=== PATIENT | female | born 1960 | race Caucasian/White ===

== ENCOUNTER → 2018-02-05 15:15 | Outpatient (CLI) | payer BC, SELFPAY ==
--- NOTE | 2018-02-05 15:15 | DT_ITS ---
This patient was seen during an EMR downtime February 04, 2018 - February 11, 2018. This patient may have a combination of paper and electronic documentation or all paper documentation. All documentation is viewable within the e-chart portion of [facility] for each patient visit.
[2018-02-11 20:33] LABS: Free T3 2.1 pg/mL (2.18-3.98); T4 Free Direct 1.25 ng/dL (0.76-1.46)
== END ==
PROVIDERS: Family Provider Family Medicine; PCP Family Medicine; Visit Provider Nurse Practitioner
DX: Z85.850 Personal history of malignant neoplasm of thyroid (principal)
CPT/HCPCS: 36415; 84432; 84439; 84443; 84481; 86800

== ENCOUNTER → 2018-04-19 10:12 | Outpatient (CLI) | payer BC, SELFPAY ==
[2018-04-19 12:57] LABS: Free T3 2.3 pg/mL (2.18-3.98); Thyroid Stim Hormone (TSH) 0.19 uIU/mL (0.358-3.74)
[2018-04-23 10:21] LABS: Vitamin D 1,25-Dihydroxy 43.5 pg/mL (19.9-79.3)
== END ==
PROVIDERS: Family Provider Family Medicine; PCP Family Medicine; Visit Provider Nurse Practitioner
DX: E20.9 Hypoparathyroidism, unspecified (principal); E03.9 Hypothyroidism, unspecified
CPT/HCPCS: 36415; 82330; 82652; 84443; 84481

== ENCOUNTER → 2019-02-21 11:49 | Outpatient (CLI) | payer BC, SELFPAY ==
[2019-02-21 11:55] LABS: Bacteria 0 SEEN /hpf (None Seen); Mucous, Urine 0 SEEN /hpf (<or=2+); Red Blood Cells-Urine 0 SEEN /hpf (0-5); Squamous Epithelial Cells - UA 0 SEEN /hpf (5-10); White Blood Cells 0 SEEN /hpf (0-5)
[2019-02-21 14:16] LABS: Absolute Lymphocyte Count 2.41 X10^3/ul (0.83-4.51); Absolute Neutrophil Count 2.7 X10^3/uL (2.0-7.7); Basophil# 0.05 X10^3/uL; Basophil% 0.9 % (0-1); Eosinophil# 0.08 X10^3/uL; Eosinophils% 1.4 % (0-5); Hematocrit 38.9 % (37-47); Lymphocyte # 2.41 X10^3/ul (4.0); Lymphocyte % 42.9 % (19-41); Mean Corp Hgb Conc 33.4 g/gl (32-36); Mean Corpuscular Hgb 30.9 pg (27.0-32.0); Mean Corpuscular Volume 92.4 fL (81-99); Mean Platelet Vol. 11.1 fl (6.2-12.0); Monocyte% 7.1 % (0-10); Neutrophil # 2.67 X10^3/uL (2.7-7.7); Neutrophil % 47.5 % (47-70); Platelet Count 207 K/mm3 (150-450); RBC Distribution Width CV 13.4 % (11.6-14.6); RBC Distribution Width SD 44.9 fl (35.1-43.9); Red Blood Count 4.21 M/mm3 (4.2-5.4); White Blood Count 5.6 K/mm3 (4.4-11.0)
[2019-02-21 14:18] LABS: POSITIVE COUNT NO; POSITIVE DIFFERENTIAL NO; POSITIVE MORPHOLOGY NO
[2019-02-21 14:30] LABS: ALB/GLOB Ratio 1.4 RATIO (0.9-2.4); AST(SGOT) 15 U/L (15-37); Alanine Aminotransfer ALT/SGPT 18 U/L (13-56); Albumin, Serum 4.1 g/dL (3.2-5.0); Alkaline Phosphatase 78 U/L (45-117); Anion Gap 5 (5-15); BUN 20 mg/dL (7-18); BUN/Creat Ratio 21.7 RATIO (10-20); Calcium,Total 8.4 mg/dL (8.5-10.1); Chloride 108 mmol/L (98-107); Creatinine, Serum 0.92 mg/dL (0.55-1.02); EST Glomerular Filtration Rate 66 mL/min (>60); Est Glom Filt Rate - Afr Amer 80 mL/min (>60); Globulin 2.9 g/dL (2.2-4.2); Glucose 92 mg/dL (74-106); Potassium 3.7 mmol/L (3.5-5.1); Sodium Level 139 mmol/L (136-145); T4 Free Direct 1.13 ng/dL (0.76-1.46); Thyroid Stim Hormone (TSH) 0.91 uIU/mL (0.358-3.74)
[2019-02-21 14:41] LABS: Vitamin D,25 Hydroxy 61.7 ng/mL (29.95-100.01)
[2019-02-21 15:13] LABS: Color, Urine Yellow (Yellow); Glucose, Dipstick Normal (Normal); Ketone-Dipstick Negative (Negative); Leukocyte Esterase-Dipstick Negative /ul (Negative); Nitrite-Dipstick Negative (Negative); Occult Blood-Urine 50 /ul (Negative); Protein-Dipstick Negative (Negative); Urine Bilirubin Dipstick Negative (Negative); Urine Clarity Clear (Clear); Urine Urobilinogen Normal (Normal)
[2019-02-24 17:14] LABS: Anti-Thyroglobulin AB < 1.0 IU/mL (0.0-0.9); Thyroglobulin, Serum Qt. < 0.1 ng/mL (1.5-38.5)
== END ==
PROVIDERS: Family Provider Family Medicine; PCP Family Medicine; Referring Provider Family Medicine; Visit Provider Family Medicine
DX: E89.0 Postprocedural hypothyroidism (principal); E55.9 Vitamin D deficiency, unspecified; Z72.0 Tobacco use; Z82.49 Family history of ischemic heart disease and other diseases of the circulatory system
CPT/HCPCS: 36415; 80053; 81001; 82306; 84432; 84439; 84443; 85025; 86800

== ENCOUNTER → 2019-03-31 15:57 | Outpatient (CLI) | payer BC, SELFPAY | PROVIDERS: Family Provider Family Medicine; PCP Family Medicine; Referring Provider Family Medicine; Visit Provider Family Medicine | DX: R60.0 Localized edema (principal); M79.662 Pain in left lower leg | CPT/HCPCS: 93971 ==

== ENCOUNTER → 2019-04-01 10:16 | Outpatient (CLI) | payer BC, SELFPAY ==
[2019-04-01 11:29] LABS: Erythrocyte Sedimentation Rate 4 mm/hr (0-30)
[2019-04-02 13:16] LABS: ANTINUCLEAR ANTIBODIES DIRECT Negative (Negative)
[2019-04-02 16:07] LABS: Cytoplasmic Ab (C-ANCA) <1:20 titer (Neg:<1:20)
[2019-04-03 15:26] LABS: Perinuclear Ab (P-ANCA) <1:20 titer (Neg:<1:20)
== END ==
PROVIDERS: Family Provider Family Medicine; PCP Family Medicine; Referring Provider Family Medicine; Visit Provider Family Medicine
DX: R21 Rash and other nonspecific skin eruption (principal)
CPT/HCPCS: 36415; 85652; 86038; 86256

== ENCOUNTER → 2019-05-13 15:43 | Outpatient (CLI) | payer BC, SELFPAY ==
[2019-05-13 18:36] LABS: ALB/GLOB Ratio 1.4 RATIO (0.9-2.4); AST(SGOT) 20 U/L (15-37); Alanine Aminotransfer ALT/SGPT 21 U/L (13-56); Albumin, Serum 4.2 g/dL (3.2-5.0); Alkaline Phosphatase 88 U/L (45-117); Anion Gap 8 (5-15); BUN 20 mg/dL (7-18); BUN/Creat Ratio 19.6 RATIO (10-20); Calcium,Total 8.7 mg/dL (8.5-10.1); Chloride 109 mmol/L (98-107); Cholesterol 205 mg/dL (200); Creatinine, Serum 1.02 mg/dL (0.55-1.02); EST Glomerular Filtration Rate 59 mL/min (>60); Est Glom Filt Rate - Afr Amer 71 mL/min (>60); Globulin 2.9 g/dL (2.2-4.2); Glucose 82 mg/dL (74-106); High Density Lipoprotein 67 mg/dL; Protein, Total 7.1 g/dL (6.4-8.2); Sodium Level 142 mmol/L (136-145); Triglycerides 122 mg/dL; Very Low Density Lipoprotein 24 mg/dL (5-40)
== END ==
PROVIDERS: Family Provider Family Medicine; PCP Family Medicine; Referring Provider Family Medicine; Visit Provider Family Medicine
DX: Z00.00 Encounter for general adult medical examination without abnormal findings (principal)
CPT/HCPCS: 36415; 80053; 80061

== ENCOUNTER → 2019-05-27 14:39 | Outpatient (CLI) | payer BC, SELFPAY ==
--- NOTE | 2019-05-27 14:41 | CT_ITS ---
STUDY: LOW DOSE CT LUNG CANCER SCREENING REASON FOR EXAM: Female, 58 years old. Long smoking history. RADIATION DOSAGE (If Supplied By Facility): CTDIvol = ( 2.01 ) mGy, DLP = ( 67.71 ) mGycm TECHNIQUE: Transaxial imaging was performed without the administration of intravenous contrast material. Individualized dose optimization techniques were used for this CT. COMPARISON: Chest radiograph 10/04/16. FINDINGS: Heart and great vessels: Heart size normal. No aneurysm of the thoracic aorta. Lungs, pleura: Irregular in contour 1.0 x 0.8 cm diameter soft tissue density nodule anterior aspect of the lingula, series 2 image 70. 0.6 cm oval soft tissue density nodule superior segment right lower lobe series 2 image 138. No other concerning nodules. No pneumonia or acute pulmonary abnormality. Mild subpleural emphysema and scarring lung apices. Mediastinum: No adenopathy or mass or hematoma. Osseous: No fracture or acute osseous abnormality. Chest wall: No concerning findings. Upper abdomen: No acute findings. CT/Low Dose CT Lung Screening IMPRESSION: 1 cm irregular in contour soft tissue density lingular nodule. Lung-RADs 4A. Consider PET/CT, 3 month follow-up CT chest, or referral for biopsy. 0.6 cm nodule superior segment right lower lobe. Mild emphysema. Electronically Signed: Bassam Marcial, at 0:43 EDT Tel , Service support ,
== END ==
PROVIDERS: Family Provider Family Medicine; PCP Family Medicine; Referring Provider Family Medicine; Visit Provider Family Medicine
DX: Z72.0 Tobacco use (principal); Z53.20 Procedure and treatment not carried out because of patient's decision for unspecified reasons
CPT/HCPCS: G0297

== ENCOUNTER → 2019-08-28 14:48 | Outpatient (CLI) | payer BC, SELFPAY ==
--- NOTE | 2019-08-28 14:50 | CT_ITS ---
STUDY: CT CHEST WITHOUT CONTRAST REASON FOR EXAM: Female, 59 years old. FOLLOW UP 0.6 CM LUNG NODULE SUPERIOR SEGMENT RLL ON LOW DOSE SCREENING 05/27/19. SMOKER 1/2 PPD X 40 YEARS. RADIATION DOSAGE (If Supplied By Facility): CTDIvol = ( 6.13 ) mGy, DLP = ( 238.78 ) mGycm TECHNIQUE: Transaxial imaging was performed without the administration of intravenous contrast material. Multiplanar coronal and sagittal images were reformatted. Individualized dose optimization techniques were used for this CT. COMPARISON: 05/27/2019 FINDINGS: 7 x 10 mm mildly lobular nodule in the anterior left upper lobe on image 41 of series 4 is stable when compared with the prior low-dose CT. Smoothly marginated 6 mm nodule in the medial right lower lobe on image 78 is also stable. 3 mm mildly irregular subpleural nodule in the lateral left lower lobe on image 100 is stable when directly compared to prior study. There is bronchiectasis of the right lower lobe with a small endobronchial nodule on axial image 97 of the current study, measuring 5 mm. There is no demonstrated pleural abnormality. Normal heart and pericardium. There are calcifications of the coronary arteries. Mildly enlarged precarinal lymph node with short axis of 12 mm is stable when compared to the prior study. No hilar adenopathy. Normal unenhanced pulmonary arteries. There is atherosclerotic calcification of the aortic arch with tortuosity and elongation of the aortic arch and descending thoracic aorta. There are multi-level degenerative changes of the thoracic spine. There is no demonstrated abnormality of the visualized upper abdomen. CT/Chest without Contrast IMPRESSION: 1. Stable right lower lobe and left upper lobe pulmonary nodules (largest in the left upper lobe measuring up to 10 mm). 2. New 5 mm bronchial nodular density in the right lower lobe (with bronchiectasis). Differential considerations include inspissated mucoid secretions or solid endobronchial nodule. Nodule is too small for evaluation with PET scan and percutaneous biopsy. Recommend either short-term follow-up chest CT in 3 months versus additional evaluation with bronchoscopy. Electronically Signed: Santos Ramirez MD ([facility]) at 12:21 EST , Service support ,
== END ==
PROVIDERS: Family Provider Family Medicine; PCP Family Medicine; Referring Provider Internal Medicine Pulmonary Disease; Visit Provider Internal Medicine Pulmonary Disease
DX: R91.1 Solitary pulmonary nodule (principal)
CPT/HCPCS: 71250

== ENCOUNTER → 2019-11-06 13:02 | Outpatient (CLI) | payer BC, SELFPAY ==
[2019-11-06 15:58] LABS: Vitamin D,25 Hydroxy 54.8 ng/mL
[2019-11-06 16:12] LABS: T4 Free Direct 1.42 ng/dL (0.76-1.46); Thyroid Stim Hormone (TSH) 0.18 uIU/mL (0.358-3.74)
== END ==
PROVIDERS: PCP Family Medicine; Referring Provider Family Medicine; Visit Provider Family Medicine
DX: E89.0 Postprocedural hypothyroidism (principal); E55.9 Vitamin D deficiency, unspecified
CPT/HCPCS: 36415; 82306; 84439; 84443

== ENCOUNTER → 2020-02-13 14:59 | Outpatient (CLI) | payer BC, SELFPAY ==
[2020-02-13 18:11] LABS: T4 Free Direct 1.04 ng/dL (0.76-1.46); Thyroid Stim Hormone (TSH) 3.55 uIU/mL (0.358-3.74)
== END ==
PROVIDERS: PCP Family Medicine; Visit Provider Family Medicine
DX: E89.0 Postprocedural hypothyroidism (principal)
CPT/HCPCS: 36415; 84439; 84443

== ENCOUNTER → 2020-05-27 14:43 | Outpatient (CLI) | payer BC, SELFPAY ==
--- NOTE | 2020-05-27 14:51 | CT_ITS ---
STUDY: CT CHEST WITHOUT CONTRAST REASON FOR EXAM: Female, 59 years old. PULMONARY NODULE FOLLOW UP RADIATION DOSAGE (If Supplied By Facility): CTDIvol = ( 6.13 ) mGy, DLP = ( 220.55 ) mGycm TECHNIQUE: Transaxial imaging was performed without the administration of intravenous contrast material. Multiplanar coronal and sagittal images were reformatted. Individualized dose optimization techniques were used for this CT. COMPARISON: Comparison is made with prior examination dated 08/28/2019. FINDINGS: Stable small benign-appearing bilateral axillary. There is an 8.5 mm x 6.7 mm mildly lobular nodule in the anterior aspect of the left upper lobe as seen on axial image #36. This is essentially unchanged. Stable 6 mm well-defined nodule in the medial aspect of the right lower lobe as seen on axial image #68. Stable 3.5 mm pleural-based nodule in the lateral aspect of the left lower lobe as seen on axial image #92. Once again, there is focal bronchiectasis in the right lower lobe. Within the dilated bronchus, there is evidence of a 1 cm nodular density. This has increased in size as compared prior study. This may represent mucous plugging. There is no demonstrated pleural abnormality. There are calcifications of the coronary arteries. There are multiple small lymph nodes within the mediastinum, which are normal in size and morphology most compatible with reactive lymph hyperplasia. Normal hilar regions. Normal unenhanced pulmonary arteries. There is atherosclerotic calcification of the aortic arch with tortuosity and elongation of the aortic arch and descending thoracic aorta. There are multi-level degenerative changes of the thoracic spine. There is no demonstrated abnormality of the visualized upper abdomen. CT/Chest without Contrast IMPRESSION: Stable examination except for slight increase in size of the intraluminal filling defect in the bronchiectasis in the right lower lobe. This may be related to squatting. Electronically Signed: Emilio Peterson, at 15:40 EDT , Service support ,
== END ==
PROVIDERS: Family Provider Family Medicine; PCP Family Medicine; Referring Provider Family Medicine; Visit Provider Family Medicine
DX: R91.1 Solitary pulmonary nodule (principal)
CPT/HCPCS: 71250

== ENCOUNTER → 2020-06-12 08:50 | Outpatient (CLI) | payer BC, SELFPAY ==
[2020-06-15 07:44] LABS: Immunoglobulin A 57 mg/dL (87-352); Immunoglobulin G 535 mg/dL (586-1602); Immunoglobulin M 274 mg/dL (26-217)
[2020-06-15 08:06] LABS: Immunoglobulin E 15 IU/mL (6-495)
== END ==
PROVIDERS: PCP Family Medicine; Referring Provider Internal Medicine Pulmonary Disease; Visit Provider Internal Medicine Pulmonary Disease
DX: J47.9 Bronchiectasis, uncomplicated (principal); R49.0 Dysphonia; J30.9 Allergic rhinitis, unspecified
CPT/HCPCS: 36415; 82784; 82785

== ENCOUNTER 2020-07-05 18:48 | Emergency (ER) | payer BC, SELFPAY ==
[2020-07-05 18:49] VITALS: BP 134/74; PULSE 86; RESP 15; TEMP 36.1; O2SAT 100; BMI 20.3
--- NOTE | 2020-07-05 19:22 | ED.VIS.EYE ---
History of Present Illness Chief Complaint: Eye Problem Informant: Patient Location: Right Eye Onset: Yesterday Context: Gradual Onset Timing: Continuous Associated Symptoms - Eyes: Eyelid swelling, Itching History of injury: No Visual correction: Glasses Narrative: Patient is a 60-year-old female presenting with right eyelid and periorbital swelling. She states she noticed a bite above her right eyebrow last night. She had some mild swelling associated with it. As the days progressed today she is had increased swelling around her right eye. She states it is mildly itchy and uncomfortable but not really painful. She states she had some mild intermittent blurry vision but thinks it is just from this swelling of her eyelid. She denies any eye ball pain. She went to urgent care at 1430 today and was prescribed Bactrim and Keflex. She is instructed come to the ER if things got worse because she might require IV antibiotics. Patient sees an manager lvn, Dr. Deleon on [facility] [place]. She states she had spider bite on her arm in the past that felt similar. Patient denies any pain with movement of her eyeball. No other complaints at this time. Past Medical History - Allergies and Home Meds Allergies/Adverse Reactions: Allergies prednisone Allergy (Unknown, Verified 07/05/20 18:50) Unknown erythromycin base [From Erythrocin] Allergy (Verified 07/05/20 18:50) Hives Primary Care Physician: Adam Mendoza MD [Primary Care Provider] - Past Medical History: - - History of thyroid cancer, seasonal allergies, asthma Surgical History: noncontributory Smoking Status: Current every day smoker Review of Systems General: Denies: Chills, Fever, Sweats Eyes: Reports: - - right eyelid swelling . Denies: Visual changes - bilaterally, Blurred Vision - bilaterally, Diplopia ENT: Denies: Bilateral ear pain, Rhinorrhea, Sore throat Cardiovascular: Denies: Chest pain, Palpitations Respiratory: Denies: Dyspnea, Cough, Dyspnea on exertion Gastrointestinal: Denies: Abdominal pain, Nausea, Vomiting, Diarrhea Musculoskeletal: Denies: Back pain, Extremity Pain Skin: Reports: - - swelling around right eye . Denies: Rash, Wounds Neurological: Denies: Headache, Weakness, Numbness Physical Exam Visual Acuity: right: 20/30, left: 20/20 Visual Acuity: Corrected Eyelid: Edema to right eyelid, Erythema right eyelid - mild Right Conjunctiva/Sclera: Normal inspection, No erythema Left Conjunctiva/Sclera: Normal inspection, No erythema Right Cornea: Normal inspection Left Cornea: Normal inspection Extraocular Motion: Normal exam, No pain, No palsy, No nystagmus Pupils: PERRL Right pupil size in mm: 3 Left pupil size in mm: 3 Vital Signs/Narrative: Vital Signs Temp Pulse Resp BP Pulse Ox 07/05/20 18:49 97.0 F L 86 15 134/74 H 100 General: Well nourished, Well developed Head: Normocephalic, Atraumatic ENT: Moist mucous membranes, No rhinorrhea Neck: Supple, Nontender Cardiovascular: Regular rate, Regular rhythm, No murmurs Respiratory: No distress, CTA bilaterally, Chest nontender Abdomen: Soft, Nontender, Nondistended, Normal bowel sounds Back: Nontender, Normal Inspection Extremities: Nontender, No edema Skin: Normal color, No rash, - - Significant periorbital edema with mild warmth but not really erythematous. No induration or fluctuance noted. There is a 2 mm superficial abrasion to the top of the right eyebrow that is nontender. No associated drainage is noted. Neurological: Alert, Oriented x3, Cranial nerves II-XII grossly intact, Normal Strength, Normal Sensation Psychological: Normal affect Diagnostic/Tx/Re-eval - Medical Decision Making Patient is evaluated for itching and swelling around her right eye. She was seen in urgent care earlier today where she was diagnosed with possible periorbital cellulitis and started on Bactrim and Keflex. She is had 1 dose today. Patient think she had a bug bite on her eye that caused the swelling. There is a small abrasion but no obvious evidence of a bug bite. The swelling is not entirely consistent with a cellulitis. It is mildly warm but could just be from the edema itself. There is not significant erythematous changes to the skin. She has normal range of motion I do not think she has a post septal cellulitis. I do not palpate any abscess. She is not particularly tender and is more itchy than anything so this could be a localized allergic reaction. Patient is instructed to continue taking her antibiotics but to also start taking Benadryl and do cool compresses. She states she was instructed previously to do warm compresses which I think would make her swelling worse. She is instructed to follow-up with her eye doctor in the next day or 2 for repeat evaluation. At this time I do not think she requires IV antibiotics. I do not think imaging is indicated. I did discuss with on-call manager lvn, Dr. Perez, make sure the office reaches out to her tomorrow. 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 Patient is counseled on signs and symptoms requiring return to the emergency room. Patient verbalizes agreement and understand this plan. Patient discharged home in stable and improved condition. ED Disposition - Plan for ED Patient: Disposition: Home or Assisted Living Diagnosis: Swelling of right eyelid Instructions: ED Insect Sting Local Reaction Referrals: Adam Mendoza MD [Primary Care Provider] - Additional Instructions: Not clear if this is a localized allergic reaction is causing the swelling around her eye or vision early infection. Continue taking antibiotics prescribed you today as well start taking Benadryl and using cool compresses to your eye to see if that helps with the swelling. Please call your eye doctor office tomorrow to be seen for repeat evaluation in the next day or 2. Return to emergency room if you develop fever, difficulty moving your eyeball or worsening redness and swelling/worsening pain of the eye area. Please give the antibiotics about 48 hours to work and return if there is no improvement within 48 hours.
[2020-07-05 20:11] VITALS: BP 134/74; PULSE 86; RESP 15; O2SAT 100
== END 2020-07-05 20:12 | disposition home or self-care (01) ==
PROVIDERS: Emergency Provider Emergency Medicine; PCP Family Medicine
DX: H02.843 Edema of right eye, unspecified eyelid (principal); F17.200 Nicotine dependence, unspecified, uncomplicated
CPT/HCPCS: 99283

== ENCOUNTER → 2020-09-13 15:12 | Outpatient (CLI) | payer BC, SELFPAY ==
[2020-09-13 18:02] LABS: Absolute Lymphocyte Count 2.27 X10^3/uL (0.83-4.51); Basophil# 0.06 X10^3/uL; Eosinophil# 0.09 X10^3/uL; Eosinophils% 1.5 % (0-5); Hematocrit 40.3 % (37-47); Hemoglobin 13.1 g/dL (12.0-15.0); Lymphocyte # 2.27 X10^3/ul (4.0); Lymphocyte % 38.9 % (19-41); Mean Corp Hgb Conc 32.5 g/dL (32-36); Mean Corpuscular Hgb 30.3 pg (27.0-32.0); Mean Corpuscular Volume 93.3 fL (81-99); Mean Platelet Vol. 10.9 fl (6.2-12.0); Monocyte# 0.39 X10^3/uL; Monocyte% 6.7 % (0-10); NRBC Flagged by Analyzer 0 % (0-5); Neutrophil # 3.01 X10^3/uL (2.7-7.7); Neutrophil % 51.7 % (47-70); Platelet Count 230 K/mm3 (150-450); RBC Distribution Width CV 13.2 % (11.6-14.6); RBC Distribution Width SD 45.4 fl (35.1-43.9); Red Blood Count 4.32 M/mm3 (4.2-5.4); White Blood Count 5.8 K/mm3 (4.4-11.0)
[2020-09-13 18:14] LABS: Vitamin D,25 Hydroxy 41.8 ng/mL
[2020-09-13 18:36] LABS: ALB/GLOB Ratio 1.3 RATIO (0.9-2.4); AST(SGOT) 14 U/L (15-37); Alanine Aminotransfer ALT/SGPT 18 U/L (13-56); Alkaline Phosphatase 87 U/L (45-117); Anion Gap 9 (5-15); BUN 20 mg/dL (7-18); BUN/Creat Ratio 18.2 RATIO (10-20); Calcium,Total 8.9 mg/dL (8.5-10.1); Chloride 107 mmol/L (98-107); EST Glomerular Filtration Rate 54 mL/min (>60); Est Glom Filt Rate - Afr Amer 65 mL/min (>60); Globulin 3.1 g/dL (2.2-4.2); Glucose 82 mg/dL (74-106); Potassium 3.9 mmol/L (3.5-5.1); Protein, Total 7.1 g/dL (6.4-8.2); Sodium Level 138 mmol/L (136-145); T4 Free Direct 1.21 ng/dL (0.76-1.46)
[2020-09-16 20:37] LABS: Anti-Thyroglobulin AB < 1.0 IU/mL (0.0-0.9); Thyroglobulin, Serum Qt. < 0.1 ng/mL (1.5-38.5)
== END ==
PROVIDERS: PCP Family Medicine; Referring Provider Family Medicine; Visit Provider Family Medicine
DX: E89.0 Postprocedural hypothyroidism (principal); E55.9 Vitamin D deficiency, unspecified; Z72.0 Tobacco use; Z85.850 Personal history of malignant neoplasm of thyroid
CPT/HCPCS: 36415; 80053; 82306; 84432; 84439; 84443; 85025; 86800

== ENCOUNTER → 2020-09-17 15:53 | Outpatient (CLI) | payer BC, SELFPAY ==
--- NOTE | 2020-09-17 16:02 | US_ITS ---
STUDY: THYROID ULTRASOUND REASON FOR EXAM: Female, 60 years old. HX THYROID CANCER -- COMPLETE THYROIDECTOMY TECHNIQUE: Ultrasound evaluation of the expected region of the thyroid gland was performed with real-time and static eller-scale imaging. COMPARISON: None. FINDINGS: There are no discrete solid or cystic lesions within the thyroidectomy bed. No pathologically enlarged lymph nodes are visualized. US/Thyroid IMPRESSION: No discrete solid or cystic lesions within the thyroidectomy bed. Electronically Signed: Tammy Moore MD at 19:00 EST Tel , Service support ,
== END ==
PROVIDERS: PCP Family Medicine; Referring Provider Family Medicine; Visit Provider Family Medicine
DX: Z85.850 Personal history of malignant neoplasm of thyroid (principal)
CPT/HCPCS: 76536

== ENCOUNTER → 2020-12-10 14:45 | Outpatient (CLI) | payer BC, SELFPAY ==
[2020-12-10 17:52] LABS: Absolute Lymphocyte Count 2.29 X10^3/uL (0.83-4.51); Absolute Neutrophil Count 3.6 X10^3/uL (2.0-7.7); Basophil# 0.04 X10^3/uL; Basophil% 0.6 % (0-1); Eosinophil# 0.11 X10^3/uL; Eosinophils% 1.7 % (0-5); Hematocrit 38.7 % (37-47); Hemoglobin 12.8 g/dL (12.0-15.0); Lymphocyte # 2.29 X10^3/ul (4.0); Lymphocyte % 35.4 % (19-41); Mean Corp Hgb Conc 33.1 g/dL (32-36); Mean Corpuscular Hgb 31.7 pg (27.0-32.0); Mean Corpuscular Volume 95.8 fL (81-99); Mean Platelet Vol. 11.2 fl (6.2-12.0); Monocyte# 0.45 X10^3/uL; NRBC Flagged by Analyzer 0 % (0-5); Neutrophil # 3.56 X10^3/uL (2.7-7.7); Platelet Count 229 K/mm3 (150-450); RBC Distribution Width CV 12.9 % (11.6-14.6); RBC Distribution Width SD 45.7 fl (35.1-43.9); Red Blood Count 4.04 M/mm3 (4.2-5.4); White Blood Count 6.5 K/mm3 (4.4-11.0)
[2020-12-10 18:29] LABS: Vitamin D,25 Hydroxy 60.4 ng/mL
[2020-12-10 18:31] LABS: ALB/GLOB Ratio 1.3 RATIO (0.9-2.4); AST(SGOT) 14 U/L (15-37); Alanine Aminotransfer ALT/SGPT 17 U/L (13-56); Alkaline Phosphatase 87 U/L (45-117); Anion Gap 5 (5-15); BUN 19 mg/dL (7-18); BUN/Creat Ratio 21.5 RATIO (10-20); Calcium,Total 8.4 mg/dL (8.5-10.1); Chloride 107 mmol/L (98-107); Creatinine, Serum 0.88 mg/dL (0.55-1.02); EST Glomerular Filtration Rate 69 mL/min (>60); Est Glom Filt Rate - Afr Amer 84 mL/min (>60); Glucose 86 mg/dL (74-106); Phosphorus 3.9 mg/dL (2.5-4.9); Sodium Level 138 mmol/L (136-145); T4 Free Direct 1.16 ng/dL (0.76-1.46); Thyroid Stim Hormone (TSH) 4.02 uIU/mL (0.358-3.74)
[2020-12-13 09:53] LABS: PTHIN 48.7 pg/mL (18.4-80.1)
== END ==
PROVIDERS: PCP Family Medicine; Referring Provider Family Medicine; Visit Provider Family Medicine
DX: N18.30 Chronic kidney disease, stage 3 unspecified (principal); E89.0 Postprocedural hypothyroidism; E55.9 Vitamin D deficiency, unspecified
CPT/HCPCS: 36415; 80053; 82306; 83970; 84100; 84439; 84443; 85025

== ENCOUNTER → 2021-03-14 14:37 | Outpatient (CLI) | payer BC, SELFPAY ==
[2021-03-14 17:35] LABS: Absolute Lymphocyte Count 2.65 X10^3/uL (0.83-4.51); Absolute Neutrophil Count 3.7 X10^3/uL (2.0-7.7); Basophil# 0.07 X10^3/uL; Eosinophil# 0.08 X10^3/uL; Eosinophils% 1.1 % (0-5); Hematocrit 41.1 % (37-47); Hemoglobin 13.8 g/dL (12.0-15.0); Lymphocyte # 2.65 X10^3/ul (0.83-4.51); Lymphocyte % 37.6 % (19-41); Mean Corp Hgb Conc 33.6 g/dL (32-36); Mean Corpuscular Hgb 31.2 pg (27.0-32.0); Mean Corpuscular Volume 92.8 fL (81-99); Mean Platelet Vol. 11.2 fl (6.2-12.0); Monocyte# 0.56 X10^3/uL; Monocyte% 7.9 % (0-10); NRBC Flagged by Analyzer 0 % (0-5); Neutrophil # 3.67 X10^3/uL (2.7-7.7); Neutrophil % 52.1 % (47-70); Platelet Count 251 K/mm3 (150-450); RBC Distribution Width CV 12.7 % (11.6-14.6); RBC Distribution Width SD 43.4 fl (35.1-43.9); Red Blood Count 4.43 M/mm3 (4.2-5.4); White Blood Count 7.1 K/mm3 (4.4-11.0)
[2021-03-14 18:12] LABS: Vitamin D,25 Hydroxy 69.6 ng/mL
[2021-03-14 18:28] LABS: ALB/GLOB Ratio 1.3 RATIO (0.9-2.4); AST(SGOT) 19 U/L (15-37); Alanine Aminotransfer ALT/SGPT 16 U/L (13-56); Albumin, Serum 4.1 g/dL (3.2-5.0); Alkaline Phosphatase 90 U/L (45-117); Anion Gap 7 (5-15); BUN 17 mg/dL (7-18); Calcium,Total 9.3 mg/dL (8.5-10.1); Chloride 101 mmol/L (98-107); Creatinine, Serum 1.06 mg/dL (0.55-1.02); EST Glomerular Filtration Rate 56 mL/min (>60); Est Glom Filt Rate - Afr Amer 68 mL/min (>60); Globulin 3.2 g/dL (2.2-4.2); Glucose 78 mg/dL (74-106); Potassium 3.9 mmol/L (3.5-5.1); Protein, Total 7.3 g/dL (6.4-8.2); Sodium Level 136 mmol/L (136-145); T4 Free Direct 1.27 ng/dL (0.76-1.46); Thyroid Stim Hormone (TSH) 3.63 uIU/mL (0.358-3.74)
== END ==
PROVIDERS: PCP Family Medicine; Referring Provider Family Medicine; Visit Provider Family Medicine
DX: N18.30 Chronic kidney disease, stage 3 unspecified (principal); E89.0 Postprocedural hypothyroidism; E55.9 Vitamin D deficiency, unspecified
CPT/HCPCS: 36415; 80053; 82306; 84439; 84443; 85025

== ENCOUNTER → 2021-03-16 15:52 | Outpatient (CLI) | payer BC, SELFPAY ==
--- NOTE | 2021-03-16 15:54 | RAD_ITS ---
STUDY: X-RAY - RIGHT KNEE REASON FOR EXAM: Female, 60 years old. pain and swelling, more in the left knee TECHNIQUE: 4 view(s) of the knee. COMPARISON: None. FINDINGS: Normal visualized distal femur. Normal visualized proximal tibia and fibula. Normal proximal tibiofibular articulation. There is no demonstrated fracture. There is mild degenerative arthrosis of the medial femorotibial compartment. Normal lateral femorotibial compartment. Normal patellofemoral articulation. There is no demonstrated joint effusion. The soft tissue structures are unremarkable. RAD/Knee 4 or More Views IMPRESSION: Mild medial joint space narrowing Electronically Signed: Champ John MD at 16:15 EDT , Service support ,
--- NOTE | 2021-03-16 15:54 | RAD_ITS ---
STUDY: X-RAY - LEFT KNEE REASON FOR EXAM: Female, 60 years old. KNEE PAIN TECHNIQUE: 4 view(s) of the knee. COMPARISON: None. FINDINGS: Normal visualized distal femur. Normal visualized proximal tibia and fibula. Normal proximal tibiofibular articulation. There is no demonstrated fracture. Normal medial femorotibial compartment. There is mild degenerative arthrosis of the lateral femorotibial compartment. Normal patellofemoral articulation. There is a moderate volume joint effusion. The soft tissue structures are unremarkable. RAD/Knee 4 or More Views IMPRESSION: 1. Degenerative arthrosis. Moderate size joint effusion. Electronically Signed: Champ John MD at 16:16 EDT , Service support ,
== END ==
PROVIDERS: PCP Family Medicine; Referring Provider Family Medicine; Visit Provider Family Medicine
DX: M25.561 Pain in right knee (principal); M25.562 Pain in left knee
CPT/HCPCS: 73564

== ENCOUNTER → 2021-05-27 14:56 | Outpatient (CLI) | payer BC, SELFPAY ==
--- NOTE | 2021-05-27 15:01 | CT_ITS ---
STUDY: CT CHEST WITHOUT CONTRAST REASON FOR EXAM: Female, 60 years old. Follow-up of left breast nodule and bronchiectasis. History of thyroid cancer and radiation. Patient smoked 1 pack per day for 40 years. RADIATION DOSAGE (If Supplied By Facility): CTDIvol = ( 5.16 ) mGy, DLP = ( 178.26 ) mGycm TECHNIQUE: Transaxial imaging was performed without the administration of intravenous contrast material. Multiplanar coronal and sagittal images were reformatted. Individualized dose optimization techniques were used for this CT. COMPARISON: Comparison is made with prior examination of 05/27/2020. FINDINGS: Stable small benign appearing bilateral axillary lymph nodes. Stable focal bronchiectasis in the lower lobe. The airspace does not contain fluid at this time. Stable 7 mm x 8 mm well-defined nodule in the anterior medial aspect of the left upper lobe as seen on axial image #36. Stable 6 mm well-defined nodule in the medial aspect of the right lower lobe as seen on axial image #70. There is no demonstrated pleural abnormality. There are calcifications of the coronary arteries. There are multiple small lymph nodes within the mediastinum, which are normal in size and morphology most compatible with reactive lymph hyperplasia. Normal hilar regions. Normal unenhanced pulmonary arteries. There is atherosclerotic calcification of the aortic arch with tortuosity and elongation of the aortic arch and descending thoracic aorta. There are degenerative changes of the thoracic spine. There is a 1 cm hypodense lesion in the left adrenal gland suggestive of a small adrenal adenoma. CT/Chest without Contrast IMPRESSION: Stable examination. Electronically Signed: Emilio Peterson MD at 15:29 EDT , Service support ,
== END ==
PROVIDERS: PCP Family Medicine; Referring Provider Internal Medicine Pulmonary Disease; Visit Provider Internal Medicine Pulmonary Disease
DX: R91.8 Other nonspecific abnormal finding of lung field (principal)
CPT/HCPCS: 71250

== ENCOUNTER 2021-06-30 00:25 | Emergency (ER) | payer BC, SELFPAY ==
[2021-06-30] VITALS (9 sets, daily range): BP systolic 124–178; BP diastolic 46–145; PULSE 79–100; RESP 16–26; TEMP 36.5; O2SAT 83–100; BMI 21.6
--- NOTE | 2021-06-30 00:28 | RAD_ITS ---
STUDY: X-RAY CHEST REASON FOR EXAM: Female, 61 years old. SOB TECHNIQUE: Single AP portable view of the chest. COMPARISON: October 04, 2016 chest x-ray FINDINGS: The lungs are hyperinflated. Lung markings are stable since prior study.. There is no demonstrated pleural abnormality. Normal size heart. Normal mediastinum and chris. Normal visualized pulmonary arteries. There is atherosclerotic calcification of the aortic arch with tortuosity. Normal visualized thoracic spine. Normal visualized ribs, clavicles, and shoulders. There is no demonstrated abnormality of the visualized soft tissue structures of the upper abdomen. RAD/Chest 1 View (Portable) IMPRESSION: Stable chest. No visualized acute focal infiltrate. Electronically Signed: Liset Whitley MD at 2:07 EDT Tel , Service support ,
--- NOTE | 2021-06-30 00:29 | EKG12_ITS ---
Test Reason : SOB Blood Pressure : / mmHG Vent. Rate : 086 BPM Atrial Rate : 086 BPM P-R Int : 144 ms QRS Dur : 076 ms QT Int : 378 ms P-R-T Axes : 069 004 051 degrees QTc Int : 452 ms Normal sinus rhythm Normal ECG Confirmed by SILVA RAMOS, BARRY ([id number]), editor house organ JEMAL CANTOR ([id number]) on 07/01/2021 9:35:45 AM Referred By: PL Confirmed By:BARRY ASCENCIO MD
--- NOTE | 2021-06-30 00:30 | ED.VIS.DYS ---
HPI History of Present Illness Chief Complaint: Shortness of Breath Informant: patient Narrative Narrative: Patient presents with dyspnea. Its been going on waxing and waning for the last couple days. She has been wheezing. She is a lifelong heavy smoker. Her chart mentions asthma and she has been seen for this before but she carries no firm diagnosis of COPD. She has used inhalers but does not use them regularly. She states she has been seen here in the past treated with breathing treatments and gotten better. She has been coughing but no real sputum production other than a little bit of whitish-ricketts today. No blood. No chest pain. No leg swelling or pain. No travel or personal history of DVT or PE. No family history. Nothing really makes the symptoms better or worse that she has tried so far. [facility] Medical History (Updated 06/30/21 @ 03:[address] Simba Carroll MD) Asthma Cancer Hives Low calcium levels Recurrent UTI Seasonal allergies Thyroid ca Home Medications levothyroxine 100 mcg PO DAILY 07/05/20 [History Last Taken Unknown] albuterol sulfate [Ventolin HFA] 2 puff INHALATION Q4H PRN PRN #1 inhaler 06/30/21 [Rx Last Taken Unknown] Allergy/AdvReac Type Severity Reaction Status Date / Time prednisone Allergy Unknown Unknown Verified 07/05/20 18:50 erythromycin base Allergy Hives Verified 07/05/20 18:50 [From Erythrocin] Family History Mother Asthma Heart disease CVA (cerebral vascular accident) High cholesterol Surgical History H/O thyroidectomy H/O: Social History Smoking Status: Current every day smoker tobacco type: cigarettes second hand exposure: No alcohol intake: current substance use type: does not use ROS ROS ED Constitutional Constitutional ED: Denies chills or fever(s) Eyes Eyes: Denies blurry vision ENT ENT ED: Denies rhinorrhea or sore throat Cardiovascular Cardiovascular: Denies chest pain or palpitations Respiratory/Chest Respiratory/Chest: Reports cough, dyspnea and sputum Gastrointestinal Gastrointestinal: Denies abdominal pain, nausea or vomiting Genitourinary Genitourinary ED: Denies hematuria Musculoskeletal Musculoskeletal: Denies myalgias Integumentary Denies rash Neurologic Neurologic: Denies paresthesias or weakness Psychiatric Psychiatric: Denies anxiety Endocrine Endocrinology: Denies polyuria Hematologic/Lymphatic Hematologic/Lymphatic: Denies easy bruising Allergic/Immunologic Allergic/Immunologic ED: Denies urticaria EXAM Physical Exam Const Vital Signs: 06/30/21 00:26 06/30/21 00:32 06/30/21 00:45 Temperature 97.7 F L Temperature Source Temporal Pulse Rate 100 92 94 Respiratory Rate 26 H 24 H 20 H Respiratory Effort Short of Breath Respiratory Depth Shallow Respiratory Pattern Tachypnea Tachypnea Blood Pressure 178/145 H Blood Pressure Mean 156 Pulse Ox 83 100 Oxygen Delivery Method Room Air Room Air Oxygen Flow Rate (L/min) 4 06/30/21 01:25 06/30/21 01:36 06/30/21 02:09 Temperature Temperature Source Pulse Rate 87 86 80 Respiratory Rate 18 17 16 Respiratory Effort Respiratory Depth Respiratory Pattern Normal Blood Pressure 124/66 H 148/69 H Blood Pressure Mean 85 95 Pulse Ox 98 Oxygen Delivery Method Oxygen Flow Rate (L/min) 06/30/21 03:22 Temperature Temperature Source Pulse Rate 79 Respiratory Rate 16 Respiratory Effort Respiratory Depth Respiratory Pattern Blood Pressure 127/63 H Blood Pressure Mean 84 Pulse Ox 91 Oxygen Delivery Method Room Air Oxygen Flow Rate (L/min) Patient standing at the bedside. She has saturations that are about 84 to 87% on room air showing fair hypoxia. But she is awake alert and talking. She does have to speak in short sentences. She has poor air motion bilaterally. I really do not hear wheezes but this might be due to poor airflow. No rales or rhonchi heard. Positive well nourished HEENT atraumatic Eyes EOMs intact bilaterally General Eye ED: Negative for pale conjunctiva or scleral icterus Neck supple and no JVD Resp Resp Narrative: See above. Increased respiratory effort. Increased respiratory rate. Very poor air motion. Cardio regular rate, regular rhythm and no murmurs GI non-tender Palpation: soft Extremity normal to inspection Extremity Narrative: No edema, cords, tenderness along the deep venous system. General Extremety ED: Negative for edema or tenderness General Extremity: Negative for edema Neuro oriented x3 Sensorium / Orientation: alert; Negative for lethargic or stuporous Psych mental status grossly normal Skin Lesions: no lesions Rashes: no rashes MDM MDM MDM Narrative Medical decision making narrative: Patient is rechecked. She is feeling looking a little bit better. She is wheezing a bit. But she is actually moving some air now. We will get her another treatment. I rechecked the patient. She is moving air much better now. I turned her oxygen down to 2 L. She is staying in about 94 to 96%. We will turn that down to 0 to see how she does. She would like to try to go home. I need to make sure that she is not hypoxic. Patient walked and her saturations were moving generally 93%. She dropped once to 91%. She felt good. She wants to go home. I will send her home with an albuterol inhaler as well as prescription. I will also write a prescription for prednisone. We discussed reasons to return and the importance of smoking cessation even at this point. Patient is allergic to prednisone. It causes some swelling and fluid retention. She states she cannot tolerate this. That occurred with just 3 days of treatment. If I write for this she will not be taking it. I will write for a single dose of Decadron here to see if that will help her. Lab Data Attestation: I reviewed the patient's lab results. Labs: Laboratory Results - last 24 hr 06/30/21 06/30/21 06/30/21 00:35 00:35 00:35 WBC 9.1 RBC 4.52 Hgb 14.0 Hct 42.1 MCV 93.1 MCH 31.0 MCHC 33.3 RDW Std Deviation 43.8 RDW Coeff of Braeden 12.6 Plt Count 308 MPV 9.6 Immature Gran % (Auto) 0.300 Neut % (Auto) 52.8 Lymph % (Auto) 36.9 [place] % (Auto) 7.8 Eos % (Auto) 1.5 Baso % (Auto) 0.7 Absolute Neuts (auto) 4.8 Absolute Lymphs (auto) 3.34 Nucleated RBC % 0 D-Dimer Quant (PE/DVT) Sodium 141 Potassium 3.7 Chloride 107 Carbon Dioxide 28.0 Anion Gap 6 BUN 9 Creatinine 0.92 Estim Creat Clear Calc 60.11 Est GFR (MDRD) Af Amer 80 Est GFR (MDRD) Non-Af 66 BUN/Creatinine Ratio 9.8 L Glucose 122 H Calcium 8.6 Troponin I High Sens 15 B-Natriuretic Peptide 52.4 06/30/21 01:33 WBC RBC Hgb Hct MCV MCH MCHC RDW Std Deviation RDW Coeff of Braeden Plt Count MPV Immature Gran % (Auto) Neut % (Auto) Lymph % (Auto) [place] % (Auto) Eos % (Auto) Baso % (Auto) Absolute Neuts (auto) Absolute Lymphs (auto) Nucleated RBC % D-Dimer Quant (PE/DVT) 0.32 Sodium Potassium Chloride Carbon Dioxide Anion Gap BUN Creatinine Estim Creat Clear Calc Est GFR (MDRD) Af Amer Est GFR (MDRD) Non-Af BUN/Creatinine Ratio Glucose Calcium Troponin I High Sens B-Natriuretic Peptide Radiography Diagnostic Testing: Clinical Impression(s) from Imaging Studies Chest X-Ray 06/30/21 00:28 IMPRESSION: Stable chest. No visualized acute focal infiltrate. Electronically Signed: Liset Whitley MD at 2:07 EDT Tel , Service support , Discharge Plan Triage Chief Complaint: Shortness of Breath ED Provider: Simba Carroll Dx/Rx/DC Orders Clinical Impression: Asthma exacerbation in COPD Instructions: ED COPD Flare Prescriptions: New albuterol sulfate [Ventolin HFA] 1 INHALER inhaler 2 puff inhalation Q4H PRN PRN (Reason: Wheezing) Qty: 1 RF: 0 No Action levothyroxine 100 MCG tablet 100 mcg PO DAILY RF: 0 Primary Care Provider: Adam Mendoza Referrals: Adam Mendoza MD [Primary Care Provider] - 3-5 Days Disposition Disposition: Home, Self Care
[2021-06-30] MEDS: Albuterol 2.5 MG/3 ML VIAL.NEB. INHALATION ×2 (00:34→01:35)
[2021-06-30] MEDS: Ipratropium/Albuterol Sulfate 3 ML AMPUL.NEB INHALATION (00:34)
[2021-06-30] MEDS: MethylPREDNISolone 125 MG/2 ML Vial IV (00:36)
[2021-06-30 00:41] LABS: Absolute Lymphocyte Count 3.34 X10^3/uL (0.83-4.51); Absolute Neutrophil Count 4.8 X10^3/uL (2.0-7.7); Basophil# 0.06 X10^3/uL; Basophil% 0.7 % (0-1); Eosinophil# 0.14 X10^3/uL; Eosinophils% 1.5 % (0-5); Hematocrit 42.1 % (37-47); Lymphocyte # 3.34 X10^3/ul (0.83-4.51); Lymphocyte % 36.9 % (19-41); Mean Corp Hgb Conc 33.3 g/dL (32-36); Mean Corpuscular Volume 93.1 fL (81-99); Mean Platelet Vol. 9.6 fl (6.2-12.0); Monocyte# 0.71 X10^3/uL; Monocyte% 7.8 % (0-10); NRBC Flagged by Analyzer 0 % (0-5); Neutrophil # 4.78 X10^3/uL (2.7-7.7); Neutrophil % 52.8 % (47-70); Platelet Count 308 K/mm3 (150-450); RBC Distribution Width CV 12.6 % (11.6-14.6); RBC Distribution Width SD 43.8 fl (35.1-43.9); Red Blood Count 4.52 M/mm3 (4.2-5.4); White Blood Count 9.1 K/mm3 (4.4-11.0)
[2021-06-30 00:57] LABS: Anion Gap 6 (5-15); BUN 9 mg/dL (7-18); BUN/Creat Ratio 9.8 RATIO (10-20); Calcium,Total 8.6 mg/dL (8.5-10.1); Chloride 107 mmol/L (98-107); Creatinine, Serum 0.92 mg/dL (0.55-1.02); EST Glomerular Filtration Rate 66 mL/min (>60); Est Glom Filt Rate - Afr Amer 80 mL/min (>60); Estimated Creatinine Clearance 60.11 ml/min; Glucose 122 mg/dL (74-106); Potassium 3.7 mmol/L (3.5-5.1); Sodium Level 141 mmol/L (136-145); Troponin-I HS 15 pg/mL (3.0-54.0)
[2021-06-30 01:06] LABS: BNP,B-Type NATRIURETIC PEPTIDE 52.4 pg/mL (0-100)
[2021-06-30 02:10] LABS: D-Dimer Quantitative (DVT/PE) 0.32 FEU/ug/m (0.27-0.49)
[2021-06-30] MEDS: dexAMETHasone 4 MG Tablet 10 MG PO (03:45)
== END 2021-06-30 03:48 | disposition home or self-care (01) ==
PROVIDERS: Emergency Provider Emergency Medicine; PCP Family Medicine
DX: J45.901 Unspecified asthma with (acute) exacerbation (principal); J44.9 Chronic obstructive pulmonary disease, unspecified; Z20.822 Contact with and (suspected) exposure to COVID-19; E89.0 Postprocedural hypothyroidism; F17.210 Nicotine dependence, cigarettes, uncomplicated; Z79.890 Hormone replacement therapy; Z79.899 Other long term (current) drug therapy; Z85.850 Personal history of malignant neoplasm of thyroid
CPT/HCPCS: 71045; 80048; 83880; 84484; 85025; 85379; 87426; 93005; 94640; 96374; 99285; A4216

== ENCOUNTER → 2021-07-14 14:47 | Outpatient (CLI) | payer BC, SELFPAY ==
[2021-07-14 17:37] LABS: Absolute Lymphocyte Count 2.87 X10^3/uL (0.83-4.51); Absolute Neutrophil Count 3.1 X10^3/uL (2.0-7.7); Basophil# 0.08 X10^3/uL; Basophil% 1.2 % (0-1); Eosinophil# 0.13 X10^3/uL; Hematocrit 37.7 % (37-47); Hemoglobin 12.7 g/dL (12.0-15.0); Lymphocyte # 2.87 X10^3/ul (0.83-4.51); Lymphocyte % 43.1 % (19-41); Mean Corp Hgb Conc 33.7 g/dL (32-36); Mean Corpuscular Hgb 31.1 pg (27.0-32.0); Mean Corpuscular Volume 92.4 fL (81-99); Mean Platelet Vol. 10.9 fl (6.2-12.0); Monocyte# 0.45 X10^3/uL; Monocyte% 6.8 % (0-10); NRBC Flagged by Analyzer 0 % (0-5); Neutrophil # 3.11 X10^3/uL (2.7-7.7); Neutrophil % 46.6 % (47-70); Platelet Count 226 K/mm3 (150-450); RBC Distribution Width CV 12.8 % (11.6-14.6); RBC Distribution Width SD 43.4 fl (35.1-43.9); Red Blood Count 4.08 M/mm3 (4.2-5.4); White Blood Count 6.7 K/mm3 (4.4-11.0)
[2021-07-14 18:07] LABS: ALB/GLOB Ratio 1.2 RATIO (0.9-2.4); AST(SGOT) 14 U/L (15-37); Alanine Aminotransfer ALT/SGPT 15 U/L (13-56); Albumin, Serum 3.7 g/dL (3.2-5.0); Alkaline Phosphatase 83 U/L (45-117); Anion Gap 8 (5-15); BUN 14 mg/dL (7-18); BUN/Creat Ratio 15.7 RATIO (10-20); Calcium,Total 8.3 mg/dL (8.5-10.1); Chloride 102 mmol/L (98-107); Creatinine, Serum 0.89 mg/dL (0.55-1.02); EST Glomerular Filtration Rate 68 mL/min (>60); Est Glom Filt Rate - Afr Amer 83 mL/min (>60); Globulin 3.2 g/dL (2.2-4.2); Glucose 68 mg/dL (74-106); Potassium 3.9 mmol/L (3.5-5.1); Protein, Total 6.9 g/dL (6.4-8.2); Sodium Level 137 mmol/L (136-145); T4 Free Direct 1.17 ng/dL (0.76-1.46); Thyroid Stim Hormone (TSH) 3.57 uIU/mL (0.358-3.74)
[2021-07-14 18:18] LABS: Vitamin D,25 Hydroxy 65.6 ng/mL
== END ==
PROVIDERS: PCP Family Medicine; Referring Provider Family Medicine; Visit Provider Family Medicine
DX: E89.0 Postprocedural hypothyroidism (principal); E55.9 Vitamin D deficiency, unspecified; Z72.0 Tobacco use
CPT/HCPCS: 80053; 82306; 84439; 84443; 85025

== ENCOUNTER → 2022-01-16 | Outpatient (CLI) | payer BC, SELFPAY ==
[2022-01-16 15:13] LABS: Absolute Lymphocyte Count 2.64 X10^3/uL (0.83-4.51); Basophil# 0.03 X10^3/uL; Basophil% 0.5 % (0-1); Eosinophil# 0.07 X10^3/uL; Eosinophils% 1.1 % (0-5); Hematocrit 39.6 % (37-47); Hemoglobin 13.3 g/dL (12.0-15.0); Lymphocyte # 2.64 X10^3/ul (0.83-4.51); Lymphocyte % 42.3 % (19-41); Mean Corp Hgb Conc 33.6 g/dL (32-36); Mean Corpuscular Hgb 31.6 pg (27.0-32.0); Mean Corpuscular Volume 94.1 fL (81-99); Mean Platelet Vol. 10.7 fl (6.2-12.0); Monocyte# 0.51 X10^3/uL; Monocyte% 8.2 % (0-10); NRBC Flagged by Analyzer 0 % (0-5); Neutrophil # 2.97 X10^3/uL (2.7-7.7); Neutrophil % 47.6 % (47-70); POSITIVE MORPHOLOGY YES; Platelet Count 213 K/mm3 (150-450); RBC Distribution Width CV 12.9 % (11.6-14.6); Red Blood Count 4.21 M/mm3 (4.2-5.4); White Blood Count 6.2 K/mm3 (4.4-11.0)
[2022-01-16 15:26] LABS: Differential Indicated SCAN CRITERIA MET
[2022-01-16 15:35] LABS: Differential Comment SCANNED
[2022-01-16 15:56] LABS: ALB/GLOB Ratio 1.4 RATIO (0.9-2.4); AST(SGOT) 15 U/L (15-37); Alanine Aminotransfer ALT/SGPT 17 U/L (13-56); Albumin, Serum 4.2 g/dL (3.2-5.0); Alkaline Phosphatase 80 U/L (45-117); Anion Gap 7 (5-15); BUN 17 mg/dL (7-18); Calcium,Total 8.9 mg/dL (8.5-10.1); Chloride 102 mmol/L (98-107); EST Glomerular Filtration Rate 68 mL/min (>60); Est Glom Filt Rate - Afr Amer 82 mL/min (>60); Globulin 2.9 g/dL (2.2-4.2); Glucose 86 mg/dL (74-106); Potassium 3.8 mmol/L (3.5-5.1); Protein, Total 7.1 g/dL (6.4-8.2); Sodium Level 135 mmol/L (136-145); T4 Free Direct 1.28 ng/dL (0.76-1.46); Thyroid Stim Hormone (TSH) 0.63 uIU/mL (0.358-3.74)
[2022-01-17 08:19] LABS: Vitamin D,25 Hydroxy 53.2 ng/mL
== END | disposition home or self-care (01) ==
LOC: BIMLAB 14:33
PROVIDERS: PCP Family Medicine; Referring Provider Family Medicine; Visit Provider Family Medicine
DX: E55.9 Vitamin D deficiency, unspecified (principal); E89.0 Postprocedural hypothyroidism; Z72.0 Tobacco use
CPT/HCPCS: 36415; 80053; 82306; 84439; 84443; 85025

== ENCOUNTER 2022-07-14 01:16 | Emergency (ER) | payer BC, SELFPAY ==
[2022-07-14 01:17] VITALS: BP 175/86; PULSE 84; RESP 16; TEMP 35.6; O2SAT 98; BMI 17.7
--- NOTE | 2022-07-14 01:36 | EKG12_ITS ---
Test Reason : SOB Blood Pressure : / mmHG Vent. Rate : 071 BPM Atrial Rate : 071 BPM P-R Int : 152 ms QRS Dur : 074 ms QT Int : 392 ms P-R-T Axes : 076 023 048 degrees QTc Int : 425 ms Normal sinus rhythm with sinus arrhythmia Normal ECG Confirmed by SINTIA RAMOS, RADHA ([id number]), offline editor JEMAL CANTOR ([id number]) on 07/18/2022 9:18:42 A M Referred By: Confirmed By:MELISSA PATRICIO MD
[2022-07-14] MEDS: Ipratropium/Albuterol Sulfate 3 ML AMPUL.NEB INHALATION ×2 (01:47→03:04)
[2022-07-14 01:48] VITALS: PULSE 73; RESP 14
[2022-07-14 01:49] LABS: Absolute Lymphocyte Count 2.51 X10^3/uL (0.83-4.51); Basophil# 0.06 X10^3/uL; Eosinophil# 0.17 X10^3/uL; Eosinophils% 2.7 % (0-5); Hematocrit 41.3 % (37-47); Hemoglobin 13.5 g/dL (12.0-15.0); Lymphocyte # 2.51 X10^3/ul (0.83-4.51); Lymphocyte % 40.3 % (19-41); Mean Corp Hgb Conc 32.7 g/dL (32-36); Mean Corpuscular Hgb 31.5 pg (27.0-32.0); Mean Corpuscular Volume 96.5 fL (81-99); Mean Platelet Vol. 11.4 fl (6.2-12.0); Monocyte# 0.45 X10^3/uL; Monocyte% 7.2 % (0-10); NRBC Flagged by Analyzer 0 % (0-5); Neutrophil # 3.02 X10^3/uL (2.7-7.7); Neutrophil % 48.5 % (47-70); Platelet Count 250 K/mm3 (150-450); RBC Distribution Width SD 46.2 fl (35.1-43.9); Red Blood Count 4.28 M/mm3 (4.2-5.4); White Blood Count 6.2 K/mm3 (4.4-11.0)
--- NOTE | 2022-07-14 01:50 | EDS_ITS ---
HPI History of Present Illness Chief Complaint: Shortness of Breath Narrative Narrative: Presents with dyspnea for 2 to 3 days. She has a history of COPD. She continues to smoke. She has a cough that is mildly productive. No fever or chills. She has been using her inhaler with only minimal relief. No chest pain. No back pain. No pleuritic component. No lower extremity edema or calf pain. PFSH PFS Medical History Asthma Cancer COPD (chronic obstructive pulmonary disease) Hives Low calcium levels Recurrent UTI Seasonal allergies Thyroid ca Home Medications levothyroxine 100 mcg tablet 100 mcg PO DAILY 07/05/20 [History Last Taken Unknown] albuterol sulfate 90 mcg/actuation aerosol inhaler (Ventolin HFA) 2 puff inhalation Q4H PRN PRN Wheezing ##1 06/30/21 [Rx Last Taken Unknown] doxycycline monohydrate 100 mg capsule 100 mg PO BID #14 caps 07/14/22 [Rx Last Taken Unknown] Allergy/AdvReac Type Severity Reaction Status Date / Time prednisone Allergy Unknown Unknown Verified 07/14/22 01:23 erythromycin base Allergy Hives Verified 07/14/22 01:23 [From Erythrocin] Family History Mother Asthma Heart disease CVA (cerebral vascular accident) High cholesterol Surgical History H/O thyroidectomy H/O: Social History Smoking Status: Current every day smoker tobacco type: cigarettes second hand exposure: No alcohol intake: current substance use type: does not use ROS ROS ED ROS Narrative Past medical history: Reviewed, includes COPD and hypothyroidism Medications: Reviewed, no recent steroids Social history: Noncontributory Review of systems: All systems negative except as indicated General: No fever Eyes: No visual changes ENT: No upper airway congestion, normal voice Neck: No neck pain Cardiovascular: No chest pain Respiratory: Shortness of breath and cough as in HPI Gastrointestinal: No abdominal pain, nausea vomiting or diarrhea Genitourinary: No dysuria Musculoskeletal: Denies myalgias no difficulty with ambulation Skin: No rash Neurological: No memory loss, confusion or any focal weakness Psych: No recent behavioral changes Hematologic: No easy bleeding or easy bruising EXAM Physical Exam Narrative Exam Narrative: Physical exam General: Patient appears somewhat uncomfortable Head: Normocephalic, Atraumatic Eyes: Conjunctiva not pale ENT: Moist mucous membranes Neck: Supple, Nontender, No lymphadenopathy Cardiovascular: Regular rate, Regular rhythm Respiratory: Bilaterally she is slightly tachypneic. She speaks in 3-4 word sentences. She is oxygenating well. Abdomen: Soft, Nontender, Nondistended Back: Nontender, Normal Inspection. Negative for: CVA tenderness Extremities: Nontender, No edema Skin: Normal color, No rash Neurological: Alert, Normal Strength, Normal Sensation Psychological: Normal affect Const Vital Signs: 07/14/22 01:17 07/14/22 01:17 07/14/22 01:48 Temperature 96.1 F L Temperature Source Temporal Pulse Rate 84 73 Respiratory Rate 16 14 Respiratory Effort Short of Breath Accessory Muscle Use Respiratory Depth Deep Respiratory Pattern Grunting Blood Pressure 175/86 H Blood Pressure Mean 115 Pulse Ox 98 Oxygen Delivery Method Room Air Room Air 07/14/22 03:05 Temperature Temperature Source Pulse Rate 102 H Respiratory Rate 17 Respiratory Effort Respiratory Depth Respiratory Pattern Blood Pressure Blood Pressure Mean Pulse Ox Oxygen Delivery Method MDM MDM MDM Narrative Medical decision making narrative: Patient did improve with nebulizers and Solu-Medrol in the ED however she still has some tightness in her chest I am unsure about what her lungs normally sound like, but she is now speaking in full sentences and she is oxygenating well and has been throughout the ED course. I talked to her admission she is adamantly refusing admission at this time. She wants to be discharged I will give her steroids and antibiotics. Lab Data Labs: Laboratory Results - last 24 hr 07/14/22 07/14/22 07/14/22 01:44 01:44 01:44 WBC 6.2 RBC 4.28 Hgb 13.5 Hct 41.3 MCV 96.5 MCH 31.5 MCHC 32.7 RDW Std Deviation 46.2 H RDW Coeff of Braeden 13.0 Plt Count 250 MPV 11.4 Immature Gran % (Auto) 0.300 Neut % (Auto) 48.5 Lymph % (Auto) 40.3 [place] % (Auto) 7.2 Eos % (Auto) 2.7 Baso % (Auto) 1.0 Absolute Neuts (auto) 3.0 Absolute Lymphs (auto) 2.51 Nucleated RBC % 0 Sodium 143 Potassium 4.3 Chloride 108 H Carbon Dioxide 30.0 Anion Gap 5 BUN 12 Creatinine 0.82 Estim Creat Clear Calc 57.83 Est GFR (MDRD) Af Amer 91 Est GFR (MDRD) Non-Af 76 BUN/Creatinine Ratio 14.7 Glucose 106 Calcium 8.6 B-Natriuretic Peptide 86.4 Radiography Diagnostic Testing: Clinical Impression(s) from Imaging Studies Chest X-Ray 07/14/22 02:20 IMPRESSION: No acute abnormal cardiopulmonary finding. Electronically Signed: Antony Sorensen MD at 2:35 EST , X-ray read by me is normal. Discharge Plan Triage Chief Complaint: Shortness of Breath ED Provider: Antony Otero Dx/Rx/DC Orders Clinical Impression: Acute exacerbation of chronic obstructive pulmonary disease (COPD), Acute dyspnea Instructions: COPD Quit Smoking Prescriptions: New doxycycline monohydrate 100 mg capsule 100 mg PO BID Qty: 14 0RF No Action levothyroxine 100 MCG tablet 100 mcg PO DAILY albuterol sulfate [Ventolin HFA] 1 INHALER inhaler 2 puff inhalation Q4H PRN PRN (Reason: Wheezing) Qty: 1 0RF Primary Care Provider: Adam Mendoza Referrals: Adam Mendoza MD [Primary Care Provider] - 3-5 Days Disposition Disposition: Home, Self Care
[2022-07-14] MEDS: Albuterol 2.5 MG/3 ML VIAL.NEB. INHALATION ×4 (01:55→03:04)
[2022-07-14 02:02] LABS: Anion Gap 5 (5-15); BUN 12 mg/dL (7-18); BUN/Creat Ratio 14.7 RATIO (10-20); Calcium,Total 8.6 mg/dL (8.5-10.1); Chloride 108 mmol/L (98-107); Creatinine, Serum 0.82 mg/dL (0.55-1.02); EST Glomerular Filtration Rate 76 mL/min (>60); Est Glom Filt Rate - Afr Amer 91 mL/min (>60); Estimated Creatinine Clearance 57.83 ml/min; Glucose 106 mg/dL (74-106); Potassium 4.3 mmol/L (3.5-5.1); Sodium Level 143 mmol/L (136-145)
[2022-07-14 02:07] LABS: BNP,B-Type NATRIURETIC PEPTIDE 86.4 pg/mL (0-100)
[2022-07-14] MEDS: MethylPREDNISolone 125 MG/2 ML Vial IV (02:14)
--- NOTE | 2022-07-14 02:20 | RAD_ITS ---
STUDY: X-RAY CHEST REASON FOR EXAM: Female, 62 years old. Shortness of breath TECHNIQUE: Portable, upright, AP chest x-ray COMPARISON: None. FINDINGS: The lungs are clear and expanded. There is no demonstrated pleural abnormality. Normal size heart. Normal mediastinum and chris. Normal visualized pulmonary arteries. Normal visualized aortic arch and descending thoracic aorta. There is no demonstrated abnormality of the visualized soft tissue structures of the upper abdomen. RAD/Chest 1 View (Portable) IMPRESSION: No acute abnormal cardiopulmonary finding. Electronically Signed: Antony Sorensen MD at 2:35 EST ,
[2022-07-14 03:05] VITALS: PULSE 102; RESP 17
[2022-07-14] MEDS: Triamcinolone Acetonide 40 MG/ML Vial IM (03:45)
[2022-07-14] MEDS: Doxycycline 100 MG CAPSULE PO (03:45)
[2022-07-14 03:52] VITALS: BP 117/53; PULSE 107; RESP 18; TEMP 36.8; O2SAT 96
== END 2022-07-14 03:53 | disposition home or self-care (01) ==
PROVIDERS: Emergency Provider Emergency Medicine; PCP Family Medicine; Visit Provider Emergency Medicine
DX: J44.1 Chronic obstructive pulmonary disease with (acute) exacerbation (principal); E03.9 Hypothyroidism, unspecified; F17.210 Nicotine dependence, cigarettes, uncomplicated; Z79.890 Hormone replacement therapy; Z79.899 Other long term (current) drug therapy
CPT/HCPCS: 71045; 80048; 83880; 85025; 87428; 93005; 94640; 96372; 96374; 99285; A4216

== ENCOUNTER → 2022-07-17 | Outpatient (CLI) | payer BC, SELFPAY ==
[2022-07-17 17:00] LABS: Absolute Lymphocyte Count 2.47 X10^3/uL (0.83-4.51); Basophil# 0.05 X10^3/uL; Basophil% 0.7 % (0-1); Eosinophil# 0.06 X10^3/uL; Eosinophils% 0.8 % (0-5); Hematocrit 40.3 % (37-47); Hemoglobin 13.5 g/dL (12.0-15.0); Lymphocyte # 2.47 X10^3/ul (0.83-4.51); Lymphocyte % 34.4 % (19-41); Mean Corp Hgb Conc 33.5 g/dL (32-36); Mean Corpuscular Hgb 31.3 pg (27.0-32.0); Mean Corpuscular Volume 93.3 fL (81-99); Mean Platelet Vol. 10.9 fl (6.2-12.0); Monocyte# 0.56 X10^3/uL; Monocyte% 7.8 % (0-10); NRBC Flagged by Analyzer 0 % (0-5); Neutrophil % 55.9 % (47-70); Platelet Count 251 K/mm3 (150-450); RBC Distribution Width CV 12.6 % (11.6-14.6); RBC Distribution Width SD 43.3 fl (35.1-43.9); Red Blood Count 4.32 M/mm3 (4.2-5.4); White Blood Count 7.2 K/mm3 (4.4-11.0)
[2022-07-17 17:06] LABS: Vitamin D,25 Hydroxy 67.8 ng/mL
[2022-07-17 17:12] LABS: ALB/GLOB Ratio 1.5 RATIO (0.9-2.4); AST(SGOT) 17 U/L (15-37); Alanine Aminotransfer ALT/SGPT 20 U/L (13-56); Albumin, Serum 4.4 g/dL (3.2-5.0); Alkaline Phosphatase 80 U/L (45-117); Anion Gap 8 (5-15); BUN 24 mg/dL (7-18); BUN/Creat Ratio 18.8 RATIO (10-20); Calcium,Total 9.4 mg/dL (8.5-10.1); Chloride 100 mmol/L (98-107); Creatinine, Serum 1.28 mg/dL (0.55-1.02); EST Glomerular Filtration Rate 45 mL/min (>60); Est Glom Filt Rate - Afr Amer 54 mL/min (>60); Globulin 2.9 g/dL (2.2-4.2); Glucose 98 mg/dL (74-106); Potassium 4.3 mmol/L (3.5-5.1); Protein, Total 7.3 g/dL (6.4-8.2); Sodium Level 136 mmol/L (136-145); T4 Free Direct 1.14 ng/dL (0.76-1.46); Thyroid Stim Hormone (TSH) 4.41 uIU/mL (0.358-3.74)
== END | disposition home or self-care (01) ==
LOC: BIMLAB 14:31
PROVIDERS: PCP Family Medicine; Referring Provider Family Medicine; Visit Provider Family Medicine
DX: N18.30 Chronic kidney disease, stage 3 unspecified (principal); E89.0 Postprocedural hypothyroidism; E55.9 Vitamin D deficiency, unspecified
CPT/HCPCS: 36415; 80053; 82306; 84439; 84443; 85025

== ENCOUNTER → 2022-07-20 | Outpatient (CLI) | payer BC, SELFPAY ==
[2022-07-20 18:05] LABS: Absolute Lymphocyte Count 2.51 X10^3/uL (0.83-4.51); Absolute Neutrophil Count 2.5 X10^3/uL (2.0-7.7); Basophil# 0.07 X10^3/uL; Basophil% 1.2 % (0-1); Eosinophils% 1.8 % (0-5); Hemoglobin 13.1 g/dL (12.0-15.0); Lymphocyte # 2.51 X10^3/ul (0.83-4.51); Lymphocyte % 44.3 % (19-41); Mean Corp Hgb Conc 32.8 g/dL (32-36); Mean Corpuscular Hgb 31.3 pg (27.0-32.0); Mean Corpuscular Volume 95.5 fL (81-99); Monocyte# 0.48 X10^3/uL; Monocyte% 8.5 % (0-10); NRBC Flagged by Analyzer 0 % (0-5); Neutrophil # 2.48 X10^3/uL (2.7-7.7); Neutrophil % 43.8 % (47-70); Platelet Count 236 K/mm3 (150-450); RBC Distribution Width CV 12.8 % (11.6-14.6); RBC Distribution Width SD 45.2 fl (35.1-43.9); Red Blood Count 4.19 M/mm3 (4.2-5.4); White Blood Count 5.7 K/mm3 (4.4-11.0)
[2022-07-20 18:09] LABS: ALB/GLOB Ratio 1.4 RATIO (0.9-2.4); AST(SGOT) 13 U/L (15-37); Alanine Aminotransfer ALT/SGPT 21 U/L (13-56); Alkaline Phosphatase 68 U/L (45-117); Anion Gap 4 (5-15); BUN 23 mg/dL (7-18); BUN/Creat Ratio 24.2 RATIO (10-20); Calcium,Total 8.6 mg/dL (8.5-10.1); Chloride 103 mmol/L (98-107); Creatinine, Serum 0.95 mg/dL (0.55-1.02); EST Glomerular Filtration Rate 63 mL/min (>60); Est Glom Filt Rate - Afr Amer 77 mL/min (>60); Globulin 2.8 g/dL (2.2-4.2); Glucose 89 mg/dL (74-106); Phosphorus 4.3 mg/dL (2.5-4.9); Potassium 4.2 mmol/L (3.5-5.1); Protein, Total 6.8 g/dL (6.4-8.2); Sodium Level 135 mmol/L (136-145)
[2022-07-21 13:37] LABS: PTHIN 51.4 pg/mL (18.4-80.1)
== END | disposition home or self-care (01) ==
LOC: MTLAB 15:19
PROVIDERS: PCP Family Medicine; Referring Provider Family Medicine; Visit Provider Family Medicine
DX: N18.30 Chronic kidney disease, stage 3 unspecified (principal)
CPT/HCPCS: 36415; 80053; 83970; 84100; 85025

== ENCOUNTER → 2022-09-07 | Outpatient (CLI) | payer BC, SELFPAY ==
--- NOTE | 2022-09-07 14:50 | BD_ITS ---
STUDY: DUAL ENERGY X-RAY ABSORPTIOMETRY / DXA REASON FOR EXAM: Female, 62 years old. [id number] TECHNIQUE: Bone Mineral Density (BMD) measurements of lumbar spine and bilateral hips were obtained. COMPARISON: None. FINDINGS: Lumbar Spine (L1-L4): g/cm2 (0.806) / T-score (-2.2) / Z-score (-0.6) Findings are suggestive of osteopenia with a high fracture risk. Left Femur Total: g/cm2 (0.641) / T-score (-2.5) / Z-score (-1.4) Left Femoral Neck: g/cm2 (0.532) / T-score (-2.9) / Z-score (-1.5) Right Femur Total: g/cm2 (0.681) / T-score (-2.1) / Z-score (-1.1) Right Femoral Neck: g/cm2 (0.554) / T-score (-2.7) / Z-score (-1.3) BD/Dexa Bone Density Study IMPRESSION: The patient is considered osteoporotic as outlined below according to World Lawrence Organization (WHO) criteria with a high fracture risk. Reference Information: The T-score is the number of standard deviations above or below the standard which is normal for young adults at their peak bone mineral density. The World Health Organization (WHO) interprets the T-scores as follows: Above -1 Normal bone density Between -1 and -2.5 Osteopenia Equal to / or below -2.5 Osteoporosis As a practical clinical guideline, osteopenia may be graded as follows: Mild -1 through -1.5 Moderate -1.6 through -2.0 Severe -2.1 through -2.4 The Z-score is the number of standard deviations above or below age-matched controls. A Z-score of less than -1.5 would be considered abnormal. References: 1. NIH Osteoporosis and Related Bone Diseases www osteo.org 2. International Society for Clinical Densitometry www iscd.org 3. National Osteoporosis Foundation www nof.org Electronically Signed: Emilio Peterson MD at 15:06 EST ,
== END | disposition home or self-care (01) ==
PROVIDERS: PCP Family Medicine; Visit Provider Family Medicine
DX: M85.80 Other specified disorders of bone density and structure, unspecified site (principal); M81.0 Age-related osteoporosis without current pathological fracture; Z12.39 Encounter for other screening for malignant neoplasm of breast; Z78.0 Asymptomatic menopausal state
CPT/HCPCS: 77080

== ENCOUNTER 2022-09-29 08:52 | Day surgery (SDC) | payer BC, SELFPAY ==
[2022-09-29] MEDS: Lactated Ringers 1,000 ML 15 ML IV (09:05)
[2022-09-29 09:17] VITALS: BP 122/78; PULSE 85; RESP 17; TEMP 36.2; O2SAT 99; BMI 19.4
--- NOTE | 2022-09-29 09:52 | HP.PCM_ITS ---
History and Physical Date of Admission: 09/29/22 Intake Vital Signs ? 07/14/2201:17 09/01/2213:27 Height 5 ft 7 in 5 ft 6 in Weight: ? 117 lb 6 oz BMI ? 18.9 BP ? 129/75 H Blood Pressure Location ? Rt brachial Position ? Sitting Respiration ? 19 H Pulse ? 83 Pulse Source ? Monitor Temp ? 97.3 F L Temp Source ? Temporal Pulse Oximetry (%) ? 90 Oxygen Delivery Method ? room air Intake Visit Reasons:?POSITIVE COLOGUARD Chief Complaint: Positive cologuard [employer] Required: No Is patient in pain?: No Allergies prednisone Allergy (Unknown, Verified 09/01/22 13:30) Unknownerythromycin base [From Erythrocin] Allergy (Verified 09/01/22 13:30) Hives Medications levothyroxine 100 mcg tablet 100 mcg PO DAILY 07/05/20 [History Confirmed 09/01/22] albuterol sulfate 90 mcg/actuation aerosol inhaler (Ventolin HFA) 2 puff inhalation Q4H PRN PRN Wheezing ##1 06/30/21 [Rx Confirmed 09/01/22] doxycycline monohydrate 100 mg capsule 100 mg PO BID #14 caps 07/14/22 [Rx Confirmed 09/01/22] PFSH Medical History? Asthma Cancer COPD (chronic obstructive pulmonary disease) Hives Low calcium levels Recurrent UTI Seasonal allergies Thyroid ca Surgical History? H/O thyroidectomy H/O: Family History? Mother Asthma Heart disease CVA (cerebral vascular accident) High cholesterol Social History? Smoking Status:? Current every day smoker tobacco type: cigarettes second hand exposure:? No alcohol intake:? current substance use type:? does not use HPI HPI HPI: Patient is a 62-year-old female here for positive Cologuard.? She had a Cologuard test about 2 years ago which was normal.? She has never had a colonoscopy.? She does state she has episodic epigastric pain.? She denies any gross blood in her stool or family history of colon cancer. ROS General General: Yes weight change; No appetite, fatigue, colon cancer, breast cancer or weakness HEENT HEENT: Yes eye injury and eye surgery; No difficulty swallowing, swollen glands or hoarseness Endo Endocrine: Yes thyroid disease and thyroid cancer; No diabetes mellitus, Hair loss, heat intolerance or cold intolerance Skin Skin: Yes changing moles; No rash Breast Breast: No left breast lump, right breast lump, nipple discharge, breast pain, abnormal mammogram, abnormal US or breast enlargement Musc Musculoskeletal: No back problems, arthritis, rheumatoid arthritis, gout or joint pain Cardio Cardiovascular: No murmur, pacemaker, heart disease, atrial fibrillation, high blood pressure, heart attack, heart stent, palpitations, shortness of breat with exertion or chest pain Psych Psychiatric: No depression, anxiety or hearing voices Resp Respiratory: Yes shortness of breath, No sleep apnea, No cough, Yes COPD, No asthma, No emphysema and No wheezing Gastro Gastrointestinal: Yes abdominal pain, No nausea or vomiting, No diarrhea, No constipation, No blood in stool, No acid reflux, No hemorrhoids, No ulcers, No gallbladder problem and No black,tarry stools Otto Hematologic: No blood thinners, No blood disorders, No bleeding, No anemia and No blood clots Neuro Neurologic: No system reviewed and no additional complaints, except as documented, No as per HPI, No abnormal gait, No abnormal hearing, No abnormal movements, No abnormal speech, No behavioral changes, No burning sensations, No confusion, No convulsions, No disequilibrium, No dizziness, No localized weakness, No frequent falls, No headache(s), No lack of coordination, No loss of vision, No memory loss, No numbness, No other visual disturbances, No radicular pain, No restless legs, No sensory deficit, No syncope, No tingling, No tremor(s), No weakness and No other Exam Const General: cooperative Orientation: alert and oriented x3 HENMT Head: normal to inspection Neck Neck: normal visual inspection and full ROM Chest Chest palpation & inspection: normal inspection of the chest Resp Effort & Inspection: normal respiratory effort Auscultation: clear to auscultation bilaterally Cardio Rate: regular rate Rhythm: regular rhythm GI Inspection: non-distended Palpation: soft and nontender Skin General: no rashes or lesions noted Neuro General: patient alert and patient oriented x3 Extrem General: full ROM Psych Appearance: grossly normal Mental Status: mental status grossly normal Assessment and Plan Assessment and Plan (1) Positive colorectal cancer screening using Cologuard test: ?Status:?Acute (2) Epigastric pain: ?Status:?Acute ? ? ? Orders: Orders Colonoscopy Today ? ? EGD Today ? ? Plan The patient has a positive Cologuard test and I recommended a colonoscopy.? The patient does have upper GI symptoms.? She does have occasional epigastric pain she has had an ulcer in the past.? I recommend EGD at the same time to rule this out. I explained endoscopy in detail to the patient.? I explained the risks including but not limited to stroke or heart attack with anesthesia, perforation of the GI tract, bleeding, infection.? I explained that any of these could necessitate further emergency surgery.? The patient understands and all questions were answered sufficiently.? The patient wishes to proceed with procedure. Harshad Perez MD Pager: [facility] [address] [place] [address] [address] [place] [address] Office: I have examined the patient and the H&P has been reviewed. There are no clinical changes since date of exam.
--- NOTE | 2022-09-29 10:00 | COLBX_PTH ---
PATIENT: RAYMON RUBIO LOC: EN U#:[id number] AGE/SX: 62/F ROOM: RE09/29/[address]: Dr. Harshad Perez MD : 1960 BED: DIS: 09/29/2022 SPEC #: [id number] RECD: 09/29/22 12:21 STATUS: ROMAN AVALOSRuben #: [id number] REED: 09/29/22 10:[address]: Harshad ePrez DEPT: SURGICAL PATHOLOGY RECD BY: Santosh Campbell ENTERED: 09/29/22 13:58 SP TYPE: COLON BX OTHR DR: Dr. Adam Mendoza MD Tissues: A - Gastric mucous membrane B - Ascending colon Procedures: Surgery Specimen Level IV HEADER OPERATION: Colonoscopy, [place] [place] DIAGNOSIS: Positive Cologuard test, epigastric pain TISSUE SUBMITTED: A - Gastroesophageal junction biopsy, B - Ascending colon biopsy with hot snare MICROSCOPIC DIAGNOSIS A. Gastroesophageal junction, biopsy: Gastroesophageal junctional mucosa with mild chronic inflammation. No evidence of goblet cell metaplasia. See comment. B. Ascending colon, biopsy: Tubular adenoma. AM:lakisha 10/02/2022 COMMENT A. Alcian blue/PAS stain with matched control supports the above diagnosis. MICROSCOPIC DESCRIPTION Slides are reviewed. GROSS DESCRIPTION A - Received in fixative is one container labeled with the patient's name and designated GE junction. The specimen consists of two irregular fragments of light ricketts soft tissue that in aggregate measure 0.6 x 0.6 x 0.1 cm. The specimen is totally submitted in one cassette. B - Received in fixative is one container labeled with the patient's name and designated ascending colon biopsy. The specimen consists of one irregular fragment of light ricketts soft tissue that measures 0.6 x 0.6 x 0.3 cm. The specimen is totally submitted in one cassette. / AM:lakisha 10/01/2022 TC:5 CPT: 11468 x2
--- NOTE | 2022-09-29 10:34 | OP.EGD_ITS ---
Patient Name: Jesika Whipple Procedure Date: 09/29/2022 10:01 AM Date of : 1960 Age: 62 Procedure: Upper GI endoscopy Indications: Epigastric abdominal pain Providers: Harshad Perez MD Referring MD: Harshad Perez MD Medicines: Monitored Anesthesia Care Patient Profile: This is a 62 year old female. Refer to note in patient chart for documentation of history and physical. Complications: No immediate complications. Procedure: Pre-Anesthesia Assessment: - Prior to the procedure, a History and Physical was performed, and patient medications and allergies were reviewed. The patient's tolerance of previous anesthesia was also reviewed. The risks and benefits of the procedure and the sedation options and risks were discussed with the patient. All questions were answered, and informed consent was obtained. Prior Anticoagulants: The patient has taken no previous anticoagulant or antiplatelet agents. After reviewing the risks and benefits, the patient was deemed in satisfactory condition to undergo the procedure. After obtaining informed consent, the endoscope was passed under direct vision. Throughout the procedure, the patient's blood pressure, pulse, and oxygen saturations were monitored continuously. The gastroscope was introduced through the mouth, and advanced to the third part of duodenum. The upper GI endoscopy was accomplished without difficulty. The patient tolerated the procedure well. Scope In: 10:08:24 AM Scope Out: 10:12:45 AM Total Procedure Duration Time 0 hours 4 minutes 21 seconds Findings: The esophagus was normal. The stomach was normal. The examined duodenum was normal. Non-severe esophagitis with no bleeding was found. Biopsies were taken with a cold forceps for histology. Impression: - Normal esophagus. - Normal stomach. - Normal examined duodenum. - Non-severe reflux esophagitis. Rule out Clement's esophagus. Biopsied. Recommendation: - Discharge patient to home. - Resume previous diet. - Continue present medications. - Await pathology results. Procedure Code(s): --- Professional --- 72136, Esophagogastroduodenoscopy, flexible, transoral; with biopsy, single or multiple Diagnosis Code(s): --- Professional --- K21.0, Gastro-esophageal reflux disease with esophagitis R10.13, Epigastric pain CPT copyright 2017 [employer]. All rights reserved. The codes documented in this report are preliminary and upon cruise agent review may be revised to meet current compliance requirements. Harshad Perez MD 09/29/2022 10:34:22 AM This report has been signed electronically. Number of Addenda: 0 Note Initiated On: 09/29/2022 10:01 AM
[2022-09-29 10:35] VITALS: BP 122/78; BP 92/56; PULSE 74; RESP 16; TEMP 36.4; O2SAT 97
--- NOTE | 2022-09-29 10:35 | OP.CCLET_ITS ---
09/29/2022 Adam Mendoza [address] [place] [address] Re : Upper GI endoscopy procedure for Jesika Whipple Dear Dr. Mendoza This procedure was performed on Thursday, September 29, 2022. My impressions and recommendations are as follows: Impressions : - Normal esophagus. - Normal stomach. - Normal examined duodenum. - Non-severe reflux esophagitis. Rule out Clement's esophagus. Biopsied. Recommendations : - Discharge patient to home. - Resume previous diet. - Continue present medications. - Await pathology results. My findings are described in the full procedure note, which is enclosed. If I can be of further assistance, please feel free to contact me at Doctor phone number(s): , Work: . Sincerely, Harhsad Perez MD 09/29/2022 10:34:22 AM This report has been signed electronically.
[2022-09-29 10:40] VITALS: BP 122/78; BP 85/59; PULSE 68; RESP 16; O2SAT 98
--- NOTE | 2022-09-29 10:40 | OP.COLON_ITS ---
Patient Name: Jesika Whipple Procedure Date: 09/29/2022 10:12 AM Date of : 1960 Age: 62 Procedure: Colonoscopy Indications: Positive Cologuard test Providers: Harshad Perez MD Referring MD: Harshad Perez MD Medicines: Monitored Anesthesia Care Patient Profile: This is a 62 year old female. Refer to note in patient chart for documentation of history and physical. Last Colonoscopy: none. The patient's first colonoscopy is today. Complications: No immediate complications. Procedure: Pre-Anesthesia Assessment: - Prior to the procedure, a History and Physical was performed, and patient medications and allergies were reviewed. The patient's tolerance of previous anesthesia was also reviewed. The risks and benefits of the procedure and the sedation options and risks were discussed with the patient. All questions were answered, and informed consent was obtained. Prior Anticoagulants: The patient has taken no previous anticoagulant or antiplatelet agents. After reviewing the risks and benefits, the patient was deemed in satisfactory condition to undergo the procedure. After I obtained informed consent, the scope was passed under direct vision. Throughout the procedure, the patient's blood pressure, pulse, and oxygen saturations were monitored continuously. The Colonoscope was introduced through the anus and advanced to the cecum, identified by appendiceal orifice and ileocecal valve. The colonoscopy was performed without difficulty. The patient tolerated the procedure well. The quality of the bowel preparation was good. Scope In: 10:16:36 AM Scope Withdrawal Time 0 hours 8 minutes 17 seconds Scope Out: 10:29:05 AM Total Procedure Duration Time 0 hours 12 minutes 29 seconds Findings: A large polyp was found in the ascending colon. The polyp was semi-pedunculated. Polyp resection was incomplete due to polyp size (too large to be completely excised). The exam was otherwise without abnormality on direct and retroflexion views. Impression: - One large polyp in the ascending colon. - The examination was otherwise normal on direct and retroflexion views. - No specimens collected. Recommendation: - Discharge patient to home. - Resume previous diet. - Continue present medications. - Await pathology results. - Repeat colonoscopy after studies are complete for surveillance based on pathology results. - Return to my office in 1 week. Procedure Code(s): --- Professional --- 33363, Colonoscopy, flexible; diagnostic, including collection of specimen(s) by brushing or washing, when performed (separate procedure) Diagnosis Code(s): --- Professional --- D12.2, Benign neoplasm of ascending colon R19.5, Other fecal abnormalities CPT copyright 2017 [employer]. All rights reserved. The codes documented in this report are preliminary and upon workday manager review may be revised to meet current compliance requirements. Harshad Perez MD 09/29/2022 10:39:48 AM This report has been signed electronically. Number of Addenda: 0 Note Initiated On: 09/29/2022 10:12 AM
--- NOTE | 2022-09-29 10:41 | OP.CCLET_ITS ---
09/29/2022 Adam Mendoza [address] [place] [address] Re : Colonoscopy procedure for Jesika Whipple Dear Dr. Mendoza This procedure was performed on Thursday, September 29, 2022. My impressions and recommendations are as follows: Impressions : - One large polyp in the ascending colon. - The examination was otherwise normal on direct and retroflexion views. - No specimens collected. Recommendations : - Discharge patient to home. - Resume previous diet. - Continue present medications. - Await pathology results. - Repeat colonoscopy after studies are complete for surveillance based on pathology results. - Return to my office in 1 week. My findings are described in the full procedure note, which is enclosed. If I can be of further assistance, please feel free to contact me at Doctor phone number(s): , Work: . Sincerely, Harshad Perez MD 09/29/2022 10:39:48 AM This report has been signed electronically.
[2022-09-29 10:45] VITALS: BP 122/78; BP 96/65; PULSE 71; RESP 16; O2SAT 98
[2022-09-29 10:50] VITALS: BP 118/66; BP 122/78; PULSE 63; RESP 16; TEMP 36.7; O2SAT 99
[2022-09-29 11:31] VITALS: BP 122/78
== END 2022-09-29 11:35 | disposition home or self-care (01) ==
LOC: EN 08:57 → AC 08:58
PROVIDERS: PCP Family Medicine; Referring Provider Family Medicine; Visit Provider Surgery
PROC: 0DJD8ZZ Inspection of Lower Intestinal Tract, Via Natural or Artificial Opening Endoscopic (ICD-10-PCS; CPT 45378; principal; 2022-09-29 09:55)
DX: D12.2 Benign neoplasm of ascending colon (principal); J44.9 Chronic obstructive pulmonary disease, unspecified; R10.13 Epigastric pain; K21.00 Gastro-esophageal reflux disease with esophagitis, without bleeding; Z79.890 Hormone replacement therapy; Z79.899 Other long term (current) drug therapy; E89.0 Postprocedural hypothyroidism
CPT/HCPCS: 45378; 43239; 88305; J7120; J2405

== ENCOUNTER 2022-10-14 03:49 | Emergency (ER) | payer BC, SELFPAY ==
[2022-10-14 03:50] VITALS: BP 156/87; PULSE 87; RESP 24; TEMP 36.6; O2SAT 99; BMI 19.7
[2022-10-14] MEDS: Ipratropium/Albuterol Sulfate 3 ML AMPUL.NEB INHALATION ×2 (04:04→05:35)
[2022-10-14] MEDS: Albuterol 2.5 MG/3 ML VIAL.NEB. INHALATION (04:04)
[2022-10-14 04:05] VITALS: PULSE 79; RESP 18
--- NOTE | 2022-10-14 04:35 | RAD_ITS ---
INDICATION: cough EXAMINATION/TECHNIQUE: X-RAY - AP view of chest COMPARISON: Chest x-ray from 07/14/2022 FINDINGS: LINES/DEVICES: None. LUNGS: Hyperexpanded lungs and mild biapical scarring again noted. No pulmonary edema or focal airspace consolidation. No sizable pleural effusion. No detectable pneumothorax. MEDIASTINUM AND CARDIOVASCULAR STRUCTURES: Heart normal size. Atherosclerotic calcifications along aorta. BONES AND SOFT TISSUES: Skeletal degenerative changes. RAD/Chest 1 View (Portable) IMPRESSION: COPD and atherosclerotic disease Electronically Signed: Ke Maurer MD at 5:16 EST ,
--- NOTE | 2022-10-14 04:37 | EDS_ITS ---
HPI History of Present Illness Chief Complaint: Shortness of Breath Narrative Narrative: Patient is a 62-year-old female with past medical history of asthma as well as smoking but no formal diagnosis of COPD/emphysema and no need for supplemental oxygen. She states that she smokes roughly 1 pack a day. She states has been no known sick contacts and she denies any new exposures but reports over the past 2 to 3 days she has been having cough with increasing shortness of breath. She states she does not have any medication at home to help with her symptoms other than a rescue inhaler which does not seem to be working and therefore comes to the hospital at this time because of worsening symptoms [facility] Medical History Alcohol use Anemia Arthritis Back pain Cancer COPD (chronic obstructive pulmonary disease) Easy bruising Excessive bleeding History of echocardiogram History of pain when walking History of ulceration Hoarseness Injury of head and neck Leg cramps Low calcium levels Marijuana use Migraine headache Post-menopausal Recurrent UTI Seasonal allergies Smoker Syncope Thyroid disease Wears glasses Home Medications levothyroxine 100 mcg tablet 100 mcg PO DAILY 07/05/20 [History Last Taken 09/29/22] albuterol sulfate 90 mcg/actuation aerosol inhaler (Ventolin HFA) 2 puff inhalation Q4H PRN PRN Wheezing ##1 06/30/21 [Rx Last Taken 09/29/22] metronidazole 500 mg tablet 500 mg PO .COMPLEX #6 tabs 10/06/22 [Rx Last Taken Unknown] dexamethasone 6 mg tablet 6 mg PO DAILY 7 days #7 tabs 10/14/22 [Rx Last Taken Unknown] ipratropium 0.5 mg-albuterol 3 mg (2.5 mg base)/3 mL nebulization soln 3 ml inhalation Q4H PRN shortness of breath or wheezing #180 mL 10/14/22 [Rx Last Taken Unknown] nebulizer and compressor (InnoSpire Essence device) #1 ea 10/14/22 [Rx Last Taken Unknown] Allergy/AdvReac Type Severity Reaction Status Date / Time prednisone Allergy Unknown Unknown Verified 10/14/22 03:54 erythromycin base Allergy Hives Verified 10/14/22 03:54 [From Erythrocin] Family History Mother Asthma Heart disease CVA (cerebral vascular accident) High cholesterol Surgical History H/O thyroidectomy H/O: History of colonoscopy (~09/2022) History of esophagogastroduodenoscopy (EGD) (~09/2022) History of loop electrical excision procedure (LEEP) Social History Smoking Status: Current every day smoker tobacco type: cigarettes second hand exposure: No alcohol intake: current substance use type: does not use ROS ROS ED Constitutional Constitutional ED: Denies chills or fever(s) ENT ENT ED: Denies rhinorrhea or sore throat Cardiovascular Cardiovascular: Denies chest pain Respiratory/Chest Respiratory/Chest: Reports cough and dyspnea Gastrointestinal Gastrointestinal: Denies abdominal pain, diarrhea, nausea or vomiting Genitourinary Genitourinary ED: Denies dysuria Musculoskeletal Musculoskeletal: Denies myalgias Integumentary Denies rash Neurologic Neurologic: Denies headache(s) Hematologic/Lymphatic Hematologic/Lymphatic: Denies easy bleeding or easy bruising EXAM Physical Exam Const Vital Signs: 10/14/22 03:50 10/14/22 03:50 10/14/22 04:05 Temperature 97.9 F Temperature Source Oral Pulse Rate 87 79 Respiratory Rate 24 H 18 Respiratory Effort Short of Breath Accessory Muscle Use Respiratory Depth Deep Respiratory Pattern Tachypnea Normal Blood Pressure 156/87 H Blood Pressure Mean 110 Pulse Ox 99 Oxygen Delivery Method Room Air Room Air 10/14/22 05:07 10/14/22 05:36 10/14/22 05:50 Temperature Temperature Source Pulse Rate 81 83 105 H Respiratory Rate 16 18 20 H Respiratory Effort Respiratory Depth Respiratory Pattern Normal Normal Blood Pressure 138/75 H Blood Pressure Mean 96 Pulse Ox 97 Oxygen Delivery Method Room Air Positive well nourished and well developed General Appearance ED: well developed HEENT HEENT Narrative: No tongue or lip swelling. No oral lesions. No airway edema or compromise Eyes PERRL and EOMs intact bilaterally Neck supple and no JVD Chest Wall palpation of chest normal Resp Resp Narrative: Patient has diminished breath sounds throughout with faint inspiratory wheeze in the bilateral lower lobes. Patient also has mild stridor noted and accessory muscle use with slight retractions present. Cardio regular rate and regular rhythm Rate: other Other Details: Radial pulses are plus 2 out of 4 bilaterally are equal and symmetric GI normal to inspection, nondistended, normoactive bowel sounds, non-tender, non- distended and no masses Auscultation: normoactive bowel sounds Palpation: soft Extremity normal to inspection Extremity Narrative: No asymmetric edema no pitting edema negative Homans' sign bilaterally Neuro oriented x3 and CN's II-XII intact bilaterally Sensorium / Orientation: alert Psych mental status grossly normal Skin no rashes or lesions noted MDM MDM MDM Narrative Medical decision making narrative: Patient presented to the ER with mild increased work of breathing but despite this was satting in the high 90s on room air. With her history of asthma as well as COPD and smoking I felt she was having a spontaneous exacerbation as she denied any recent sick symptoms or sick contacts. Therefore I felt no need for basic blood work as my concern for infectious process or cardiac event was low. Chest x-ray was obtained which revealed no acute lung pathology but just chronic changes consistent with COPD. Patient was given Decadron 20 mg by mouth which she tolerated without difficulty despite a history of allergic reaction to prednisone. She was also given racemic epinephrine 2 DuoNebs and 1 albuterol breathing treatment. Following this her work of breathing improved stridor resolved and she was moving better air. We discussed possible admission because of her persistent symptoms. However the patient is satting in the high 90s on room air has had improvement from her initial evaluation and does not want to stay in the hospital at this time. Therefore I will prescribe Decadron to take for the next 5 days to reduce inflammation as well as nebulizer breathing treatments so she will receive the same treatment she would in the hospital and patient can be discharged and she understands to return if there is no improvement or worsening of symptoms. Radiography Diagnostic Testing: Clinical Impression(s) from Imaging Studies Chest X-Ray 10/14/22 04:35 IMPRESSION: COPD and atherosclerotic disease Electronically Signed: Ke Maurer MD at 5:16 EST , 1 view chest x-ray is interpreted by the emergency medicine physician reveals hyperinflated lungs consistent with COPD/emphysema without acute infiltrate pneumothorax or pleural effusion Discharge Plan Triage Chief Complaint: Shortness of Breath ED Provider: Lambert Gardner Dx/Rx/DC Orders Clinical Impression: Acute exacerbation of COPD with asthma, Hypothyroidism (acquired), Tobacco abuse Instructions: COPD: Wheezing and Chest Tightness, Asthma Prescriptions: New dexamethasone 6 mg tablet 6 mg PO DAILY 7 Days Qty: 7 0RF (DME) nebulizer and compressor [InnoSpire Essence] Device See Rx Instructions .Route Qty: 1 0RF Rx Instructions: As directed ipratropium-albuterol 0.5 mg-3 mg(2.5 mg base)/3 mL solution for nebulization 3 ml inhalation Q4H PRN (Reason: shortness of breath or wheezing) Qty: 180 2RF No Action metronidazole 500 mg tablet 500 mg PO .COMPLEX Qty: 6 0RF Rx Instructions: 500 mg orally; Take 2 tabs PO at 1300, 1400, and 2300 day before surgery levothyroxine 100 MCG tablet 100 mcg PO DAILY albuterol sulfate [Ventolin HFA] 1 INHALER inhaler 2 puff inhalation Q4H PRN PRN (Reason: Wheezing) Qty: 1 0RF Primary Care Provider: Adam Mendoza Referrals: Adam Mendoza MD [Primary Care Provider] - Activity Restrictions/Additional Instructions: Please take your medication as directed to help control your shortness of breath/bronchospasm and if you have worsening of symptoms or any further concerns please return for repeat evaluation Disposition Disposition: Home, Self Care
[2022-10-14 05:07] VITALS: PULSE 81; RESP 16
[2022-10-14] MEDS: Racepinephrine HCl 0.5 ML VIAL.NEB. INHALATION (05:07)
[2022-10-14 05:36] VITALS: PULSE 83; RESP 18
[2022-10-14 05:50] VITALS: BP 138/75; PULSE 105; RESP 20; O2SAT 97
[2022-10-14] MEDS: dexAMETHasone 20 MG/5 ML Vial PO.IVFORM (05:56)
[2022-10-14 06:26] VITALS: BP 114/74; PULSE 91; RESP 18; O2SAT 99
--- NOTE | 2022-10-14 09:09 | EKG12_ITS ---
Test Reason : SOB Blood Pressure : / mmHG Vent. Rate : 083 BPM Atrial Rate : 083 BPM P-R Int : 150 ms QRS Dur : 078 ms QT Int : 374 ms P-R-T Axes : 073 021 059 degrees QTc Int : 439 ms Normal sinus rhythm Normal ECG Confirmed by MARIA LUISA RAMOS, ANN MARIE ([id number]), copy editor JEMAL CANTOR ([id number]) on 10/16/2022 12:27:39 PM Referred By: Adam Mendoza Confirmed By:ANN MARIE GLASS MD
== END 2022-10-14 06:27 | disposition home or self-care (01) ==
PROVIDERS: Emergency Provider Emergency Medicine; PCP Family Medicine; Visit Provider Emergency Medicine
DX: J44.1 Chronic obstructive pulmonary disease with (acute) exacerbation (principal); F17.210 Nicotine dependence, cigarettes, uncomplicated; R06.02 Shortness of breath; E03.9 Hypothyroidism, unspecified
CPT/HCPCS: 71045; 93005; 94640; 99283

== ENCOUNTER 2022-10-26 05:24 | Inpatient (IN) | payer BC, SELFPAY ==
[2022-10-24 15:43] LABS: Hematocrit 39.6 % (37-47); Mean Corp Hgb Conc 32.8 g/dL (32-36); Mean Corpuscular Hgb 31.1 pg (27.0-32.0); Mean Corpuscular Volume 94.7 fL (81-99); Mean Platelet Vol. 10.4 fl (6.2-12.0); Platelet Count 270 K/mm3 (150-450); RBC Distribution Width CV 12.2 % (11.6-14.6); Red Blood Count 4.18 M/mm3 (4.2-5.4); White Blood Count 8.5 K/mm3 (4.4-11.0)
[2022-10-26] VITALS (16 sets, daily range): BP systolic 91–146; BP diastolic 50–74; PULSE 62–83; RESP 11–18; TEMP 36.4–37.5; O2SAT 90–100; BMI 19.6
--- NOTE | 2022-10-26 06:00 | PCM.HP.STD ---
HPI - General General Date of Admission: 10/26/22 HPI Narrative RAYMON RUBIO, is a 62 F who presents for right hemicolectomy for large polyp in the cecum. Patient had colonoscopy and was found to have a large polyp which was unable to be removed endoscopically. It is in the cecum just distal to the ileocecal valve. Biopsy of this came back as tubovillous adenoma but it was unable to be fully removed [facility] Medical History (Updated 10/22/22 @ 00:01 by Ean Rosas) Alcohol use Anemia Arthritis Back pain Cancer COPD (chronic obstructive pulmonary disease) Easy bruising Excessive bleeding History of echocardiogram History of pain when walking History of ulceration Hoarseness Injury of head and neck Leg cramps Low calcium levels Marijuana use Migraine headache Post-menopausal Recurrent UTI Seasonal allergies Smoker Syncope Thyroid disease Wears glasses Home Medications levothyroxine 100 mcg tablet 100 mcg PO DAILY THYROID 07/05/20 [History Last Taken 09/29/22] albuterol sulfate 90 mcg/actuation aerosol inhaler (Ventolin HFA) 2 puff inhalation Q4H PRN PRN Wheezing ##1 06/30/21 [Rx Last Taken 09/29/22] ipratropium 0.5 mg-albuterol 3 mg (2.5 mg base)/3 mL nebulization soln 3 ml inhalation Q4H PRN shortness of breath or wheezing #180 mL 10/14/22 [Rx Last Taken Unknown] nebulizer and compressor (InnoSpire Essence device) #1 ea 10/14/22 [Rx Last Taken Unknown] metronidazole 500 mg tablet 500 mg PO .COMPLEX SURGERY 10/19/22 [History Last Taken Unknown] Allergy/AdvReac Type Severity Reaction Status Date / Time prednisone Allergy Unknown Unknown Verified 10/19/22 14:40 erythromycin base Allergy Hives Verified 10/19/22 14:40 [From Erythrocin] Family History Mother Asthma Heart disease CVA (cerebral vascular accident) High cholesterol Surgical History (Updated 10/19/22 @ 14:50 by Afua Castellanos) H/O thyroidectomy H/O: History of colonoscopy (~09/2022) History of esophagogastroduodenoscopy (EGD) (~09/2022) History of loop electrical excision procedure (LEEP) Social History Smoking Status: Current every day smoker tobacco type: cigarettes second hand exposure: No alcohol intake: current substance use type: does not use ROS Constitutional Constitutional: Denies anorexia, chills or fatigue Eyes Eyes: Denies blurry vision ENT HEENT: Denies abnormal hearing Respiratory/Chest Respiratory/Chest: Denies cough Gastrointestinal Gastrointestinal: Denies abdominal pain Genitourinary Genitourinary: Denies change in urinary stream Musculoskeletal Musculoskeletal: Denies abnormal gait Integumentary Integumentary: Denies jaundice Neurologic Neurologic: Denies abnormal gait Psychiatric Psychiatric: Denies anxiety Physical Exam Const oriented x3 Resp normal respiratory effort Cardio regular rate and regular rhythm GI soft to palpation and non-tender Extremity normal to inspection Results Lab / Micro Data Result Diagrams: 10/24/22 14:40 Assessment & Plan Assessment/Plan (1) Adenomatous colon polyp: PLAN: The patient had a very large mass in the right colon.? Part of this mass was removed and came back as tubular adenoma.? It was too large to fully remove endoscopically.? I recommended right hemicolectomy to the patient.? I discussed laparoscopic right hemicolectomy with the patient in detail.? I discussed the risks including not limited to bleeding, infection, injury to other organs such as the kidney, bladder, ureter.? Patient understands all the risks and is when to proceed.? All questions were answered and postoperative care was discussed. Harshad Perez MD Pager: [facility] [address] [place] [address], [address] [place] [address] Office:
[2022-10-26] MEDS: Lactated Ringers 1,000 ML 40 ML IV ×2 (06:04→09:30)
[2022-10-26] MEDS: Acetaminophen 500 MG Tablet 1000 MG PO ×3 (06:06→18:16)
[2022-10-26] MEDS: Gabapentin 600 MG Tablet PO (06:06)
[2022-10-26 06:25] LABS: Bedside Glucose 65 mg/dL (74-106)
--- NOTE | 2022-10-26 07:30 | COL_PTH ---
PATIENT: RAYMON RUBIO LOC: MS3 U#:[id number] AGE/SX: 62/F ROOM: GA324 RE10/26/[address]: Dr. Harshad Perez MD : 1960 BED: 1 DIS: 10/28/2022 SPEC #: [id number] RECD: 10/26/22 13:50 STATUS: ROMAN AGUILAR #: [id number] REED: 10/26/22 07:[address]: Harshad Perez DEPT: SURGICAL PATHOLOGY RECD BY: Heather Tena ENTERED: 10/27/22 07:41 SP TYPE: COLON OTHR DR: Dr. Adam Mendoza MD Tissues: Colon, NOS Procedures: Surgery Specimen Level V HEADER OPERATION: ERAS, laparoscopic hemicolectomy PRE-OP DIAGNOSIS: Adenomatous colon polyp TISSUE SUBMITTED: Right hemicolon MICROSCOPIC DIAGNOSIS Right hemicolon, hemicolectomy: Tubulovillous adenoma with focal high-grade dysplasia (5.5 cm in greatest dimension). Four benign pericolonic lymph nodes. Colonic donuts, no pathologic diagnosis. SJ:lakisha 10/31/2022 COMMENT Please also make reference to previous specimen [id number], ascending colon, biopsy with diagnosis of tubular adenoma. Case has been reviewed in consultation with Dr. Loaiza who concurs with the above diagnosis. IDC:[email or web address] MICROSCOPIC DESCRIPTION Slides are reviewed. GROSS DESCRIPTION Received in fixative is one container labeled with the patient's name and designated right hemicolon. The specimen consists of right hemicolectomy specimen consisting of cecum with ascending colon with attached pericolonic adipose tissue, segment of small intestine and appendix. Cecum with ascending colon measures 18 cm in length and small intestine measures 7.0 cm in length and appendix measures 6.0 cm in length and 0.5 cm in diameter. Both resection margins are stapled. 6.0 cm away from the distal resection margin and 6.0 cm away from the ileocecal valve is a large sessile polyp measuring 5.5 x 3.5 x 2.0 cm. No additional mucosal lesion is identified. Also present in the container are two donut-shaped pieces of tissue measuring 3.5 x 2.0 x 1.5 cm and 1.0 x 0.6 x 0.5 cm. The lumen contains a small amount of fecal material. Pericolonic adipose tissue is fixed in lymph node revealing solution. More sections will be submitted after fixation. / SJ:lakisha 10/27/2022 Sections of the appendix reveal pinpoint lumen and unremarkable cut surfaces. Sections of the polyp reveal it is mucosal in location, involvement of the underlying bowel wall is seen. Sections of pericolonic adipose tissue reveal one possible lymph node measuring 0.5 cm in greatest dimension. [facility] [employer] sections are submitted in 12 cassettes as follows: 1 - donut-shape pieces of tissue, 2 - proximal and distal resection margins, 3 - appendix, 4 - call center representative sections of ileocecal valve, large and small intestine, 5-10 - polyp, call center representative sections (portion of polyp with underlying bowel wall, entirely submitted), 11 - one bisected lymph node, 12??pericolonic adipose tissue with possible lymph nodes. / SJ:lakisha 10/30/2022 TC:1 CPT: 07271, 56007
[2022-10-26] MEDS: BUPIVACAINE LIPOSOME/PF 20 ML VIAL OPERA.SITE (08:00)
--- NOTE | 2022-10-26 09:23 | OP.PCM_ITS ---
Report of Operation Date of Procedure: 10/26/22 Pre-Operative Diagnosis: Large adenomatous polyp of the right colon Post-Operative Diagnosis: Same Surgery/Procedure Performed:: Laparoscopic right hemicolectomy with anastomosis Specimen's removed: Right colon Description of Procedure: Patient was brought back to the operating room general anesthesia was induced. The abdomen was prepped and draped in usual sterile fashion. An incision was made in the superior abdomen and deep to the fascia which was elevated and incised. A port was placed into the abdomen and the abdomen was insufflated 15 mmHg. The abdomen was inspected. A tap block was performed laparoscopically using Exparel saline mixture in both lateral abdominal sidewall. Patient was placed in Trendelenburg position and under direct visualization a 5 mm port was placed in the left lower quadrant as well as the suprapubic space. The right colon was identified and medialized using Enseal. The right ureter was identified and spared. Once the right colon was adequately mobilized and the terminal ileum was adequately mobilized the insufflation was decreased and a midline incision was made in the superior abdomen. This area was injected with local anesthetic. Wound protector was placed. The right colon was delivered through the incision. The duodenum was identified behind the hepatic flexure and the Paddock flexure was taken down. Next the terminal ileum was divided using a CANDACE stapler. The right colon pedicle was identified in between the right and left middle colon pedicle the colon was divided in the middle of the transverse colon. After the colon was divided the mesentery was taken down on either side using Enseal until the right colic pedicle was encountered. The right colon pedicle was suture-ligated using 0 silk suture. It was then divided. The specimen was handed off the table. Next the corner of each staple line was taken off and a CANDACE stapler was used to make a ileocolostomy anastomosis. The stapler was removed and the anastomosis was checked and there was no bleeding. Next a TX 60 stapler was used to close the enterostomy. There was good bleeding at the edges of the bowel. A crotch suture was placed using 3-0 silk. The bowel was returned to the abdomen the abdomen was copiously irrigated and suctioned dry. The wound protector was removed and gown and gloves were changed from all the staff. Next the fascia was closed from the top and bottom using running 0 PDS suture meeting in the middle. The subcutaneous tissue was irrigated and suctioned and hemostasis obtained use electrocautery. The skin was closed in each of the incisions using 4-0 Monocryl suture. Steri- Strips and bandages were applied. Patient was awoken and taken to PACU in stable condition tolerated the procedure well. Admit VTE Documentation VTE Mechan Device Prophylaxis: SCD's
[2022-10-26 10:10] LABS: Bedside Glucose 145 mg/dL (74-106)
[2022-10-26] MEDS: Ketorolac 15 MG/ML Vial IV (16:40)
--- NOTE | 2022-10-26 17:17 | NURSING ---
burped x1 when walked in [facility]uel; walked from her room to room 302 and back
--- NOTE | 2022-10-26 19:26 | NURSING ---
late entry: 1630 Dr. Perez called to check on pt. gave update. informed of pts low BP pt is asymptomatic. continue to monitor
[2022-10-27] MEDS: Docusate Sodium 100 MG Capsule PO ×3 (00:31→21:22)
[2022-10-27] MEDS: Acetaminophen 500 MG Tablet 1000 MG PO ×4 (00:31→18:03)
[2022-10-27 02:27] VITALS: BP 117/64; PULSE 69; RESP 15; TEMP 36.7; O2SAT 97
[2022-10-27] MEDS: Ondansetron ODT 4 MG Tablet PO (02:29)
[2022-10-27 06:05] LABS: Hematocrit 36.5 % (37-47); Hemoglobin 12.3 g/dL (12.0-15.0); Mean Corp Hgb Conc 33.7 g/dL (32-36); Mean Corpuscular Hgb 31.5 pg (27.0-32.0); Mean Corpuscular Volume 93.6 fL (81-99); Platelet Count 219 K/mm3 (150-450); RBC Distribution Width CV 12.3 % (11.6-14.6); RBC Distribution Width SD 42.3 fl (35.1-43.9); White Blood Count 15.4 K/mm3 (4.4-11.0)
--- NOTE | 2022-10-27 06:20 | NURSING ---
Per patient report, patient is passing gas and had small bowel movement.
[2022-10-27 06:26] LABS: Anion Gap 5 (5-15); BUN 10 mg/dL (7-18); Calcium,Total 8.6 mg/dL (8.5-10.1); Chloride 97 mmol/L (98-107); Creatinine, Serum 0.91 mg/dL (0.55-1.02); EST Glomerular Filtration Rate 67 mL/min (>60); Est Glom Filt Rate - Afr Amer 81 mL/min (>60); Estimated Creatinine Clearance 54.16 ml/min; Glucose 111 mg/dL (74-106); Potassium 4.5 mmol/L (3.5-5.1); Sodium Level 129 mmol/L (136-145)
[2022-10-27 08:38] VITALS: BP 137/87; PULSE 69; RESP 18; TEMP 37.2; O2SAT 99
[2022-10-27] MEDS: 0.9% Normal Saline 1,000 ML 100 ML IV (08:45)
[2022-10-27] MEDS: Levothyroxine 100 MCG Tablet PO (09:43)
[2022-10-27] MEDS: Ensure Plus High Protein 120 ML LIQUID PO ×2 (11:17→21:23)
--- NOTE | 2022-10-27 13:20 | CASEMGMT ---
MILAGROS RAYMUNDO Assessment: Face to Face with pt for initial transition planning/care coordination assessment. MILAGROS RAYMUNDO introduced self and role at [facility], pt voices understanding and consents to assessment. Pt is A/O x4 and answers all questions appropriately at this time. Pt lying in bed in no distress. Care providers, pharmacy, and demographics verified/updated. Admitting Dx: Rt hemicolectomy PCP:Kelly Specialists:Chris, SULMA Villalpando [facility]acy: [facility] Insurance: [employer] Prescription Benefit: yes LNOK: Genie Whipple, dtr Living Arrangements: Pt lives alone in a two story home with 2 steps to enter. Pt reports she is I in ADL's and denies concerns at home. Transportation: Pt drives self and denies concerns with transportation. DME/HHC/SNF: Pt denies having any DME in the home, previous HHC or SNF stays. Pt states no concerns with going home at time of dc. She states that her dtr is going to stay with her for a week post dc. Pt denies needing any services for homegoing. Pt states no further concerns/needs. CM to follow. Advised pt to ask CM if any further question/concerns/needs arise, voices understanding. Pt Goal: Home Plan: Home
--- NOTE | 2022-10-27 13:37 | PCM.PN.SRG ---
Subjective Subjective Patient reports she is doing well. She tolerated clears yesterday evening. She was started on a regular diet and tolerated regular diet this morning. She is passing some flatus. No bowel movement yet. Abdominal pain is well controlled on the Tylenol and Toradol. Objective Data Objective Data Vital Signs: Vital Signs Temp Pulse Resp BP Pulse Ox O2 Del Method O2 Flow Rate 99.0 F 69 18 137/87 H 99 Room Air 4 10/27/22 08:38 10/27/22 08:38 10/27/22 08:38 10/27/22 08:38 10/27/22 08:38 10/27/22 08:41 10/26/22 10:49 FiO2 39 10/26/22 09:45 Oxygen Flow Rate (L/min) 4 Oxygen Delivery Method Room Air Weight: 118 lb 0.003 oz Body Mass Index (BMI) 19.6 Intake & Output: Intake and Output for Last 24 Hours 10/25/22 10/26/22 10/27/22 23:59 23:59 23:59 Intake Total 2482 / 2482 465 / 465 Output Total 200 / 200 425 / 425 Balance 2282 / 2282 40 / 40 Lab / Micro Data Result Diagrams: 10/27/22 05:45 10/27/22 05:45 Labs: Laboratory Results - last 24 hr 10/27/22 05:45: WBC 15.4 H, RBC 3.90 L, Hgb 12.3, Hct 36.5 L, MCV 93.6, MCH 31.5, MCHC 33.7, RDW Std Deviation 42.3, RDW Coeff of Braeden 12.3, Plt Count 219, MPV 10.0 10/27/22 05:45: Sodium 129 L, Potassium 4.5, Chloride 97 L, Carbon Dioxide 27.0, Anion Gap 5, BUN 10, Creatinine 0.91, Estim Creat Clear Calc 54.16, Est GFR (MDRD) Af Amer 81, Est GFR (MDRD) Non-Af 67, BUN/Creatinine Ratio 11.0, Glucose 111 H, Calcium 8.6 Physical Exam Const oriented x3 Resp normal respiratory effort GI soft to palpation Inspection: abdominal distention Assessment & Plan Assessment/Plan (1) Adenomatous colon polyp: PLAN: Is doing well after laparoscopic right hemicolectomy. I have advanced her to a regular diet and stopped her IV fluids. She was a little hyponatremic today but that should correct on its own I will reorder labs for tomorrow. Pain appears to be well controlled and the patient is started on a regular diet. If she is doing well tomorrow she will be discharged home. Harshad Perez MD Pager: [facility] [address] [place] [address], [address] [place] [address] Office:
--- NOTE | 2022-10-27 13:38 | PCM.DC.SUM ---
Providers Date of Admission: 10/26/22 Primary Care Physician: Dr. Adam Mendoza MD Reason For Visit: RT STERLING COLECTOMY Diagnosis Discharge Diagnosis (1) Adenomatous colon polyp: Status: Acute Code(s): D12.6 - Benign neoplasm of colon, unspecified Plan: Is doing well after laparoscopic right hemicolectomy. I have advanced her to a regular diet and stopped her IV fluids. She was a little hyponatremic today but that should correct on its own I will reorder labs for tomorrow. Pain appears to be well controlled and the patient is started on a regular diet. If she is doing well tomorrow she will be discharged home. Harshad Perez MD Pager: [facility] [address] [place] [address], [address] [place] [address] Office: Medications at Discharge Home Medications levothyroxine 100 mcg tablet 100 mcg PO DAILY THYROID 07/05/20 albuterol sulfate 90 mcg/actuation aerosol inhaler (Ventolin HFA) 2 puff inhalation Q4H PRN PRN Wheezing ##1 06/30/21 ipratropium 0.5 mg-albuterol 3 mg (2.5 mg base)/3 mL nebulization soln 3 ml inhalation Q4H PRN shortness of breath or wheezing #180 mL 10/14/22 nebulizer and compressor (InnoSpire Essence device) #1 ea 10/14/22 acetaminophen 500 mg tablet 650 mg PO Q6 PRN Pain, Moderate #0 tabs 10/27/22 Hospital Course Operations colectomy Summary of Care Provided Hospital Course: Patient had elective laparoscopic right hemicolectomy for a very large polyp of the cecum. After surgery the patient was started on clear liquids. After tolerating clear liquid she was advanced to regular diet and pain was controlled on oral medications. The following day once tolerating diet she will be discharged home. Weight / BMI Weight Weight: 118 lb 0.003 oz Body Mass Index (BMI) 19.6 ABG / Lab / Microbiology Data Result Diagrams: 10/27/22 05:45 10/27/22 05:45 Laboratory: Laboratory Results - last 24 hr 10/27/22 05:45: WBC 15.4 H, RBC 3.90 L, Hgb 12.3, Hct 36.5 L, MCV 93.6, MCH 31.5, MCHC 33.7, RDW Std Deviation 42.3, RDW Coeff of Braeden 12.3, Plt Count 219, MPV 10.0 10/27/22 05:45: Sodium 129 L, Potassium 4.5, Chloride 97 L, Carbon Dioxide 27.0, Anion Gap 5, BUN 10, Creatinine 0.91, Estim Creat Clear Calc 54.16, Est GFR (MDRD) Af Amer 81, Est GFR (MDRD) Non-Af 67, BUN/Creatinine Ratio 11.0, Glucose 111 H, Calcium 8.6 D/C Instructions Discharge Diet: Light diet - advance as tolerated Discharge Activity: Return to Normal Activity, May Drive (in 2-3 days) and May Shower Lifting Restrictions: 15 lbs for 4 weeks Additional Activity Instructions: Be aware that pain medications may cause nausea. You should typically eat light foods as you take your pain medications. Pain medications may also cause constipation. If you have difficulty with this please discuss with your doctor. Call your doctor if your incision/area has: Continuous Slow Oozing, Sudden Increased Bleeding, Increased Pain/ Swelling, Increased Redness, Foul Smelling Discharge and Swelling at the incision site Call your doctor if you observe: Fever of 101 or Higher and Uncontrolled pain Remove Dressing in: 1 day (Remove bandages tomorrow, remove steri strips in 7-10 days) Cleanse incision/area with: Soap & Water Please Follow Up With: Harshad Perez MD When: Please call to schedule 1 week follow up appointment. [phone] Meaningful Use Info Meaningful Use Diagnoses (Choose all that apply): None applicable Discharge Plan Admission Admit Date/Time: 10/26/22 05:24 Attending Provider: Harshad Perez Primary Care Provider: Adam Mendoza Discharge Orders/Prescriptions Prescriptions: New acetaminophen 500 mg Tablet 650 mg PO Q6 PRN (Reason: Pain, Moderate) Qty: 0 0RF Continued levothyroxine 100 MCG tablet 100 mcg PO DAILY albuterol sulfate [Ventolin HFA] 1 INHALER inhaler 2 puff inhalation Q4H PRN PRN (Reason: Wheezing) Qty: 1 0RF (DME) nebulizer and compressor [InnoSpire Essence] Device See Rx Instructions .Route Qty: 1 0RF Rx Instructions: As directed ipratropium-albuterol 0.5 mg-3 mg(2.5 mg base)/3 mL solution for nebulization 3 ml inhalation Q4H PRN (Reason: shortness of breath or wheezing) Qty: 180 2RF Discontinued metronidazole 500 mg tablet 500 mg PO .COMPLEX Rx Instructions: 500 mg orally; Take 2 tabs PO at 1300, 1400, and 2300 day before surgery Referrals / Follow Up: Adam Mendoza MD [Primary Care Provider] -
[2022-10-27 14:21] VITALS: BP 135/73; PULSE 69; RESP 18; TEMP 36.8; O2SAT 97
[2022-10-27 21:19] VITALS: BP 112/70; PULSE 71; RESP 18; TEMP 36.8; O2SAT 94
[2022-10-27] MEDS: 0.9% Saline Lock 10 ML Syringe IV (21:21)
[2022-10-28 00:53] VITALS: BP 120/71; PULSE 68; RESP 18; TEMP 36.7; O2SAT 94
[2022-10-28] MEDS: Acetaminophen 500 MG Tablet 1000 MG PO ×2 (00:54→06:47)
[2022-10-28 05:25] VITALS: BP 127/79; PULSE 84; RESP 16; TEMP 37.3; O2SAT 95
[2022-10-28] MEDS: Levothyroxine 100 MCG Tablet PO (05:26)
[2022-10-28 07:01] VITALS: O2SAT 93
[2022-10-28 07:08] LABS: Absolute Lymphocyte Count 2.04 X10^3/uL (0.83-4.51); Absolute Neutrophil Count 6.5 X10^3/uL (2.0-7.7); Basophil# 0.03 X10^3/uL; Basophil% 0.3 % (0-1); Eosinophil# 0.06 X10^3/uL; Eosinophils% 0.7 % (0-5); Hematocrit 38.9 % (37-47); Hemoglobin 13.2 g/dL (12.0-15.0); Lymphocyte # 2.04 X10^3/ul (0.83-4.51); Lymphocyte % 22.1 % (19-41); Mean Corp Hgb Conc 33.9 g/dL (32-36); Mean Corpuscular Hgb 31.5 pg (27.0-32.0); Mean Corpuscular Volume 92.8 fL (81-99); Mean Platelet Vol. 10.2 fl (6.2-12.0); Monocyte# 0.53 X10^3/uL; Monocyte% 5.8 % (0-10); NRBC Flagged by Analyzer 0 % (0-5); Neutrophil # 6.51 X10^3/uL (2.7-7.7); Neutrophil % 70.7 % (47-70); Platelet Count 235 K/mm3 (150-450); RBC Distribution Width CV 12.4 % (11.6-14.6); RBC Distribution Width SD 42.7 fl (35.1-43.9); Red Blood Count 4.19 M/mm3 (4.2-5.4); White Blood Count 9.2 K/mm3 (4.4-11.0)
[2022-10-28 07:42] LABS: Anion Gap 2 (5-15); BUN 10 mg/dL (7-18); BUN/Creat Ratio 12.1 RATIO (10-20); Calcium,Total 9.1 mg/dL (8.5-10.1); Chloride 103 mmol/L (98-107); Creatinine, Serum 0.83 mg/dL (0.55-1.02); EST Glomerular Filtration Rate 74 mL/min (>60); Est Glom Filt Rate - Afr Amer 90 mL/min (>60); Estimated Creatinine Clearance 59.38 ml/min; Glucose 103 mg/dL (74-106); Potassium 4.1 mmol/L (3.5-5.1); Sodium Level 137 mmol/L (136-145)
--- NOTE | 2022-10-28 09:06 | DCINST_ITS ---
Discharge Instructions Diet Discharge Diet: Light diet - advance as tolerated Activity Discharge Activity: May Shower Lifting Restrictions: No lifting greater than 15 pounds for 4 weeks after surgery Additional Activity Instructions:: Be aware that pain medications may cause nausea. You should typically eat light foods as you take your pain medications. Pain medications may also cause constipation. If you have difficulty with this please discuss with your doctor. Dressing / Incision Call your doctor if your incision/area has: Continuous Slow Oozing, Sudden Increased Bleeding, Increased Pain/ Swelling, Increased Redness, Foul Smelling Discharge and Swelling at the incision site Call your doctor if you observe: Fever of 101 or Higher and Uncontrolled pain Cleanse incision/area with: Soap & Water Additional Dressing/Incision Instructions:: Please leave Steri-Strips intact until they fall off spontaneously or are taken off at your follow-up visit Follow Up Care Please Follow Up With: Harshad Perez MD When: 7 to 10 days postop Test Results: Test results from this visit will be discussed in further detail at your follow- up appointment, if applicable. Discharge Plan Admission Admit Date/Time: 10/26/22 05:24 Primary Reason for Your Visit: Right hemicolectomy for large colon polyp Attending Provider: Harshad Perez Primary Care Provider: Adam Mendoza Discharge Orders/Prescriptions Prescriptions: New acetaminophen 500 mg Tablet 650 mg PO Q6 PRN (Reason: Pain, Moderate) Qty: 0 0RF Continued levothyroxine 100 MCG tablet 100 mcg PO DAILY albuterol sulfate [Ventolin HFA] 1 INHALER inhaler 2 puff inhalation Q4H PRN PRN (Reason: Wheezing) Qty: 1 0RF (DME) nebulizer and compressor [InnoSpire Essence] Device See Rx Instructions .Route Qty: 1 0RF Rx Instructions: As directed ipratropium-albuterol 0.5 mg-3 mg(2.5 mg base)/3 mL solution for nebulization 3 ml inhalation Q4H PRN (Reason: shortness of breath or wheezing) Qty: 180 2RF Discontinued metronidazole 500 mg tablet 500 mg PO .COMPLEX Rx Instructions: 500 mg orally; Take 2 tabs PO at 1300, 1400, and 2300 day before surgery Referrals / Follow Up: Adam Mendoza MD [Primary Care Provider] - Disposition Disposition (needs filled in before D/C Order can be placed): Home, Self Care
--- NOTE | 2022-10-28 09:10 | PCM.PN.SRG ---
Subjective Subjective Patient seen and examined during AM rounds. She reports that she still has some abdominal tenderness, but rates this at a 3-4 out of 10 and reports this is improved over yesterday. She states that she is tolerating a soft diet without any nausea or vomiting. She denies any bowel movements today but continues to pass flatus. She did have loose bowel movement yesterday that was nonbloody. Objective Data Objective Data Vital Signs: Vital Signs Temp Pulse Resp BP Pulse Ox O2 Del Method O2 Flow Rate 99.1 F 84 16 127/79 H 93 Room Air 4 10/28/22 05:25 10/28/22 05:25 10/28/22 05:25 10/28/22 05:25 10/28/22 07:01 10/28/22 07:01 10/26/22 10:49 FiO2 39 10/26/22 09:45 Oxygen Flow Rate (L/min) 4 Oxygen Delivery Method Room Air Weight: 118 lb 0.003 oz Body Mass Index (BMI) 19.6 Intake & Output: Intake and Output for Last 24 Hours 10/26/22 10/27/22 10/28/22 23:59 23:59 23:59 Intake Total 2482 / 2482 2116.67 / 2116.67 200 / 200 Output Total 200 / 200 825 / 825 Balance 2282 / 2282 1291.67 / 1291.67 200 / 200 Lab / Micro Data Result Diagrams: 10/28/22 06:20 10/28/22 06:20 Labs: Laboratory Results - last 24 hr 10/28/22 06:20: WBC 9.2, RBC 4.19 L, Hgb 13.2, Hct 38.9, MCV 92.8, MCH 31.5, MCHC 33.9, RDW Std Deviation 42.7, RDW Coeff of Braeden 12.4, Plt Count 235, MPV 10.2, Immature Gran % (Auto) 0.400, Neut % (Auto) 70.7 H, Lymph % (Auto) 22.1, [place] % (Auto) 5.8, Eos % (Auto) 0.7, Baso % (Auto) 0.3, Absolute Neuts (auto) 6.5, Absolute Lymphs (auto) 2.04, Nucleated RBC % 0 10/28/22 06:20: Sodium 137, Potassium 4.1, Chloride 103, Carbon Dioxide 32.0, Anion Gap 2 L, BUN 10, Creatinine 0.83, Estim Creat Clear Calc 59.38, Est GFR (MDRD) Af Amer 90, Est GFR (MDRD) Non-Af 74, BUN/Creatinine Ratio 12.1, Glucose 103, Calcium 9.1 Physical Exam Const oriented x3 and no apparent distress Resp normal respiratory effort GI GI Narrative: Nondistended, soft, operative dressings are initially in place, but removed and beneath these dressings patient's operative wounds are well-appearing with Steri-Strips still intact. There is no drainage or erythema about the wounds. Patient has appropriate tenderness to palpation just about her port sites and extraction site Assessment & Plan Assessment/Plan (1) Adenomatous colon polyp: PLAN: Continues to do well after laparoscopic right hemicolectomy. Tolerating regular diet with ongoing bowel function. Pain control improved today. Postoperative expectations discussed?including outpatient follow-up and wound care. Patient expresses comfort with discharge plan and states that she will have her daughter available for any immediate needs. Discharge order has been placed. Charges/Coding Visit Charges Inpatient E&M: 37311 Subs Hosp L2
[2022-10-28 09:12] VITALS: BP 123/57; PULSE 83; RESP 16; TEMP 37.1; O2SAT 94
[2022-10-28] MEDS: Ensure Plus High Protein 120 ML LIQUID PO (09:20)
== END 2022-10-28 10:12 | disposition home or self-care (01) | DRG 331 ==
LOC: ACINP 05:25 → MS3 10:50
PROVIDERS: Anesthesiology; Admitting Provider Surgery; PCP Family Medicine; Visit Provider Surgery
PROC: 0DTF4ZZ Resection of Right Large Intestine, Percutaneous Endoscopic Approach (ICD-10-PCS; CPT 44205; principal; 2022-10-26 07:10)
DX: D12.0 Benign neoplasm of cecum (principal); E07.9 Disorder of thyroid, unspecified; J44.9 Chronic obstructive pulmonary disease, unspecified; F17.210 Nicotine dependence, cigarettes, uncomplicated; Z79.890 Hormone replacement therapy; Z79.899 Other long term (current) drug therapy
CPT/HCPCS: 36415; 80048; 82962; 83735; 85025; 85027; 88307; 94668; 99252; 99406; J7030; J7120; A4216; C1760; G0463; J2405; J3475

== ENCOUNTER 2022-12-01 18:19 | Emergency (ER) | payer BC, SELFPAY ==
[2022-12-01] VITALS (10 sets, daily range): BP systolic 120–143; BP diastolic 58–73; PULSE 105–125; RESP 12–22; TEMP 36.6–36.8; O2SAT 94–100; BMI 21.6
--- NOTE | 2022-12-01 18:31 | EKG12_ITS ---
Test Reason : DYSRHYTHMIA Blood Pressure : / mmHG Vent. Rate : 119 BPM Atrial Rate : 119 BPM P-R Int : 146 ms QRS Dur : 080 ms QT Int : 336 ms P-R-T Axes : 074 048 033 degrees QTc Int : 472 ms Sinus tachycardia Nonspecific ST abnormality Abnormal ECG Confirmed by SINTIA RAMOS, RADHA ([id number]), avid editor JEMAL CANTOR ([id number]) on 12/05/2022 7:36:20 AM Referred By: ANANDA Confirmed By:MELISSA PATRICIO MD
--- NOTE | 2022-12-01 18:46 | RAD_ITS ---
EXAM: XR CHEST, 1 VIEW CLINICAL INDICATION: SOB TECHNIQUE: Frontal view of the chest. This report was created using [employer] report generation technology. COMPARISON: 10/14/2022 FINDINGS: LUNGS AND PLEURAL SPACES: Unremarkable. No consolidation or edema. No pneumothorax. No effusion. HEART: Unremarkable. Cardiac silhouette not enlarged. MEDIASTINUM: Central airways and mediastinal contour are unremarkable. BONES/JOINTS: Unremarkable. SOFT TISSUES: Unremarkable. RAD/Chest 1 View (Portable) IMPRESSION: No radiographic evidence of acute cardiopulmonary disease. Electronically Signed: Thaddeus Garcia MD at 19:11 EDT ,
--- NOTE | 2022-12-01 18:47 | ED.VIS.DYS ---
HPI <ROB Mckeon - Last Filed: 12/01/22 21:19> History of Present Illness Chief Complaint: Shortness of Breath Narrative Narrative: Patient presenting today with shortness of breath that she has had since this morning. Patient states that she recently stopped smoking in October and was smoking 1 pack/day for several years. She has a history of asthma but no formal diagnosis for COPD. She states she tried using her rescue inhaler today without relief and has had 5 breathing treatments today that are not helping. She denies any chest pain, fever, chills, recent illness, history of blood clots. PFSH <ROB Mckeon - Last Filed: 12/01/22 21:19> [facility] Medical History Alcohol use Anemia Arthritis Back pain Cancer COPD (chronic obstructive pulmonary disease) Easy bruising Excessive bleeding History of echocardiogram History of pain when walking History of ulceration Hoarseness Injury of head and neck Leg cramps Low calcium levels Marijuana use Migraine headache Post-menopausal Recurrent UTI Seasonal allergies Smoker Syncope Thyroid disease Wears glasses Home Medications levothyroxine 100 mcg tablet 100 mcg PO DAILY THYROID 07/05/20 [History Last Taken 10/26/22] albuterol sulfate 90 mcg/actuation aerosol inhaler (Ventolin HFA) 2 puff inhalation Q4H PRN PRN Wheezing ##1 06/30/21 [Rx Last Taken 09/29/22] ipratropium 0.5 mg-albuterol 3 mg (2.5 mg base)/3 mL nebulization soln 3 ml inhalation Q4H PRN shortness of breath or wheezing #180 mL 10/14/22 [Rx Last Taken Unknown] nebulizer and compressor (InnoSpire Essence device) #1 ea 10/14/22 [Rx Last Taken Unknown] acetaminophen 500 mg tablet 650 mg PO Q6 PRN Pain, Moderate #0 tabs 10/27/22 [Rx Last Taken Unknown] dexamethasone 6 mg tablet 6 mg PO DAILY #5 tabs 12/01/22 [Rx Last Taken Unknown] Allergy/AdvReac Type Severity Reaction Status Date / Time prednisone Allergy Unknown Swelling Verified 12/01/22 18:19 erythromycin base Allergy Hives Verified 12/01/22 18:19 [From Erythrocin] Family History Mother Asthma Heart disease CVA (cerebral vascular accident) High cholesterol Surgical History H/O thyroidectomy H/O: History of colonoscopy (~09/2022) History of esophagogastroduodenoscopy (EGD) (~09/2022) History of loop electrical excision procedure (LEEP) Social History Smoking Status: Current every day smoker tobacco type: cigarettes second hand exposure: No alcohol intake: current substance use type: does not use ROS <ROB Mckeon - Last Filed: 12/01/22 21:19> ROS ED Constitutional Constitutional ED: Denies chills, fever(s) or sweats Cardiovascular Cardiovascular: Denies chest pain or palpitations Respiratory/Chest Respiratory/Chest: Reports dyspnea, dyspnea on exertion and wheezing; Denies cough Gastrointestinal Gastrointestinal: Denies abdominal pain, nausea or vomiting Musculoskeletal Musculoskeletal: Denies arthralgias or myalgias Integumentary Denies abscess, Abrasions or rash Neurologic Neurologic: Denies confusion, dizziness or paresthesias Psychiatric Psychiatric: Denies anxiety, depression, suicidal ideation or suicidal thoughts EXAM <ROB Mckeon - Last Filed: 12/01/22 21:19> Physical Exam Const Vital Signs: 12/01/22 18:20 12/01/22 18:22 12/01/22 18:23 Temperature 97.8 F 97.8 F Temperature Source Temporal Temporal Pulse Rate 125 H 124 H Respiratory Rate 18 22 H Respiratory Effort Short of Breath Respiratory Depth Shallow Respiratory Pattern Tachypnea Blood Pressure 143/73 H 143/73 H Blood Pressure Mean 96 96 Pulse Ox 95 100 Oxygen Delivery Method Room Air Nasal Cannula Nasal Cannula Oxygen Flow Rate (L/min) 2 2 12/01/22 19:46 12/01/22 19:46 12/01/22 19:22 Temperature 97.9 F Temperature Source Temporal Pulse Rate 120 H 115 H Respiratory Rate 20 H 22 H 16 Respiratory Effort Normal Non-Labored Short of Breath Respiratory Depth Shallow Respiratory Pattern Normal Tachypnea Blood Pressure 128/58 H Blood Pressure Mean 81 Pulse Ox 96 98 Oxygen Delivery Method Room Air Nasal Cannula Oxygen Flow Rate (L/min) 2 12/01/22 20:22 12/01/22 21:22 Temperature 98.0 F 98.1 F Temperature Source Temporal Temporal Pulse Rate 113 H 108 H Respiratory Rate 14 12 Respiratory Effort Respiratory Depth Respiratory Pattern Blood Pressure 121/69 H 123/63 H Blood Pressure Mean 86 83 Pulse Ox 94 95 Oxygen Delivery Method Nasal Cannula Nasal Cannula Oxygen Flow Rate (L/min) 2 2 Positive well nourished and well developed General Appearance ED: well developed HEENT Reports normocephalic and head/scalp atraumatic Mouth ED: Yes moist mucous membranes normal Eyes PERRL and EOMs intact bilaterally Neck full ROM and supple Chest Wall inspection of chest normal Resp Resp Narrative: Patient has increased work of breathing with a mild stridor and use of accessory muscles. Lung sounds are diminished. Auscultation: wheezes expiratory wheezes and inspiratory wheezes Cardio regular rate and regular rhythm GI soft to palpation, non-tender, non-distended and no masses Back/Spine normal ROM and normal to inspection Extremity normal to inspection and full ROM Neuro oriented x3, CN's II-XII intact bilaterally, moves all extremities, no focal motor deficits and no sensory deficits noted Sensorium / Orientation: awake and alert Psych mental status grossly normal and thought process normal Skin no rashes or lesions noted and no wounds <Dr. Simba Carroll MD - Last Filed: 12/01/22 22:24> Physical Exam Const Vital Signs: 12/01/22 18:20 12/01/22 18:22 12/01/22 18:23 Temperature 97.8 F 97.8 F Temperature Source Temporal Temporal Pulse Rate 125 H 124 H Respiratory Rate 18 22 H Respiratory Effort Short of Breath Respiratory Depth Shallow Respiratory Pattern Tachypnea Blood Pressure 143/73 H 143/73 H Blood Pressure Mean 96 96 Pulse Ox 95 100 Oxygen Delivery Method Room Air Nasal Cannula Nasal Cannula Oxygen Flow Rate (L/min) 2 2 12/01/22 19:46 12/01/22 19:46 12/01/22 19:22 Temperature 97.9 F Temperature Source Temporal Pulse Rate 120 H 115 H Respiratory Rate 20 H 22 H 16 Respiratory Effort Normal Non-Labored Short of Breath Respiratory Depth Shallow Respiratory Pattern Normal Tachypnea Blood Pressure 128/58 H Blood Pressure Mean 81 Pulse Ox 96 98 Oxygen Delivery Method Room Air Nasal Cannula Oxygen Flow Rate (L/min) 2 12/01/22 20:22 12/01/22 21:22 Temperature 98.0 F 98.1 F Temperature Source Temporal Temporal Pulse Rate 113 H 108 H Respiratory Rate 14 12 Respiratory Effort Respiratory Depth Respiratory Pattern Blood Pressure 121/69 H 123/63 H Blood Pressure Mean 86 83 Pulse Ox 94 95 Oxygen Delivery Method Nasal Cannula Nasal Cannula Oxygen Flow Rate (L/min) 2 2 MDM <ROB Mckeon - Last Filed: 12/01/22 21:19> [facility] Narrative Medical decision making narrative: Patient presenting today with shortness of breath that started this morning. She has been seen in the emergency department several times for COPD exacerbation but states she has no formal diagnosis of COPD and does not have a thermite welder. She has an albuterol inhaler as well as breathing treatments but is not on any other inhalers. She is having a difficult time breathing as she is using accessory muscles and does sound really wheezy. She will be given Solu-Medrol which she has tolerated in the past without any reaction as well as breathing treatments. She is tachycardic at 124 bpm, however, I feel that can be attributed to her having 5 breathing treatments today. however, she has never been tachycardic here in the past, therefore D-dimer will be obtained. Labs will be obtained to rule out anemia, leukocytosis, ACS. Chest x-ray will be obtained to rule out pneumonia, pneumothorax, or any other cardiopulmonary abnormality and is negative for any acute disease. D-dimer is negative, troponin WNL. On examination patient is still significantly wheezy and has a difficult time carrying on a conversation. She is remained at 95% on room air. She will be ambulated to assess her pulse ox and then possibly discussed with hospitalist for admission. Lab Data Attestation: I reviewed the patient's lab results. Labs: Laboratory Results - last 24 hr 12/01/22 12/01/22 12/01/22 18:50 18:50 20:00 WBC 8.5 RBC 3.44 L Hgb 10.6 L Hct 31.7 L MCV 92.2 MCH 30.8 MCHC 33.4 RDW Std Deviation 42.5 RDW Coeff of Braeden 12.6 Plt Count 198 MPV 10.5 Immature Gran % (Auto) 0.500 Neut % (Auto) 69.6 Lymph % (Auto) 20.6 Chase % (Auto) 8.0 Eos % (Auto) 0.7 Baso % (Auto) 0.6 Absolute Neuts (auto) 5.9 Absolute Lymphs (auto) 1.75 Nucleated RBC % 0 D-Dimer Quant (PE/DVT) < 0.27 L Sodium 139 Potassium 3.3 L Chloride 106 Carbon Dioxide 26.0 Anion Gap 7 BUN 21 H Creatinine 0.76 Estim Creat Clear Calc 69.06 Est GFR (MDRD) Af Amer 99 Est GFR (MDRD) Non-Af 82 BUN/Creatinine Ratio 27.6 H Glucose 128 H Calcium 8.9 Troponin I High Sens 12/01/22 20:00 WBC RBC Hgb Hct MCV MCH MCHC RDW Std Deviation RDW Coeff of Braeden Plt Count MPV Immature Gran % (Auto) Neut % (Auto) Lymph % (Auto) Chase % (Auto) Eos % (Auto) Baso % (Auto) Absolute Neuts (auto) Absolute Lymphs (auto) Nucleated RBC % D-Dimer Quant (PE/DVT) Sodium Potassium Chloride Carbon Dioxide Anion Gap BUN Creatinine Estim Creat Clear Calc Est GFR (MDRD) Af Amer Est GFR (MDRD) Non-Af BUN/Creatinine Ratio Glucose Calcium Troponin I High Sens 19 Radiography Chest X-Ray - ED: Read by ED Physician and Read by Radiologist Diagnostic Testing: Clinical Impression(s) from Imaging Studies Chest X-Ray 12/01/22 18:46 IMPRESSION: No radiographic evidence of acute cardiopulmonary disease. Electronically Signed: Thaddeus Garcia MD at 19:11 EDT , EKG Initial EKG: Comments: 119 bpm, sinus tachycardia, no ST elevation, reviewed and interpreted by attending ED physician. <Dr. Simba Carroll MD - Last Filed: 12/01/22 22:24> [facility] MDM Narrative Medical decision making narrative: Patient presenting today with shortness of breath that started this morning. She has been seen in the emergency department several times for COPD exacerbation but states she has no formal diagnosis of COPD and does not have a thermite welder. She has an albuterol inhaler as well as breathing treatments but is not on any other inhalers. She is having a difficult time breathing as she is using accessory muscles and does sound really wheezy. She will be given Solu-Medrol which she has tolerated in the past without any reaction as well as breathing treatments. She is tachycardic at 124 bpm, however, I feel that can be attributed to her having 5 breathing treatments today. however, she has never been tachycardic here in the past, therefore D-dimer will be obtained. Labs will be obtained to rule out anemia, leukocytosis, ACS. Chest x-ray will be obtained to rule out pneumonia, pneumothorax, or any other cardiopulmonary abnormality and is negative for any acute disease. D-dimer is negative, troponin WNL. On examination patient is still significantly wheezy and has a difficult time carrying on a conversation. She is remained at 95% on room air. She will be ambulated to assess her pulse ox and then possibly discussed with hospitalist for admission. Patient actually was ambulated in the department. She maintained sats at 96%. She actually did quite well. My initial impression is that she would likely need admission but she has gotten much better. She is calm sitting in bed. She carries on a normal conversation without stopping now. Her lungs sound much better. She only got 1 breathing treatment here so I will give her another. She does have DuoNebs at home. She did very well with Decadron last time. We will start her on Decadron here and give her 5 days more. We discussed reasons to return. Lab Data Labs: Laboratory Results - last 24 hr 12/01/22 12/01/22 12/01/22 18:50 18:50 20:00 WBC 8.5 RBC 3.44 L Hgb 10.6 L Hct 31.7 L MCV 92.2 MCH 30.8 MCHC 33.4 RDW Std Deviation 42.5 RDW Coeff of Braeden 12.6 Plt Count 198 MPV 10.5 Immature Gran % (Auto) 0.500 Neut % (Auto) 69.6 Lymph % (Auto) 20.6 Chase % (Auto) 8.0 Eos % (Auto) 0.7 Baso % (Auto) 0.6 Absolute Neuts (auto) 5.9 Absolute Lymphs (auto) 1.75 Nucleated RBC % 0 D-Dimer Quant (PE/DVT) < 0.27 L Sodium 139 Potassium 3.3 L Chloride 106 Carbon Dioxide 26.0 Anion Gap 7 BUN 21 H Creatinine 0.76 Estim Creat Clear Calc 69.06 Est GFR (MDRD) Af Amer 99 Est GFR (MDRD) Non-Af 82 BUN/Creatinine Ratio 27.6 H Glucose 128 H Calcium 8.9 Troponin I High Sens 12/01/22 20:00 WBC RBC Hgb Hct MCV MCH MCHC RDW Std Deviation RDW Coeff of Braeden Plt Count MPV Immature Gran % (Auto) Neut % (Auto) Lymph % (Auto) Chase % (Auto) Eos % (Auto) Baso % (Auto) Absolute Neuts (auto) Absolute Lymphs (auto) Nucleated RBC % D-Dimer Quant (PE/DVT) Sodium Potassium Chloride Carbon Dioxide Anion Gap BUN Creatinine Estim Creat Clear Calc Est GFR (MDRD) Af Amer Est GFR (MDRD) Non-Af BUN/Creatinine Ratio Glucose Calcium Troponin I High Sens 19 Radiography Diagnostic Testing: Clinical Impression(s) from Imaging Studies Chest X-Ray 12/01/22 18:46 IMPRESSION: No radiographic evidence of acute cardiopulmonary disease. Electronically Signed: Thaddeus Garcia MD at 19:11 EDT , My independent interpretation of the patient's single view chest x-ray shows some hyperexpansion but no acute infiltrate or pneumothorax. Final reading is no radiographic evidence of acute cardiopulmonary disease Treatment and Re-Evaluation :: I have personally performed a face to face assessment of the patient and have reviewed the SAMSON Note. I performed a substantive portion of the visit including all aspects of the following. My spivey findings include: History: Patient states she was having shortness of breath and wheezing off and on for maybe 2 or 3 days. But over the last day and mostly today she has had tight wheezing. She has used breathing treatments about 5 times at home. But states she just cannot really catch her breath well. She is coughing but not bringing up any sputum. She is not having chest pain. No hemoptysis. Never had DVT or PE. No travel or surgery. No leg pain or swelling. She has quit smoking about a month ago. She has a known history of asthma but has not been diagnosed with COPD. But she has been seen several times for similar episodes. Exam: Patient is very tight. She is not moving much air at all. She has tight wheezing on exam. She actually speaks in shortened sentences due to this. She is a bit tachycardic but closer to 110 now. This might be due to her multiple breathing treatments. Medical Decision Making: Patient's x-ray shows chronic changes. D-dimer is negative. Troponins negative. She does have some anemia but denies any recent bleeding. She is not on any anticoagulation. Discharge Plan Triage Chief Complaint: Shortness of Breath ED Midlevel Provider: Kelsey Hines ED Provider: Simba Carroll Dx/Rx/DC Orders Clinical Impression: COPD exacerbation, Tachycardia Instructions: ED COPD Flare Prescriptions: New dexamethasone 6 mg tablet 6 mg PO DAILY Qty: 5 0RF No Action levothyroxine 100 MCG tablet 100 mcg PO DAILY albuterol sulfate [Ventolin HFA] 1 INHALER inhaler 2 puff inhalation Q4H PRN PRN (Reason: Wheezing) Qty: 1 0RF acetaminophen 500 mg Tablet 650 mg PO Q6 PRN (Reason: Pain, Moderate) Qty: 0 0RF (DME) nebulizer and compressor [InnoSpire Essence] Device See Rx Instructions .Route Qty: 1 0RF Rx Instructions: As directed ipratropium-albuterol 0.5 mg-3 mg(2.5 mg base)/3 mL solution for nebulization 3 ml inhalation Q4H PRN (Reason: shortness of breath or wheezing) Qty: 180 2RF Primary Care Provider: Adam Mendoza Referrals: Adam Mendoza MD [Primary Care Provider] - 3-5 Days if not improving Disposition Disposition: Home, Self Care
[2022-12-01] MEDS: MethylPREDNISolone 125 MG/2 ML Vial IV (19:02)
[2022-12-01 19:10] LABS: Absolute Lymphocyte Count 1.75 X10^3/uL (0.83-4.51); Absolute Neutrophil Count 5.9 X10^3/uL (2.0-7.7); Basophil# 0.05 X10^3/uL; Basophil% 0.6 % (0-1); Eosinophil# 0.06 X10^3/uL; Eosinophils% 0.7 % (0-5); Hematocrit 31.7 % (37-47); Hemoglobin 10.6 g/dL (12.0-15.0); Lymphocyte # 1.75 X10^3/ul (0.83-4.51); Lymphocyte % 20.6 % (19-41); Mean Corp Hgb Conc 33.4 g/dL (32-36); Mean Corpuscular Hgb 30.8 pg (27.0-32.0); Mean Corpuscular Volume 92.2 fL (81-99); Mean Platelet Vol. 10.5 fl (6.2-12.0); Monocyte# 0.68 X10^3/uL; NRBC Flagged by Analyzer 0 % (0-5); Neutrophil # 5.92 X10^3/uL (2.7-7.7); Neutrophil % 69.6 % (47-70); Platelet Count 198 K/mm3 (150-450); RBC Distribution Width CV 12.6 % (11.6-14.6); RBC Distribution Width SD 42.5 fl (35.1-43.9); Red Blood Count 3.44 M/mm3 (4.2-5.4); White Blood Count 8.5 K/mm3 (4.4-11.0)
[2022-12-01 19:23] LABS: Anion Gap 7 (5-15); BUN 21 mg/dL (7-18); BUN/Creat Ratio 27.6 RATIO (10-20); Calcium,Total 8.9 mg/dL (8.5-10.1); Chloride 106 mmol/L (98-107); Creatinine, Serum 0.76 mg/dL (0.55-1.02); EST Glomerular Filtration Rate 82 mL/min (>60); Est Glom Filt Rate - Afr Amer 99 mL/min (>60); Estimated Creatinine Clearance 69.06 ml/min; Glucose 128 mg/dL (74-106); Potassium 3.3 mmol/L (3.5-5.1); Sodium Level 139 mmol/L (136-145)
[2022-12-01] MEDS: Ipratropium/Albuterol Sulfate 3 ML AMPUL.NEB INHALATION (19:46)
[2022-12-01 20:29] LABS: D-Dimer Quantitative (DVT/PE) < 0.27 FEU/ug/m (0.27-0.49)
[2022-12-01 20:46] LABS: Troponin-I HS 19 pg/mL (3.0-54.0)
[2022-12-01] MEDS: dexAMETHasone 10 MG/ML Vial IV (22:22)
[2022-12-01] MEDS: Albuterol 2.5 MG/3 ML VIAL.NEB. INHALATION (22:22)
--- NOTE | 2022-12-01 23:34 | CPS ---
[2222] x1 Albuterol given to pt. in ER. Pt.'s lung sounds are very diminished. After receiving tx., pt.'s upper lung lobes cleared up mildly.
== END 2022-12-01 22:47 | disposition home or self-care (01) ==
PROVIDERS: Physician Assistant; Emergency Provider Emergency Medicine; PCP Family Medicine; Visit Provider Emergency Medicine
DX: J44.1 Chronic obstructive pulmonary disease with (acute) exacerbation (principal); R00.0 Tachycardia, unspecified; Z87.891 Personal history of nicotine dependence; E07.9 Disorder of thyroid, unspecified; Z79.890 Hormone replacement therapy; Z79.899 Other long term (current) drug therapy
CPT/HCPCS: 71045; 80048; 84484; 85025; 85379; 93005; 94640; 96374; 96375; 99252; 99282; A4216; G0463

== ENCOUNTER 2023-01-18 15:03 | Outpatient (CLI) | payer BC, SELFPAY ==
[2023-01-18 16:42] LABS: Absolute Neutrophil Count 2.5 X10^3/uL (2.0-7.7); Basophil# 0.06 X10^3/uL; Basophil% 1.1 % (0-1); Eosinophil# 0.11 X10^3/uL; Eosinophils% 2.1 % (0-5); Hematocrit 35.3 % (37-47); Hemoglobin 11.4 g/dL (12.0-15.0); Lymphocyte % 40.2 % (19-41); Mean Corp Hgb Conc 32.3 g/dL (32-36); Mean Corpuscular Hgb 29.9 pg (27.0-32.0); Mean Corpuscular Volume 92.7 fL (81-99); Mean Platelet Vol. 11.3 fl (6.2-12.0); Monocyte# 0.43 X10^3/uL; Monocyte% 8.2 % (0-10); NRBC Flagged by Analyzer 0 % (0-5); Neutrophil # 2.52 X10^3/uL (2.7-7.7); Neutrophil % 48.2 % (47-70); Platelet Count 180 K/mm3 (150-450); RBC Distribution Width CV 12.5 % (11.6-14.6); RBC Distribution Width SD 42.6 fl (35.1-43.9); Red Blood Count 3.81 M/mm3 (4.2-5.4); White Blood Count 5.2 K/mm3 (4.4-11.0)
[2023-01-18 17:07] LABS: Phosphorus 4.6 mg/dL (2.5-4.9); T4 Free Direct 1.47 ng/dL (0.76-1.46); Thyroid Stim Hormone (TSH) 0.05 uIU/mL (0.358-3.74)
[2023-01-18 17:16] LABS: Vitamin D,25 Hydroxy 58.6 ng/mL
[2023-01-19 08:13] LABS: PTHIN 54.7 pg/mL (18.4-80.1)
[2023-01-19 15:28] LABS: Vitamin B12 315 pg/mL (211-911)
[2023-01-19 15:32] LABS: Ferritin 111 ng/mL (8-252); Iron 90 ug/dL (50-170); Iron Binding Capacity,Total 288 ug/dL (250-450); PERCENT IRON SATURATION 31.2 % (15.0-55.0)
== END 2023-01-18 23:59 | disposition home or self-care (01) ==
LOC: BIMLAB 15:03
PROVIDERS: PCP Family Medicine; Referring Provider Family Medicine; Visit Provider Family Medicine
DX: N18.30 Chronic kidney disease, stage 3 unspecified (principal); E89.0 Postprocedural hypothyroidism; E55.9 Vitamin D deficiency, unspecified; D64.9 Anemia, unspecified
CPT/HCPCS: 36415; 82306; 82607; 82728; 83540; 83550; 83970; 84100; 84439; 84443; 85025

== ENCOUNTER → 2023-02-22 | Outpatient (CLI) | payer BC, SELFPAY ==
--- NOTE | 2023-02-23 05:52 | PFTCOMP_ITS ---
COMPLETE PULMONARY FUNCTION TEST INTERPRETATION Brief HPI: Patient is a 62-year-old female, currently under the care of Dr. Alvarado, who presents to [facility] for complete pulmonary function tests secondary to diagnosis of COPD. Respiratory therapist reports good effort and reproducible results. Interpretation: Forced expiration spirometry shows no large airways obstructive ventilatory defect with an FEV1 of 73% predicted. There is no significant bronchodilator response by strict ATS criteria. Spirograms are of good quality and plateau normally. The respiratory flow volume loop shows flattening of the expiratory limb suggestive of a variable intrathoracic airway obstruction. Lung volumes by body plethysmography show decreased total lung capacity at 4.21 L, 80% predicted. All other lung volumes are reduced symmetrically. Diffusion capacity by carbon monoxide is normal at 100% predicted. The airway resistance is elevated. No previous pulmonary function tests were available for review. Impression: Mild restrictive ventilatory defect with some suggestion of a variable intrathoracic airway obstruction
== END | disposition home or self-care (01) ==
LOC: PSN 12:14
PROVIDERS: PCP Family Medicine; Referring Provider Internal Medicine; Visit Provider Internal Medicine
DX: J44.9 Chronic obstructive pulmonary disease, unspecified (principal)
CPT/HCPCS: 94060; 94726; 94729

== ENCOUNTER → 2023-02-27 | Outpatient (CLI) | payer BC, SELFPAY ==
--- NOTE | 2023-02-27 15:55 | CT_ITS ---
STUDY: CT SOFT TISSUE NECK WITH CONTRAST REASON FOR EXAM: Female, 62 years old. r/o laryngotracheal mass. RADIATION DOSAGE (If Supplied By Facility): CTDIvol = ( 10.03 ) mGy, DLP = ( 310.64 ) mGycm TECHNIQUE: The patient was scanned in a multi-detector CT scanner. High resolution transaxial imaging was performed following intravenous administration of IV 75mL [id number]-300. Sagittal and coronal images were reconstructed. Individualized dose optimization techniques were used for this CT. COMPARISON: None. FINDINGS: Normal bilateral parotid glands. Normal bilateral fruit stuffer spaces. Normal bilateral parapharyngeal spaces. Normal bilateral carotid spaces. Normal bilateral sublingual and submandibular glands and spaces. Normal visualized nasopharynx. Normal retropharyngeal space. Normal perivertebral space. Normal visualized bilateral faucial tonsils. The visualized tongue, tongue base and oropharynx are normal. The visualized cervical lymph nodes (levels I-) are within normal size limits, and maintain normal morphology. There is no demonstrated solid or cystic mass lesion. There is no abnormal contrast enhancement. Normal epiglottis, bilateral vallecula and hypopharynx. The pre-epiglottic and paraglottic adipose spaces are normal. Normal visualized bilateral piriform sinuses, aryepiglottic folds, and arytenoid-cricoid articulations. There is severe narrowing of the glottic airway due to prominence of the vocal cords or possible physiologic midline adduction. Normal subglottic trachea. Thyroid not visualized status post thyroidectomy.. Noncalcified nodule left upper lobe possibly metastatic measuring 1.02 x 0.71 cm Small mucous retention cyst right maxillary sinus. Cervical spine demonstrates mild degenerative change CT/Soft Tissue Neck WITH Contrast IMPRESSION: Normal thyroid not visualized consistent with thyroidectomy. 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 Small left upper lobe nodule possibly metastatic. Would recommend dedicated CT chest for further evaluation if indicated Electronically Signed: Antonio Dunbar MD at 22:05 EDT ,
[2023-02-27 16:23] LABS: CREATININE FINGERSTICK < 0.9 mg/dL (0.55-1.02); EGFR FINGERSTICK > 60.0000 mL/min (>60)
== END | disposition home or self-care (01) ==
LOC: CT 15:54
PROVIDERS: PCP Family Medicine; Referring Provider Internal Medicine; Visit Provider Internal Medicine
DX: J98.8 Other specified respiratory disorders (principal)
CPT/HCPCS: 70491; Q9967

== ENCOUNTER → 2023-03-12 | Outpatient (CLI) | payer BC, SELFPAY ==
--- NOTE | 2023-03-12 15:00 | CT_ITS ---
INDICATION: new upper lung mass, smoker; laryngeal mass EXAMINATION: CT CHEST WITH CONTRAST - CT Chest W/ Contrast Injection TECHNIQUE: Helically acquired images were obtained of the chest following IV contrast. A radiation dose optimization technique was used for this scan. IV Contrast dosage and agent: RADIATION DOSAGE (If Supplied By Facility): CTDIvol = ( 9.08 ) mGy, DLP = ( 199.75 ) mGycm COMPARISON: May 27, 2021 FINDINGS: LUNGS, PLEURA AND LARGE AIRWAYS: There is a cyst slightly lobulated left upper lobe 9 mm nodular lesion, image 38 series 4. Faint peripheral 3 mm left lower lobe nodule, image 89 series 4. There is a central right lower lobe nodule measuring 5 mm, image 71 series 4. No pleural effusion or thickening. No pneumothorax. THYROID: No thyroid lesions. HEART AND PERICARDIUM: Heart size is normal. No pericardial effusion. VESSELS: Thoracic aorta is not dilated. No aortic dissection. No obvious central pulmonary embolism although this study was not performed with the pulmonary embolism protocol. MEDIASTINUM AND JANAK: No mediastinal or hilar adenopathy. Esophagus is unremarkable. No hiatal hernia. UPPER ABDOMEN: No acute pathology. BONES: No suspicious lytic or blastic abnormality. CT/Chest WITH Contrast IMPRESSION: Bilateral pulmonary nodular lesions as noted. These appear to be relatively stable since the previous study. Electronically Signed: Capo Antonio DO at 8:19 EDT Reading Location ID and State: [facility] / [place] Tel [phone], Service support ,
== END | disposition home or self-care (01) ==
LOC: CT 14:55
PROVIDERS: PCP Family Medicine; Referring Provider Internal Medicine; Visit Provider Internal Medicine
DX: R91.8 Other nonspecific abnormal finding of lung field (principal); F17.200 Nicotine dependence, unspecified, uncomplicated; J38.7 Other diseases of larynx
CPT/HCPCS: 71260; Q9967

== ENCOUNTER → 2023-05-25 | Outpatient (CLI) | payer BC, SELFPAY ==
[2023-05-25 16:21] LABS: Absolute Lymphocyte Count 2.11 X10^3/uL (0.83-4.51); Absolute Neutrophil Count 2.1 X10^3/uL (2.0-7.7); Basophil# 0.05 X10^3/uL; Basophil% 1.1 % (0-1); Eosinophil# 0.09 X10^3/uL; Eosinophils% 1.9 % (0-5); Hematocrit 34.7 % (37-47); Hemoglobin 11.4 g/dL (12.0-15.0); Lymphocyte # 2.11 X10^3/ul (0.83-4.51); Lymphocyte % 45.1 % (19-41); Mean Corp Hgb Conc 32.9 g/dL (32-36); Mean Corpuscular Hgb 29.8 pg (27.0-32.0); Mean Corpuscular Volume 90.6 fL (81-99); Mean Platelet Vol. 11.3 fl (6.2-12.0); Monocyte# 0.34 X10^3/uL; Monocyte% 7.3 % (0-10); NRBC Flagged by Analyzer 0 % (0-5); Neutrophil # 2.07 X10^3/uL (2.7-7.7); Neutrophil % 44.2 % (47-70); Platelet Count 184 K/mm3 (150-450); RBC Distribution Width CV 13.4 % (11.6-14.6); RBC Distribution Width SD 44.5 fl (35.1-43.9); Red Blood Count 3.83 M/mm3 (4.2-5.4); White Blood Count 4.7 K/mm3 (4.4-11.0)
[2023-05-25 17:01] LABS: Vitamin B12 327 pg/mL (211-911); Vitamin D,25 Hydroxy 57.9 ng/mL
[2023-05-25 17:15] LABS: ALB/GLOB Ratio 1.4 RATIO (0.9-2.4); AST(SGOT) 16 U/L (15-37); Alanine Aminotransfer ALT/SGPT 22 U/L (13-56); Alkaline Phosphatase 80 U/L (45-117); Anion Gap 5 (5-15); BUN 24 mg/dL (7-18); Calcium,Total 8.8 mg/dL (8.5-10.1); Chloride 110 mmol/L (98-107); EST Glomerular Filtration Rate 60 mL/min (>60); Est Glom Filt Rate - Afr Amer 72 mL/min (>60); Ferritin 132 ng/mL (8-252); Globulin 2.8 g/dL (2.2-4.2); Glucose 93 mg/dL (74-106); Iron 102 ug/dL (50-170); Iron Binding Capacity,Total 275 ug/dL (250-450); PERCENT IRON SATURATION 37.1 % (15.0-55.0); Potassium 3.8 mmol/L (3.5-5.1); Protein, Total 6.8 g/dL (6.4-8.2); Sodium Level 141 mmol/L (136-145); T4 Free Direct 1.04 ng/dL (0.76-1.46); Thyroid Stim Hormone (TSH) 0.76 uIU/mL (0.358-3.74)
[2023-05-28 18:07] LABS: Anti-Thyroglobulin AB < 1.0 IU/mL (0.0-0.9); Thyroglobulin, Serum Qt. < 0.1 ng/mL (1.5-38.5)
== END | disposition home or self-care (01) ==
LOC: BIMLAB 15:18
PROVIDERS: PCP Family Medicine; Referring Provider Family Medicine; Visit Provider Family Medicine
DX: D64.9 Anemia, unspecified (principal); N18.30 Chronic kidney disease, stage 3 unspecified; E89.0 Postprocedural hypothyroidism; M81.0 Age-related osteoporosis without current pathological fracture; E55.9 Vitamin D deficiency, unspecified
CPT/HCPCS: 36415; 80053; 82306; 82607; 82728; 83540; 83550; 84432; 84439; 84443; 85025; 86800

== ENCOUNTER → 2023-07-10 | Outpatient (CLI) | payer BC, SELFPAY ==
[2023-07-10 13:45] VITALS: PULSE 79; PULSE 82; PULSE 83; PULSE 84; PULSE 85; PULSE 88; PULSE 89; O2SAT 94; O2SAT 97; O2SAT 98; O2SAT 99
--- NOTE | 2023-07-13 07:29 | PCM.PSN.6M ---
PSN 6 Minute Walk Test 6 Minute Walk Test 6 Minute Walk Test: 6 Minute Walk Test PSN:6-Minute Walk Test Start: 07/10/23 14:01 Freq: Status: Discharge Protocol: [id number].6MINW Document 07/10/23 13:45 AEH (Rec: 07/10/23 14:04 [facility] Desktop) 6 Minute Walk Test Date Performed 07/10/23 Time Performed 13:45 Height 5 ft 6 in Weight: 61.235 kg Weight in Pounds 135.[address]: Dr Tellez Assistive device used: None Pre-test Oxygen Delivery Method Room Air Pulse Ox 98 Pulse Rate (60-100) 79 Dyspnea Meagan Scale (0-10) 0 Exertion Meagan Scale (6-20) 6 1st minute Oxygen Delivery Method Room Air Pulse Ox 97 Pulse Rate (60-100) 89 2nd minute Oxygen Delivery Method Room Air Pulse Ox 99 Pulse Rate (60-100) 84 3rd minute Oxygen Delivery Method Room Air Pulse Ox 94 Pulse Rate (60-100) 83 4th minute Oxygen Delivery Method Room Air Pulse Ox 98 Pulse Rate (60-100) 83 5th minute Oxygen Delivery Method Room Air Pulse Ox 97 Pulse Rate (60-100) 85 6th minute Oxygen Delivery Method Room Air Pulse Ox 97 Pulse Rate (60-100) 88 Dyspnea Meagan Scale (0-10) 0 Exertion Meagan Scale (6-20) 8 Post-test Oxygen Delivery Method Room Air Pulse Ox 98 Pulse Rate (60-100) 82 Full Laps Walked 17 Partial Lap, Number of Tiles Walked 33 Total Distance Walked (ft) 1036 Interpretation Interpretation: The patient was able to ambulate 1036 feet over the course of 6 minutes on room air with no assist devices or breaks. The patient experienced no significant desaturation or tachycardia during testing. Recommendations Recommendations: These findings are consistent with a normal walking oximetry.
== END | disposition home or self-care (01) ==
LOC: PSN 13:41
PROVIDERS: PCP Family Medicine; Referring Provider Internal Medicine Critical Care Medicine; Visit Provider Internal Medicine Critical Care Medicine
DX: F17.211 Nicotine dependence, cigarettes, in remission (principal)
CPT/HCPCS: 94618

== ENCOUNTER → 2023-07-16 | Outpatient (CLI) | payer BC, SELFPAY ==
[2023-07-16] MEDS: Methacholine Chloride 18 ml neb kit INHALATION (13:04)
--- NOTE | 2023-07-17 08:18 | BRONCHALL ---
Bronchoprovocation Challenge Bronchoprovocation Challenge Bronchoprovocation Challenge: INTRODUCTION: The patient is a 63-year-old female who presents for a bronchoprovocation challenge secondary to a diagnosis of nicotine dependency. The respiratory therapist reported good patient effort and reproducible results. INTERPRETATION: Initial spirometry did not show any large airways obstructive ventilatory defect with preserved airflows throughout. The patient was then given progressively increasing doses of methacholine in a standardized fashion. During testing, the patient's FEV1 did not drop to the threshold criteria to be considered a positive test. IMPRESSION: Negative methacholine inhalation challenge.
== END | disposition home or self-care (01) ==
LOC: PSN 12:47
PROVIDERS: PCP Family Medicine; Referring Provider Internal Medicine Critical Care Medicine; Visit Provider Internal Medicine Critical Care Medicine
DX: F17.211 Nicotine dependence, cigarettes, in remission (principal)
CPT/HCPCS: 94070; 95070

== ENCOUNTER → 2023-11-20 | Outpatient (CLI) | payer BC, SELFPAY ==
[2023-11-20 15:43] LABS: Absolute Lymphocyte Count 2.13 X10^3/uL (0.83-4.51); Absolute Neutrophil Count 4.1 X10^3/uL (2.0-7.7); Basophil# 0.05 X10^3/uL; Basophil% 0.7 % (0-1); Eosinophil# 0.06 X10^3/uL; Eosinophils% 0.9 % (0-5); Hematocrit 35.8 % (37-47); Lymphocyte # 2.13 X10^3/ul (0.83-4.51); Lymphocyte % 31.1 % (19-41); Mean Corp Hgb Conc 33.5 g/dL (32-36); Mean Corpuscular Hgb 30.2 pg (27.0-32.0); Mean Corpuscular Volume 90.2 fL (81-99); Mean Platelet Vol. 11.5 fl (6.2-12.0); Monocyte# 0.49 X10^3/uL; Monocyte% 7.2 % (0-10); NRBC Flagged by Analyzer 0 % (0-5); Neutrophil % 59.8 % (47-70); Platelet Count 204 K/mm3 (150-450); RBC Distribution Width CV 12.1 % (11.6-14.6); RBC Distribution Width SD 40.2 fl (35.1-43.9); Red Blood Count 3.97 M/mm3 (4.2-5.4); White Blood Count 6.9 K/mm3 (4.4-11.0)
[2023-11-20 16:17] LABS: Vitamin D,25 Hydroxy 52.4 ng/mL
[2023-11-20 16:41] LABS: ALB/GLOB Ratio 1.4 RATIO (0.9-2.4); AST(SGOT) 19 U/L (15-37); Alanine Aminotransfer ALT/SGPT 19 U/L (13-56); Albumin, Serum 4.1 g/dL (3.2-5.0); Alkaline Phosphatase 81 U/L (45-117); Anion Gap 9 (5-15); BUN 25 mg/dL (7-18); BUN/Creat Ratio 22.7 RATIO (10-20); Calcium,Total 8.7 mg/dL (8.5-10.1); Chloride 105 mmol/L (98-107); EST Glomerular Filtration Rate 53 mL/min (>60); Est Glom Filt Rate - Afr Amer 64 mL/min (>60); Globulin 2.9 g/dL (2.2-4.2); Glucose 87 mg/dL (74-106); Potassium 3.9 mmol/L (3.5-5.1); Sodium Level 139 mmol/L (136-145); T4 Free Direct 1.14 ng/dL (0.76-1.46); Thyroid Stim Hormone (TSH) 0.51 uIU/mL (0.358-3.74)
== END | disposition home or self-care (01) ==
LOC: BIMLAB 14:34
PROVIDERS: PCP Family Medicine; Visit Provider Family Medicine
DX: E89.0 Postprocedural hypothyroidism (principal); J44.9 Chronic obstructive pulmonary disease, unspecified; M81.0 Age-related osteoporosis without current pathological fracture
CPT/HCPCS: 36415; 80053; 82306; 84439; 84443; 85025

== ENCOUNTER → 2023-12-25 | Outpatient (CLI) | payer BC, SELFPAY ==
--- NOTE | 2023-12-25 15:10 | BI_ITS ---
MAMMOGRAPHY - BILATERAL SCREENING REASON FOR EXAM: Female, 63 years old. Routine annual screening examination. PERTINENT HISTORY: Aunt with breast cancer. Prior left breast biopsy. TECHNIQUE: Digital bilateral breast briana (3D mammographic acquisition) in the CC and MLO projections. 2-D mediolateral oblique (MLO) and craniocaudad (CC) views of both breasts were obtained. CAD: Full Field Digital Mammography with Computer Added Detection was performed. COMPARISON: Comparison is made with prior outside examination dated October 05, 2022. FINDINGS: Breast Composition: There are scattered areas of fibroglandular density. There are no dominant masses or suspicious calcifications. No other significant abnormalities are identified. There has been no significant change since the prior study. BI/SCRN MAMM (CAD)W/BRIANA BILAT IMPRESSION: Stable bilateral screening mammogram. Yearly follow-up mammogram recommended. (A) ASSESSMENT CATEGORY: BIRADS Category 1: Negative. A letter regarding these results will be sent to the patient by the facility within 30 days. Approximately 10% of breast cancers are not detected by mammography. A normal mammogram should not delay biopsy of a clinically suspicious abnormality. [id number] Electronically Signed: Emilio Peterson MD at 13:26 EDT ,
== END | disposition home or self-care (01) ==
LOC: OPBI 15:08
PROVIDERS: PCP Family Medicine; Referring Provider Family Medicine; Visit Provider Family Medicine
DX: Z12.31 Encounter for screening mammogram for malignant neoplasm of breast (principal)
CPT/HCPCS: 77063; 77067

== ENCOUNTER → 2023-12-27 | Outpatient (CLI) | payer BC, SELFPAY ==
[2023-12-27 18:18] LABS: Bacteria 0 SEEN /hpf (None Seen); Mucous, Urine 0 SEEN /hpf (<or=2+); Red Blood Cells-Urine 0 SEEN /hpf (0-5); Squamous Epithelial Cells - UA 0 SEEN /hpf (5-10); White Blood Cells 0 SEEN /hpf (0-5)
[2023-12-27 18:40] LABS: Color, Urine Yellow (Yellow); Glucose, Dipstick Normal (Normal); Ketone-Dipstick Negative (Negative); Leukocyte Esterase-Dipstick Negative /ul (Negative); Nitrite-Dipstick Negative (Negative); Occult Blood-Urine Negative /ul (Negative); Protein-Dipstick Negative (Negative); Urine Bilirubin Dipstick Negative (Negative); Urine Clarity Clear (Clear); Urine Urobilinogen Normal (Normal); Urine pH 6.5 (5.0 - 8.0)
== END | disposition home or self-care (01) ==
LOC: LABSPEC 18:15
PROVIDERS: PCP Family Medicine; Visit Provider Physician Assistant Surgical
DX: R30.0 Dysuria (principal)
CPT/HCPCS: 81001; 87086; 87088

== ENCOUNTER → 2024-03-08 | Outpatient (CLI) | payer BC, SELFPAY ==
--- NOTE | 2024-03-08 07:59 | CT_ITS ---
EXAM: CT CHEST, LUNG CANCER SCREENING WITHOUT INTRAVENOUS CONTRAST CLINICAL INDICATION: H/O Tobacco Dependency TECHNIQUE: Helically acquired images were obtained of the chest without intravenous contrast using low dose (LDCT) lung cancer screening protocol. This CT exam was performed using one or more of the following dose reduction techniques: automated exposure control, adjustment of the mA and/or kV according to patient size, and/or use of iterative reconstruction technique. COMPARISON: 03/12/2023 FINDINGS: LUNGS AND PLEURAL SPACES: Lobular noncalcified nodule is again seen within the left upper lobe anteriorly measures 1.0 x 0.7 cm is not significantly changed from the reference exam. Stable pleural-based left lower lobe nodule that measures 3 mm. 6 mm noncalcified nodule is again seen within the right lower lobe. No pneumothorax. HEART: Unremarkable. Heart size is normal. No pericardial effusion. No significant coronary artery calcifications. MEDIASTINUM: Unremarkable. No mediastinal or hilar adenopathy. Esophagus is unremarkable. No hiatal hernia. THYROID: Unremarkable. No thyroid lesions. BONES/JOINTS: Unremarkable. No suspicious lytic or blastic abnormality. VASCULATURE: Unremarkable. Thoracic aorta is non-dilated. LYMPH NODES: Unremarkable. No enlarged lymph nodes. CT/Low Dose CT Lung Screening IMPRESSION: Bilateral nodules the largest in the left upper lobe. There has been no change from the reference exam. Lung-RADS score: 2 - Benign Appearance or Behavior. Recommend continued annual screening with a low-dose CT (LDCT) in 12 months. Electronically Signed: Thaddeus Garcia MD at 0:06 EDT ,
== END | disposition home or self-care (01) ==
PROVIDERS: PCP Family Medicine; Referring Provider Internal Medicine Critical Care Medicine; Visit Provider Internal Medicine Critical Care Medicine
DX: F17.211 Nicotine dependence, cigarettes, in remission (principal)
CPT/HCPCS: 71271

== ENCOUNTER → 2024-05-07 | Outpatient (CLI) | payer BC, SELFPAY ==
[2024-05-07 17:38] LABS: Bacteria 0 SEEN /hpf (None Seen); Mucous, Urine 0 SEEN /hpf (<or=2+); Red Blood Cells-Urine 0 SEEN /hpf (0-5); Squamous Epithelial Cells - UA 0 SEEN /hpf (5-10)
[2024-05-07 18:19] LABS: Color, Urine Yellow (Yellow); Glucose, Dipstick Normal (Normal); Ketone-Dipstick Negative (Negative); Leukocyte Esterase-Dipstick Negative /ul (Negative); Nitrite-Dipstick Negative (Negative); Occult Blood-Urine 10 /ul (Negative); Protein-Dipstick 15 mg/dl (Negative); Urine Bilirubin Dipstick Negative (Negative); Urine Clarity Clear (Clear); Urine Urobilinogen Normal (Normal)
[2024-05-07 18:28] LABS: White Blood Cells 0-5 SEEN /hpf (0-5)
== END | disposition home or self-care (01) ==
PROVIDERS: PCP Family Medicine; Referring Provider Physician Assistant; Visit Provider Physician Assistant
DX: N39.0 Urinary tract infection, site not specified (principal); M54.9 Dorsalgia, unspecified; R35.0 Frequency of micturition
CPT/HCPCS: 81001; 87086; 87088

== ENCOUNTER → 2024-05-23 | Outpatient (CLI) | payer BC, SELFPAY ==
[2024-05-23 16:53] LABS: Absolute Lymphocyte Count 2.14 X10^3/uL (0.83-4.51); Absolute Neutrophil Count 2.5 X10^3/uL (2.0-7.7); Basophil# 0.05 X10^3/uL; Eosinophil# 0.13 X10^3/uL; Eosinophils% 2.5 % (0-5); Hematocrit 37.6 % (37-47); Hemoglobin 12.3 g/dL (12.0-15.0); Lymphocyte # 2.14 X10^3/ul (0.83-4.51); Mean Corp Hgb Conc 32.7 g/dL (32-36); Mean Corpuscular Hgb 29.4 pg (27.0-32.0); Mean Corpuscular Volume 89.7 fL (81-99); Mean Platelet Vol. 11.4 fl (6.2-12.0); Monocyte% 7.7 % (0-10); NRBC Flagged by Analyzer 0 % (0-5); Neutrophil # 2.49 X10^3/uL (2.7-7.7); Neutrophil % 47.6 % (47-70); Platelet Count 185 K/mm3 (150-450); RBC Distribution Width CV 12.9 % (11.6-14.6); RBC Distribution Width SD 42.3 fl (35.1-43.9); Red Blood Count 4.19 M/mm3 (4.2-5.4); White Blood Count 5.2 K/mm3 (4.4-11.0)
[2024-05-23 17:13] LABS: PTHIN 57.3 pg/mL (18.4-80.1)
[2024-05-23 17:16] LABS: Vitamin D,25 Hydroxy 40.6 ng/mL
[2024-05-23 17:19] LABS: ALB/GLOB Ratio 1.7 RATIO (0.9-2.4); AST(SGOT) 15 U/L (15-37); Alanine Aminotransfer ALT/SGPT 15 U/L (13-56); Albumin, Serum 4.1 g/dL (3.2-5.0); Alkaline Phosphatase 87 U/L (45-117); Anion Gap 7 (5-15); BUN 16 mg/dL (7-18); BUN/Creat Ratio 17.4 RATIO (10-20); Calcium,Total 8.7 mg/dL (8.5-10.1); Chloride 107 mmol/L (98-107); Creatinine, Serum 0.92 mg/dL (0.55-1.02); EST Glomerular Filtration Rate 65 mL/min (>60); Est Glom Filt Rate - Afr Amer 79 mL/min (>60); Globulin 2.4 g/dL (2.2-4.2); Glucose 91 mg/dL (74-106); Phosphorus 3.4 mg/dL (2.5-4.9); Potassium 4.1 mmol/L (3.5-5.1); Protein, Total 6.5 g/dL (6.4-8.2); Sodium Level 142 mmol/L (136-145); Thyroid Stim Hormone (TSH) 0.223 uIU/mL (0.358-3.740)
[2024-05-26 17:07] LABS: Anti-Thyroglobulin AB < 1.0 IU/mL (0.0-0.9); Thyroglobulin, Serum Qt. < 0.1 ng/mL (1.5-38.5)
== END | disposition home or self-care (01) ==
LOC: BIMLAB 15:05
PROVIDERS: PCP Family Medicine; Referring Provider Family Medicine; Visit Provider Family Medicine
DX: E89.0 Postprocedural hypothyroidism (principal); N18.30 Chronic kidney disease, stage 3 unspecified
CPT/HCPCS: 36415; 80053; 82306; 83970; 84100; 84432; 84439; 84443; 85025; 86800

== ENCOUNTER → 2024-07-04 | Outpatient (CLI) | payer BC, SELFPAY ==
--- NOTE | 2024-07-04 14:52 | CT_ITS ---
EXAM: CT ABDOMEN WITHOUT AND WITH INTRAVENOUS CONTRAST CLINICAL INDICATION: left adrenal nodule/mass TECHNIQUE: Helically acquired images were obtained of the abdomen without and with intravenous contrast. This CT exam was performed using one or more of the following dose reduction techniques: automated exposure control, adjustment of the mA and/or kV according to patient size, and/or use of iterative reconstruction technique. CONTRAST: 100 cc of Isovue-300 IV. RADIATION DOSE: CTDIvol = 18.49 mGy, DLP = 1444.11 mGy-cm COMPARISON: No relevant prior studies available. FINDINGS: LOWER THORAX: Unremarkable. Lung bases are clear. No cardiomegaly. No significant pericardial effusion. LIVER: Unremarkable. Homogeneous. No focal mass. GALLBLADDER AND BILE DUCTS: Unremarkable. No calcified gallstones. No gallbladder distention or wall edema. No intra- or extrahepatic biliary ductal dilation. PANCREAS: Unremarkable. No focal cystic or solid mass. SPLEEN: Unremarkable. Normal size without focal cystic or solid mass. ADRENALS: Nodule measuring 5 mm left adrenal gland. It measures 28 Hounsfield units on noncontrast CT and enhances less than the normal adrenal gland on postcontrast CT images. KIDNEYS AND URETERS: Unremarkable. Normal renal size and position. No hydronephrosis. STOMACH AND BOWEL: Status post partial right colectomy. No stomach or bowel distention. INTRAPERITONEAL SPACE: Unremarkable. No ascites or other fluid collection. No free air. BONES/JOINTS: Unremarkable. No suspicious lytic or blastic abnormality. SOFT TISSUES: Unremarkable. No discrete abdominal wall hernia. VASCULATURE: Unremarkable. Abdominal aorta is non-dilated. LYMPH NODES: No enlarged lymph nodes. CT/Abdomen W/WO IV Contrast IMPRESSION: 1. Nodule measuring 5 mm left adrenal gland. It measures 28 Hounsfield units on noncontrast CT and enhances less than the normal adrenal gland on postcontrast CT images. ACR White Paper guidelines (Mario et al. JACR 2017; 14(8):7843-5285) suggest no follow-up is necessary. 2. Status post partial right colectomy. Electronically Signed: Robin Yao MD at 1:41 EDT ,
== END | disposition home or self-care (01) ==
LOC: CT 14:51
PROVIDERS: PCP Family Medicine; Referring Provider Family Medicine; Visit Provider Family Medicine
DX: E27.8 Other specified disorders of adrenal gland (principal)
CPT/HCPCS: 74170; Q9967

== ENCOUNTER 2024-11-03 10:40 | Emergency (ER) | payer BC, SELFPAY ==
[2024-11-03 10:40] VITALS: BP 129/66; PULSE 90; RESP 16; TEMP 36.8; O2SAT 99; BMI 23.6
--- NOTE | 2024-11-03 11:17 | EX.ED.DYSGE1 ---
HPI History of Present Illness Chief Complaint: Bite Narrative Narrative: Patient is a 64-year-old female with past medical history of thyroid issues, alcohol use, anemia, migraine headaches, COPD who presents to the emergency department chief complaint of left hand pain and swelling. Patient states that yesterday she was bit by her cat in the hand. States that when she woke up this morning she had swelling and redness noted. States that she went to urgent care and they sent her here for IV antibiotics. Patient states that she has not been on any oral antibiotics. She states that this is her cat her vaccines are up-to-date. Patient denies any history of diabetes [facility] Medical History Urinary urgency Lumbar strain Airway obstruction, anatomic Wears glasses Post-menopausal Cancer Marijuana use Alcohol use Thyroid disease Arthritis Anemia Easy bruising Excessive bleeding Back pain Migraine headache Injury of head and neck Syncope History of ulceration Smoker Hoarseness Leg cramps History of pain when walking History of echocardiogram COPD (chronic obstructive pulmonary disease) Low calcium levels Recurrent UTI Seasonal allergies Medical History no medical history Home Medications ?Medication ?Instructions ?Recorded ?Last Taken ?Type levothyroxine 100 mcg tablet 100 mcg PO DAILY THYROID 07/05/20 10/26/22 History albuterol sulfate 90 mcg/actuation 2 puff inhalation Q4H PRN PRN 06/30/21 09/29/22 Rx aerosol inhaler (Ventolin HFA) Wheezing ##1 ipratropium 0.5 mg-albuterol 3 mg 3 ml inhalation Q4H PRN shortness 10/14/22 Unknown Rx (2.5 mg base)/3 mL nebulization of breath or wheezing #180 mL soln nebulizer and compressor #1 ea 10/14/22 Unknown Rx (InnoSpire Essence device) cholecalciferol (vitamin D3) 25 25 mcg PO DAILY 12/29/22 Unknown History mcg (1,000 unit) capsule fexofenadine 60 mg tablet (Rebecca 60 mg PO Q12H PRN 12/29/22 Unknown History Allergy) desoximetasone 0.25 % topical 1 applic topical BID PRN 06/28/23 Unknown History cream (Topicort) cyclobenzaprine 10 mg tablet 10 mg PO HS PRN muscle spasm #14 09/04/24 Unknown Rx tabs benzocaine 15 mg-menthol 10 mg 1 jillian mucous membrane .4 times 08/21/24 Unknown Rx lozenges (Chloraseptic Max) daily PRN sore throat #15 ea amoxicillin 875 mg-potassium 1 tab PO Q12H 7 days #14 tabs 11/03/24 Unknown Rx clavulanate 125 mg tablet Allergy/AdvReac Type Severity Reaction Status Date / Time prednisone Allergy Unknown Swelling Verified 11/03/24 10:43 erythromycin base (From Allergy Hives Verified 11/03/24 10:43 Erythrocin) Family History Mother Asthma Heart disease CVA (cerebral vascular accident) High cholesterol Family History no significant family his Surgical History Hx of cataract surgery History of colonoscopy (~09/2022) History of esophagogastroduodenoscopy (EGD) (~09/2022) History of loop electrical excision procedure (LEEP) H/O thyroidectomy H/O: Surgical History no surgical history Social History Smoking Status: Former smoker quit date: 10/04/22 pack-years: 1 Tobacco: How many years used: 44 how long ago did patient quit smokin 1/2 to 4 months ago second hand exposure: No alcohol intake: current alcohol intake frequency: holidays/special occasions only Alcohol type: beer substance use type: does not use ROS ROS ED ROS Narrative Constitutional: Denies fevers, chills Neurological: Denies numbness, weakness, tingling Musculoskeletal: Complains of left hand redness and swelling from cat bite EXAM Physical Exam Narrative Exam Narrative: General: Patient lying in bed rest comfortably did not appear to be in acute distress Head: Atraumatic, normocephalic Eyes: PERRL bilaterally, EOMI bilateral, no conjunctival injection noted Neck: Soft, supple, trachea midline Cardiovascular: Regular in rhythm Extremities: Radial pulses +2/4 in the bilateral extremities, patient is able to give me the okay sign thumbs up and oppose her thumb to her pinky bilaterally Neurological: Patient follow commands and that she was at [facility] year is 2024. Sensation gross intact in median ulnar radial nerve distributions bilaterally Skin: Patient has swelling and erythema noted to the dorsal aspect of her left hand that is warm to the touch. No petechia no purpura no sloughing of the skin noted Const Vital Signs: 11/03/24 10:40 11/03/24 12:40 11/03/24 12:59 Temperature 98.3 F 98.3 F Temperature Source Oral Pulse Rate 90 74 74 Respiratory Rate 16 16 Blood Pressure 129/66 H 134/74 H 134/74 H Blood Pressure Mean 87 94 94 Pulse Ox 99 98 98 Oxygen Delivery Method Room Air Room Air MDM MDM MDM Narrative Medical decision making narrative: Patient is a 64-year-old female who presents to the emerged part with chief complaint of cat bite to the left hand with redness and swelling. Once again the patient has not been on oral antibiotics yet. On the differential diagnose includes but not limited to left hand cellulitis, cat bite. Patient be given a dose of Unasyn have a x-ray obtained. Radiography Diagnostic Testing: Clinical Impression(s) from Imaging Studies Hand X-Ray 11/03/24 11:35 IMPRESSION: 1. Soft tissue swelling without acute fracture. 2. If symptoms persist, further evaluation with CT is recommended. 3. Degenerative changes as above. Reading Location: [facility] Discharge Plan Triage Chief Complaint: Bite ED Provider: Nadir Pham Dx/Rx/DC Orders Clinical Impression: Cat bite, Localized swelling on left hand Prescriptions: New amoxicillin-pot clavulanate 875-125 mg tablet 1 tab PO Q12H 7 Days Qty: 14 0RF No Action fexofenadine [Rebecca Allergy] 60 mg tablet 60 mg PO Q12H PRN cholecalciferol (vitamin D3) 25 mcg (1,000 unit) capsule 25 mcg PO DAILY desoximetasone [Topicort] 0.25 % cream 1 applic topical BID PRN Rx Instructions: Apply to affected area on both legs twice daily until resolved. cyclobenzaprine 10 mg tablet 10 mg PO HS PRN (Reason: muscle spasm) Qty: 14 0RF Chloraseptic Max 15-10 mg lozenge 1 jillian mucous membrane .4 times daily PRN (Reason: sore throat) Qty: 15 0RF levothyroxine 100 MCG tablet 100 mcg PO DAILY albuterol sulfate [Ventolin HFA] 1 INHALER inhaler 2 puff inhalation Q4H PRN PRN (Reason: Wheezing) Qty: 1 0RF (DME) nebulizer and compressor [InnoSpire Essence] Device See Rx Instructions .Route Qty: 1 0RF Rx Instructions: As directed ipratropium-albuterol 0.5 mg-3 mg(2.5 mg base)/3 mL solution for nebulization 3 ml inhalation Q4H PRN (Reason: shortness of breath or wheezing) Qty: 180 2RF Primary Care Provider: Adam Mendoza Referrals: Adam Mendoza MD [Primary Care Provider] - Activity Restrictions/Additional Instructions: Take antibiotics as prescribed. If the redness is going outside the line while on antibiotics for 24 to 48 hours that was drawn here in the emergency department. Follow-up your primary care physician otherwise in outpatient setting. Print Language: [place] Disposition Disposition: Home, Self Care
--- NOTE | 2024-11-03 11:35 | RAD_ITS ---
EXAM: XR Left Hand Complete, 3 or More Views CLINICAL INDICATION: TECHNIQUE: Frontal, lateral and oblique views of the left hand. COMPARISON: No relevant prior studies available. FINDINGS: BONES/JOINTS: Moderate degenerative change of the 1st carpometacarpal joint. SOFT TISSUES: Soft tissue swelling without acute fracture. No radiopaque foreign body. RAD/Hand Min 3 Views IMPRESSION: 1. Soft tissue swelling without acute fracture. 2. If symptoms persist, further evaluation with CT is recommended. 3. Degenerative changes as above. Reading Location: [facility]
[2024-11-03] MEDS: Ampicillin/Sulbactam 3 GM in 0.9% Normal Saline (100mL MB+) 100 ML IV (11:39)
[2024-11-03 12:40] VITALS: BP 134/74; PULSE 74; O2SAT 98
[2024-11-03 12:59] VITALS: BP 134/74; PULSE 74; RESP 16; TEMP 36.8; O2SAT 98
[2024-11-03] MEDS: Diphth,Pertuss(Acell),Tet Vac 0.5 ML Vial IM (13:17)
== END 2024-11-03 13:36 | disposition home or self-care (01) ==
PROVIDERS: Emergency Provider Emergency Medicine; PCP Family Medicine; Visit Provider Emergency Medicine
DX: M79.89 Other specified soft tissue disorders (principal); J44.9 Chronic obstructive pulmonary disease, unspecified; S61.452A Open bite of left hand, initial encounter; E89.0 Postprocedural hypothyroidism; W55.01XA Bitten by cat, initial encounter; Z79.890 Hormone replacement therapy; Z79.899 Other long term (current) drug therapy; Z87.891 Personal history of nicotine dependence
CPT/HCPCS: 73130; 90715; 96365; 99283; A4216; J0295

== ENCOUNTER → 2024-11-22 | Outpatient (CLI) | payer BC, SELFPAY ==
[2024-11-22 09:40] LABS: Absolute Lymphocyte Count 2.15 X10^3/uL (0.83-4.51); Absolute Neutrophil Count 1.6 X10^3/uL (2.0-7.7); Basophil# 0.06 X10^3/uL; Basophil% 1.4 % (0-1); Eosinophil# 0.11 X10^3/uL; Eosinophils% 2.6 % (0-5); Hematocrit 36.9 % (37-47); Hemoglobin 12.3 g/dL (12.0-15.0); Lymphocyte # 2.15 X10^3/ul (0.83-4.51); Lymphocyte % 49.9 % (19-41); Mean Corp Hgb Conc 33.3 g/dL (32-36); Mean Corpuscular Hgb 29.9 pg (27.0-32.0); Mean Corpuscular Volume 89.8 fL (81-99); Mean Platelet Vol. 11.2 fl (6.2-12.0); Monocyte# 0.35 X10^3/uL; Monocyte% 8.1 % (0-10); NRBC Flagged by Analyzer 0 % (0-5); Neutrophil # 1.64 X10^3/uL (2.7-7.7); Platelet Count 187 K/mm3 (150-450); RBC Distribution Width CV 12.5 % (11.6-14.6); RBC Distribution Width SD 41.4 fl (35.1-43.9); Red Blood Count 4.11 M/mm3 (4.2-5.4); White Blood Count 4.3 K/mm3 (4.4-11.0)
[2024-11-22 10:05] LABS: AST(SGOT) 18 U/L (<=31); Alanine Aminotransfer ALT/SGPT 10 U/L (<=34); Albumin, Serum 4.2 g/dL (3.4-4.8); Alkaline Phosphatase 85 U/L (35-104); Anion Gap 11 (5-15); BUN 15 mg/dL (4-19); BUN/Creat Ratio 14.4 RATIO (10-20); Calcium,Total 8.8 mg/dL (7.6-11.0); Carbon Dioxide 23.8 mmol/L (21.0-32.0); Chloride 102 mmol/L (98-108); Cholesterol 225 mg/dL (<=200); Creatinine, Serum 1.01 mg/dL (0.70-1.20); EST Glomerular Filtration Rate 62 (>60); Globulin 2.1 g/dL (2.2-4.2); Glucose 104 mg/dL (70-99); High Density Lipoprotein 81 mg/dL; Low Density Lipoprotein Calc. 132 mg/dL; Potassium 4.3 mmol/L (3.3-5.1); Protein, Total 6.3 g/dL (5.9-8.4); Sodium Level 137 mmol/L (133-145); Total Bilirubin 0.51 mg/dL (0.00-1.30); Triglycerides 64 mg/dL; Very Low Density Lipoprotein 13 mg/dL (5-40)
[2024-11-22 10:25] LABS: Thyroid Stim Hormone (TSH) 0.115 uIU/mL (0.300-4.200); Vitamin D,25 Hydroxy 52.1 ng/mL (30-100)
[2024-11-25 22:18] LABS: Hemoglobin A1c 5.3 % (<=5.6)
== END | disposition home or self-care (01) ==
LOC: LAB 08:41
PROVIDERS: PCP Family Medicine; Referring Provider Family Medicine; Visit Provider Family Medicine
DX: E89.0 Postprocedural hypothyroidism (principal); N18.30 Chronic kidney disease, stage 3 unspecified
CPT/HCPCS: 36415; 80053; 80061; 82306; 83036; 84439; 84443; 85025

== ENCOUNTER → 2024-12-31 | Outpatient (CLI) | payer BC, SELFPAY ==
[2025-01-05 14:08] LABS: HPV APTIMA, High Risk Negative (Negative)
[2025-01-05 15:16] LABS: HPV Reflexed? YES, CHARGE PATIENT
== END | disposition home or self-care (01) ==
LOC: MFPLAB 16:20 → LABSPEC 16:22
PROVIDERS: PCP Family Medicine
DX: Z12.72 Encounter for screening for malignant neoplasm of vagina (principal)
CPT/HCPCS: 87624; 88175; G0145

== ENCOUNTER → 2025-01-09 | Outpatient (CLI) | payer BC, SELFPAY ==
--- NOTE | 2025-01-09 14:35 | BI_ITS ---
EXAM: SCRN MAMM (CAD)W/BRIANA BILAT 01/09/2025 CLINICAL HISTORY: F, Age 64 y/o , SCREENING TECHNIQUE: Bilateral screening digital breast tomosynthesis with 2D and 3D images. Computer aided detection. COMPARISON: Prior exam(s) dated 12/25/2023. FINDINGS: TISSUE DENSITY: The breast tissue is composed of scattered area of fibroglandular density. Bilateral Breast Mammographic Findings: No significant masses, calcifications or other abnormalities are identified. BI/SCRN MAMM (CAD)W/BRIANA BILAT IMPRESSION: Right Breast: BIRADS 1 NEGATIVE. Left Breast: BIRADS 1 NEGATIVE. OVERALL FINAL ASSESSMENT: BIRADS 1 NEGATIVE. RECOMMENDATION: Routine annual follow-up in 1 Year A letter with findings and recommendations will be mailed to the patient. Reading Location: [facility]
== END | disposition home or self-care (01) ==
LOC: OPBI 14:33
PROVIDERS: PCP Family Medicine; Referring Provider Family Medicine; Visit Provider Family Medicine
DX: Z12.31 Encounter for screening mammogram for malignant neoplasm of breast (principal)
CPT/HCPCS: 77063; 77067

== ENCOUNTER → 2025-05-27 | Outpatient (CLI) | payer BC, SELFPAY ==
[2025-05-27 18:51] LABS: Hematocrit 34.4 % (37-47); Hemoglobin 11.5 g/dL (12.0-15.0); Immature Granulocytes Count 0.020 X10^3/uL (0.0-0.0); Mean Corp Hgb Conc 33.4 g/dL (32-36); Mean Corpuscular Volume 91.2 fL (81-99); Mean Platelet Vol. 10.7 fl (6.2-12.0); NRBC Flagged by Analyzer 0 % (0-5); Platelet Count 273 K/mm3 (150-450); RBC Distribution Width CV 12.9 % (11.6-14.6); RBC Distribution Width SD 42.8 fl (35.1-43.9); Red Blood Count 3.77 M/mm3 (4.2-5.4); White Blood Count 5.1 K/mm3 (4.4-11.0)
[2025-05-27 19:10] LABS: AST(SGOT) 21 U/L (<=31); Alanine Aminotransfer ALT/SGPT 13 U/L (<=34); Albumin, Serum 4.4 g/dL (3.4-4.8); Alkaline Phosphatase 85 U/L (35-104); Anion Gap 13 (5-15); BUN 21 mg/dL (4-19); BUN/Creat Ratio 22.0 RATIO (10-20); Calcium,Total 8.7 mg/dL (7.6-11.0); Carbon Dioxide 20.7 mmol/L (21.0-32.0); Chloride 106 mmol/L (98-108); Globulin 2.0 g/dL (2.2-4.2); Glucose 88 mg/dL (70-99); Potassium 4.9 mmol/L (3.3-5.1); Vitamin D,25 Hydroxy 55.6 ng/mL (30-100)
[2025-05-28 10:26] LABS: Ferritin 224 ng/mL (22-378); Iron 89 ug/dL (50-170); Iron Binding Capacity,Total 258 ug/dL (250-450); Iron Binding Capacity,Unsat 169 ug/dL (228-428); Vitamin B12 325 pg/mL (180-914)
== END | disposition home or self-care (01) ==
LOC: MFPLAB 15:05
PROVIDERS: PCP Family Medicine; Visit Provider Family Medicine
DX: D64.9 Anemia, unspecified (principal); R73.09 Other abnormal glucose; E89.0 Postprocedural hypothyroidism; E55.9 Vitamin D deficiency, unspecified
CPT/HCPCS: 36415; 80053; 82306; 82607; 82728; 83036; 83540; 83550; 84439; 84443; 85025

== ENCOUNTER → 2025-06-17 | Outpatient (CLI) | payer BC, SELFPAY ==
--- NOTE | 2025-06-17 15:45 | SKTAG_PTH ---
PATIENT: RAYMON RUBIO [facility] U#:[id number] AGE/SX: 64/F ROOM: RE06/17/[address]: Dr. Adam Mendoza MD : 1960 BED: DIS: 06/17/2025 SPEC #: [id number] RECD: 06/17/25 18:28 STATUS: ROMAN RERuben #: [id number] REED: 06/17/25 15:[address]: Adam Mendoza DEPT: SURGICAL PATHOLOGY RECD BY: Eric Corona Tissues: A - Flank, NOS Procedures: Surgery Specimen Level IV HEADER OPERATION: Skin tag removal PRE-OP DIAGNOSIS: Skin tag TISSUE SUBMITTED: A- Left flank MICROSCOPIC DIAGNOSIS A. Skin, left flank, "tag", shave excision: * Benign verrucous keratosis with chronic inflammation. MICROSCOPIC DESCRIPTION Slides are reviewed. GROSS DESCRIPTION A. Received in formalin labeled with the patient's name and date of is a 1.7 x 1.1 x 0.2 cm ricketts skin shave devoid of orientation. The resection margin is inked black. There is a 1.6 x 1.2 x 0.4 cm ricketts bosselated and friable lesion comprising approximately 90% of the epidermal surface and abutting the peripheral edge. Sectioning reveals somewhat verrucoid and friable cut surfaces. Entirely submitted in 2 cassettes. [place] 06/18/[id number]
--- OUTSIDE RECORDS SUMMARY | 2025-06-17 18:44 | XMS RPT_ITS | CCD ---
Author Organization [facility] Care Team Providers Care Assembly Lead Person Name Role Phone Darrell HERZOG, Iris Knight Unavailable Dr. Paulina Hair Primary Care Provider Dr. Paulina Hair Referring Provider Dr. Harshad Perez Attending Provider Dr. Harshad Perez Other Provider Paulina Hair Primary Care Provider PAULINA HAIR Referring PAULINA Goldberg Primary Care Dr. Harshad Vera Referring Provider Dr. Harshad Perez Admit Provider Dr. Robin Saini Attending Provider Dr. Paulina Hair Primary Care Provider [phone] Dr. Paulina Hair Referring Provider Dr. Harshad Perez Attending Provider Dr. Harshad Perez Other Provider Dr. Harshad Perez Referring Provider Dr. Harshad Perez Admit Provider Dr. Robin Saini Attending Provider Paulina Hair MD Primary Care Provider Dr. Paulina Hair Primary Care Provider [phone] Dr. Paulina Hair Referring Provider Dr. Franky Tellez Attending Provider Dr. Franky Tellez Referring Provider Dr. Franky Tellez Other Provider Dr. Rishi Mo Attending Provider [phone] Dr. Paulina Hair Primary Care Provider [phone] Dr. Paulina Hair Referring Provider Mickey METHOD CONSULTANT, METHOD CONSULTANT-C Kat Attending Provider ROB Daniel Attending Provider Dr. Paulina Hair MD Primary Care Provider Dr. Paulina Hair MD Referring Provider Alvin Daniel Attending Provider Dr. Nadir Pham DO Attending Provider Dr. Nadir Pham DO Emergency Provider Dr. Paulina Hair MD Attending Provider [phone] Dr. Paulina Hair MD Primary Care Provider [phone] Dr. Paulina Hair MD Referring Provider [phone] Idaorrbrisa METHOD CONSULTANT-CAjit Attending Provider Idaorrbrisa METHOD CONSULTANT-CAjit Referring Provider Dr. Paulina Hair MD Primary Care Physician Dr. Paulina Hair MD Attending Physician [phone] Idaorrbrisa METHOD CONSULTANTAjit Attending Unavailable Nora METHOD CONSULTANTAjit Referring Unavailable Paulina Hair Primary Care Unavailable Paulina Hair Attending Unavailable Paulina Hair Referring Unavailable Paulina Hair Primary Care Unavailable Paulina Hair Attending Unavailable Paulina Hair Primary Care Unavailable Alvin Daniel Attending Unavailable Paulina Hair Primary Care Unavailable Paulina Hair Referring Unavailable Paulina Hair Primary Care Unavailable Nadir Pham Attending Unavailable Paulina Hair Primary Care Unavailable Paulina Hair Attending Unavailable Paulina Hair Referring Unavailable Paulina Hair Primary Care Unavailable Paulina Hair Attending Unavailable Paulina Hair Referring Unavailable Allergies Allergy Classification Reported Allergen(s) Allergy Type Date of Onset Reaction(s) Facility (19 sources) Erythromycin Drug Allergy 07-12-2005 [facility] (20 sources) predniSONE; Translations: [PREDNISONE] Drug Allergy 03-27-2017 [facility] (1 source) Erythromycin; Translations: [ERYTHROMYCIN] Drug Allergy 07-12-2005 [facility] Repository (1 source) Erythromycin Drug Allergy 11-03-2024 [facility] Repository (1 source) predniSONE Drug Allergy 11-03-2024 [facility] Repository Medications Current Medications Medication Drug Class(es) Dates Sig (Normalized) Sig (Original) Albuterol Sulfate (17 sources) beta2-Adrenergic Agonist Start: 06-30-2021 take 1 puff(s) by inhalation every four hours as needed Albuterol Sulfate (Ventolin Hfa) 1 INHALER inhaler Active 2 PUFF INHALATION EVERY 4 HOURS NEEDED June 30, 2021 3:37am Start: 06-30-2021 Start: 06-30-2021 take 1 puff(s) by in halation every four hours as needed Albuterol Sulfate (Ventolin Hfa) 1 INHALER inhaler Active 2 PUFF INHALATION EVERY 4 HOURS NEEDED June 30, 2021 12:00am albuterol 0.833 mg/ml / ipratropium bromide 0.167 mg/ml inhalation solution (11 sources) Anticholinergic, beta2-Adrenergic Agonist Start: 10-14-2022 take 1 mL by inhalation every four hours as needed for wheezing Start: 10-14-2022 take 1 mL by inhalat ion every four hours Ipratropium-Albuterol Active 3 ML INHALATION Q4H 180 October 14, 2022 1:00am amoxicillin 875 mg / clavulanate 125 mg oral tablet (3 sources) Penicillin-class Antibacterial Start: 11-03-2024 benzocaine 15 mg / menthol 10 mg oral lozenge (3 sources) Standardized Chemical Allergen Start: 08-21-2024 cholecalciferol 0.025 mg oral capsule (10 sources) Vitamin D Start: 12-29-2022 take 1 capsule by mouth once daily Start: 04-11-2011 Cholecalcifero l, Vitamin D3, 1,000 unit ORAL Tab Take by mouth five times daily. 0 04/11/2011 Active Comment on above: Take by mouth five t imes daily. cyclobenzaprine hydrochloride 10 mg oral tablet (3 sources) Muscle Relaxant Start: 05-07-20 take 1 tablet by mouth at bedtime as needed for muscle spasms desoximetasone 2.5 mg/ml topical cream (16 sources) Corticosteroid Start: 12-30-19 End: 06-28-20 doxycycline monohydrate 100 mg oral capsule (4 sources) Tetracycline-class Drug Start: 07-14-20 take 100 mg by mouth twice daily Doxycycline Monohydrate Active 100 MG PO TWICE A DAY July 14, 2022 12:00am fexofenadine hydrochloride 60 mg oral tablet (10 sources) Histamine-1 Receptor Antagonist Start: 12-30-19 take 1 tablet by mouth every twelve hours as needed fexofenadine (AL LEGRA) 180 mg tablet Take 180 mg by mouth as needed. 0 Active Comment on above: Take 180 mg by mouth as needed. Nebulizer And Compressor (Innospire Essence) device (11 sources) Start: 10-14-2022 Nebulizer And Compressor (Innospire Essence) device Active 0 .Route 1 0 October 14, 2022 1:00am As directed Start: 10-14-2022 Nebulizer And Compressor (Innospire Essence) device Active 0 .Route 1 October 14, 2022 1:00am As directed Start: 10-14-2022 Nebulizer And Compressor (Innospire Essence) device Active 0 .Route 1 October 14, 2022 12:00am As directed Completed/Discontinued Medications Medication Drug Class(es) Dates Sig (Normalized) Sig (Original) acetaminophen 500 mg oral tablet (10 sources) Start: 10-27-2022 End: 12-29-2022 Acetaminophen 500 mg Tablet Discontinued 650 mg PO EVERY 6 HOURS as needed for Pain, Moderate 0 0 October 27, 2022 1:00am December 29, 2022 2:58pm Start: 10-27-2022 End: 12-29-2022 take 650 mg by mouth every six hours Acetaminophen Discontinued 650 MG PO EVERY 6 HOURS 0 October 27, 2022 1:00am December 29, 2022 2:58pm Calcium Carbonate (2 sources) CALCIUM CARBONAT E (CALCIUM 500 ORAL) Take by mouth once daily. 0 Active Comment on above: Take by mouth once d aily. cephalexin 500 mg oral capsule (17 sources) Cephalosporin Antibacterial Start: 12-23-19 End: 03-04-20 take 1 capsule by mouth four times daily Cephalexin 500 MG capsule Discontinued 500 mg PO 4 TIMES DAILY December 22, 2016 12:00am March 04, 2018 3:02pm dexamethasone 6 mg oral tablet (10 sources) Corticosteroid Start: 12-02-19 End: 12-30-19 take 1 tablet by mouth once daily Dexamethasone 6 mg tablet Discontinued 6 mg PO DAILY 5 December 01, 2022 12:00am December 29, 2022 2:58pm Start: 10-14-2022 take 6 mg by mouth once daily Dexamethasone Active 6 MG PO DAILY 7 October 14, 2022 12:00am levothyroxine sodium 0.1 mg oral tablet (20 sources) l-Thyroxine Start: 11-05-2015 End: 05-03-2025 take 1 tablet by mouth once daily Levothyroxine 100 mcg tablet Discontinued 100 ug PO DAILY 90 January 29, 2018 7:22pm July 05, 2020 7:55pm take 1 tablet by jaguar th once daily LEVO-T 100 MCG TABS One tablet by mouth daily LEVOTHYROXINE SODIUM [id number] Bela Hall LPN End: 02-01-2017 take 1 tablet by mouth once daily LEVO-T 100 MCG TABS One tablet by mouth daily LEVOTHYROXINE SODIUM [id number] Iris Ramírez METHOD CONSULTANT Comment on above: Take 1 tablet by jaguar th once daily. metroNIDAZOLE 500 mg oral tablet (20 sources) Nitroimidazole Antimicrobial Start: 023 End: Metronidazole 500 mg tablet Discontinued 500 mg PO .COMPLEX October 19, 2022 3:41pm October 27, 2022 2:40pm SURGERY 500 mg orally; Take 2 tabs PO at 1300, 1400, and 2300 day before surgery nitrofurantoin, macrocrystals 25 mg / nitrofurantoin, monohydrate 75 mg oral capsule (5 sources) Nitrofuran Antibacterial Start: 024 End: take 1 capsule by mouth every twelve hours at mealtime Nitrofurantoin Monohyd/M-Cryst 100 mg capsule Discontinued 1 NMA PO Q12H 14 7 0 December 27, 2023 12:00am January 02, 2024 12:00am January 03, 2024 12:06am administer with a meal/food; swallow whole; do not open, crush, dissolve , or chew Drug Treatment Unknown - unknown (2 sources) No information available. sulfamethoxazole 800 mg / trimethoprim 160 mg oral tablet (17 sources) Dihydrofolate Reductase Inhibitor Antibacterial, Sulfonamide Antimicrobial Start: 017 End: 018 Sulfamethoxazole-Tri methoprim 1 EACH tablet Discontinued 1 NMA PO TWICE A DAY December 22, 2016 12:00am March 04, 2018 3:02pm Start: 12-22-2016 End: 03-04-2018 Sulfamethoxazole-Trimethopri m Discontinued 1 EACH PO TWICE A DAY December 22, 2016 12:00am March 04, 2018 3:02pm Problems Active Problems Problem Classification Problem Date Documented Da te Episodic/Chronic Abdominal pain (18 sources) Epigastric pain; Translations: [Epigastric pain] 09-01-2022 Episodic Allergic reactions (2 sources) Atopic dermatitis; Translations: [Other atopic dermatitis] Onset: 12-10-2007 12-10-2007 Chronic Cancer of thyroid (2 sources) Malignant tumor of thyroid gland; Translations: [Malignant neoplasm of thyroid gland] Onset: 07-14-2005 07-14-2005 Chronic Cardiac dysrhythmias (9 sources) Tachycardia; Translations: [Tachycardia, unspecified] 12-01-2022 Episodic Chronic obstructive pulmonary disease and bronchiectasis (20 sources) Acute exacerbation of chronic obstructive airways disease with asthma; Translations: [Chronic obstructive pulmonary disease with (acute) exacerbation] 07-08-2021 Chronic Complications of surgical procedures or medical care (1 source) Postprocedural hypothyroidism; Translations: [Postprocedural hypothyroidism] Onset: 11-27-2024 Chronic Deficiency and other anemia (1 source) Anemia, unspecified; Translations: [Anemia, unspecified] Onset: 06-02-2025 Episodic E Codes: Natural/environment (3 sources) Cat bite - wound; Translations: [Bitten by cat, initial encounter] 11-11-2024 Episodic Genitourinary symptoms and ill-defined conditions (3 sources) Urgent desire to urinate; Translations: [Urgency of urination] 05-07-2024 Episodic Menopausal disorders (2 sources) Menopausal symptom; Translations: [Menopausal and female climacteric states] Onset: 02-12-2008 02-12-2008 Chronic Other and unspecified benign neoplasm (11 sources) Adenomatous polyp of colon ; Translations: [Benign neoplasm of colon, unspecified] 10-06-2022 Episodic Other and unspecified benign neoplasm (6 sources) Benign neoplasm of colon, unspecified; Translations: [Benign neoplasm of colon] 10-06-2022 Episodic Other diseases of veins and lymphatics (2 sources) Stasis dermatitis; Translations: [Venous insufficiency (chronic) (peripheral)] 12-29-2022 Episodic Other diseases of veins and lymphatics (6 sources) Disorder of vein of lower extremity; Translations: [Venous insufficiency (chronic) (peripheral)] 12-29-2022 Episodic Other endocrine disorders (1 source) Other specified disorders of adrenal gland; Translations: [Other specified disorders of adrenal gland] Onset: 07-24-2024 Chronic Other eye disorders (17 sources) Swelling of eyelid; Translations: [Edema of right eye, unspecified eyelid] 07-06-2020 Episodic Other gastrointestinal disorders (13 sources) Stool DNA-based colorectal cancer screening positive; Translations: [Other fecal abnormalities] 09-01-2022 Episodic Other gastrointestinal disorders (5 sources) Other fecal abnormalities; Translations: [Abnormal feces] 09-01-2022 Episodic Other lower respiratory disease (16 sources) Dyspnea; Translations: [Dyspnea, unspecified] 07-22-2022 Episodic Other lower respiratory disease (8 sources) Respiratory obstruction; Translations: [Other specified respiratory disorders] 06-28-2023 Episodic Other lower respiratory disease (2 sources) Other specified respiratory disorders; Translations: [Other diseases of respiratory system, not elsewhere classified] 06-28-2023 Episodic Other skin disorders (3 sources) Localized swelling of left hand; Translations: [Localized swelling, mass and lump, left upper limb] 11-11-2024 Episodic Other upper respiratory disease (6 sources) Seasonal allergy; Translations: [Other seasonal allergic rhinitis] 10-01-2023 Chronic Other upper respiratory disease (3 sources) Other seasonal allergic rhinitis; Translations: [Allergic rhinitis, cause unspecified] 10-01-2023 Chronic Other upper respiratory disease (8 sources) Hoarse; Translations: [Dysphonia] 03-14-2023 Episodic Other upper respiratory infections (4 sources) Acute upper respiratory infection; Translations: [Acute upper respiratory infection, unspecified] 08-21-2024 Episodic Residual codes; unclassified (11 sources) Tobacco user; Translations: [Tobacco use] 10-14-2022 Episodic Sprains and strains (3 sources) Low back strain; Translations: [Strain of muscle, fascia and tendon of lower back, initial encounter] 05-07-2024 Episodic Substance-related disorders (13 sources) Tobacco dependence in remission; Translations: [Nicotine dependence, cigarettes, in remission] 06-28-2023 Chronic Thyroid disorders (20 sources) Hypothyroidism; Translations: [Acquired hypothyroidism] Onset: 07-14-2005 01-26-2017 Chronic Comment on above: TSH 1.98 Feels tired . would add 1/2 pill additional per week and see if she feels improved as long as labs remain in range.Was on armour at one time and felt better. would consider making a switch if patient prefers. Urinary tract infections (7 sources) Cystitis; Translations: [Cystitis, unspecified without hematuria] 12-27-2023 Episodic Past or Other Problems Problem Classification Problem Date Documented Da te Episodic/Chronic Allergic reactions (2 sources) Contact dermatitis; Translations: [Unspecified contact dermatitis, unspecified cause] Onset: 12-10-2007 12-10-2007 Episodic Open wounds of extremities (1 source) Open bite of unspecified hand, initial encounter; Translations: [Open bite of unspecified hand, initial encounter] Onset: 11-13-2024 Episodic Other inflammatory condition of skin (2 sources) Pruritus of skin; Translations: [Pruritus, unspecified] Onset: 12-10-2007 12-10-2007 Episodic Other injuries and conditions due to external causes (2 sources) Superficial injury; Translations: [Unspecified multiple injuries, initial encounter] Onset: 12-10-2007 12-10-2007 Episodic Other lower respiratory disease (2 sources) Cough; Translations: [Cough] Onset: 04-11-2011 04-11-2011 Episodic Other screening for suspected conditions (not mental disorders or infectious disease) (4 sources) Mammography abnormal; Translations: [Other abnormal and inconclusive findings on diagnostic imaging of breast] Onset: 04-11-2011 04-11-2011 Episodic Other skin disorders (2 sources) Disorder of sebaceous gland; Translations: [Other specified follicular disorders] Onset: 12-10-2007 12-10-2007 Episodic Other skin disorders (2 sources) Disorder of pigmentation; Translations: [Disorder of pigmentation, unspecified] Onset: 01-13-2008 01-13-2008 Episodic Skin and subcutaneous tissue infections (2 sources) Pyoderma; Translations: [Pyoderma] Onset: 12-10-2007 12-10-2007 Episodic Results Test Name Value Interpretation Reference Range Facility Ferritinon 05-28-2025 Ferritin [Mass/Vol] 224 ng/mL Normal 22-378 [facility] Comment on above: Order Comment: DERICK Nagy ADD B12,YAKOV, AND IBC TO LABS DRAWN YESTERDAY 05/27/25- EEGG Performed By: #### L 503.0106, L503.6030, L503.6550, L506.1001 ####[facility] [id number] [place], [place], [address] Iron+Iron Binding Capacityon 05-28-2025 Iron [Mass/Vol] 89 ug/dL Normal 50-170 [facility] Comment on above: Order Comment: DERICK Nagy ADD B12,YAKOV, AND IBC TO LABS DRAWN YESTERDAY 05/27/25- EEGGelevated glucose Performed By: #### L 503.0106, L503.6030, L503.6550, L506.1001 ####[facility] [id number] [place], [address] IRON SATURATION 34.5 Normal 13-59 [facility] Comment on above: Order Comment: DERICK Nagy ADD B12,YAKOV, AND IBC TO LABS DRAWN YESTERDAY 05/27/25- EEGGelevated glucose Performed By: #### L 503.0106, L503.6030, L503.6550, L506.1001 ####[facility] [id number] [place], [address] TIBC 258 ug/dL Normal 250-450 [facility] Comment on above: Order Comment: DERICK Nagy ADD B12,YAKOV, AND IBC TO LABS DRAWN YESTERDAY 05/27/25- EEGGelevated glucose Performed By: #### L 503.0106, L503.6030, L503.6550, L506.1001 ####[facility] [id number] [place], [address] UIBC 169 ug/dL Low 228-428 [facility] Comment on above: Order Comment: DERICK Nagy ADD B12,YAKOV, AND IBC TO LABS DRAWN YESTERDAY 05/27/25- EEGGelevated glucose Performed By: #### L 503.0106, L503.6030, L503.6550, L506.1001 ####[facility] [id number] [place], [address] Vitamin B12on 05-28-2025 Cobalamin (Vitamin B12) [Mass/Vol] 325 pg/mL Normal 180-914 [facility] Comment on above: Order Comment: DERICK Nagy ADD B12,YAKOV, AND IBC TO LABS DRAWN YESTERDAY 05/27/25- EEGG Performed By: #### L 503.0106, L503.6030, L503.6550, L506.1001 ####[facility] [id number] [place], [address] Absolute lymphocyte countOrd ered By: Paulina Hair on 05-27-2025 Lymphocytes Auto (Unsp spec) [#/Vol] 1.92 10*3/uL 0.83-4.51 [facility] Absolute neutrophil countOrd ered By: Paulina Hair on 05-27-2025 Neutrophils (Bld) [#/Vol] 2.7 10*3/uL 2.0-7.7 [facility] Anion gap in Serum or Plasma Ordered By: Paulina Hair on 05-27-2025 Anion gap [Moles/Vol] 13 mmol/L 5-15 [facility] Automated lymphocyte count a s percentage of total leukocytesOrdered By: Paulina Hair on 05-27-2025 Lymphocytes/100 WBC Auto (Unsp spec) 37.6 % 19-41 [facility] BUN/creatinine ratioOrdered By: Paulina Victoriaquang on 05-27-2025 Urea nitrogen/Creatinine [Mass ratio] 22.0 mg/mg High 10-20 [facility] Basophil percentageOrdered B y: Paulina Hansenpatricia on 05-27-2025 Basophils/100 WBC (Bld) 0.8 % 0-1 [facility] Bilirubin, totalOrdered By: Paulina Victoriaquang on 05-27-2025 Bilirubin [Mass/Vol] 0.30 mg/dL 0.00-1.30 [facility] CBC W/Diff, Automatedon 05-05 Absolute Lymph 1.92 X10 3/uL Normal 0.83-4.51 [facility] Comment on above: Order Comment: Order Date: 11/26/24 Order Info: 0184-1 - CBCD Performed By: #### L 100.0100, L506.0400, L501.9520, L500.4050 #### [facility] [address] [place], [address] Absolute Neut 2.7 X10 3/uL Normal 2.0-7.7 [facility] Comment on above: Order Comment: Order Date: 11/26/24 Order Info: 0184-1 - CBCD Performed By: #### L 100.0100, L506.0400, L501.9520, L500.4050 #### [facility] [address] [place], [address] Basophils/100 WBC (Bld) 0.8 % Normal 0-1 [facility] Comment on above: Order Comment: Order Date: 11/26/24 Order Info: 0184-1 - CBCD Performed By: #### L 100.0100, L506.0400, L501.9520, L500.4050 #### [facility] [address] [place], [address] Eosinophils/100 WBC (Bld) 1.6 % Normal 0-5 [facility] Comment on above: Order Comment: Order Date: 11/26/24 Order Info: 0184-1 - CBCD Performed By: #### L 100.0100, L506.0400, L501.9520, L500.4050 #### [facility] [address] [place], [address] Erythrocyte distribution width (RBC) [Ratio] 12.9 % Normal 11.6-14.6 [facility] Comment on above: Order Comment: Order Date: 11/26/24 Order Info: 0184-1 - CBCD Performed By: #### L 100.0100, L506.0400, L501.9520, L500.4050 #### [facility] [address] [place], [address] Hematocrit (Bld) [Volume fraction] 34.4 % Low 37-47 [facility] Comment on above: Order Comment: Order Date: 11/26/24 Order Info: 0184- - CBCD Performed By: #### L 100.0100, L506.0400, L501.9520, L500.4050 #### [facility] [address] [place], [address] Hemoglobin (Bld) [Mass/Vol] 11.5 g/dL Low 12.0-15.0 [facility] Comment on above: Order Comment: Order Date: 11/26/24 Order Info: 0184-1 - CBCD Performed By: #### L 100.0100, L506.0400, L501.9520, L500.4050 #### [facility] [address] [place], [address] IG% 0.400 Normal 0.0-0.9 [facility] Comment on above: Order Comment: Order Date: 11/26/24 Order Info: 0184-1 - CBCD Result Comment: IG% - Immature Granulocytes (promyelocytes, myelocytes and metamyelocytes) > 1% indicates that a LEFT SHIFT is Present. Performed By: #### L 100.0100, L506.0400, L501.9520, L500.4050 #### [facility] [address] [place], [address] Lymphocytes/100 WBC (Bld) 37.6 % Normal 19-41 [facility] Comment on above: Order Comment: Order Date: 11/26/24 Order Info: 0184-1 - CBCD Performed By: #### L 100.0100, L506.0400, L501.9520, L500.4050 #### [facility] [address] [place], [address] MCH (RBC) [Entitic mass] 30.5 pg Normal 27.0-32.0 [facility] Comment on above: Order Comment: Order Date: 11/26/24 Order Info: 0184- - CBCD Performed By: #### L 100.0100, L506.0400, L501.9520, L500.4050 #### [facility] [address] [place], [address] MCHC (RBC) [Mass/Vol] 33.4 g/dL Normal 32-36 [facility] Comment on above: Order Comment: Order Date: 11/26/24 Order Info: 0184-1 - CBCD Performed By: #### L 100.0100, L506.0400, L501.9520, L500.4050 #### [facility] [address] [place], [address] MCV (RBC) [Entitic vol] 91.2 fL Normal 81-99 [facility] Comment on above: Order Comment: Order Date: 11/26/24 Order Info: 0184-1 - CBCD Performed By: #### L 100.0100, L506.0400, L501.9520, L500.4050 #### [facility] [address] [place], [address] Monocytes/100 WBC (Bld) 7.8 % Normal 0-10 [facility] Comment on above: Order Comment: Order Date: 11/26/24 Order Info: 0184-1 - CBCD Performed By: #### L 100.0100, L506.0400, L501.9520, L500.4050 #### [facility] [address] [place], [address] Neutrophils/100 WBC (Bld) 51.8 % Normal 47-70 [facility] Comment on above: Order Comment: Order Date: 11/26/24 Order Info: 0184-1 - CBCD Performed By: #### L 100.0100, L506.0400, L501.9520, L500.4050 #### [facility] [address] [place], [address] Nucleated RBC (Bld) [#/Vol] 0 10*3/uL Normal 0-5 [facility] Comment on above: Order Comment: Order Date: 11/26/24 Order Info: 018-1 - CBCD Performed By: #### L 100.0100, L506.0400, L501.9520, L500.4050 #### [facility] [address] [place], [address] Platelet mean volume (Bld) [Entitic vol] 10.7 fL Normal 6.2-12.0 [facility] [facility] Comment on above: Order Comment: Order Date: 11/26/24 Order Info: 0184-1 - CBCD Performed By: #### L 100.0100, L506.0400, L501.9520, L500.4050 #### [facility] [address] [place], [address] Platelets (Bld) [#/Vol] 273 10*3/uL Normal 150-450 [facility] Comment on above: Order Comment: Order Date: 11/26/24 Order Info: 0184-1 - CBCD Performed By: #### L 100.0100, L506.0400, L501.9520, L500.4050 #### [facility] [address] [place], [address] RBC (Bld) [#/Vol] 3.77 10*6/uL Low 4.2-5.4 [facility] Comment on above: Order Comment: Order Date: 11/26/24 Order Info: 0184-1 - CBCD Performed By: #### L 100.0100, L506.0400, L501.9520, L500.4050 #### [facility] [address] [place], [address] RDW SD 42.8 fl Normal 35.1-43.9 [facility] Comment on above: Order Comment: Order Date: 11/26/24 Order Info: 0184- - CBCD Performed By: #### L 100.0100, L506.0400, L501.9520, L500.4050 #### [facility] [address] [place], [address] WBC (Bld) [#/Vol] 5.1 10*3/uL Normal 4.4-11.0 [facility] Comment on above: Order Comment: Order Date: 11/26/24 Order Info: 0184- - CBCD Performed By: #### L 100.0100, L506.0400, L501.9520, L500.4050 #### [facility] [address] [place], [address] Carbon dioxide, total [Moles /volume] in Central venous bloodOrdered By: Paulina Hair on 05-27-2025 CO2 [Moles/Vol] 20.7 mmol/L Low 21.0-32.0 [facility] Chloride assayOrdered By: Imani Hair on 05-27-2025 Chloride [Moles/Vol] 106 mmol/L 98-108 [facility] Comprehensive Metabolic Prof ilon 05-27-2025 Albumin [Mass/Vol] 4.4 g/dL Normal 3.4-4.8 [facility] Comment on above: Order Comment: Order Date: 11/26/24 Order Info: 0786-1 - CMP Order Info: 3 - TSH Order Info: 7 - T4F elevated glucose Performed By: #### L 100.0100, L506.0400, L501.9520, L500.4050 #### [facility] [address] [place], [address] Albumin/Globulin [Mass ratio] 2.2 {ratio} Normal 0.9-2.4 [facility] Comment on above: Order Comment: Order Date: 11/26/24 Order Info: 0786-1 - CMP Order Info: 3 - TSH Order Info: 7 - T4F elevated glucose Performed By: #### L 100.0100, L506.0400, L501.9520, L500.4050 #### [facility] [address] [place], [address] ALK PHOS 85 U/L Normal 35-104 [facility] Comment on above: Order Comment: Order Date: 11/26/24 Order Info: 0786-1 - CMP Order Info: 3 - TSH Order Info: 7 - T4F elevated glucose Performed By: #### L 100.0100, L506.0400, L501.9520, L500.4050 #### [facility] [address] [place], [address] ALT [Catalytic activity/Vol] 13 U/L Normal <=34 [facility] Comment on above: Order Comment: Order Date: 11/26/24 Order Info: 0786-1 - CMP Order Info: 3 - TSH Order Info: 7 - T4F elevated glucose Performed By: #### L 100.0100, L506.0400, L501.9520, L500.4050 #### [facility] [address] [place], [address] AST [Catalytic activity/Vol] 21 U/L Normal <=31 [facility] Comment on above: Order Comment: Order Date: 11/26/24 Order Info: 0786-1 - CMP Order Info: 3 - TSH Order Info: 7 - T4F elevated glucose Performed By: #### L 100.0100, L506.0400, L501.9520, L500.4050 #### [facility] [address] [place], [address] Bilirubin [Mass/Vol] 0.30 mg/dL Normal 0.00-1.30 [facility] Comment on above: Order Comment: Order Date: 11/26/24 Order Info: 0786-1 - CMP Order Info: 3 - TSH Order Info: 3024-03 - T4F elevated glucose Performed By: #### L 100.0100, L506.0400, L501.9520, L500.4050 #### [facility] [address] [place], [address] BUN/CRE 22.0 RATIO High 10-20 [facility] Comment on above: Order Comment: Order Date: 11/26/24 Order Info: 0786-1 - CMP Order Info: 3 - TSH Order Info: 3024-03 - T4F elevated glucose Performed By: #### L 100.0100, L506.0400, L501.9520, L500.4050 #### [facility] [address] [place], [address] Calcium [Mass/Vol] 8.7 mg/dL Normal 7.6-11.0 [facility] Comment on above: Order Comment: Order Date: 11/26/24 Order Info: 0786-1 - CMP Order Info: 3 - TSH Order Info: 7 - T4F elevated glucose Performed By: #### L 100.0100, L506.0400, L501.9520, L500.4050 #### [facility] [address] [place], [address] Chloride [Moles/Vol] 106 mmol/L Normal 98-108 [facility] Comment on above: Order Comment: Order Date: 11/26/24 Order Info: 0786-1 - CMP Order Info: 3015-3 - TSH Order Info: 3023-7 - T4F elevated glucose Performed By: #### L 100.0100, L506.0400, L501.9520, L500.4050 #### [facility] [address] [place], [address] CO2 [Moles/Vol] 20.7 mmol/L Low 21.0-32.0 [facility] Comment on above: Order Comment: Order Date: 11/26/24 Order Info: 0786-1 - CMP Order Info: 3 - TSH Order Info: 7 - T4F elevated glucose Performed By: #### L 100.0100, L506.0400, L501.9520, L500.4050 #### [facility] [address] [place], [address] Creatinine [Mass/Vol] 0.93 mg/dL Normal 0.70-1.20 [facility] Comment on above: Order Comment: Order Date: 11/26/24 Order Info: 0786-1 - CMP Order Info: 3 - TSH Order Info: 3023-7 - T4F elevated glucose Performed By: #### L 100.0100, L506.0400, L501.9520, L500.4050 #### [facility] [address] [place], [address] GAP 13 Normal 5-15 [facility] Comment on above: Order Comment: Order Date: 11/26/24 Order Info: 0786-1 - CMP Order Info: 3 - TSH Order Info: 3024-7 - T4F elevated glucose Performed By: #### L 100.0100, L506.0400, L501.9520, L500.4050 #### [facility] [address] [place], [address] GFR/1.73 sq M.predicted among non-blacks MDRD (S/P/Bld) [Vol rate/Area] 69 mL/min/{1.73_m2} Normal >60 [facility] Comment on above: Order Comment: Order Date: 11/26/24 Order Info: 0786-1 - CMP Order Info: 3015-3 - TSH Order Info: 3023-7 - T4F elevated glucose Result Comment: mL/m in/1.73m2 CKD-EPI Creatinine Equation (2020) Performed By: #### L 100.0100, L506.0400, L501.9520, L500.4050 #### [facility] [address] [place], [address] Globulin (S) [Mass/Vol] 2.0 g/dL Low 2.2-4.2 [facility] Comment on above: Order Comment: Order Date: 11/26/24 Order Info: 0786-1 - CMP Order Info: 3 - TSH Order Info: 7 - T4F elevated glucose Performed By: #### L 100.0100, L506.0400, L501.9520, L500.4050 #### [facility] [address] [place], [address] Glucose [Mass/Vol] 88 mg/dL Normal 70-99 [facility] Comment on above: Order Comment: Order Date: 11/26/24 Order Info: 0786-1 - CMP Order Info: 3015-3 - TSH Order Info: 3027 - T4F elevated glucose Performed By: #### L 100.0100, L506.0400, L501.9520, L500.4050 #### [facility] [address] [place], [address] Potassium [Moles/Vol] 4.9 mmol/L Normal 3.3-5.1 [facility] Comment on above: Order Comment: Order Date: 11/26/24 Order Info: 0786-1 - CMP Order Info: 3015-3 - TSH Order Info: 302-7 - T4F elevated glucose Performed By: #### L 100.0100, L506.0400, L501.9520, L500.4050 #### [facility] [address] [place], [address] Sodium [Moles/Vol] 140 mmol/L Normal 133-145 [facility] Comment on above: Order Comment: Order Date: 11/26/24 Order Info: 0786-1 - CMP Order Info: 3015-3 - TSH Order Info: 7 - T4F elevated glucose Performed By: #### L 100.0100, L506.0400, L501.9520, L500.4050 #### [facility] [address] [place], [address] T PROT 6.4 g/dL Normal 5.9-8.4 [facility] Comment on above: Order Comment: Order Date: 11/26/24 Order Info: 0786-1 - CMP Order Info: 3 - TSH Order Info: 3024-03 - T4F elevated glucose Performed By: #### L 100.0100, L506.0400, L501.9520, L500.4050 #### [facility] [address] [place], [address] Urea nitrogen [Mass/Vol] 21 mg/dL High 4-19 [facility] Comment on above: Order Comment: Order Date: 11/26/24 Order Info: 0786-1 - CMP Order Info: 3 - TSH Order Info: 7 - T4F elevated glucose Performed By: #### L 100.0100, L506.0400, L501.9520, L500.4050 #### [facility] [address] [place], [address] Eosinophil percentageOrdered By: Paulina Hair on 05-27-2025 Eosinophils/100 WBC (Bld) 1.6 % 0-5 [facility] Erythrocyte distribution wid th ratioOrdered By: Paulina Hair on 05-27-2025 Erythrocyte distribution width (RBC) [Ratio] 12.9 % 11.6-14.6 [facility] Erythrocyte distribution wid th standard deviationOrdered By: Paulina Hair on 05-27-2025 Erythrocyte distribution width (RBC) [Ratio] 42.8 fl 35.1-43.9 [facility] Glomerular filtration rate ( GFR) estimation/1.73 sq m using serum, plasma, or whole bOrdered By: Paulina Hair on 05-27-2025 GFR/1.73 sq M.predicted among non-blacks MDRD (S/P/Bld) [Vol rate/Area] 69 mL/min/{1.73_m2} >60 [facility] Comment on above: mL/min/1.73m2 CKD-EP I Creatinine Equation (2020) Hematocrit Auto (Bld) [Volum e fraction]Ordered By: Paulina Hair on 05-27-2025 Hematocrit (Bld) [Volume fraction] 34.4 % Low 37-47 [facility] Hemoglobin A1con 05-27-2025 HbA1c (Bld) [Mass fraction] 5.5 % Normal <=5.6 [facility] Comment on above: Order Comment: Inter face Comments:elevated glucoseOrder Date: 11/25/24Order Info: 4548-4 - [id number]: elevated glucose Result Comment: Norm al < 5.7 % Prediabetic 5.7 - 6.4 % Diabetic >or= 6.5 % Please note range changes. Performed By: #### L 501.9985 ####[facility] [address] [place], [address] Hemoglobin A1c percentageOrd ered By: Paulina Hair on 05-27-2025 HbA1c (Bld) [Mass fraction] 5.5 % <5.7 [facility] Comment on above: Normal < 5.7 % Predi abetic 5.7 - 6.4 % Diabetic >or= 6.5 % Please note range changes. Hemoglobin measurementOrdere d By: Paulina Hair on 05-27-2025 Hemoglobin (Bld) [Mass/Vol] 11.5 g/dL Low 12.0-15.0 [facility] Immature granulocytes/100 WB C Auto (Bld)Ordered By: Paulina Hair on 05-27-2025 Immature granulocytes/100 WBC (Bld) 0.400 % 0.0-0.9 [facility] Comment on above: IG% - Immature Granu locytes (promyelocytes, myelocytes and metamyelocytes) > 1% indicates that a LEFT SHIFT is Present. Iron measurement (mass/mass) Ordered By: Paulina Hair on 05-27-2025 Iron (Unsp spec) [Mass/Mass] 89 ug/dL 50-170 [facility] - Chemistry and C hemistry - challengeOrdered By: Paulina Hair on 05-27-2025 AST [Catalytic activity/Vol] 21 U/L <32 [facility] MCV (mean corpuscular volume ) determinationOrdered By: Paulina Hair on 05-27-2025 MCV (RBC) [Entitic vol] 91.2 fL 81-99 [facility] Mean corpuscular hemoglobin (MCH) determinationOrdered By: Paulina Hair on 05-27-2025 MCH (RBC) [Entitic mass] 30.5 pg 27.0-32.0 [facility] Mean corpuscular hemoglobin concentration (MCHC) determinationOrdered By: Paulina Hair on 05-27-2025 MCHC (RBC) [Mass/Vol] 33.4 g/dL 32-36 [facility] Mean platelet volume determi nationOrdered By: Paulina Hair on 05-27-2025 Platelet mean volume (Bld) [Entitic vol] 10.7 fL 6.2-12.0 [facility] Monocyte percentageOrdered B y: Paulina Hair on 05-27-2025 Monocytes/100 WBC (Bld) 7.8 % 0-10 [facility] Neutrophil percentageOrdered By: Paulina Hair on 05-27-2025 Neutrophils/100 WBC (Bld) 51.8 % 47-70 [facility] No Panel InformationOrdered By: Paulina Hair on 05-27-2025 Unsaturated Iron Binding Capacity 169 ug/dL Low 228-428 [facility] Nucleated red blood cell per centageOrdered By: Paulina Hair on 05-27-2025 Nucleated RBC/100 WBC (Bld) [Ratio] 0 % 0-5 [facility] Platelet countOrdered By: Imani Hair on 05-27-2025 Platelets (Bld) [#/Vol] 273 10*3/uL 150-450 [facility] Potassium measurement (mass/ volume)Ordered By: Paulina Hair on 05-27-2025 Potassium (Unsp spec) [Mass/Vol] 4.9 mmol/L 3.3-5.1 [facility] RBC Auto (Bld) [#/Vol]Ordere d By: Paulina Hair on 05-27-2025 RBC (Bld) [#/Vol] 3.77 10*6/uL Low 4.2-5.4 [facility] Serum creatinine measurement (mass/volume)Ordered By: Paulina Hair on 05-27-2025 Creatinine [Mass/Vol] 0.93 mg/dL 0.70-1.20 [facility] Serum globulin measurementOr dered By: Paulina Hair on 05-27-2025 Globulin (S) [Mass/Vol] 2.0 g/dL Low 2.2-4.2 [facility] Serum glucose measurement (m ass/volume)Ordered By: Paulina Hair on 05-27-2025 Glucose [Mass/Vol] 88 mg/dL 70-99 [facility] Serum or plasma alanine montague otransferase (ALT) measurementOrdered By: Paulina Hair on 05-27-2025 ALT [Catalytic activity/Vol] 13 U/L <35 [facility] Serum or plasma albumin amanuel urement (mass/volume)Ordered By: Paulina Hair on 05-27-2025 Albumin [Mass/Vol] 4.4 g/dL 3.4-4.8 [facility] Serum or plasma albumin/glob ulin mass ratioOrdered By: Paulina Hair on 05-27-2025 Albumin/Globulin [Mass ratio] 2.2 {ratio} 0.9-2.4 [facility] Serum or plasma alkaline danni sphatase measurementOrdered By: Paulina Hair on 05-27-2025 ALP [Catalytic activity/Vol] 85 U/L 35-104 [facility] Serum or plasma calcium amanuel urement (mass/volume)Ordered By: Paulina Hair on 05-27-2025 Calcium [Mass/Vol] 8.7 mg/dL 7.6-11.0 [facility] Serum or plasma ferritin jenna surement (mass/volume)Ordered By: Paulina Hair on 05-27-2025 Ferritin [Mass/Vol] 224 ng/mL 22-378 [facility] Serum or plasma iron saturat ion measurement (mass fraction)Ordered By: Paulina Hair on 05-27-2025 Iron saturation [Mass fraction] 34.5 % 13-59 [facility] Serum or plasma urea nitroge n measurement (mass/volume)Ordered By: Paulina Hair on 05-27-2025 Urea nitrogen [Mass/Vol] 21 mg/dL High 4-19 [facility] Sodium levelOrdered By: Paulina Hair on 05-27-2025 Sodium [Moles/Vol] 140 mmol/L 133-145 [facility] T4 Free Directon 05-27-2025 T4 FREE DIRECT 1.60 ng/dL High 0.76-1.46 [facility] Comment on above: Order Comment: Order Date: 11/26/24 Order Info: 0786-1 - CMP Order Info: 3 - TSH Order Info: 3024-03 - T4F elevated glucose Performed By: #### L 100.0100, L506.0400, L501.9520, L500.4050 #### [facility] [address] [place], [address] T4 freeOrdered By: Paulina kwok on 05-27-2025 Free T4 [Mass/Vol] 1.60 ng/dL High 0.76-1.46 [facility] TSH DL <= 0.005 mIU/L QnOrde red By: Paulina Hair on 05-27-2025 TSH Qn 0.295 uIU/mL Low 0.300-4.20 0 [facility] Thyroid Stim Hormone (TSH)on 05-27-2025 TSH 0.295 uIU/mL Low 0.300-4.20 0 [facility] Comment on above: Order Comment: Order Date: 11/26/24 Order Info: 0786-1 - CMP Order Info: 3015-3 - TSH Order Info: 3024-03 - T4F Performed By: #### L 100.0100, L506.0400, L501.9520, L500.4050 #### [facility] [address] [place], [place], [address] Total proteinOrdered By: Dylan Hair on 05-27-2025 Protein [Mass/Vol] 6.4 g/dL 5.9-8.4 [facility] Vitamin B12 ser/plasOrdered By: Paulina Hair on 05-27-2025 Cobalamin (Vitamin B12) [Mass/Vol] 325 pg/mL 180-914 [facility] Vitamin D,25 Hydroxyon 05-27 Vitamin D 25-OH 55.6 ng/mL Normal 30-100 [facility] Comment on above: Order Comment: Order Date: 11/26/24Order Info: 0786-1 - CMPOrder Info: 3016-3 - TSHOrder Info: 3024-7 - T4F Result Comment: Roberta min D Status Deficiency: <20 ng/mL (50nmol/L) Insufficiency: 20-30 ng/mL (50-75 nmol/L) Sufficiency: 30-100 ng/mL (75-250 nmol/L) Toxicity: >100 ng/mL (>250 nmol/L) Performed By: #### L 503.0106, L503.6030, L503.6550, L506.1001 ####[facility] [address] [place], [place], [address] White blood cell (WBC) count Ordered By: Paulina Hair on 05-27-2025 WBC (Bld) [#/Vol] 5.1 10*3/uL 4.4-11.0 [facility] Breast imaging reportOrdered By: Zhane Crain on 01-09-2025 Study report [facility] [address] [place], [place] [address] SCRN MAMM (CAD)W/BRIANA BILAT MR#: [id number] Acct: [id number] Name: JESIKA WHIPPLE Rep #: [id number] : 1960 F 64 From: Diane Crain MD PCP: Dr. Paulina Hair MD Status: RE G CLI Study:SCRN MAMM (CAD)W/BRIANA BILAT Date of Exa m: 01/09/25 Exam# [id number] Ordering Dr: Paulina Hair MD EXAM: SCRN MAMM (CAD)W/BRIANA BILAT 01/09/2025 CLINICAL HISTORY: F, Age 64 y/o , SCREENING TECHNIQUE: Bilateral screening digital breast tomosynthesis with 2D and 3D images. Computeraided detection. COMPARISON: Prior exam(s) dated 12/25/2023. FINDINGS: TISSUE DENSITY: The breast tissue is composed of scattered area of fibroglandular density. Bilateral Breast Mammographic Findings: No significant masses, calcifications or other abnormalities are identified. BI/SCRN MAMM (CAD)W/BRIANA BILAT IMPRESSION: Right Breast: BIRADS 1 NEGATIVE. Left Breast: BIRADS 1 NEGATIVE. OVERALL FINAL ASSESSMENT: BIRADS 1 NEGATIVE. RECOMMENDATION: Routine annual follow-up in 1 Year A letter with findings and recommendations will be mailed to the patient. Reading Location: [facility] CC: Dr. Paulina Hair MD ~ Manager Ent: Signed [facility] SCRN MAMM (CAD)W/BRIANA BILATo n 01-09-2025 SCRN MAMM (CAD)W/BRIANA BILAT [facility] [address] [place] [address] SCRN MAMM (CAD)W/BRIANA BILAT MR#: [id number] Acct: [id number] Name: JESIKA WHIPPLE Rep #: [id number] : 1960 F 64 From: Zhane Crain MD PCP: Dr. Paulina Hair MD Status: REG CLI Study: SCRN MAMM (CAD)W/BRIANA BILAT Date of Exam: 05/28 Exam# [id number] Ordering Dr: Paulina Hair MD EXAM: SCRN MAMM (CAD)W/BRIANA BILAT 01/09/2025 CLINICAL HISTORY: F, Age 64 y/o , SCREENING TECHNIQUE: Bilateral screening digital breast tomosynthesis with 2D and 3D images. Computer aided detection. COMPARISON: Prior exam(s) dated 12/25/2023. FINDINGS: TISSUE DENSITY: The breast tissue is composed of scattered area of fibroglandular density. Bilateral Breast Mammographic Findings: No significant masses, calcifications or other abnormalities are identified. BI/SCRN MAMM (CAD)W/BRIANA BILAT IMPRESSION: Right Breast: BIRADS 1 NEGATIVE. Left Breast: BIRADS 1 NEGATIVE. OVERALL FINAL ASSESSMENT: BIRADS 1 NEGATIVE. RECOMMENDATION: Routine annual follow-up in 1 Year A letter with findings and recommendations will be mailed to the patient. Reading Location: [facility] CC: Dr. Paulina Hair MD Manager Ent: Signed Normal [facility] PAP IG HPV HR APTIMAon 01-05 ADEQ Comment Normal . [facility] Comment on above: Order Comment: Speci men Comment: No. of containers..01 ThinPrep Vial Result Comment: Sati sfactory for evaluation. No endocervical component is identified. Performed By: #### L 7400.0377 ####[facility] [address] [place], [place], [id number] COMM . Normal . [facility] Comment on above: Order Comment: Vasyli men Comment: No. of containers..01 ThinPrep Vial Performed By: #### L 7400.0377 ####[facility] [address] [place], [place], [id number] COMMENT Comment Normal . [facility] Comment on above: Order Comment: Speci men Comment: No. of containers..01 ThinPrep Vial Result Comment: This liquid based ThinPrep(R) pap test was screened with the use of an image guided system. Performed By: #### L 7400.0377 ####[facility] [address] [place], [address] DIAG Comment Normal . [facility] Comment on above: Order Comment: Speci men Comment: No. of containers..01 ThinPrep Vial Result Comment: NEGA TIVE FOR INTRAEPITHELIAL LESION OR MALIGNANCY. Performed By: #### L 7400.0377 ####[facility] [address] [place], [place], [id number] HPV APTIMA, HR Negative Normal Negative [facility] Comment on above: Order Comment: Speci men Comment: No. of containers..01 ThinPrep Vial Result Comment: This nucleic acid amplification test detects fourteen high- risk HPV types (16,18,31,33,35,39,45,51,52,56,58,59,66,68) without differentiation. Performed at: [facility] [address] [id number] Ride Operator: Flor Joya MD, Phone: [phone] Performed at: =[address] [id number] Ride Operator: Flor Joya MD, Phone: [phone] Performed By: #### L 7400.0377 ####[facility] [address] [place], [place], [id number] PAPSMR Comment Normal . [facility] Comment on above: Order Comment: Speci men Comment: No. of containers..01 ThinPrep Vial Result Comment: The Pap smear is a screening test designed to aid in the detection of premalignant and malignant conditions of the uterine cervix. It is not a diagnostic procedure and should not be used as the sole means of detecting cervical cancer. Both false-positive and false-negative reports do occur. Performed By: #### L 7400.0377 ####[facility] [address] [place], [address] PERFORM Comment Normal . [facility] Comment on above: Order Comment: Speci men Comment: No. of containers..01 ThinPrep Vial Result Comment: Kenia Hanson, Tobacco Stripping Machine Operator (ASCP) Performed By: #### L 7400.0377 ####[facility] [address] [place], [place], [id number] Cervical or vagninal specime n microscopic examination by cytology stain (reported asOrdered By: Ajit Melendez on 12-31-2024 Cytology report Cyto stain Doc (Cvx/Vag) Comment . [facility] Comment on above: The Pap smear is a s creening test designed to aid in thedetection of premalignant and malignant conditions of theuterine cervix. It is not a diagnostic procedure andshould not be used as the sole means of detecting cervicalcancer. Both false-positive and false-negative reports dooccur. Detection in cervical specim en of any of human papilloma virus (HPV) 16, 18, 31, 33,Ordered By: Ajit Melendez on 12-31-2024 HPV 16+18+31+33+35+39+45+ 51+52+56+58+59+66+68 DNA Probe+sig amp Ql (Cvx) Negative Negative [facility] Comment on above: This nucleic acid am plification test detects fourteen high- risk HPV types (16,18,31,33,35,39,45,51,52,56,58,59,66,68)without differentiation.Performed at: [facility] [address] [id number] Director: Flor Joya MD, Phone: [phone] at: =[address] [id number] Director: Flor Joya MD, Phone: [phone] Laboratory - CytologyOrdered By: Ajit Melendez on 12-31-2024 Tobacco Stripping Machine Operator Cyto stain Nom (Cvx/Vag) [ID] Comment . [facility] Comment on above: Sosa narayanan, Tobacco Stripping Machine Operator (ASCP) Laboratory - Miscellaneous t estsOrdered By: Ajit Melendez on 12-31-2024 Service comment (Unsp spec) [Interp] . . [facility] No Panel InformationOrdered By: Ajit Melendez on 12-31-2024 Pap Smear Specimen Adequacy Comment . [facility] Comment on above: Satisfactory for bailey luation. No endocervical component is identified. Hemoglobin A1con 11-25-2024 HbA1c (Bld) [Mass fraction] 5.3 % Low <=5.6 [facility] Comment on above: Order Comment: PLEAS E ADD A1C TO BLOOD DRAWN 11/22/24 PER Performed By: #### L 506.1001, L501.9985 ####[facility] [address] [place], [address] Hemoglobin A1c percentageOrd ered By: Paulina Hair on 11-25-2024 HbA1c (Bld) [Mass fraction] 5.3 % Low >5.7 [facility] Absolute lymphocyte countOrd ered By: Paulina Hair on 11-22-2024 Lymphocytes Auto (Unsp spec) [#/Vol] 2.15 10*3/uL 0.83-4.51 [facility] Absolute neutrophil countOrd ered By: Paulina Hair on 11-22-2024 Neutrophils (Bld) [#/Vol] 1.6 10*3/uL Low 2.0-7.7 [facility] Anion gap in Serum or Plasma Ordered By: Paulina Hair on 11-22-2024 Anion gap [Moles/Vol] 11 mmol/L 5-15 [facility] Automated lymphocyte count a s percentage of total leukocytesOrdered By: Paulina Hair on 11-22-2024 Lymphocytes/100 WBC Auto (Unsp spec) 49.9 % High 19-41 [facility] BUN/creatinine ratioOrdered By: Paulina Hair on 11-22-2024 Urea nitrogen/Creatinine [Mass ratio] 14.4 mg/mg 10-20 [facility] Basophil percentageOrdered B y: Paulina Hair on 11-22-2024 Basophils/100 WBC (Bld) 1.4 % High 0-1 [facility] Bilirubin, totalOrdered By: Paulina Hair on 11-22-2024 Bilirubin [Mass/Vol] 0.51 mg/dL 0.00-1.30 [facility] CBC W/Diff, Automatedon 11-02 Absolute Lymph 2.15 X10 3/uL Normal 0.83-4.51 [facility] Comment on above: Order Comment: Order Date: 05/28/24Order Info: [id number] - CBCD Performed By: #### L 500.4100, L506.0400, L100.0100, L501.9520, L500.4050 ####[facility] [address] [place], [address] Absolute Neut 1.6 X10 3/uL Low 2.0-7.7 [facility] Comment on above: Order Comment: Order Date: 05/28/24Order Info: 183- - CBCD Performed By: #### L 500.4100, L506.0400, L100.0100, L501.9520, L500.4050 ####[facility] [address] [place], [address] Basophils/100 WBC (Bld) 1.4 % High 0-1 [facility] Comment on above: Order Comment: Order Date: 05/28/24Order Info: 183- - CBCD Performed By: #### L 500.4100, L506.0400, L100.0100, L501.9520, L500.4050 ####[facility] [address] [place], [address] Eosinophils/100 WBC (Bld) 2.6 % Normal 0-5 [facility] Comment on above: Order Comment: Order Date: 05/28/24Order Info: 183- - CBCD Performed By: #### L 500.4100, L506.0400, L100.0100, L501.9520, L500.4050 ####[facility] [address] [place], [address] Erythrocyte distribution width (RBC) [Ratio] 12.5 % Normal 11.6-14.6 [facility] Comment on above: Order Comment: Order Date: 05/28/24Order Info: 183- - CBCD Performed By: #### L 500.4100, L506.0400, L100.0100, L501.9520, L500.4050 ####[facility] [address] [place], [address] Hematocrit (Bld) [Volume fraction] 36.9 % Low 37-47 [facility] Comment on above: Order Comment: Order Date: 05/28/24Order Info: [id number] - CBCD Performed By: #### L 500.4100, L506.0400, L100.0100, L501.9520, L500.4050 ####[facility] [address] [place], [address] Hemoglobin (Bld) [Mass/Vol] 12.3 g/dL Normal 12.0-15.0 [facility] Comment on above: Order Comment: Order Date: 05/28/24Order Info: 0184-1 - CBCD Performed By: #### L 500.4100, L506.0400, L100.0100, L501.9520, L500.4050 ####[facility] [address] [place], [address] IG% 0.000 Normal 0.0-0.9 [facility] Comment on above: Order Comment: Order Date: 05/28/24Order Info: [id number] - CBCD Result Comment: IG% - Immature Granulocytes (promyelocytes, myelocytes and metamyelocytes) > 1% indicates that a LEFT SHIFT is Present. Performed By: #### L 500.4100, L506.0400, L100.0100, L501.9520, L500.4050 ####[facility] [address] [place], [address] Lymphocytes/100 WBC (Bld) 49.9 % High 19-41 [facility] Comment on above: Order Comment: Order Date: 05/28/24Order Info: [id number] - CBCD Performed By: #### L 500.4100, L506.0400, L100.0100, L501.9520, L500.4050 ####[facility] [address] [place], [address] MCH (RBC) [Entitic mass] 29.9 pg Normal 27.0-32.0 [facility] Comment on above: Order Comment: Order Date: 05/28/24Order Info: [id number] - CBCD Performed By: #### L 500.4100, L506.0400, L100.0100, L501.9520, L500.4050 ####[facility] [address] [place], [address] MCHC (RBC) [Mass/Vol] 33.3 g/dL Normal 32-36 [facility] Comment on above: Order Comment: Order Date: 05/28/24Order Info: [id number] - CBCD Performed By: #### L 500.4100, L506.0400, L100.0100, L501.9520, L500.4050 ####[facility] [address] [place], [address] MCV (RBC) [Entitic vol] 89.8 fL Normal 81-99 [facility] Comment on above: Order Comment: Order Date: 05/28/24Order Info: 018-1 - CBCD Performed By: #### L 500.4100, L506.0400, L100.0100, L501.9520, L500.4050 ####[facility] [address] [place], [address] Monocytes/100 WBC (Bld) 8.1 % Normal 0-10 [facility] Comment on above: Order Comment: Order Date: 05/28/24Order Info: [id number] - CBCD Performed By: #### L 500.4100, L506.0400, L100.0100, L501.9520, L500.4050 ####[facility] [address] [place], [address] Neutrophils/100 WBC (Bld) 38.0 % Low 47-70 [facility] Comment on above: Order Comment: Order Date: 05/28/24Order Info: [id number] - CBCD Performed By: #### L 500.4100, L506.0400, L100.0100, L501.9520, L500.4050 ####[facility] [address] [place], [address] Nucleated RBC (Bld) [#/Vol] 0 10*3/uL Normal 0-5 [facility] Comment on above: Order Comment: Order Date: 05/28/24Order Info: 018- - CBCD Performed By: #### L 500.4100, L506.0400, L100.0100, L501.9520, L500.4050 ####[facility] [address] [place], [address] Platelet mean volume (Bld) [Entitic vol] 11.2 fL Normal 6.2-12.0 [facility] Comment on above: Order Comment: Order Date: 05/28/24Order Info: 018- - CBCD Performed By: #### L 500.4100, L506.0400, L100.0100, L501.9520, L500.4050 ####[facility] [address] [place], [address] Platelets (Bld) [#/Vol] 187 10*3/uL Normal 150-450 [facility] Comment on above: Order Comment: Order Date: 05/28/24Order Info: 018- - CBCD Performed By: #### L 500.4100, L506.0400, L100.0100, L501.9520, L500.4050 ####[facility] [address] [place], [address] RBC (Bld) [#/Vol] 4.11 10*6/uL Low 4.2-5.4 [facility] Comment on above: Order Comment: Order Date: 05/28/24Order Info: 018- - CBCD Performed By: #### L 500.4100, L506.0400, L100.0100, L501.9520, L500.4050 ####[facility] [address] [place], [address] RDW SD 41.4 fl Normal 35.1-43.9 [facility] Comment on above: Order Comment: Order Date: 05/28/24Order Info: 018- - CBCD Performed By: #### L 500.4100, L506.0400, L100.0100, L501.9520, L500.4050 ####[facility] [address] [place], [address] WBC (Bld) [#/Vol] 4.3 10*3/uL Low 4.4-11.0 [facility] Comment on above: Order Comment: Order Date: 05/28/24Order Info: [id number] - CBCD Performed By: #### L 500.4100, L506.0400, L100.0100, L501.9520, L500.4050 ####[facility] [address] [place], [address] Calculated very low density lipoprotein (VLDL) cholesterol measurementOrdered By: Paulina Hair on 11-22-2024 Calculated very low density lipoprotein (VLDL) cholesterol measurement 13 mg/dL 5-40 [facility] VLDL Cholesterol 13 mg/dL 5-40 [facility] Carbon dioxide, total [Moles /volume] in Central venous bloodOrdered By: Paulina Hair on 11-22-2024 CO2 [Moles/Vol] 23.8 mmol/L 21.0-32.0 [facility] Chloride assayOrdered By: Imani Hair on 11-22-2024 Chloride [Moles/Vol] 102 mmol/L 98-108 [facility] Comprehensive Metabolic Prof ilon 11-22-2024 Albumin [Mass/Vol] 4.2 g/dL Normal 3.4-4.8 [facility] Comment on above: Order Comment: Order Date: 05/28/24Order Info: [id number] - CMPOrder Info: [id number] - LIPIDOrder Info: [id number] - TSHOrder Info: [id number] - T4F Performed By: #### L 500.4100, L506.0400, L100.0100, L501.9520, L500.4050 ####[facility] [address] [place], [address] Albumin/Globulin [Mass ratio] 2.0 {ratio} Normal 0.9-2.4 [facility] Comment on above: Order Comment: Order Date: 05/28/24Order Info: [id number] - CMPOrder Info: [id number] - LIPIDOrder Info: [id number] - TSHOrder Info: [id number] - T4F Performed By: #### L 500.4100, L506.0400, L100.0100, L501.9520, L500.4050 ####[facility] [address] [place], [address] ALK PHOS 85 U/L Normal 35-104 [facility] Comment on above: Order Comment: Order Date: 05/28/24Order Info: [id number] - CMPOrder Info: [id number] - LIPIDOrder Info: 6-3 - TSHOrder Info: [id number] - T4F Performed By: #### L 500.4100, L506.0400, L100.0100, L501.9520, L500.4050 ####[facility] [address] [place], [address] ALT [Catalytic activity/Vol] 10 U/L Normal <=34 [facility] Comment on above: Order Comment: Order Date: 05/28/24Order Info: [id number] - CMPOrder Info: [id number] - LIPIDOrder Info: [id number] - TSHOrder Info: [id number] - T4F Performed By: #### L 500.4100, L506.0400, L100.0100, L501.9520, L500.4050 ####[facility] [address] [place], [address] AST [Catalytic activity/Vol] 18 U/L Normal <=31 [facility] Comment on above: Order Comment: Order Date: 05/28/24Order Info: 86-1 - CMPOrder Info: [id number] - LIPIDOrder Info: [id number] - TSHOrder Info: [id number] - T4F Performed By: #### L 500.4100, L506.0400, L100.0100, L501.9520, L500.4050 ####[facility] [address] [place], [address] Bilirubin [Mass/Vol] 0.51 mg/dL Normal 0.00-1.30 [facility] Comment on above: Order Comment: Order Date: 05/28/24Order Info: [id number] - CMPOrder Info: [id number] - LIPIDOrder Info: 3 - TSHOrder Info: [id number] - T4F Performed By: #### L 500.4100, L506.0400, L100.0100, L501.9520, L500.4050 ####[facility] [address] [place], [address] BUN/CRE 14.4 RATIO Normal 10-20 [facility] Comment on above: Order Comment: Order Date: 05/28/24Order Info: [id number]- - CMPOrder Info: [id number] - LIPIDOrder Info: 3 - TSHOrder Info: [id number] - T4F Performed By: #### L 500.4100, L506.0400, L100.0100, L501.9520, L500.4050 ####[facility] [address] [place], [address] Calcium [Mass/Vol] 8.8 mg/dL Normal 7.6-11.0 [facility] Comment on above: Order Comment: Order Date: 05/28/24Order Info: 86-1 - CMPOrder Info: [id number] - LIPIDOrder Info: [id number] - TSHOrder Info: [id number] - T4F Performed By: #### L 500.4100, L506.0400, L100.0100, L501.9520, L500.4050 ####[facility] [address] [place], [address] Chloride [Moles/Vol] 102 mmol/L Normal 98-108 [facility] Comment on above: Order Comment: Order Date: 05/28/24Order Info: [id number] - CMPOrder Info: [id number] - LIPIDOrder Info: [id number] - TSHOrder Info: [id number] - T4F Performed By: #### L 500.4100, L506.0400, L100.0100, L501.9520, L500.4050 ####[facility] [address] [place], [address] CO2 [Moles/Vol] 23.8 mmol/L Normal 21.0-32.0 [facility] Comment on above: Order Comment: Order Date: 05/28/24Order Info: 86-1 - CMPOrder Info: [id number] - LIPIDOrder Info: [id number] - TSHOrder Info: [id number] - T4F Performed By: #### L 500.4100, L506.0400, L100.0100, L501.9520, L500.4050 ####[facility] [address] [place], [address] Creatinine [Mass/Vol] 1.01 mg/dL Normal 0.70-1.20 [facility] Comment on above: Order Comment: Order Date: 05/28/24Order Info: [id number] - CMPOrder Info: [id number] - LIPIDOrder Info: [id number] - TSHOrder Info: [id number] - T4F Performed By: #### L 500.4100, L506.0400, L100.0100, L501.9520, L500.4050 ####[facility] [address] [place], [address] GAP 11 Normal 5-15 [facility] Comment on above: Order Comment: Order Date: 05/28/24Order Info: [id number] - CMPOrder Info: [id number] - LIPIDOrder Info: [id number] - TSHOrder Info: 7 - T4F Performed By: #### L 500.4100, L506.0400, L100.0100, L501.9520, L500.4050 ####[facility] [address] [place], [address] GFR/1.73 sq M.predicted among non-blacks MDRD (S/P/Bld) [Vol rate/Area] 62 mL/min/{1.73_m2} Normal >60 [facility] Comment on above: Order Comment: Order Date: 05/28/24Order Info: [id number]- - CMPOrder Info: - LIPIDOrder Info: [id number] - TSHOrder Info: [id number] - T4F Result Comment: mL/m in/1.73m2 CKD-EPI Creatinine Equation (2020) Performed By: #### L 500.4100, L506.0400, L100.0100, L501.9520, L500.4050 ####[facility] [address] [place], [address] Globulin (S) [Mass/Vol] 2.1 g/dL Low 2.2-4.2 [facility] Comment on above: Order Comment: Order Date: 05/28/24Order Info: [id number] - CMPOrder Info: - LIPIDOrder Info: [id number] - TSHOrder Info: 7 - T4F Performed By: #### L 500.4100, L506.0400, L100.0100, L501.9520, L500.4050 ####[facility] [address] [place], [address] Glucose [Mass/Vol] 104 mg/dL High 70-99 [facility] Comment on above: Order Comment: Order Date: 05/28/24Order Info: 07 - CMPOrder Info: - LIPIDOrder Info: [id number] - TSHOrder Info: [id number] - T4F Performed By: #### L 500.4100, L506.0400, L100.0100, L501.9520, L500.4050 ####[facility] [address] [place], [address] Potassium [Moles/Vol] 4.3 mmol/L Normal 3.3-5.1 [facility] Comment on above: Order Comment: Order Date: 05/28/24Order Info: [id number] - CMPOrder Info: [id number] - LIPIDOrder Info: [id number] - TSHOrder Info: [id number] - T4F Performed By: #### L 500.4100, L506.0400, L100.0100, L501.9520, L500.4050 ####[facility] [address] [place], [address] Sodium [Moles/Vol] 137 mmol/L Normal 133-145 [facility] Comment on above: Order Comment: Order Date: 05/28/24Order Info: 86-1 - CMPOrder Info: [id number] - LIPIDOrder Info: [id number] - TSHOrder Info: [id number] - T4F Performed By: #### L 500.4100, L506.0400, L100.0100, L501.9520, L500.4050 ####[facility] [address] [place], [address] T PROT 6.3 g/dL Normal 5.9-8.4 [facility] Comment on above: Order Comment: Order Date: 05/28/24Order Info: [id number] - CMPOrder Info: [id number] - LIPIDOrder Info: [id number] - TSHOrder Info: [id number] - T4F Performed By: #### L 500.4100, L506.0400, L100.0100, L501.9520, L500.4050 ####[facility] [address] [place], [address] Urea nitrogen [Mass/Vol] 15 mg/dL Normal 4-19 [facility] Comment on above: Order Comment: Order Date: 05/28/24Order Info: [id number] - CMPOrder Info: [id number] - LIPIDOrder Info: [id number] - TSHOrder Info: [id number] - T4F Performed By: #### L 500.4100, L506.0400, L100.0100, L501.9520, L500.4050 ####[facility] [address] [place], [address] Eosinophil percentageOrdered By: Paulina Hair on 11-22-2024 Eosinophils/100 WBC (Bld) 2.6 % 0-5 [facility] Erythrocyte distribution wid th ratioOrdered By: Paulina Hair on 11-22-2024 Erythrocyte distribution width (RBC) [Ratio] 12.5 % 11.6-14.6 [facility] Erythrocyte distribution wid th standard deviationOrdered By: Paulina Hair on 11-22-2024 Erythrocyte distribution width (RBC) [Entitic vol] 41.4 fL 35.1-43.9 [facility] Erythrocyte distribution width (RBC) [Ratio] 41.4 fl 35.1-43.9 [facility] GFR/1.73 sq M.predicted jose g non-blacks MDRD (S/P/Bld) [Vol rate/Area]Ordered By: Paulina Hair on 11-22-2024 Estimated GFR (MDRD) Non-Af Amer 62 >60 [facility] Comment on above: mL/min/1.73m2 CKD-EP I Creatinine Equation (2020) Glomerular filtration rate ( GFR) estimation/1.73 sq m using serum, plasma, or whole bOrdered By: Paulina Hair on 11-22-2024 GFR/1.73 sq M.predicted among non-blacks MDRD (S/P/Bld) [Vol rate/Area] 62 mL/min/{1.73_m2} >60 [facility] Comment on above: mL/min/1.73m2 CKD-EP I Creatinine Equation (2020) Hematocrit Auto (Bld) [Volum e fraction]Ordered By: Paulina Hair on 11-22-2024 Hematocrit (Bld) [Volume fraction] 36.9 % Low 37-47 [facility] Hemoglobin measurementOrdere d By: Paulina Hair on 11-22-2024 Hemoglobin (Bld) [Mass/Vol] 12.3 g/dL 12.0-15.0 [facility] Immature granulocytes/100 WB C Auto (Bld)Ordered By: Paulina Hair on 11-22-2024 Immature granulocytes/100 WBC (Bld) 0.000 % 0.0-0.9 [facility] Comment on above: IG% - Immature Granu locytes (promyelocytes, myelocytes and metamyelocytes) > 1% indicates that a LEFT SHIFT is Present. L506.1001on 11-22-2024 Vitamin D 25-OH 52.1 ng/mL Normal 30-100 [facility] Comment on above: Order Comment: Order Date: 05/28/24Order Info: [id number] - CMPOrder Info: [id number] - LIPIDOrder Info: [id number] - TSHOrder Info: [id number] - T4F Result Comment: Roberta min D Status Deficiency: <20 ng/mL (50nmol/L) Insufficiency: 20-30 ng/mL (50-75 nmol/L) Sufficiency: 30-100 ng/mL (75-250 nmol/L) Toxicity: >100 ng/mL (>250 nmol/L) Performed By: #### L 506.1001, L501.9985 ####[facility] [address] [place], [address] LDL calc ser/plasOrdered By: Paulina Hair on 11-22-2024 Cholesterol in LDL [Mass/Vol] 132 mg/dL [facility] Comment on above: Fcnxzaftzj=702-714 m g/dL & Higher Skst=307 mg/dL or greater LDL Cholesterol, Calculated 132 mg/dL [facility] Comment on above: Ziomoqsaoy=072-608 m g/dL & Higher Vmpi=249 mg/dL or greater Laboratory - Chemistry and C hemistry - challengeOrdered By: Paulina Hair on 11-22-2024 AST [Catalytic activity/Vol] 18 U/L <32 [facility] Lipid Profileon 11-22-2024 CHOL:HDL 2.80 Normal [facility] Comment on above: Order Comment: Order Date: 05/28/24Order Info: 07-1 - CMPOrder Info: [id number] - LIPIDOrder Info: [id number] - TSHOrder Info: [id number] T4F Performed By: #### L 500.4100, L506.0400, L100.0100, L501.9520, L500.4050 ####[facility] [address] [place], [place], [address](326) Cholesterol [Mass/Vol] 225 mg/dL High <=200 [facility] Comment on above: Order Comment: Order Date: 05/28/24Order Info: [id number] - CMPOrder Info: - LIPIDOrder Info: [id number] - TSHOrder Info: [id number] - T4F Result Comment: Chol esterol level, Desirable <200 mg/dL Borderline high cholesterol 200-239 mg/dL High cholesterol >=240 mg/dL Recommendations of the NCEP Adult Treatment Panel for the following risk-cutoff thresholds for the [place] population. Performed By: #### L 500.4100, L506.0400, L100.0100, L501.9520, L500.4050 ####[facility] [address] [place], [place], [phone] Cholesterol in HDL [Mass/Vol] 81 mg/dL Normal [facility] Comment on above: Order Comment: Order Date: 05/28/24Order Info: 07 - CMPOrder Info: [id number] - LIPIDOrder Info: [id number] - TSHOrder Info: [id number] - T4F Result Comment: Parvin onal Cholesterol Education Program (NCEP) guidelines: <40 mg/dL: Low HDL-cholesterol (major risk factor for CHD) >= 60 mg/dL: High HDL-cholesterol (negative risk factor for CHD) HDL-cholesterol is affected by a number of factors, e.g. smoking, exercise, hormones, sex and age. Performed By: #### L 500.4100, L506.0400, L100.0100, L501.9520, L500.4050 ####[facility] [address] [place], [address] Cholesterol in LDL [Mass/Vol] 132 mg/dL Normal [facility] Comment on above: Order Comment: Order Date: 05/28/24Order Info: [id number] - CMPOrder Info: [id number] - LIPIDOrder Info: [id number] - TSHOrder Info: [id number] - T4F Result Comment: Bord paloll=777-810 mg/dL Higher Cizo=030 mg/dL or greater Performed By: #### L 500.4100, L506.0400, L100.0100, L501.9520, L500.4050 ####[facility] [address] [place], [address] Cholesterol in VLDL [Mass/Vol] 13 mg/dL Normal 5-40 [facility] Comment on above: Order Comment: Order Date: 05/28/24Order Info: 07-1 - CMPOrder Info: [id number] - LIPIDOrder Info: [id number] - TSHOrder Info: [id number] - T4F Performed By: #### L 500.4100, L506.0400, L100.0100, L501.9520, L500.4050 ####[facility] [address] [place], [address] Triglyceride [Mass/Vol] 64 mg/dL Normal [facility] Comment on above: Order Comment: Order Date: 05/28/24Order Info: 07-1 - CMPOrder Info: [id number] - LIPIDOrder Info: [id number] - TSHOrder Info: [id number] - T4F Result Comment: The drugs N-Acetylcysteine and Metamizole may falsely depress this assay. Normal range: <150 mg/dL Borderline High: 150-199 mg/dL High: 200-499 mg/dL Very High: >500 mg/dL Performed By: #### L 500.4100, L506.0400, L100.0100, L501.9520, L500.4050 ####[facility] [address] [place], [address] Lymphocytes Auto (Unsp spec) [#/Vol]Ordered By: Paulina Hair on 11-22-2024 Lymphocytes (Bld) [#/Vol] 2.15 10*3/uL 0.83-4.51 [facility] Lymphocytes/100 WBC Auto (Un sp spec)Ordered By: Paulina Hair on 11-22-2024 Lymphocytes/100 WBC (Bld) 49.9 % High 19-41 [facility] MCV (mean corpuscular volume ) determinationOrdered By: Paulina Hair on 11-22-2024 MCV (RBC) [Entitic vol] 89.8 fL 81-99 [facility] Mean corpuscular hemoglobin (MCH) determinationOrdered By: Paulina Hair on 11-22-2024 MCH (RBC) [Entitic mass] 29.9 pg 27.0-32.0 [facility] Mean corpuscular hemoglobin concentration (MCHC) determinationOrdered By: Paulina Hair on 11-22-2024 MCHC (RBC) [Mass/Vol] 33.3 g/dL 32-36 [facility] Mean platelet volume determi nationOrdered By: Paulina Hair on 11-22-2024 Platelet mean volume (Bld) [Entitic vol] 11.2 fL 6.2-12.0 [facility] Monocyte percentageOrdered B y: Paulina Hair on 11-22-2024 Monocytes/100 WBC (Bld) 8.1 % 0-10 [facility] Neutrophil percentageOrdered By: Paulina Hair on 11-22-2024 Neutrophils/100 WBC (Bld) 38.0 % Low 47-70 [facility] Nucleated red blood cell per centageOrdered By: Paulina Hair on 11-22-2024 Nucleated RBC/100 WBC (Bld) [Ratio] 0 % 0-5 [facility] Platelet countOrdered By: Imani Hair on 11-22-2024 Platelets (Bld) [#/Vol] 187 10*3/uL 150-450 [facility] Potassium (Unsp spec) [Mass/ Vol]Ordered By: Paulina Hair on 11-22-2024 Potassium [Moles/Vol] 4.3 mmol/L 3.3-5.1 [facility] Potassium measurement (mass/ volume)Ordered By: Paulina Hair on 11-22-2024 Potassium (Unsp spec) [Mass/Vol] 4.3 mmol/L 3.3-5.1 [facility] RBC Auto (Bld) [#/Vol]Ordere d By: Paulina Hair on 11-22-2024 RBC (Bld) [#/Vol] 4.11 10*6/uL Low 4.2-5.4 [facility] Screening total cholesterol/ high density lipoprotein (HDL) cholesterol ratioOrdered By: Paulina Hair on 11-22-2024 Cholesterol.total/Cho lesterol in HDL [Mass ratio] 2.80 {ratio} [facility] Serum creatinine measurement (mass/volume)Ordered By: Paulina Hair on 11-22-2024 Creatinine [Mass/Vol] 1.01 mg/dL 0.70-1.20 [facility] Serum globulin measurementOr dered By: Paulina Hair on 11-22-2024 Globulin (S) [Mass/Vol] 2.1 g/dL Low 2.2-4.2 [facility] Serum glucose measurement (m ass/volume)Ordered By: Paulina Hair on 11-22-2024 Glucose [Mass/Vol] 104 mg/dL High 70-99 [facility] Serum or plasma alanine montague otransferase (ALT) measurementOrdered By: Paulina Hair on 11-22-2024 ALT [Catalytic activity/Vol] 10 U/L <35 [facility] Serum or plasma albumin amanuel urement (mass/volume)Ordered By: Paulina Hair on 11-22-2024 Albumin [Mass/Vol] 4.2 g/dL 3.4-4.8 [facility] Serum or plasma albumin/glob ulin mass ratioOrdered By: Paulina Hair on 11-22-2024 Albumin/Globulin [Mass ratio] 2.0 {ratio} 0.9-2.4 [facility] Serum or plasma alkaline danni sphatase measurementOrdered By: Paulina Hair on 11-22-2024 ALP [Catalytic activity/Vol] 85 U/L 35-104 [facility] Serum or plasma calcium amanuel urement (mass/volume)Ordered By: Paulina Hair on 11-22-2024 Calcium [Mass/Vol] 8.8 mg/dL 7.6-11.0 [facility] Serum or plasma cholesterol in HDL measurement (mass/volume)Ordered By: Paulina Hair on 11-22-2024 Cholesterol in HDL [Mass/Vol] 81 mg/dL >40 [facility] Comment on above: National Cholesterol Education Program (NCEP) guidelines:<40 mg/dL: Low HDL-cholesterol (major risk factor for CHD)>= 60 mg/dL: High HDL-cholesterol (negative risk factor for CHD)HDL-cholesterol is affected by a number of factors, e.g. smoking, exercise, hormones, sex and age. Serum or plasma cholesterol measurement (mass/volume)Ordered By: Paulina Hair on 11-22-2024 Cholesterol [Mass/Vol] 225 mg/dL High <201 [facility] Comment on above: Cholesterol level, D esirable <200 mg/dLBorderline high cholesterol 200-239 mg/dLHigh cholesterol >=240 mg/dLRecommendations of the NCEP Adult Treatment Panel for the following risk-cutoff thresholds for the [place] population. Serum or plasma urea nitroge n measurement (mass/volume)Ordered By: Paulina Hair on 11-22-2024 Urea nitrogen [Mass/Vol] 15 mg/dL 4-19 [facility] Sodium levelOrdered By: Paulina Hair on 11-22-2024 Sodium [Moles/Vol] 137 mmol/L 133-145 [facility] T4 Free Directon 11-22-2024 T4 FREE DIRECT 1.60 ng/dL High 0.76-1.46 [facility] Comment on above: Order Comment: Order Date: 05/28/24Order Info: [id number] - CMPOrder Info: [id number] - LIPIDOrder Info: [id number] - TSHOrder Info: [id number] - T4F Performed By: #### L 500.4100, L506.0400, L100.0100, L501.9520, L500.4050 ####[facility] [address] [place], [address] T4 freeOrdered By: Paulina kwok on 11-22-2024 Free T4 [Mass/Vol] 1.60 ng/dL High 0.76-1.46 [facility] TSH DL <= 0.005 mIU/L QnOrde red By: Paulina Hair on 11-22-2024 Thyroid Stimulating Hormone (TSH) 0.115 uIU/mL Low 0.300-4.20 0 [facility] TSH Qn 0.115 uIU/mL Low 0.300-4.20 0 [facility] Thyroid Stim Hormone (TSH)on 11-22-2024 TSH 0.115 uIU/mL Low 0.300-4.20 0 [facility] Comment on above: Order Comment: Order Date: 05/28/24Order Info: [id number] - CMPOrder Info: [id number] - LIPIDOrder Info: [id number] - TSHOrder Info: [id number] - T4F Performed By: #### L 500.4100, L506.0400, L100.0100, L501.9520, L500.4050 ####[facility] [address] [place], [address] Total proteinOrdered By: Dylan Hair on 11-22-2024 Protein [Mass/Vol] 6.3 g/dL 5.9-8.4 [facility] Triglycerides measurementOrd ered By: Paulina Hair on 11-22-2024 Triglyceride [Mass/Vol] 64 mg/dL <199 [facility] Comment on above: The drugs N-Acetylcy steine and Metamizole may falsely depress this assay. Normal range: <150 mg/dLBorderline High: 150-199 mg/dLHigh: 200-499 mg/dLVery High: >500 mg/dL Vitamin D, 25-hydroxyOrdered By: Paulina Hair on 11-22-2024 Vitamin D 25-Hydroxy 52.1 ng/mL 30-100 [facility] Comment on above: Vitamin D StatusDefi ciency: <20 ng/mL (50nmol/L)Insufficiency: 20-30 ng/mL (50-75 nmol/L)Sufficiency: 30-100 ng/mL (75-250 nmol/L)Toxicity: >100 ng/mL (>250 nmol/L) White blood cell (WBC) count Ordered By: Paulina Hair on 11-22-2024 WBC (Bld) [#/Vol] 4.3 10*3/uL Low 4.4-11.0 [facility] Emergency Department Summary on 11-03-2024 Emergency Department Summary [facility] Medical Records Department [address] [place] [address] Emergency Department Summary 11/03/24 MR#: [id number] Acct: [id number] Name: JESIKA WHIPPLE Rep #: [id number] : 1960 64 From: Nadir Pham DO PCP: Dr. Paulina Hair MD Status:REG ER Location: ED ADDENDUM by Dr. Nadir Pham DO on 11/03/24 at 1310 X-ray was reviewed by myself by radiology showed no acute foreign bodies no fractures or soft tissue swelling. 11/03/24 1310 Cosigner Signature (if applicable): cc: Dr. Paulina Hair MD * Signed HPI History of Present Illness Chief Complaint: Bite Narrative Narrative: Patient is a 64-year-old female with past medical history of thyroid issues, alcohol use, anemia, migraine headaches, COPD who presents to the emergency department chief complaint of left hand pain and swelling. Patient states that yesterday she was bit by her cat in the hand. States that when she woke up this morning she had swelling and redness noted. States that she went to urgent care and they sent her here for IV antibiotics. Patient states that she has not been on any oral antibiotics. She states that this is her cat her vaccines are up-to-date. Patient denies any history of diabetes [facility] Medical History Urinary urgency Lumbar strain Airway obstruction, anatomic Wears glasses Post-menopausal Cancer Marijuana use Alcohol use Thyroid disease Arthritis Anemia Easy bruising Excessive bleeding Back pain Migraine headache Injury of head and neck Syncope History of ulceration Smoker Hoarseness Leg cramps History of pain when walking History of echocardiogram COPD (chronic obstructive pulmonary disease) Low calcium levels Recurrent UTI Seasonal allergies Medical History no medical history Home Medications ???Medication ???Instructions ???Recorded ???Last Taken ???Type levothyroxine 100 mcg tablet 100 mcg PO DAILY THYROID 07/05/20 10/26/22 History albuterol sulfate 90 mcg/actuation 2 puff inhalation Q4H PRN PRN 09/29/22 Rx aerosol inhaler (Ventolin HFA) Wheezing ##1 ipratropium 0.5 mg-albuterol 3 mg 3 ml inhalation Q4H PRN shortness 10/14/22 Unknown Rx (2.5 mg base)/3 mL nebulization of breath or wheezing #180 mL soln nebulizer and compressor #1 ea 10/14/22 Unknown Rx (InnoSpire Essence device) cholecalciferol (vitamin D3) 25 25 mcg PO DAILY 12/29/22 Unknown H istory mcg (1,000 unit) capsule fexofenadine 60 mg tablet (Rebecca 60 mg PO Q12H PRN 12/29/22 Unkno wn History Allergy) desoximetasone 0.25 % topical 1 applic topical BID PRN 06/28/23 Unknown History cream (Topicort) cyclobenzaprine 10 mg tablet 10 mg PO HS PRN muscle spasm #14 0 05/07/24 Unknown Rx tabs benzocaine 15 mg-menthol 10 mg 1 jillian mucous membrane .4 times Unknown Rx lozenges (Chloraseptic Max) daily PRN sore throat #15 ea amoxicillin 875 mg-potassium 1 tab PO Q12H 7 days #14 tabs 03/0 11/25 Unknown Rx clavulanate 125 mg tablet Allergy/AdvReac Type Severity Reaction Status Date / Time prednisone Allergy Unknown Swelling Verified 11/03/24 10:43 erythromycin base (From Allergy Hives Verified 11/03/24 10:43 Erythrocin) Family History Mother Asthma Heart disease CVA (cerebral vascular accident) High cholesterol Family History no significant family his Surgical History Hx of cataract surgery History of colonoscopy ( 09/2022) History of esophagogastroduodenoscop y (EGD) ( 09/2022) History of loop electrical excision procedure (LEEP) H/O thyroidectomy H/O: Surgical History no surgical history Social History Smoking Status: Former smoker quit date: 10/04/22 pack-years: 1 Tobacco: How many years used: 44 how long ago did patient quit smokin 1/2 to 4 months ago second hand exposure: No alcohol intake: current alcohol intake frequency: holidays/special occasions only Alcohol type: beer substance use type: does not use ROS ROS ED ROS Narrative Constitutional: Denies fevers, chills Neurological: Denies numbness, weakness, tingling Musculoskeletal: Complains of left hand redness and swelling from cat bite EXAM Physical Exam Narrative Exam Narrative: General: Patient lying in bed rest comfortably did not appear to be in acute distress Head: Atraumatic, normocephalic Eyes: PERRL bilaterally, EOMI bilateral, no conjunctival injection noted Neck: Soft, supple, trachea midline Cardiovascular: Regular in rhythm Extremities: Radial pulses +2/4 in the bilateral extremities, patient is able t (more content not included)... Normal [facility] Hand Min 3 Viewson 5 Hand Min 3 Views [facility] [address] [place] [address] Hand Min 3 Views MR#: [id number] Acct: [id number] Name: JESIKA WHIPPLE Rep #: [id number] : 1960 F 64 From: Ke Love MD PCP: Dr. Paulina Hair MD Status: REG ER Study: Hand Min 3 Views Date of Exam: 11/03/24 Exam# [id number] Ordering Dr: Nadir Pham DO EXAM: XR Left Hand Complete, 3 or More Views CLINICAL INDICATION: TECHNIQUE: Frontal, lateral and oblique views of the left hand. COMPARISON: No relevant prior studies available. FINDINGS: BONES/JOINTS: Moderate degenerative change of the 1st carpometacarpal joint. SOFT TISSUES: Soft tissue swelling without acute fracture. No radiopaque foreign body. RAD/Hand Min 3 Views IMPRESSION: 1. Soft tissue swelling without acute fracture. 2. If symptoms persist, further evaluation with CT is recommended. 3. Degenerative changes as above. Reading Location: [facility] CC: Dr. Paulina Hair MD; Dr. Nadir Pham, DO Manager Ent: Signed Normal [facility] S. pyogenes Ag IA.rapid Ql ( Throat)on 08-21-2024 S. pyogenes Ag IA Ql (Unsp spec) Negative [facility] Urgent Care Visit Reporton 1 10-22-2023 Urgent Care Visit Report [facility] [address], [address] [place] [address] OFFICE VISIT Date of Service: 08/21/24 MR#: [id number] Acct: [id number] Name: JESIKA WHIPPLE Rep #: [id number] : 1960 Provider: ROB Sanchez Age/Sex: 64/F Location: [facility] Status: Signed Intake Vital Signs 12/27/23 15:13 08/21/24 08:53 Height 5 ft 6 in 5 ft 6 in Weight: 147 lb 8 oz BMI 23.8 BP 120/82 H Position Sitting Pulse 77 Temp 99.2 F H Temp Source Oral Pulse Oximetry (%) 96 Oxygen Delivery Method room air Intake Visit Reasons: ear pain, sore throat Chief Complaint: Sore throat Allergies prednisone Allergy (Unknown, Verified 08/21/24 08:53) Swelling erythromycin base (From Erythrocin) Allergy (Verified 08/21/24 08:53) Hives Medications ???Medication ???Instructions ???Recorded ???Confirmed ???Type levothyroxine 100 mcg tablet 100 mcg PO DAILY THYROID 07/05/20 08/21/24 History albuterol sulfate 90 mcg/actuation 2 puff inhalation Q4H PRN PRN 06/30/21 12/27/23 Rx aerosol inhaler (Ventolin HFA) Wheezing ##1 ipratropium 0.5 mg-albuterol 3 mg 3 ml inhalation Q4H PRN shortness 10/14/22 12/27/23 Rx (2.5 mg base)/3 mL nebulization of breath or wheezing #180 mL soln nebulizer and compressor #1 ea 10/14/22 12/27/23 Rx (InnoSpire Essence device) cholecalciferol (vitamin D3) 25 25 mcg PO DAILY 12/29/22 12/27/23 History mcg (1,000 unit) capsule fexofenadine 60 mg tablet (Rebecca 60 mg PO Q12H PRN 12/29/22 12/27/23 History Allergy) desoximetasone 0.25 % topical 1 applic topical BID PRN 06/28/23 12/27/23 History cream (Topicort) cyclobenzaprine 10 mg tablet 10 mg PO HS PRN muscle spasm #14 05/07/24 05/07/24 Rx tabs benzocaine 15 mg-menthol 10 mg 1 jillian mucous membrane .4 times 08/21/24 08/21/24 Rx lozenges (Chloraseptic Max) daily PRN sore throat #15 ea Nurse's Note: Patient has a ST, Bilateral ear pain. patient states the right is worse when swallowing. [facility] Medical History (Updated 08/21/24 @ 10:33 by Alvin RIVAS, PA) Urinary urgency Lumbar strain Airway obstruction, anatomic Wears glasses Post-menopausal Cancer Marijuana use Alcohol use Thyroid disease Arthritis Anemia Easy bruising Excessive bleeding Back pain Migraine headache Injury of head and neck Syncope History of ulceration Smoker Hoarseness Leg cramps History of pain when walking History of echocardiogram COPD (chronic obstructive pulmonary disease) Low calcium levels Recurrent UTI Seasonal allergies Surgical History Hx of cataract surgery History of colonoscopy ( 09/2022) History of esophagogastroduodenoscop y (EGD) ( 09/2022) History of loop electrical excision procedure (LEEP) H/O thyroidectomy H/O: Family History Mother Asthma Heart disease CVA (cerebral vascular accident) High cholesterol Social History Smoking Status: Former smoker quit date: 10/04/22 pack-years: 1 Tobacco: How many years used: 44 how long ago did patient quit smokin 1/2 to 4 months ago second hand exposure: No alcohol intake: current alcohol intake frequency: holidays/special occasions only Alcohol type: beer substance use type: does not use HPI HPI Chief Complaint: Sore throat Details: JESIKA WHIPPLE, is a 64 F who presents to the office today for complaint of sore throat and bilateral ear pain starting yesterday. Patient states that the right ear is worse when swallowing. No fever, chills, sweats. No cough, shortness of breath or difficulty breathing. No loss of taste or smell. No other associated symptoms or alleviating/aggravating factors. ROS Const Constitutional: No other (As above) Exam Const General: cooperative and well developed HENMT Head: normal to inspection and atraumatic Ears: hearing grossly normal bilaterally Nose: nasal discharge clear Face and sinus: normal facial exam Mouth: oral mucosae normal Throat: abnormal tonsil bilaterally hypertrophy 1+ Resp Effort Inspection: normal respiratory effort and no audible wheezes Auscultation: Bilateral: Clear to Auscultation Cardio Rate: regular rate Rhythm: regular rhythm Neuro General: patient alert Psych Appearance: grossly normal Mental Status: mental status grossly normal Results POC Sepideh Rapid Strep POC Sepideh Rapid Strep Negative Last Edit by Argenis Garcia MA on 08/21/24 09:19 Coding Level of Care Code Off vis,est,level 3 Diagnoses Acute upper respiratory infection J06.9 Assessment and Plan Assessment and Plan (1) Acute upper respiratory infection: Status: Acute Orders: Orders POC Sepideh Ra (more content not included)... Normal [facility] Abdomen W/WO IV Contraston 1 09-03-2023 Abdomen W/WO IV Contrast [facility] [address] [place] [address] [id number] Abdomen W/WO IV Contrast MR#: [id number] Acct: [id number] Name: JESIKA WHIPPLE Rep #: [id number] : 1960 F 64 From: Robin March PCP: Dr. Paulina Hair MD Status: REG CL Study: Abdomen W/WO IV Contrast Date of Exam: 4 Exam# [id number] Ordering Dr: Paulina Hair MD [id number] EXAM: CT ABDOMEN WITHOUT AND WITH INTRAVENOUS CONTRAST CLINICAL INDICATION: left adrenal nodule/mass TECHNIQUE: Helically acquired images were obtained of the abdomen without and with intravenous contrast. This CT exam was performed using one or more of the following dose reduction techniques: automated exposure control, adjustment of the mA and/or kV according to patient size, and/or use of iterative reconstruction technique. CONTRAST: 100 cc of Isovue-300 IV. RADIATION DOSE: CTDIvol = 18.49 mGy, DLP = 1444.11 mGy-cm COMPARISON: No relevant prior studies available. FINDINGS: LOWER THORAX: Unremarkable. Lung bases are clear. No cardiomegaly. No significant pericardial effusion. LIVER: Unremarkable. Homogeneous. No focal mass. GALLBLADDER AND BILE DUCTS: Unremarkable. No calcified gallstones. No gallbladder distention or wall edema. No intra- or extrahepatic biliary ductal dilation. PANCREAS: Unremarkable. No focal cystic or solid mass. SPLEEN: Unremarkable. Normal size without focal cystic or solid mass. ADRENALS: Nodule measuring 5 mm left adrenal gland. It measures 28 Hounsfield units on noncontrast CT and enhances less than the normal adrenal gland on postcontrast CT images. KIDNEYS AND URETERS: Unremarkable. Normal renal size and position. No hydronephrosis. STOMACH AND BOWEL: Status post partial right colectomy. No stomach or bowel distention. INTRAPERITONEAL SPACE: Unremarkable. No ascites or other fluid collection. No free air. BONES/JOINTS: Unremarkable. No suspicious lytic or blastic abnormality. SOFT TISSUES: Unremarkable. No discrete abdominal wall hernia. VASCULATURE: Unremarkable. Abdominal aorta is non-dilated. LYMPH NODES: No enlarged lymph nodes. CT/Abdomen W/WO IV Contrast IMPRESSION: 1. Nodule measuring 5 mm left adrenal gland. It measures 28 Hounsfield units on noncontrast CT and enhances less than the normal adrenal gland on postcontrast CT images. ACR White Paper guidelines (Mario et al. JACR 2017; 14(8):0496-2924) suggest no follow-up is necessary. 2. Status post partial right colectomy. Electronically Signed: Robin Yao MD at 1:41 EDT , CC: Dr. Paulina Hair MD Manager Ent: Signed Normal [facility] CREATININE FINGERSTICKon Creatinine [Mass/Vol] 1.0 mg/dL Normal 0.55-1.02 [facility] Comment on above: Performed By: #### L 9100.0200 #### [facility] [address] [place], [place], [id number] GFR/1.73 sq M.predicted among non-blacks MDRD (S/P/Bld) [Vol rate/Area] 57.0000 mL/min/{1.73_m2} Low >60 [facility] Comment on above: Performed By: #### L 9100.0200 #### [facility] [address] [place], [address] Basophil percentageOrdered B y: Alvin Crockett on 12-27-2023 Basophil percentage 0 SEEN /hpf 0-5 [facility] Bilirubin Test strip Ql (U)O rdered By: Alvin Crockett on 12-27-2023 Bilirubin Ql (U) Negative Negative [facility] Culture, urineOrdered By: Julisa Crockett on 12-27-2023 Bacteria identified Cx Nom (U) Positive [facility] Ketones Test strip Ql (U)Ord ered By: Alvin Crockett on 12-27-2023 Ketones Ql (U) Negative Negative [facility] Laboratory - Chemistry and C hemistry - challengeon 12-27-2023 Bilirubin Ql (U) Negative [facility] Glucose Ql (U) Negative [facility] Ketones Ql (U) Negative [facility] pH (U) 6.5 [pH] [facility] Specific gravity (U) [Rel density] 1.015 [facility] Urobilinogen (U) [Mass/Vol] 0.1464085 mg/dL [facility] Laboratory - Hematology and Cell countson 12-27-2023 Hemoglobin Ql (U) Negative [facility] - Specimen inform ationon 12-27-2023 Clarity (U) Cloudy [facility] Color (U) YELLOW [facility] Laboratory - Urinalysison Nitrite Ql (U) Negative [facility] Protein Ql (U) Negative [facility] Mucus LM Ql (Urine sed)Order ed By: Alvin Crockett on 12-27-2023 Mucus Ql (Urine sed) 0 SEEN /hpf [facility] Nitrite Test strip Ql (U)Ord ered By: Alvin Crockett on 12-27-2023 Nitrite Ql (U) Negative Negative [facility] No Panel InformationOrdered By: Alvin Crockett on 12-27-2023 Urine RBC 0 SEEN /hpf 0-5 [facility] No Panel Informationon 12-26 Urine Leukocytes Positive [facility] Urine Non-Hemolyzed Blood Negative [facility] Protein Test strip Ql (U)Ord ered By: Alvin Crockett on 12-27-2023 Protein Ql (U) Negative Negative [facility] Squamous epithelial cells de tection in urine sediment by light microscopyOrdered By: Alvin Crockett on 12-27-2023 Epithelial cells.squamous LM Ql (Urine sed) 0 SEEN /hpf 5-10 [facility] Urine blood detectionOrdered By: Alvin Crockett on 12-27-2023 RBC Ql (U) Negative Negative [facility] Urine clarityOrdered By: Sergio Crockett on 12-27-2023 Clarity (U) Clear Clear [facility] Urine color determinationOrd ered By: Alvin Crockett on 12-27-2023 Color (U) Yellow Yellow [facility] Urine glucose detectionOrder ed By: Alvin Crockett on 12-27-2023 Glucose Ql (U) Normal mg/dl Normal [facility] Urine leukocyte esterase det ection by dipstickOrdered By: Alvin Crockett on 12-27-2023 Leukocyte esterase Test strip Ql (U) Negative Negative [facility] Urine pHOrdered By: Alvin chopra on 12-27-2023 pH (U) 6.5 [pH] 5.0 - 8.0 [facility] Urine sediment bacteria coun t by microscopy (number/high power field)Ordered By: Alvin Crockett on 12-27-2023 Bacteria LM.HPF (Urine sed) [#/Area] 0 /[HPF] None Seen [facility] Urine specific gravity measu rementOrdered By: Alvin Crockett on 12-27-2023 Specific gravity (U) [Rel density] 1.010 1.002-1.03 0 [facility] Urine urobilinogen measureme ntOrdered By: Alvin Crockett on 12-27-2023 Urobilinogen Ql (U) Normal mg/dl Normal [facility] Absolute lymphocyte countOrd ered By: Paulina Hair on 11-20-2023 Lymphocytes Auto (Unsp spec) [#/Vol] 2.13 10*3/uL 0.83-4.51 [facility] Automated lymphocyte count a s percentage of total leukocytesOrdered By: Paulina Hair on 11-20-2023 Lymphocytes/100 WBC Auto (Unsp spec) 31.1 % 19-41 [facility] Basophil percentageOrdered B y: Paulina Hair on 11-20-2023 Basophils/100 WBC (Bld) 0.7 % 0-1 [facility] Bilirubin [Mass/Vol] 0.30 mg/dL 0.20-1.00 [facility] Comment on above: For patients on eltr ombopag therapy, use of Dimension [place] TBIL is not recommended. Chloride [Moles/Vol] 105 mmol/L 98-107 [facility] Eosinophils/100 WBC (Bld) 0.9 % 0-5 [facility] Glucose [Mass/Vol] 87 mg/dL 74-106 [facility] Hemoglobin (Bld) [Mass/Vol] 12.0 g/dL 12.0-15.0 [facility] Monocytes/100 WBC (Bld) 7.2 % 0-10 [facility] Neutrophils (Bld) [#/Vol] 4.1 10*3/uL 2.0-7.7 [facility] Neutrophils/100 WBC (Bld) 59.8 % 47-70 [facility] Potassium [Moles/Vol] 3.9 mmol/L 3.5-5.1 [facility] Protein [Mass/Vol] 7.0 g/dL 6.4-8.2 [facility] Sodium [Moles/Vol] 139 mmol/L 136-145 [facility] WBC (Bld) [#/Vol] 6.9 10*3/uL 4.4-11.0 [facility] Determination of erythrocyte mean corpuscular volume (MCV)Ordered By: Paulina Hair on 11-20-2023 MCV (RBC) [Entitic vol] 90.2 fL 81-99 [facility] Erythrocyte distribution wid th ratioOrdered By: Paulina Hair on 11-20-2023 Erythrocyte distribution width (RBC) [Ratio] 12.1 % 11.6-14.6 [facility] Erythrocyte distribution wid th standard deviationOrdered By: Paulina Hair on 11-20-2023 Erythrocyte distribution width (RBC) [Entitic vol] 40.2 fL 35.1-43.9 [facility] Hematocrit Auto (Bld) [Volum e fraction]Ordered By: Paulina Hair on 11-20-2023 Hematocrit (Bld) [Volume fraction] 35.8 % 37-47 [facility] Immature granulocytes/100 WB C Auto (Bld)Ordered By: Paulina Hair on 11-20-2023 Immature granulocytes/100 WBC (Bld) 0.300 % 0.0-0.9 [facility] Comment on above: IG% - Immature Granu locytes (promyelocytes, myelocytes and metamyelocytes) > 1% indicates that a LEFT SHIFT is Present. Laboratory - Chemistry and C hemistry - challengeOrdered By: Paulina Hair on 11-20-2023 Albumin/Globulin [Mass ratio] 1.4 {ratio} 0.9-2.4 [facility] ALP [Catalytic activity/Vol] 81 U/L 45-117 [facility] ALT [Catalytic activity/Vol] 19 U/L 13-56 [facility] CO2 [Moles/Vol] 25.0 mmol/L 21.0-32.0 [facility] Globulin (S) [Mass/Vol] 2.9 g/dL 2.2-4.2 [facility] Urea nitrogen/Creatinine [Mass ratio] 22.7 mg/mg 10-20 [facility] Laboratory - Hematology and Cell countsOrdered By: Paulina Hair on 11-20-2023 MCH (RBC) [Entitic mass] 30.2 pg 27.0-32.0 [facility] MCHC (RBC) [Mass/Vol] 33.5 g/dL 32-36 [facility] Nucleated RBC/100 WBC (Bld) [Ratio] 0 % 0-5 [facility] Platelet mean volume (Bld) [Entitic vol] 11.5 fL 6.2-12.0 [facility] Platelets (Bld) [#/Vol] 204 10*3/uL 150-450 [facility] No Panel InformationOrdered By: Paulina Hair on 11-20-2023 Estimated GFR (MDRD) Amer 64 mL/min >60 [facility] Comment on above: GFR Calc Estimated GFR (MDRD) Non-Af Amer 53 mL/min >60 [facility] Comment on above: Non- GFR Calc Vitamin D 25-Hydroxy 52.4 ng/mL [facility] Comment on above: Vitamin D 25(OH) Sta tus Range Deficiency <20 ng/mL (50nmol/L) Insufficiency 20 - 30 ng/mL (50 - 75 nmol/L) Sufficiency 30 - 100 ng/mL (75 - 250 nmol/L) Toxicity >100 ng/mL (>250 nmol/L) RBC Auto (Bld) [#/Vol]Ordere d By: Paulina Hair on 11-20-2023 RBC (Bld) [#/Vol] 3.97 10*6/uL 4.2-5.4 [facility] Serum or plasma calcium amanuel urement (mass/volume)Ordered By: Paulina Hair on 11-20-2023 Calcium [Mass/Vol] 8.7 mg/dL 8.5-10.1 [facility] Serum or plasma creatinine m easurement (mass/volume)Ordered By: Paulina Hair on 11-20-2023 Creatinine [Mass/Vol] 1.10 mg/dL 0.55-1.02 [facility] Comment on above: The validity of the calculated GFR & GFRAA in patients over 70 years has not been determined. Clinical correlation is essential. Serum or plasma thyroid stim ulating hormone (TSH) measurement (units/volume)Ordered By: Paulina Hari on 11-20-2023 TSH Qn 0.51 uIU/mL 0.358-3.74 [facility] Serum or plasma urea nitroge n measurement (mass/volume)Ordered By: Paulina Hair on 11-20-2023 Urea nitrogen [Mass/Vol] 25 mg/dL 7-18 [facility] Thin prep Papanicolaou smear with manual screeningOrdered By: Paulina Hair on 11-20-2023 Thin prep Papanicolaou smear with manual screening 4.1 g/dL 3.2-5.0 [facility] Thin prep Papanicolaou smear with manual screening 19 U/L 15-37 [facility] Thin prep Papanicolaou smear with manual screening 9 5-15 [facility] Thin prep Papanicolaou smear with manual screening 1.14 ng/dL 0.76-1.46 [facility] Absolute lymphocyte countOrd ered By: Paulina Hair on 05-25-2023 Lymphocytes Auto (Unsp spec) [#/Vol] 2.11 10*3/uL 0.83-4.51 [facility] Basophil percentageOrdered B y: Paulina Hair on 05-25-2023 Basophils/100 WBC (Bld) 1.1 % 0-1 [facility] Bilirubin [Mass/Vol] 0.40 mg/dL 0.20-1.00 [facility] Comment on above: For patients on eltr ombopag therapy, use of [place] TBIL is not recommended. Chloride [Moles/Vol] 110 mmol/L 98-107 [facility] Eosinophils/100 WBC (Bld) 1.9 % 0-5 [facility] Glucose [Mass/Vol] 93 mg/dL 74-106 [facility] Neutrophils (Bld) [#/Vol] 2.1 10*3/uL 2.0-7.7 [facility] Neutrophils/100 WBC (Bld) 44.2 % 47-70 [facility] Potassium [Moles/Vol] 3.8 mmol/L 3.5-5.1 [facility] Protein [Mass/Vol] 6.8 g/dL 6.4-8.2 [facility] Sodium [Moles/Vol] 141 mmol/L 136-145 [facility] WBC (Bld) [#/Vol] 4.7 10*3/uL 4.4-11.0 [facility] Blood erythrocytes count (nu mber/volume)Ordered By: Paulina Hair on 05-25-2023 RBC (Bld) [#/Vol] 3.83 10*6/uL 4.2-5.4 [facility] Blood hemoglobin measurement (mass/volume)Ordered By: Paulina Hair on 05-25-2023 Hemoglobin (Bld) [Mass/Vol] 11.4 g/dL 12.0-15.0 [facility] Blood lymphocytes/100 leukoc ytesOrdered By: Paulina Hair on 05-25-2023 Lymphocytes/100 WBC (Bld) 45.1 % 19-41 [facility] Blood monocytes/100 leukocyt esOrdered By: Paulina Hair on 05-25-2023 Monocytes/100 WBC (Bld) 7.3 % 0-10 [facility] Blood platelet mean volumeOr dered By: Paulina Hair on 05-25-2023 Platelet mean volume (Bld) [Entitic vol] 11.3 fL 6.2-12.0 [facility] Determination of erythrocyte mean corpuscular volume (MCV)Ordered By: Paulina Hair on 05-25-2023 MCV (RBC) [Entitic vol] 90.6 fL 81-99 [facility] Hematocrit Auto (Bld) [Volum e fraction]Ordered By: Paulina Hair on 05-25-2023 Hematocrit (Bld) [Volume fraction] 34.7 % 37-47 [facility] Iron measurement (mass/mass) Ordered By: Paulina Hair on 05-25-2023 Iron (Unsp spec) [Mass/Mass] 102 ug/dL 50-170 [facility] Laboratory - Chemistry and C hemistry - challengeOrdered By: Paulina Hair on 05-25-2023 ALP [Catalytic activity/Vol] 80 U/L 45-117 [facility] ALT [Catalytic activity/Vol] 22 U/L 13-56 [facility] CO2 [Moles/Vol] 26.0 mmol/L 21.0-32.0 [facility] Cobalamin (Vitamin B12) [Mass/Vol] 327 pg/mL 211-911 [facility] Free T4 [Mass/Vol] 1.04 ng/dL 0.76-1.46 [facility] Globulin (S) [Mass/Vol] 2.8 g/dL 2.2-4.2 [facility] Urea nitrogen/Creatinine [Mass ratio] 24.0 mg/mg 10-20 [facility] Laboratory - Hematology and Cell countsOrdered By: Paulina Hair on 05-25-2023 Erythrocyte distribution width (RBC) [Entitic vol] 44.5 fL 35.1-43.9 [facility] Erythrocyte distribution width (RBC) [Ratio] 13.4 % 11.6-14.6 [facility] Immature granulocytes/100 WBC (Bld) 0.400 % 0.0-0.9 [facility] Comment on above: IG% - Immature Granu locytes (promyelocytes, myelocytes and metamyelocytes) > 1% indicates that a LEFT SHIFT is Present. MCH (RBC) [Entitic mass] 29.8 pg 27.0-32.0 [facility] Nucleated RBC/100 WBC (Bld) [Ratio] 0 % 0-5 [facility] MCHC Auto (RBC) [Mass/Vol]Or dered By: Paulina Hair on 05-25-2023 MCHC (RBC) [Mass/Vol] 32.9 g/dL 32-36 [facility] No Panel InformationOrdered By: Paulina Hair on 05-25-2023 Estimated GFR (MDRD) Amer 72 mL/min >60 [facility] Comment on above: GFR Calc Estimated GFR (MDRD) Non-Af Amer 60 mL/min >60 [facility] Comment on above: Non- GFR Calc Thyroglobulin Antibody < 1.0 IU/mL 0.0-0.9 [facility] Comment on above: Thyroglobulin Antibo dy measured by Albertina CoulterMethodology Thyroglobulin Level < 0.1 ng/mL 1.5-38.5 [facility] Comment on above: According to the [facility] [employer],the reference interval for Thyroglobulin (TG) should berelated to euthyroid patients and not for patients whounderwent thyroidectomy. TG reference intervals for thesepatients depend on the residual mass of the thyroid tissueleft after surgery. Establishing a post-operative baselineis recommended. The assay limit of quantitation is 0.1ng/mLThyroglobulin measured by Albertina Jimmy ImmunometricAssayPerformed at: - Lab[address] [id number] Director: Lavelle Monae PhD, Phone: [phone] Thyroid Stimulating Hormone (TSH) 0.76 uIU/mL 0.358-3.74 [facility] Total Iron Binding Capacity 275 ug/dL 250-450 [facility] Vitamin D 25-Hydroxy 57.9 ng/mL [facility] Comment on above: Vitamin D 25(OH) Sta tus Range Deficiency <20 ng/mL (50nmol/L) Insufficiency 20 - 30 ng/mL (50 - 75 nmol/L) Sufficiency 30 - 100 ng/mL (75 - 250 nmol/L) Toxicity >100 ng/mL (>250 nmol/L) Platelets bldOrdered By: Dylan aHir on 05-25-2023 Platelets (Bld) [#/Vol] 184 10*3/uL 150-450 [facility] Serum or plasma albumin amanuel urement (mass/volume)Ordered By: Paulina Hair on 05-25-2023 Albumin [Mass/Vol] 4.0 g/dL 3.2-5.0 [facility] Serum or plasma albumin/glob ulin mass ratioOrdered By: Paulina Hair on 05-25-2023 Albumin/Globulin [Mass ratio] 1.4 {ratio} 0.9-2.4 [facility] Serum or plasma calcium amanuel urement (mass/volume)Ordered By: Paulina Hair on 05-25-2023 Calcium [Mass/Vol] 8.8 mg/dL 8.5-10.1 [facility] Serum or plasma creatinine m easurement (mass/volume)Ordered By: Paulina Hair on 05-25-2023 Creatinine [Mass/Vol] 1.00 mg/dL 0.55-1.02 [facility] Comment on above: The validity of the calculated GFR & GFRAA in patients over 70 years has not been determined. Clinical correlation is essential. Serum or plasma ferritin jenna surement (mass/volume)Ordered By: Paulina Hair on 05-25-2023 Ferritin [Mass/Vol] 132 ng/mL 8-252 [facility] Serum or plasma iron saturat ion measurement (mass fraction)Ordered By: Paulina Hair on 05-25-2023 Iron saturation [Mass fraction] 37.1 % 15.0-55.0 [facility] Serum or plasma urea nitroge n measurement (mass/volume)Ordered By: Paulina Hair on 05-25-2023 Urea nitrogen [Mass/Vol] 24 mg/dL 7-18 [facility] Thin prep Papanicolaou smear with manual screeningOrdered By: Paulina Hair on 05-25-2023 Thin prep Papanicolaou smear with manual screening 16 U/L 15-37 [facility] Thin prep Papanicolaou smear with manual screening 5 5-15 [facility] Absolute lymphocyte countOrd ered By: Kelsey Hines on 12-01-2022 Lymphocytes Auto (Unsp spec) [#/Vol] 1.75 10*3/uL 0.83-4.51 [facility] Basophil percentageOrdered B y: Kelsey Hines on 12-01-2022 Basophils/100 WBC (Bld) 0.6 % 0-1 [facility] Chloride [Moles/Vol] 106 mmol/L 98-107 [facility] Eosinophils/100 WBC (Bld) 0.7 % 0-5 [facility] Glucose [Mass/Vol] 128 mg/dL 74-106 [facility] Comment on above: Fasting Glucose resu lt greater than or equal to 126 mg/dL suggests DIABETES MELLITUS per A.D.A. criteria. Neutrophils (Bld) [#/Vol] 5.9 10*3/uL 2.0-7.7 [facility] Neutrophils/100 WBC (Bld) 69.6 % 47-70 [facility] Potassium [Moles/Vol] 3.3 mmol/L 3.5-5.1 [facility] Sodium [Moles/Vol] 139 mmol/L 136-145 [facility] WBC (Bld) [#/Vol] 8.5 10*3/uL 4.4-11.0 [facility] Blood erythrocytes count (nu mber/volume)Ordered By: Kelsey Hines on 12-01-2022 RBC (Bld) [#/Vol] 3.44 10*6/uL 4.2-5.4 [facility] Blood hemoglobin measurement (mass/volume)Ordered By: Kelsey Hines on 12-01-2022 Hemoglobin (Bld) [Mass/Vol] 10.6 g/dL 12.0-15.0 [facility] Blood lymphocytes/100 leukoc ytesOrdered By: Kelsey Hines on 12-01-2022 Lymphocytes/100 WBC (Bld) 20.6 % 19-41 [facility] Blood monocytes/100 leukocyt esOrdered By: Kelsey Hines on 12-01-2022 Monocytes/100 WBC (Bld) 8.0 % 0-10 [facility] Blood platelet mean volumeOr dered By: Kelsey Hines on 12-01-2022 Platelet mean volume (Bld) [Entitic vol] 10.5 fL 6.2-12.0 [facility] Determination of erythrocyte mean corpuscular volume (MCV)Ordered By: Kelsey Hines on 12-01-2022 MCV (RBC) [Entitic vol] 92.2 fL 81-99 [facility] Hematocrit Auto (Bld) [Volum e fraction]Ordered By: Kelsey Hines on 12-01-2022 Hematocrit (Bld) [Volume fraction] 31.7 % 37-47 [facility] Laboratory - Chemistry and C hemistry - challengeOrdered By: Kelseylilo Hines on 12-01-2022 CO2 [Moles/Vol] 26.0 mmol/L 21.0-32.0 [facility] Urea nitrogen/Creatinine [Mass ratio] 27.6 mg/mg 10-20 [facility] Laboratory - Hematology and Cell countsOrdered By: Kelseylilo Hines on 12-01-2022 Erythrocyte distribution width (RBC) [Entitic vol] 42.5 fL 35.1-43.9 [facility] Erythrocyte distribution width (RBC) [Ratio] 12.6 % 11.6-14.6 [facility] Immature granulocytes/100 WBC (Bld) 0.500 % 0.0-0.9 [facility] Comment on above: IG% - Immature Granu locytes (promyelocytes, myelocytes and metamyelocytes) > 1% indicates that a LEFT SHIFT is Present. MCH (RBC) [Entitic mass] 30.8 pg 27.0-32.0 [facility] Nucleated RBC/100 WBC (Bld) [Ratio] 0 % 0-5 [facility] MCHC Auto (RBC) [Mass/Vol]Or dered By: Kelsey Hines on 12-01-2022 MCHC (RBC) [Mass/Vol] 33.4 g/dL 32-36 [facility] No Panel InformationOrdered By: Kelsey Hines on 12-01-2022 D-Dimer Quantitative (PE/DVT) < 0.27 FEU/ug/m 0.27-0.49 [facility] Comment on above: NORMAL D-Dimer level (<0.50) indicates no DVT or PE. Troponin I High Sensitivity 19 pg/mL 3.0-54.0 [facility] Comment on above: Please Note: New Adri t Units and Gender Specific Reference Ranges. For more information see Policy Stat Procedure [place] High Sensitivity Troponin (TNIH) and attachments. Estimated Creatinine Clearance Calc 69.06 ml/min [facility] Estimated GFR (MDRD) Amer 99 mL/min >60 [facility] Comment on above: GFR Calc Estimated GFR (MDRD) Non-Af Amer 82 mL/min >60 [facility] Comment on above: Non- GFR Calc Platelets bldOrdered By: Derrick Hines on 12-01-2022 Platelets (Bld) [#/Vol] 198 10*3/uL 150-450 [facility] Serum or plasma calcium amanuel urement (mass/volume)Ordered By: Kelsey Hines on 12-01-2022 Calcium [Mass/Vol] 8.9 mg/dL 8.5-10.1 [facility] Serum or plasma creatinine m easurement (mass/volume)Ordered By: Kelsey Hines on 12-01-2022 Creatinine [Mass/Vol] 0.76 mg/dL 0.55-1.02 [facility] Comment on above: The validity of the calculated GFR & GFRAA in patients over 70 years has not been determined. Clinical correlation is essential. Serum or plasma urea nitroge n measurement (mass/volume)Ordered By: Kelsey Hines on 12-01-2022 Urea nitrogen [Mass/Vol] 21 mg/dL 7-18 [facility] Thin prep Papanicolaou smear with manual screeningOrdered By: Klesey Hines on 12-01-2022 Thin prep Papanicolaou smear with manual screening 7 5-15 [facility] Absolute lymphocyte countOrd ered By: Dr. Perez on 10-28-2022 Lymphocytes Auto (Unsp spec) [#/Vol] 2.04 10*3/uL 0.83-4.51 [facility] Basophil percentageOrdered B y: Dr. Perez on 10-28-2022 Basophils/100 WBC (Bld) 0.3 % 0-1 [facility] Chloride [Moles/Vol] 103 mmol/L 98-107 [facility] Eosinophils/100 WBC (Bld) 0.7 % 0-5 [facility] Glucose [Mass/Vol] 103 mg/dL 74-106 [facility] Comment on above: Fasting Glucose resu lt from 100 to 125 mg/dL suggests IMPAIRED HOMEOSTASIS per A.D.A. criteria. Neutrophils (Bld) [#/Vol] 6.5 10*3/uL 2.0-7.7 [facility] Neutrophils/100 WBC (Bld) 70.7 % 47-70 [facility] Potassium [Moles/Vol] 4.1 mmol/L 3.5-5.1 [facility] Sodium [Moles/Vol] 137 mmol/L 136-145 [facility] WBC (Bld) [#/Vol] 9.2 10*3/uL 4.4-11.0 [facility] Blood erythrocytes count (nu mber/volume)Ordered By: Dr. Perez on 10-28-2022 RBC (Bld) [#/Vol] 4.19 10*6/uL 4.2-5.4 [facility] Blood hemoglobin measurement (mass/volume)Ordered By: Dr. Perez on 10-28-2022 Hemoglobin (Bld) [Mass/Vol] 13.2 g/dL 12.0-15.0 [facility] Blood lymphocytes/100 leukoc ytesOrdered By: Dr. Perez on 10-28-2022 Lymphocytes/100 WBC (Bld) 22.1 % 19-41 [facility] Blood monocytes/100 leukocyt esOrdered By: Dr. Perez on 10-28-2022 Monocytes/100 WBC (Bld) 5.8 % 0-10 [facility] Blood platelet mean volumeOr dered By: Dr. Perez on 10-28-2022 Platelet mean volume (Bld) [Entitic vol] 10.2 fL 6.2-12.0 [facility] Determination of erythrocyte mean corpuscular volume (MCV)Ordered By: Dr. Perez on 10-28-2022 MCV (RBC) [Entitic vol] 92.8 fL 81-99 [facility] Hematocrit Auto (Bld) [Volum e fraction]Ordered By: Dr. Perez on 10-28-2022 Hematocrit (Bld) [Volume fraction] 38.9 % 37-47 [facility] Laboratory - Chemistry and C hemistry - challengeOrdered By: Dr. Perez on 10-28-2022 CO2 [Moles/Vol] 32.0 mmol/L 21.0-32.0 [facility] Urea nitrogen/Creatinine [Mass ratio] 12.1 mg/mg 10-20 [facility] Laboratory - Hematology and Cell countsOrdered By: Dr. Perez on 10-28-2022 Erythrocyte distribution width (RBC) [Entitic vol] 42.7 fL 35.1-43.9 [facility] Erythrocyte distribution width (RBC) [Ratio] 12.4 % 11.6-14.6 [facility] Immature granulocytes/100 WBC (Bld) 0.400 % 0.0-0.9 [facility] Comment on above: IG% - Immature Granu locytes (promyelocytes, myelocytes and metamyelocytes) > 1% indicates that a LEFT SHIFT is Present. MCH (RBC) [Entitic mass] 31.5 pg 27.0-32.0 [facility] Nucleated RBC/100 WBC (Bld) [Ratio] 0 % 0-5 [facility] [facility] MCHC Auto (RBC) [Mass/Vol]Or dered By: Dr. Perez on 10-28-2022 MCHC (RBC) [Mass/Vol] 33.9 g/dL 32-36 [facility] No Panel InformationOrdered By: Dr. Perez on 10-28-2022 Estimated Creatinine Clearance Calc 59.38 ml/min [facility] Estimated GFR (MDRD) Amer 90 mL/min >60 [facility] Comment on above: GFR Calc Estimated GFR (MDRD) Non-Af Amer 74 mL/min >60 [facility] Comment on above: Non- GFR Calc Platelets bldOrdered By: Dr. Perez on 10-28-2022 Platelets (Bld) [#/Vol] 235 10*3/uL 150-450 [facility] Serum or plasma calcium amanuel urement (mass/volume)Ordered By: Dr. Perez on 10-28-2022 Calcium [Mass/Vol] 9.1 mg/dL 8.5-10.1 [facility] Serum or plasma creatinine m easurement (mass/volume)Ordered By: Dr. Perez on 10-28-2022 Creatinine [Mass/Vol] 0.83 mg/dL 0.55-1.02 [facility] Comment on above: The validity of the calculated GFR & GFRAA in patients over 70 years has not been determined. Clinical correlation is essential. Serum or plasma urea nitroge n measurement (mass/volume)Ordered By: Dr. Perez on 10-28-2022 Urea nitrogen [Mass/Vol] 10 mg/dL 7-18 [facility] Thin prep Papanicolaou smear with manual screeningOrdered By: Dr. Perez on 10-28-2022 Thin prep Papanicolaou smear with manual screening 2 5-15 [facility] Glucose Glucometer (BldC) [M ass/Vol]Ordered By: Dr. Perez on 10-26-2022 Glucose [Mass/Vol] 145 mg/dL 74-106 [facility] Comment on above: MANAGEMENT OF PATIEN T CARE PER NURSING PROTOCOL Laboratory - Chemistry and C hemistry - challengeOrdered By: Dr. Schneider on 10-24-2022 Magnesium [Mass/Vol] 2.0 mg/dL 1.6-2.6 [facility] CNCOon 10-05-2022 CNC HNO ID: [id number] Author: Mammography Coordinator Service: ? Author Type: Physician Type: Letter Filed: 10/09/2022 11:34 PM Note Text: October 06, 2022 PID: [id number] Jesika Whipple [address] [place] [address] Dear Ms. Whipple, We are pleased to inform you that the results of your recent breast imaging exam on 10/05/2022 are normal. Early detection of cancer is very important. We also understand recommendations regarding breast cancer screening are controversial. Please discuss with your primary care provider which strategy is best for you and whether a mammogram is right for you. Your imaging studies and report will be kept on file at [facility] as part of your permanent medical record and are available for your continuing care. Thank you for allowing us to help in meeting your health care needs. Sincerely, Dr. Campa Interpreting Radiologist [facility] (Normal over 40) Normal [facility] BRET SCREENING W TOMOon 10-05 BRET SCREENING W BRIANA * * *Final Report* * * DATE OF EXAM: Oct 05 2022 2:56PM [id number] - BRET SCREENING W BRIANA / PROCEDURE REASON: Screening Mammogram * * * * Physician Interpretation * * * * RESULT: #[id number] - BRET SCREENING W BRIANA BILATERAL DIGITAL SCREENING MAMMOGRAM TOMOSYNTHESIS WITH CAD: 10/05/2022 HISTORY: Screening Mammogram / Screening Mammogram-Patient reports NO symptoms. /priors available for comparison. RESULT: TECHNIQUE: The study was acquired using full field digital technology and interpreted from soft copy. Digital Breast Tomosynthesis (DBT) images were obtained and used to assist in the interpretation of this examination. Current study was also evaluated with a Computer Aided Detection (CAD). Comparison is made to exams dated: 08/25/2021 mammogram, 07/22/2020 mammogram - [facility], 05/19/2019 mammogram, 12/05/2016 mammogram - [facility], and 09/20/2015 mammogram - [facility]. There are scattered fibroglandular elements in both breasts. There are biopsy clips in the left breast. No significant masses, calcifications, or other findings are seen in either breast. There has been no significant interval change. IMPRESSION: NEGATIVE There is no mammographic evidence of malignancy. A 1 year screening mammogram is recommended. Prabha Campa M.D. pt/penrad:10/05/2022 15:22:19 Rheumatology Specialist(s): Krystle Low, [facility] letter sent: Normal over 40 Mammogram BI-RADS: 1 Negative Multiple national specialty organizations have released breast cancer screening guidelines for women at average risk for developing breast cancer - guidelines that are based on both evidence and opinion, yet differ on when to start and how often to screen for breast cancer. With representation from Breast Imaging, Internal Medicine, Women's Health, Family Medicine, and Medical/Surgical Oncology, the [facility] has carefully reviewed the data and reached the following consensus: 1) All women should engage in shared decision-making with their providers to decide when to start and how often to screen; 2) All women should have the opportunity to start screening mammography at age 40; 3) For women ages 45-55, we recommend annual screening mammograms; 4) For women ages 55 and over, we support both the transition from an annual to a biennial interval if this aligns more with patient's values and preferences, or continuation with annual screening; 5) All women should discuss with their providers when to stop screening mammograms. Manager Ent: Thong Transcribe Date/Time: Oct 05 2022 2:46P Dictated by: PRABHA CAMPA MD This examination was interpreted and the report reviewed and electronically signed by: PRABHA CAMPA MD on Oct 05 2022 3:22PM EST [id number] Normal [facility] Absolute lymphocyte countOrd ered By: Dr. Hair on 07-20-2022 Lymphocytes Auto (Unsp spec) [#/Vol] 2.51 10*3/uL 0.83-4.51 [facility] Basophil percentageOrdered B y: Dr. Hair on 07-20-2022 Basophil percentage 4.3 mg/dL 2.5-4.9 [facility] Basophils/100 WBC (Bld) 1.2 % 0-1 [facility] Bilirubin [Mass/Vol] 0.50 mg/dL 0.20-1.00 [facility] Comment on above: For patients on eltr ombopag therapy, use of Dimension [place] TBIL is not recommended. Chloride [Moles/Vol] 103 mmol/L 98-107 [facility] Eosinophils/100 WBC (Bld) 1.8 % 0-5 [facility] Glucose [Mass/Vol] 89 mg/dL 74-106 [facility] Neutrophils (Bld) [#/Vol] 2.5 10*3/uL 2.0-7.7 [facility] Neutrophils/100 WBC (Bld) 43.8 % 47-70 [facility] Potassium [Moles/Vol] 4.2 mmol/L 3.5-5.1 [facility] Protein [Mass/Vol] 6.8 g/dL 6.4-8.2 [facility] Sodium [Moles/Vol] 135 mmol/L 136-145 [facility] WBC (Bld) [#/Vol] 5.7 10*3/uL 4.4-11.0 [facility] Blood erythrocytes count (nu mber/volume)Ordered By: Dr. Hair on 07-20-2022 RBC (Bld) [#/Vol] 4.19 10*6/uL 4.2-5.4 [facility] Blood hemoglobin measurement (mass/volume)Ordered By: Dr. Hair on 07-20-2022 Hemoglobin (Bld) [Mass/Vol] 13.1 g/dL 12.0-15.0 [facility] Blood lymphocytes/100 leukoc ytesOrdered By: Dr. Hair on 07-20-2022 Lymphocytes/100 WBC (Bld) 44.3 % 19-41 [facility] Blood monocytes/100 leukocyt esOrdered By: Dr. Hair on 07-20-2022 Monocytes/100 WBC (Bld) 8.5 % 0-10 [facility] Blood platelet mean volumeOr dered By: Dr. Hair on 07-20-2022 Platelet mean volume (Bld) [Entitic vol] 11.0 fL 6.2-12.0 [facility] Determination of erythrocyte mean corpuscular volume (MCV)Ordered By: Dr. Hair on 07-20-2022 MCV (RBC) [Entitic vol] 95.5 fL 81-99 [facility] Hematocrit Auto (Bld) [Volum e fraction]Ordered By: Dr. Hair on 07-20-2022 Hematocrit (Bld) [Volume fraction] 40.0 % 37-47 [facility] Laboratory - Chemistry and C hemistry - challengeOrdered By: Dr. Hair on 07-20-2022 ALP [Catalytic activity/Vol] 68 U/L 45-117 [facility] ALT [Catalytic activity/Vol] 21 U/L 13-56 [facility] CO2 [Moles/Vol] 28.0 mmol/L 21.0-32.0 [facility] Globulin (S) [Mass/Vol] 2.8 g/dL 2.2-4.2 [facility] Urea nitrogen/Creatinine [Mass ratio] 24.2 mg/mg 10-20 [facility] Laboratory - Hematology and Cell countsOrdered By: Dr. Hair on 07-20-2022 Erythrocyte distribution width (RBC) [Entitic vol] 45.2 fL 35.1-43.9 [facility] Erythrocyte distribution width (RBC) [Ratio] 12.8 % 11.6-14.6 [facility] Immature granulocytes/100 WBC (Bld) 0.400 % 0.0-0.9 [facility] Comment on above: IG% - Immature Granu locytes (promyelocytes, myelocytes and metamyelocytes) > 1% indicates that a LEFT SHIFT is Present. MCH (RBC) [Entitic mass] 31.3 pg 27.0-32.0 [facility] Nucleated RBC/100 WBC (Bld) [Ratio] 0 % 0-5 [facility] MCHC Auto (RBC) [Mass/Vol]Or dered By: Dr. Hair on 07-20-2022 MCHC (RBC) [Mass/Vol] 32.8 g/dL 32-36 [facility] No Panel InformationOrdered By: Dr. Hair on 07-20-2022 Estimated GFR (MDRD) Amer 77 mL/min >60 [facility] Comment on above: GFR Calc Estimated GFR (MDRD) Non-Af Amer 63 mL/min >60 [facility] Comment on above: Non- GFR Calc Parathyroid Hormone (Intact) 51.4 pg/mL 18.4-80.1 [facility] Platelets bldOrdered By: Dr. Hair on 07-20-2022 Platelets (Bld) [#/Vol] 236 10*3/uL 150-450 [facility] Serum or plasma albumin amanuel urement (mass/volume)Ordered By: Dr. Hair on 07-20-2022 Albumin [Mass/Vol] 4.0 g/dL 3.2-5.0 [facility] Serum or plasma albumin/glob ulin mass ratioOrdered By: Dr. Hair on 07-20-2022 Albumin/Globulin [Mass ratio] 1.4 {ratio} 0.9-2.4 [facility] Serum or plasma calcium amanuel urement (mass/volume)Ordered By: Dr. Hair on 07-20-2022 Calcium [Mass/Vol] 8.6 mg/dL 8.5-10.1 [facility] Serum or plasma creatinine m easurement (mass/volume)Ordered By: Dr. Hair on 07-20-2022 Creatinine [Mass/Vol] 0.95 mg/dL 0.55-1.02 [facility] Comment on above: The validity of the calculated GFR & GFRAA in patients over 70 years has not been determined. Clinical correlation is essential. Serum or plasma urea nitroge n measurement (mass/volume)Ordered By: Dr. Hair on 07-20-2022 Urea nitrogen [Mass/Vol] 23 mg/dL 7-18 [facility] Thin prep Papanicolaou smear with manual screeningOrdered By: Dr. Hair on 07-20-2022 Thin prep Papanicolaou smear with manual screening 13 U/L 15-37 [facility] Thin prep Papanicolaou smear with manual screening 4 5-15 [facility] Absolute lymphocyte countOrd ered By: Dr. Hair on 07-17-2022 Lymphocytes Auto (Unsp spec) [#/Vol] 2.47 10*3/uL 0.83-4.51 [facility] Basophil percentageOrdered B y: Dr. Hair on 07-17-2022 Basophils/100 WBC (Bld) 0.7 % 0-1 [facility] Bilirubin [Mass/Vol] 0.50 mg/dL 0.20-1.00 [facility] Comment on above: For patients on eltr ombopag therapy, use of Dimension [place] TBIL is not recommended. Chloride [Moles/Vol] 100 mmol/L 98-107 [facility] Eosinophils/100 WBC (Bld) 0.8 % 0-5 [facility] Glucose [Mass/Vol] 98 mg/dL 74-106 [facility] Neutrophils (Bld) [#/Vol] 4.0 10*3/uL 2.0-7.7 [facility] Neutrophils/100 WBC (Bld) 55.9 % 47-70 [facility] Potassium [Moles/Vol] 4.3 mmol/L 3.5-5.1 [facility] Protein [Mass/Vol] 7.3 g/dL 6.4-8.2 [facility] Sodium [Moles/Vol] 136 mmol/L 136-145 [facility] WBC (Bld) [#/Vol] 7.2 10*3/uL 4.4-11.0 [facility] Blood erythrocytes count (nu mber/volume)Ordered By: Dr. Hair on 07-17-2022 RBC (Bld) [#/Vol] 4.32 10*6/uL 4.2-5.4 [facility] Blood hemoglobin measurement (mass/volume)Ordered By: Dr. Hair on 07-17-2022 Hemoglobin (Bld) [Mass/Vol] 13.5 g/dL 12.0-15.0 [facility] Blood lymphocytes/100 leukoc ytesOrdered By: Dr. Hair on 07-17-2022 Lymphocytes/100 WBC (Bld) 34.4 % 19-41 [facility] Blood monocytes/100 leukocyt esOrdered By: Dr. Hair on 07-17-2022 Monocytes/100 WBC (Bld) 7.8 % 0-10 [facility] Blood platelet mean volumeOr dered By: Dr. Hair on 07-17-2022 Platelet mean volume (Bld) [Entitic vol] 10.9 fL 6.2-12.0 [facility] Determination of erythrocyte mean corpuscular volume (MCV)Ordered By: Dr. Hair on 07-17-2022 MCV (RBC) [Entitic vol] 93.3 fL 81-99 [facility] Hematocrit Auto (Bld) [Volum e fraction]Ordered By: Dr. Hair on 07-17-2022 Hematocrit (Bld) [Volume fraction] 40.3 % 37-47 [facility] Laboratory - Chemistry and C hemistry - challengeOrdered By: Dr. Hair on 07-17-2022 ALP [Catalytic activity/Vol] 80 U/L 45-117 [facility] ALT [Catalytic activity/Vol] 20 U/L 13-56 [facility] CO2 [Moles/Vol] 28.0 mmol/L 21.0-32.0 [facility] Free T4 [Mass/Vol] 1.14 ng/dL 0.76-1.46 [facility] Globulin (S) [Mass/Vol] 2.9 g/dL 2.2-4.2 [facility] Urea nitrogen/Creatinine [Mass ratio] 18.8 mg/mg 10-20 [facility] Laboratory - Hematology and Cell countsOrdered By: Dr. Hair on 07-17-2022 Erythrocyte distribution width (RBC) [Entitic vol] 43.3 fL 35.1-43.9 [facility] Erythrocyte distribution width (RBC) [Ratio] 12.6 % 11.6-14.6 [facility] Immature granulocytes/100 WBC (Bld) 0.400 % 0.0-0.9 [facility] Comment on above: IG% - Immature Granu locytes (promyelocytes, myelocytes and metamyelocytes) > 1% indicates that a LEFT SHIFT is Present. MCH (RBC) [Entitic mass] 31.3 pg 27.0-32.0 [facility] Nucleated RBC/100 WBC (Bld) [Ratio] 0 % 0-5 [facility] MCHC Auto (RBC) [Mass/Vol]Or dered By: Dr. Hair on 07-17-2022 MCHC (RBC) [Mass/Vol] 33.5 g/dL 32-36 [facility] No Panel InformationOrdered By: Dr. Hair on 07-17-2022 Estimated GFR (MDRD) Amer 54 mL/min >60 [facility] Comment on above: GFR Calc Estimated GFR (MDRD) Non-Af Amer 45 mL/min >60 [facility] Comment on above: Non- GFR Calc Thyroid Stimulating Hormone (TSH) 4.41 uIU/mL 0.358-3.74 [facility] Vitamin D 25-Hydroxy 67.8 ng/mL [facility] Comment on above: Vitamin D 25(OH) Sta tus Range Deficiency <20 ng/mL (50nmol/L) Insufficiency 20 - 30 ng/mL (50 - 75 nmol/L) Sufficiency 30 - 100 ng/mL (75 - 250 nmol/L) Toxicity >100 ng/mL (>250 nmol/L) Platelets bldOrdered By: Dr. Hair on 07-17-2022 Platelets (Bld) [#/Vol] 251 10*3/uL 150-450 [facility] Serum or plasma albumin amanule urement (mass/volume)Ordered By: Dr. Hair on 07-17-2022 Albumin [Mass/Vol] 4.4 g/dL 3.2-5.0 [facility] Serum or plasma albumin/glob ulin mass ratioOrdered By: Dr. Hair on 07-17-2022 Albumin/Globulin [Mass ratio] 1.5 {ratio} 0.9-2.4 [facility] Serum or plasma calcium amanuel urement (mass/volume)Ordered By: Dr. Hair on 07-17-2022 Calcium [Mass/Vol] 9.4 mg/dL 8.5-10.1 [facility] Serum or plasma creatinine m easurement (mass/volume)Ordered By: Dr. Hair on 07-17-2022 Creatinine [Mass/Vol] 1.28 mg/dL 0.55-1.02 [facility] Comment on above: The validity of the calculated GFR & GFRAA in patients over 70 years has not been determined. Clinical correlation is essential. Serum or plasma urea nitroge n measurement (mass/volume)Ordered By: Dr. Hair on 07-17-2022 Urea nitrogen [Mass/Vol] 24 mg/dL 7-18 [facility] Thin prep Papanicolaou smear with manual screeningOrdered By: Dr. Hair on 07-17-2022 Thin prep Papanicolaou smear with manual screening 17 U/L 15-37 [facility] Thin prep Papanicolaou smear with manual screening 8 5-15 [facility] Absolute lymphocyte countOrd ered By: Dr. Otero on 07-14-2022 Lymphocytes Auto (Unsp spec) [#/Vol] 2.51 10*3/uL 0.83-4.51 [facility] Basophil percentageOrdered B y: Dr. Otero on 07-14-2022 Basophils/100 WBC (Bld) 1.0 % 0-1 [facility] Chloride [Moles/Vol] 108 mmol/L 98-107 [facility] Eosinophils/100 WBC (Bld) 2.7 % 0-5 [facility] Glucose [Mass/Vol] 106 mg/dL 74-106 [facility] Comment on above: Fasting Glucose resu lt from 100 to 125 mg/dL suggests IMPAIRED HOMEOSTASIS per A.D.A. criteria. Neutrophils (Bld) [#/Vol] 3.0 10*3/uL 2.0-7.7 [facility] Neutrophils/100 WBC (Bld) 48.5 % 47-70 [facility] Potassium [Moles/Vol] 4.3 mmol/L 3.5-5.1 [facility] Sodium [Moles/Vol] 143 mmol/L 136-145 [facility] WBC (Bld) [#/Vol] 6.2 10*3/uL 4.4-11.0 [facility] Blood erythrocytes count (nu mber/volume)Ordered By: Dr. Otero on 07-14-2022 RBC (Bld) [#/Vol] 4.28 10*6/uL 4.2-5.4 [facility] Blood hemoglobin measurement (mass/volume)Ordered By: Dr. Otero on 07-14-2022 Hemoglobin (Bld) [Mass/Vol] 13.5 g/dL 12.0-15.0 [facility] Blood lymphocytes/100 leukoc ytesOrdered By: Dr. Otero on 07-14-2022 Lymphocytes/100 WBC (Bld) 40.3 % 19-41 [facility] Blood monocytes/100 leukocyt esOrdered By: Dr. Otero on 07-14-2022 Monocytes/100 WBC (Bld) 7.2 % 0-10 [facility] Blood platelet mean volumeOr dered By: Dr. Otero on 07-14-2022 Platelet mean volume (Bld) [Entitic vol] 11.4 fL 6.2-12.0 [facility] Determination of erythrocyte mean corpuscular volume (MCV)Ordered By: Dr. Otero on 07-14-2022 MCV (RBC) [Entitic vol] 96.5 fL 81-99 [facility] Hematocrit Auto (Bld) [Volum e fraction]Ordered By: Dr. Otero on 07-14-2022 Hematocrit (Bld) [Volume fraction] 41.3 % 37-47 [facility] Influenza virus A and B and SARS-CoV-2 (COVID-19) Ag panel - Upper respiratory specimOrdered By: Dr. Otero on 07-14-2022 SARS-CoV-2 (COVID-19) RNA SCOTT+probe Ql (Resp) [facility] Laboratory - Chemistry and C hemistry - challengeOrdered By: Dr. Otero on 07-14-2022 CO2 [Moles/Vol] 30.0 mmol/L 21.0-32.0 [facility] Natriuretic peptide B (Bld) [Mass/Vol] 86.4 pg/mL 0-100 [facility] Urea nitrogen/Creatinine [Mass ratio] 14.7 mg/mg 10-20 [facility] Laboratory - Hematology and Cell countsOrdered By: Dr. Otero on 07-14-2022 Erythrocyte distribution width (RBC) [Entitic vol] 46.2 fL 35.1-43.9 [facility] Erythrocyte distribution width (RBC) [Ratio] 13.0 % 11.6-14.6 [facility] Immature granulocytes/100 WBC (Bld) 0.300 % 0.0-0.9 [facility] Comment on above: IG% - Immature Granu locytes (promyelocytes, myelocytes and metamyelocytes) > 1% indicates that a LEFT SHIFT is Present. MCH (RBC) [Entitic mass] 31.5 pg 27.0-32.0 [facility] Nucleated RBC/100 WBC (Bld) [Ratio] 0 % 0-5 [facility] MCHC Auto (RBC) [Mass/Vol]Or dered By: Dr. Otero on 07-14-2022 MCHC (RBC) [Mass/Vol] 32.7 g/dL 32-36 [facility] No Panel InformationOrdered By: Dr. Otero on 07-14-2022 Estimated Creatinine Clearance Calc 57.83 ml/min [facility] Estimated GFR (MDRD) Amer 91 mL/min >60 [facility] Comment on above: GFR Calc Estimated GFR (MDRD) Non-Af Amer 76 mL/min >60 [facility] Comment on above: Non- GFR Calc Platelets bldOrdered By: Dr. Otero on 07-14-2022 Platelets (Bld) [#/Vol] 250 10*3/uL 150-450 [facility] Serum or plasma calcium amanuel urement (mass/volume)Ordered By: Dr. Otero on 07-14-2022 Calcium [Mass/Vol] 8.6 mg/dL 8.5-10.1 [facility] Serum or plasma creatinine m easurement (mass/volume)Ordered By: Dr. Otero on 07-14-2022 Creatinine [Mass/Vol] 0.82 mg/dL 0.55-1.02 [facility] Comment on above: The validity of the calculated GFR & GFRAA in patients over 70 years has not been determined. Clinical correlation is essential. Serum or plasma urea nitroge n measurement (mass/volume)Ordered By: Dr. Otero on 07-14-2022 Urea nitrogen [Mass/Vol] 12 mg/dL 7-18 [facility] Thin prep Papanicolaou smear with manual screeningOrdered By: Dr. Otero on 07-14-2022 Thin prep Papanicolaou smear with manual screening 5 5-15 [facility] Absolute lymphocyte counton 01-16-2022 Lymphocytes Auto (Unsp spec) [#/Vol] 2.64 10*3/uL 0.83-4.51 [facility] Work Phone: Basophil percentageon 2021 Basophils/100 WBC (Bld) 0.5 % 0-1 [facility] Work Phone: Bilirubin [Mass/Vol] 0.50 mg/dL 0.20-1.00 [facility] Work Phone: Comment on above: For patients on eltr ombopag therapy, use of Dimension [place] TBIL is not recommended. Chloride [Moles/Vol] 102 mmol/L 98-107 [facility] Work Phone: Eosinophils/100 WBC (Bld) 1.1 % 0-5 [facility] Work Phone: Glucose [Mass/Vol] 86 mg/dL 74-106 [facility] Work Phone: Neutrophils (Bld) [#/Vol] 3.0 10*3/uL 2.0-7.7 [facility] Work Phone: Neutrophils/100 WBC (Bld) 47.6 % 47-70 [facility] Work Phone: Potassium [Moles/Vol] 3.8 mmol/L 3.5-5.1 [facility] Work Phone: Protein [Mass/Vol] 7.1 g/dL 6.4-8.2 [facility] Work Phone: Sodium [Moles/Vol] 135 mmol/L 136-145 [facility] Work Phone: WBC (Bld) [#/Vol] 6.2 10*3/uL 4.4-11.0 [facility] Work Phone: Blood erythrocytes count (nu mber/volume)on 01-16-2022 RBC (Bld) [#/Vol] 4.21 10*6/uL 4.2-5.4 [facility] Work Phone: Blood hemoglobin measurement (mass/volume)on 01-16-2022 Hemoglobin (Bld) [Mass/Vol] 13.3 g/dL 12.0-15.0 [facility] Work Phone: Blood lymphocytes/100 leukoc yteson 01-16-2022 Lymphocytes/100 WBC (Bld) 42.3 % 19-41 [facility] [facility] Work [facility] Blood manual differential co mment interpretation (narrative result)on 01-16-2022 Manual differential comment Bruno (Bld) [Interp] SCANNED [facility] Work Phone: Blood monocytes/100 leukocyt eson 01-16-2022 Monocytes/100 WBC (Bld) 8.2 % 0-10 [facility] Work Phone: Blood platelet mean volumeon 01-16-2022 Platelet mean volume (Bld) [Entitic vol] 10.7 fL 6.2-12.0 [facility] Work Phone: Determination of erythrocyte mean corpuscular volume (MCV)on 01-16-2022 MCV (RBC) [Entitic vol] 94.1 fL 81-99 [facility] Work Phone: Hematocrit Auto (Bld) [Volum e fraction]on 01-16-2022 Hematocrit (Bld) [Volume fraction] 39.6 % 37-47 [facility] Work Phone: Laboratory - Chemistry and C hemistry - challengeon 01-16-2022 ALP [Catalytic activity/Vol] 80 U/L 45-117 [facility] Work Phone: ALT [Catalytic activity/Vol] 17 U/L 13-56 [facility] Work Phone: CO2 [Moles/Vol] 26.0 mmol/L 21.0-32.0 [facility] Work Phone: Free T4 [Mass/Vol] 1.28 ng/dL 0.76-1.46 [facility] Work Phone: Globulin (S) [Mass/Vol] 2.9 g/dL 2.2-4.2 [facility] Work Phone: Urea nitrogen/Creatinine [Mass ratio] 19.0 mg/mg 10-20 [facility] Work Phone: Laboratory - Hematology and Cell countson 01-16-2022 Erythrocyte distribution width (RBC) [Entitic vol] 44.0 fL 35.1-43.9 [facility] Work Phone: Erythrocyte distribution width (RBC) [Ratio] 12.9 % 11.6-14.6 [facility] Work Phone: Immature granulocytes/100 WBC (Bld) 0.300 % 0.0-0.9 [facility] Work Phone: Comment on above: IG% - Immature Granu locytes (promyelocytes, myelocytes and metamyelocytes) > 1% indicates that a LEFT SHIFT is Present. MCH (RBC) [Entitic mass] 31.6 pg 27.0-32.0 [facility] Work Phone: Nucleated RBC/100 WBC (Bld) [Ratio] 0 % 0-5 [facility] Work Phone: MCHC Auto (RBC) [Mass/Vol]on 01-16-2022 MCHC (RBC) [Mass/Vol] 33.6 g/dL 32-36 [facility] Work Phone: No Panel Informationon 01-16 Estimated GFR (MDRD) Amer 82 mL/min >60 [facility] Work Phone: Comment on above: GFR Calc Estimated GFR (MDRD) Non-Af Amer 68 mL/min >60 [facility] Work Phone: Comment on above: Non- GFR Calc Thyroid Stimulating Hormone (TSH) 0.63 uIU/mL 0.358-3.74 [facility] Work Phone: Vitamin D 25-Hydroxy 53.2 ng/mL [facility] Work Phone: Comment on above: Vitamin D 25(OH) Sta tus Range Deficiency <20 ng/mL (50nmol/L) Insufficiency 20 - 30 ng/mL (50 - 75 nmol/L) Sufficiency 30 - 100 ng/mL (75 - 250 nmol/L) Toxicity >100 ng/mL (>250 nmol/L) Platelets bldon 01-16-2022 Platelets (Bld) [#/Vol] 213 10*3/uL 150-450 [facility] Work Phone: Serum or plasma albumin amanuel urement (mass/volume)on 01-16-2022 Albumin [Mass/Vol] 4.2 g/dL 3.2-5.0 [facility] Work Phone: Serum or plasma albumin/glob ulin mass ratioon 01-16-2022 Albumin/Globulin [Mass ratio] 1.4 {ratio} 0.9-2.4 [facility] Work Phone: Serum or plasma calcium amanuel urement (mass/volume)on 01-16-2022 Calcium [Mass/Vol] 8.9 mg/dL 8.5-10.1 [facility] Work Phone: Serum or plasma creatinine m easurement (mass/volume)on 01-16-2022 Creatinine [Mass/Vol] 0.90 mg/dL 0.55-1.02 [facility] Work Phone: Comment on above: The validity of the calculated GFR & GFRAA in patients over 70 years has not been determined. Clinical correlation is essential. Serum or plasma urea nitroge n measurement (mass/volume)on 01-16-2022 Urea nitrogen [Mass/Vol] 17 mg/dL 7-18 [facility] Work Phone: Thin prep Papanicolaou smear with manual screeningon 01-16-2022 Thin prep Papanicolaou smear with manual screening 15 U/L 15-37 [facility] Work Phone: Thin prep Papanicolaou smear with manual screening 7 5-15 [facility] Work Phone: Office Visit: Transition of care [facility] 01-31-2017 Adolescent depression screening assessment Adolescent depression screening assessment Invalid Interpretation Code [facility] Work Phone: Adult depression screening assessment Adolescent depression screening assessment [facility] Work Phone: Alcoholism counseling (procedure) no Invalid Interpretation Code [facility] Work Phone: Documentation of current medications (procedure) Done Invalid Interpretation Code [facility] Work Phone: Fall risk assessment Fall risk assessment Invali d Interpretation Code [facility] Work Phone: Protein mass conc Done [facility] Work Phone: Protein mass conc no [facility] Work Phone: Protein mass conc yes [facility] Work Phone: Smoking cessation education (procedure) yes Invalid Interpretation Code [facility] Work Phone: Tobacco smoking status NHIS Never Invalid Interpretation Code [facility] Work Phone: Tobacco smoking status NHIS Current every day smoker [facility] Work Phone: Tobacco use [facility] Current every day smoker Invali d Interpretation Code [facility] Work Phone: Lab Report: Free T3on 2016 Triiodothyronine (T3) free 2.2 pg/mL Invalid Interpretation Code 2.18-3.98 [facility] Work Phone: Lab Report: T4 Free Directon 01-30-2017 Thyroxine (T4) free 1.26 ng/dL Invalid Interpretation Code 0.76-1.46 [facility] Work Phone: Lab Report: Thyroid Stim Hor aleah (TSH)on 01-30-2017 Thyroid stimulating hormone (TSH) 0.79 u[iU]/mL Invalid Interpretation Code 0.358-3.74 [facility] Work Phone: Office Visit: Transition of care [facility] 10-04-2016 MG Breast screening Normal Bilateral Invalid Interpretation Code [facility] Work Phone: No Panel Information SARS-CoV-2 & FLU Antigen (Rapid) [facility] Work Phone: Vital Signs Date Time Vital Sign Value Performing Clinician Facility 11-03-2024 12:59-0500 Body temperature 98.3 [degF] Dr. Paulina Hair MD Work Phone: [facility] 11-03-2024 12:59-0500 Diastolic blood pressure 74 mm[Hg] Dr. Paulina Hair MD Work Phone: [facility] 11-03-2024 12:59-0500 Heart rate 74 /min Dr. Paulina Hair MD Work Phone: [facility] 11-03-2024 12:59-0500 Respiratory rate 16 /min Dr. Paulina Hair MD Work Phone: [facility] 11-03-2024 12:59-0500 SaO2% (BldA) [Mass fraction] 98 % Dr. Paulina Hair MD Work Phone: [facility] 11-03-2024 12:59-0500 Systolic blood pressure 134 mm[Hg] Dr. Paulina Hair MD Work Phone: [facility] 11-03-2024 10:40-0500 Body height 167.[address] Paulina Hair MD Work Phone: [facility] 11-03-2024 10:40-0500 Body mass index (BMI) [Ratio] 23.6 kg/m2 Dr. Paulina Hair MD Work Phone: [facility] 11-03-2024 10:40-0500 Body weight 66.[address] Paulina Hair MD Work Phone: [facility] 08-21-2024 08:53-0500 Body mass index (BMI) [Ratio] 23.8 kg/m2 Dr. Paulina Hair MD Work Phone: 8(017)375-310730 [place] [address] 08-21-2024 08:53-0500 Body temperature 99.2 [degF] Dr. Paulina Hair MD Work Phone: 3(982)364-628430 [place] [address] 08-21-2024 08:53-0500 Body weight 66.[address] Paulina Hair MD Work Phone: 1(030)493-834030 [place] [address] 08-21-2024 08:53-0500 Diastolic blood pressure 82 mm[Hg] Dr. Paulina Hair MD Work Phone: 0(596)470-085799 [address] 08-21-2024 08:53-0500 Heart rate 77 /min Dr. Paulina Hair MD Work Phone: 1(069)557-736199 [address] 08-21-2024 08:53-0500 SaO2% (BldA) [Mass fraction] 96 % Dr. Paulina Hair MD Work Phone: [facility] 08-21-2024 08:53-0500 Systolic blood pressure 120 mm[Hg] Dr. Paulina Hair MD Work Phone: [facility] 12-27-2023 15:13-0400 Body height 167.[address] Paulina Hair Work Phone: 2(376)564-608530 [place] [address] 12-27-2023 15:13-0400 Body mass index (BMI) [Ratio] 22.6 kg/m2 Dr. Paulina Hair Work Phone: [facility] 12-27-2023 15:13-0400 Body temperature 97.1 [degF] Dr. Paulina Hair Work Phone: 6(622)415-577230 [place] [address] 12-27-2023 15:13-0400 Body weight 63.[address] Paulina Hair Work Phone: [facility] 12-27-2023 15:13-0400 Heart rate 77 /min Dr. Paulina Hair Work Phone: [facility] 12-27-2023 15:13-0400 Respiratory rate 16 /min Dr. Paulina Hair Work Phone: [facility] 12-27-2023 15:13-0400 SaO2% (BldA) [Mass fraction] 97 % Dr. Paulina Hair Work Phone: [facility] 10-01-2023 07:21-0500 Body height 167.[address] Paulina Hair Work Phone: [facility] 10-01-2023 07:21-0500 Body mass index (BMI) [Ratio] 22.8 kg/m2 Dr. Paulina Hair Work Phone: [facility] 10-01-2023 07:21-0500 Body temperature 98.2 [degF] Dr. Paulina Hair Work Phone: [facility] 10-01-2023 07:21-0500 Body weight 64.[address] Paulina Hair Work Phone: [facility] 10-01-2023 07:21-0500 Diastolic blood pressure 73 mm[Hg] Dr. Paulina Hair Work Phone: [facility] 10-01-2023 07:21-0500 Heart rate 85 /min Dr. Paulina Hair Work Phone: [facility] 10-01-2023 07:21-0500 Respiratory rate 18 /min Dr. Paulina Hair Work Phone: [facility] 10-01-2023 07:21-0500 SaO2% (BldA) [Mass fraction] 97 % Dr. Paulina Hair Work Phone: [facility] 10-01-2023 07:21-0500 Systolic blood pressure 129 mm[Hg] Dr. Paulina Hair Work Phone: [facility] 07-10-2023 13:45-0500 Body height 167.[address] Paulina Hair Work Phone: [facility] 07-10-2023 13:45-0500 Body weight 61.[address] Paulina Hair Work Phone: [facility] 07-10-2023 13:45-0500 Heart rate 79 /min Dr. Paulina Hair Work Phone: [facility] 07-10-2023 13:45-0500 SaO2% (BldA) [Mass fraction] 98 % Dr. Paulina Hair Work Phone: [facility] 06-28-2023 11:51-0400 Body mass index (BMI) [Ratio] 22.9 kg/m2 Dr. Paulina Hair Work Phone: [facility] 06-28-2023 11:51-0400 Body temperature 97.1 [degF] Dr. Paulina Hair Work Phone: [facility] 06-28-2023 11:51-0400 Body weight 62.[address] Paulina Hair Work Phone: [facility] 06-28-2023 11:51-0400 Diastolic blood pressure 69 mm[Hg] Dr. Paulina Hair Work Phone: [facility] 06-28-2023 11:51-0400 Heart rate 70 /min Dr. Paulina Hair Work Phone: [facility] 06-28-2023 11:51-0400 Respiratory rate 17 /min Dr. Paulina Hair Work Phone: [facility] 06-28-2023 11:51-0400 SaO2% (BldA) [Mass fraction] 97 % Dr. Paulina Hair Work Phone: [facility] 06-28-2023 11:51-0400 Systolic blood pressure 128 mm[Hg] Dr. Paulina Hair Work Phone: [facility] 12-01-2022 22:46-0400 Body temperature 98.3 [degF] Dr. Paulina Hair Work Phone: [facility] 12-01-2022 22:46-0400 Diastolic blood pressure 60 mm[Hg] Dr. Paulina Hair Work Phone: [facility] 12-01-2022 22:46-0400 Heart rate 111 /min Dr. Paulina Hair Work Phone: [facility] 12-01-2022 22:46-0400 Respiratory rate 15 /min Dr. Paulina Hair Work Phone: 4(244)786-654730 [place] [address] 12-01-2022 22:46-0400 SaO2% (BldA) [Mass fraction] 96 % Dr. Paulina Hair Work Phone: 8(152)991-854230 [place] [address] 12-01-2022 22:46-0400 Systolic blood pressure 135 mm[Hg] Dr. Paulina Hair Work Phone: 9(759)354-356730 [place] [address] 12-01-2022 22:00-0400 Inhaled oxygen flow rate 2 L/min Dr. Paulina Hair Work Phone: [facility] 12-01-2022 18:20-0400 Body height 165.[address] Paulina Hair Work Phone: [facility] 12-01-2022 18:20-0400 Body mass index (BMI) [Ratio] 21.6 kg/m2 Dr. Paulina Hair Work Phone: [facility] 12-01-2022 18:20-0400 Body weight [address] Paulina Hair Work Phone: 9(643)385-915430 [place] [address] 11-06-2022 13:13-0500 Body mass index (BMI) [Ratio] 19.8 kg/m2 Dr. Paulina Hair Work Phone: 4(502)059-403830 [place] [address] 11-06-2022 13:13-0500 Body weight 53.[address] Paulian Hair Work Phone: [facility] 10-28-2022 09:12-0500 Body temperature 98.7 [degF] Dr. Paulina Hair Work Phone: [facility] 10-28-2022 09:12-0500 Diastolic blood pressure 57 mm[Hg] Dr. Paulina Hair Work Phone: [facility] 10-28-2022 09:12-0500 Heart rate 83 /min Dr. Paulina Hiar Work Phone: [facility] 10-28-2022 09:12-0500 Respiratory rate 16 /min Dr. Paulina Hair Work Phone: 5(840)270-593199 [address] 10-28-2022 09:12-0500 SaO2% (BldA) [Mass fraction] 94 % Dr. Paulina Hair Work Phone: [facility] 10-28-2022 09:12-0500 Systolic blood pressure 123 mm[Hg] Dr. Paulina Hair Work Phone: 4(203)811-760530 [place] [address] 10-27-2022 11:57-0500 Body height 165.[address] Paulina Hair Work Phone: 9(435)426-541499 [address] 10-27-2022 11:57-0500 Body weight 53.[address] Paulina Hair Work Phone: 9(385)806-255330 [place] [address] 10-26-2022 10:49-0500 Inhaled oxygen flow rate 4 L/min Dr. Paulina Hair Work Phone: [facility] 10-26-2022 09:45-0500 Inhaled oxygen concentration 39 % Dr. Paulina Hair Work Phone: [facility] 10-26-2022 06:07-0500 Body mass index (BMI) [Ratio] 19.6 kg/m2 Dr. Paulina Hair Work Phone: [facility] 10-14-2022 06:26-0500 Diastolic blood pressure 74 mm[Hg] Dr. Paulina Hair Work Phone: [facility] 10-14-2022 06:26-0500 Heart rate 91 /min Dr. Paulina Hair Work Phone: [facility] 10-14-2022 06:26-0500 Respiratory rate 18 /min Dr. Paulina Hair Work Phone: [facility] 10-14-2022 06:26-0500 SaO2% (BldA) [Mass fraction] 99 % Dr. Paulina Hair Work Phone: [facility] 10-14-2022 06:26-0500 Systolic blood pressure 114 mm[Hg] Dr. Paulina Hair Work Phone: [facility] 10-14-2022 03:50-0500 Body height 165.[address] Paulina Hair Work Phone: [facility] 10-14-2022 03:50-0500 Body mass index (BMI) [Ratio] 19.7 kg/m2 Dr. Paulina Hair Work Phone: [facility] 10-14-2022 03:50-0500 Body temperature 97.9 [degF] Dr. Paulina Hair Work Phone: [facility] 10-14-2022 03:50-0500 Body weight 53.[address] Paulina Hair Work Phone: [facility] 09-29-2022 10:50-0500 Body temperature 98.1 [degF] Dr. Paulina Hair Work Phone: [facility] 09-29-2022 10:50-0500 Diastolic blood pressure 66 mm[Hg] Dr. Paulina Hair Work Phone: [facility] 09-29-2022 10:50-0500 Heart rate 63 /min Dr. Paulina Hair Work Phone: [facility] 09-29-2022 10:50-0500 Respiratory rate 16 /min Dr. Paulina Hair Work Phone: [facility] 09-29-2022 10:50-0500 SaO2% (BldA) [Mass fraction] 99 % Dr. Paulina Hair Work Phone: 2(412)582-288030 [place] [address] 09-29-2022 10:50-0500 Systolic blood pressure 118 mm[Hg] Dr. Paulina Hair Work Phone: 4(552)170-760499 [address] 09-29-2022 09:17-0500 Body height 165.[address] Paulina Hair Work Phone: 4(271)504-243799 [address] 09-29-2022 09:17-0500 Body mass index (BMI) [Ratio] 19.4 kg/m2 Dr. Paulina Hair Work Phone: 9(554)802-504899 [address] 09-29-2022 09:17-0500 Body weight [address] Paulina Hair Work Phone: 8(991)328-917099 [address] 09-01-2022 13:27-0500 Body height 167.[address] Paulina Hair Work Phone: 2(197)794-590499 [address] 09-01-2022 13:27-0500 Body mass index (BMI) [Ratio] 18.9 kg/m2 Dr. Paulina Hair Work Phone: 8(559)571-082399 [address] 09-01-2022 13:27-0500 Body temperature 97.3 [degF] Dr. Paulina Hair Work Phone: 6(240)641-425630 [place] [address] 09-01-2022 13:27-0500 Body weight 53.[address] Paulina Hair Work Phone: 4(177)352-480430 [place] [address] 09-01-2022 13:27-0500 Diastolic blood pressure 75 mm[Hg] Dr. Paulina Hair Work Phone: 3(681)983-266930 [place] [address] 09-01-2022 13:27-0500 Heart rate 83 /min Dr. Paulina Hair Work Phone: [facility] 09-01-2022 13:27-0500 Respiratory rate 19 /min Dr. Paulina Hair Work Phone: 2(021)285-087630 [place] [address] 09-01-2022 13:27-0500 SaO2% (BldA) [Mass fraction] 90 % Dr. Paulina Hair Work Phone: [facility] 09-01-2022 13:27-0500 Systolic blood pressure 129 mm[Hg] Dr. Paulina Hair Work Phone: [facility] 07-14-2022 03:52-0500 Body temperature 98.2 [degF] [facility] 07-14-2022 03:52-0500 Diastolic blood pressure 53 mm[Hg] [facility] 07-14-2022 03:52-0500 Heart rate 107 /min [facility] 07-14-2022 03:52-0500 Respiratory rate 18 /min [facility] 07-14-2022 03:52-0500 SaO2% (BldA) [Mass fraction] 96 % [facility] 07-14-2022 03:52-0500 Systolic blood pressure 117 mm[Hg] [facility] 07-14-2022 01:17-0500 Body height 170.18 cm [facility] Work Phone: 07-14-2022 01:17-0500 Body mass index (BMI) [Ratio] 17.7 kg/m2 [facility] 07-14-2022 01:17-0500 Body weight 51.5 kg [facility] 01-31-2017 16:41-0400 BMI (Body Mass Index) 20.33 kg/m2 Iris Ramírez NP [facility] Work Phone: 01-31-2017 16:41-0400 BP Diastolic 70 mm[Hg] Iris Ramírez NP [facility] Work Phone: 01-31-2017 16:41-0400 BP Systolic 124 mm[Hg] Iris Ramírez NP [facility] Work Phone: 01-31-2017 16:41-0400 Height 170.18 cm Iris Ramírez NP [facility] Work Phone: 01-31-2017 16:41-0400 Pulse (Heart Rate) 80 /min Iris Ramírez NP [facility] Work Phone: 01-31-2017 16:41-0400 Pulse Oximetry 96 % Iris Ramírez NP [facility] Work Phone: 01-31-2017 16:41-0400 Respiratory Rate 16 /min Iris Ramírez NP [facility] Work Phone: 01-31-2017 16:41-0400 Weight 58.88 kg Iris Ramírez NP [facility] Work Phone: Encounters Encounter Date Encounter Type Care Provider Facility Start: 05-27-2025 End: 05-27-[address] Paulina Hair MD Work Phone: -Laboratory [facility] Start: 05-27-2025 End: 05-27-[address] Paulina Hair MD -Laboratory [facility] Start: 05-27-2025 End: 05-27-2025 ambulatory Paulina Hair Facility:[facility] Start: 01-09-2025 End: 01-09-[address] Paulina Hair MD Work Phone: [facility] Work Phone: Start: 01-09-2025 End: 01-09-[address] Paulina Hair MD -Outpatient Breast Imaging Work Phone: Start: 01-09-2025 End: 01-09-2025 ambulatory Paulina Hair Facility:[facility] Start: 12-31-2024 End: 12-31-2024 Patient encounter procedure Ajit Melendez [employer] [facility] -Laboratory, Specimen Work Phone: Start: 12-31-2024 End: 12-31-2024 ambulatory Ajit Melendez NP Facility:[facility] Start: 11-22-2024 End: 11-22-[address] Paulina Hair MD Work Phone: [facility] Work Phone: Start: 11-22-2024 End: 11-22-[address] Paulina Hair MD -Laboratory Work Phone: Start: 11-22-2024 End: 11-22-2024 ambulatory Paulina Hair Facility:[facility] Start: 11-03-2024 End: 11-03-2024 Emergency department patient visit Dr. Nadir Pham DO -Emergency Department Work Phone: Start: 08-21-2024 End: 08-21-2024 Patient encounter procedure Alvin RIVAS [facility] Work Phone: Start: 08-21-2024 End: 08-21-2024 ambulatory Alvin RIVAS [place] Start: 07-04-2024 End: 07-04-2024 ambulatory Paulina Hair Facility:[facility] Start: 12-27-2023 End: 12-27-[address] Paulina Hair Work Phone: [facility] Work Phone: Start: 12-27-2023 End: 12-27-[address] Paulina Hair Work Phone: [facility]-Laboratory, Specimen Work Phone: Start: 12-27-2023 End: 12-27-[address] Paulina Hair Work Phone: [facility] Work Phone: Start: 12-25-2023 End: 12-25-[address] Paulina Hair Work Phone: [facility] Work Phone: Start: 12-25-2023 End: 12-25-[address] Paulina Hair Work Phone: [facility]-Outpatient Breast Imaging Work Phone: Start: 11-20-2023 End: 11-20-[address] Paulina Hair Work Phone: [facility] Work Phone: Start: 11-20-2023 End: 11-20-[address] Paulina Hair Work Phone: [facility]-Laboratory, [facility] Start: 10-01-2023 End: 10-01-[address] Paulina Hair Work Phone: [facility]-Pulmonary Medicine [facility] Work Phone: Start: 07-17-2023 Non-patient / Non-visit Dr. Imani Hair Work Phone: [facility] Start: 07-16-2023 End: 07-16-[address] Paulina Hair Work Phone: [facility] Work Phone: Start: 07-16-2023 End: 07-16-[address] Paulina Hair Work Phone: [facility]-Pulmonary Services/Neurology Work Phone: Start: 07-13-2023 Non-patient / Non-visit Dr. Imani Hair Work Phone: [facility] Start: 07-10-2023 End: 07-10-[address] Paulina Hair Work Phone: [facility] Work Phone: Start: 07-10-2023 End: 07-10-[address] Paulina Hair [facility] Work Phone: Start: 06-28-2023 End: 06-28-[address] Paulina Hair Work Phone: [facility]-Pulmonary Medicine [facility] Work Phone: Start: 05-25-2023 End: 05-25-[address] Paulina Hair Work Phone: [facility]-Laboratory, [facility] Start: 12-01-2022 End: 12-01-2022 Emergency department patient visit Dr. Paulina Hair Work Phone: [facility]-Emergency Department Start: 11-06-2022 End: 11-06-[address] Paulina Hair Work Phone: [facility] Start: 10-28-2022 Non-patient / Non-visit Dr. Imani Hair Work Phone: [facility] Start: 10-27-2022 Non-patient / Non-visit Dr. Imani Hair Work Phone: [facility] Start: 10-26-2022 Non-patient / Non-visit Dr. Imani Hair Work Phone: [facility] Start: 10-26-2022 End: 10-28-2022 Evaluation and management of inpatient [facility] Paul[facility] Start: 10-14-2022 End: 10-14-2022 Emergency department patient visit Dr. Paulina Hair Work Phone: [facility]-Emergency Department Start: 10-06-2022 End: 10-06-[address] Paulina Hair Work Phone: [facility] Start: 10-05-2022 End: 10-05-2022 ambulatory PAULINA HAIR Facility:[facility] Start: 10-05-2022 End: 10-05-2022 Subsequent hospital visit by physician Screen Mammo [facility] Mammogram Start: 10-05-2022 Documentation procedure Mammog jeanmarie Coordinator [facility] Start: 10-05-2022 Letter encounter Mammography Coordinator [facility] Department Start: 09-29-2022 Non-patient / Non-visit Dr. Imani Hair Work Phone: [facility] Start: 09-29-2022 End: 09-29-2022 Admission to same day surgery center Dr. Paulina Hair Work Phone: [facility]-Endoscopy Start: 09-29-2022 End: 09-29-[address] Paulina Hair Work Phone: [facility] Work Phone: Start: 09-07-2022 End: 09-07-[address] Paulina Hair Work Phone: [facility] Work Phone: Start: 09-07-2022 End: 09-07-[address] Paulina Hair Work Phone: [facility]-Outpatient Bone Densitometry Start: 09-01-2022 End: 09-01-[address] Paulina Hair Work Phone: [facility] Start: 07-20-2022 End: 07-20-2022 ambulatory [facility] Work Phone: Start: 07-20-2022 End: 07-20-2022 Patient encounter procedure [facility] [place] Start: 07-17-2022 End: 07-17-2022 ambulatory [facility] Work Phone: Start: 07-17-2022 End: 07-17-2022 Patient encounter procedure [facility] Start: 07-14-2022 End: 07-14-2022 Emergency department patient visit [facility]-Emergency Department Start: 01-16-2022 End: 01-16-2022 Patient encounter procedure [facility] Procedures Date Procedure Procedure Detail Performing Clinician Start: 05-27-2025 Total iron binding capacity measurement Dr. Paulina Hair MD Work Phone: Start: 05-27-2025 Vitamin D, 25-hydrox y measurement Dr. Paulina Hair MD Work Phone: Comment on above: Vitamin D StatusDefi ciency: <20 ng/mL (50nmol/L)Insufficiency: 20-30 ng/mL (50-75 nmol/L)Sufficiency: 30-100 ng/mL (75-250 nmol/L)Toxicity: >100 ng/mL (>250 nmol/L) Start: 01-09-2025 Screening mammography Anca Hair MD Work Phone: Start: 12-31-2024 Liquid based cervica l cytology screening Dr. Paulina Hair MD Work Phone: Comment on above: NEGATIVE FOR INTRAEP ITHELIAL LESION OR MALIGNANCY. This liquid based Th inPrep(R) pap test was screened withthe use of an image guided system. Start: 11-22-2024 Vitamin D, 25-hydrox y measurement Dr. Paulina Hair MD Work Phone: Comment on above: Vitamin D StatusDefi ciency: <20 ng/mL (50nmol/L)Insufficiency: 20-30 ng/mL (50-75 nmol/L)Sufficiency: 30-100 ng/mL (75-250 nmol/L)Toxicity: >100 ng/mL (>250 nmol/L) Start: 11-03-2024 Plain x-ray of hand Dr. Paulina Hair MD Work Phone: Start: 12-27-[address] Paulina Hair Work Phone: Start: 12-25-2023 Screening mammography Anca Hair Work Phone: Start: 12-01-2022 Plain chest X-ray Dr. Eugene Hair Work Phone: Start: 10-26-[address] Paulina Hair Work Phone: Start: 10-14-2022 Plain chest X-ray Dr. Eugene Hair Work Phone: Start: 10-05-2022 BRET SCREENING W BRIANA Cc f Provider Start: 10-05-2022 Mammography Mammograph y Coordinator Start: 09-29-[address] Paulina fuentes Work Phone: Start: 09-07-2022 Dual energy X-ray absorptiometry Dr. Paulina Hair Work Phone: Start: 07-14-2022 Plain chest X-ray Start: 08-02-2006 Lipid 1996 panel - S lowell or Plasma Screen Wstr History of cataract extraction Hx of cataract surgery Dr. Paulina Hair Work Phone: SARS-CoV-2 & FLU Ant igen (Rapid) SARS-CoV-2 & FLU Ant igen (Rapid) Dr. Paulina Hair Work Phone: Plan of Treatment Date Care Activity Detail Author Start: 11-01-2026 Urine microalbumin profile DTaP,Tdap,Td Vaccine (2 - Td or Tdap) [facility] Start: 11-03-2024 [facility] Start: 06-18-2024 HPV TESTING HPV TESTING [facility] Start: 06-18-2024 PAP TESTING PAP TESTING [facility] Start: 10-05-2023 Mammography [facility] Start: 05-04-2023 Influenza vaccination Influenza Vaccine (#1) [facility] Start: 10-28-2022 Patient discharge [facility] Start: 10-27-2022 Introduction of urinary catheter [facility] Start: 10-27-2022 Measuring intake and output [facility] Start: 10-27-2022 Measuring intake and output [facility] Start: 10-26-2022 End: 10-27-2022 [facility] Start: 10-26-2022 Measuring intake and output [facility] Start: 10-26-2022 Measuring intake and output [facility] Start: 10-26-2022 Following clinical pathway protocol [facility] Start: 10-26-2022 Admission procedure [facility] Start: 10-26-2022 Ambulation therapy management [facility] Start: 10-26-2022 Application of intermittent pneumatic compression device [facility] Start: 10-26-2022 Catheterization of vein [facility] Start: 10-26-2022 Elevation of head of bed [facility] Start: 10-26-2022 Incentive spirometry [facility] Start: 10-26-2022 Introduction of urinary catheter [facility] Start: 10-26-2022 Measuring intake and output [facility] Start: 10-26-2022 Notification of physician [facility] Start: 10-26-2022 Oxygen therapy [facility] Start: 10-26-2022 Patient education [facility] Start: 10-26-2022 Procedures relating to eating and drinking [facility] Start: 10-26-2022 Taking patient vital signs [facility] Start: 10-26-2022 Wound care [facility] Start: 09-29-2022 Colonoscopy flx dx w/collj spec when pfrmd DIAGNOSTIC COLONOSCOPY [facility] Start: 09-29-2022 Egd transoral biopsy single/multiple EGD BIOPSY SINGLE/MULTIPLE [facility] Start: 09-29-2022 Patient discharge [facility] Start: 09-03-2022 DEPRESSION ASSESSMENT DEPRESSION ASSESSMENT [facility] Start: 05-04-2022 Influenza vaccination INFLUENZA (#1) [facility] Start: 2020 RSV Vaccine (1 - 1-dose 60+ series) RSV Vaccine (1 - 1-dose 60+ series) [facility] Start: 01-31-2017 End: 01-31-2017 Appointment [facility]ointment [facility] Work Phone: Start: 01-31-2017 End: 02-11-2017 Thyroid stimulating hormone (TSH) *TSH [facility] Work Phone: Start: 01-31-2017 End: 02-11-2017 Thyroxine (T4) free *T4 free [facility] Work Phone: Start: 01-26-2017 End: 01-26-2017 Thyroid stimulating hormone (TSH) *TSH [facility] Work Phone: Start: 01-26-2017 End: 01-26-2017 Thyroxine (T4) free *T4 free [facility] Work Phone: Start: 01-26-2017 End: 01-26-2017 Triiodothyronine (T3) free *T3-Free [facility] Work Phone: Start: 08-02-2011 Lipid 1996 panel - Serum or Plasma Lipid Screening [facility] Start: 08-02-2011 LIPID SCREEN LIPID SCREEN [facility] Start: 2010 SHINGRIX VACCINE (1 of 2) SHINGRIX VACCINE (1 of 2) [facility] Start: 2005 COLOGUARD (FIT-DNA) COLOGUARD (FIT-DNA) [facility] Start: 2005 Colonoscopy COLONOSCOPY [facility] Start: 2005 COLORECTAL CANCER SCREENING COLORECTAL CANCER SCREENING [facility] Start: [address] COLONOGRAPHY [facility] Start: 2005 DIABETES SCREEN DIABETES SCREEN [facility] Start: 2005 Diabetes Screening Diabetes Screening [facility] Start: 2005 FECAL OCCULT BLOOD FECAL OCCULT BLOOD [facility] Start: 2005 SIGMOIDOSCOPY SIGMOIDOSCOPY [facility] Start: 1979 Urine microalbumin profile DTAP,TDAP,TD (1 - Tdap) [facility] Start: 1978 ANNUAL PCP TEAM CHRONIC DISEASE VISIT ANNUAL PCP TEAM CHRONIC DISEASE VISIT [facility] Start: 1978 HEPATITIS C SCREENING HEPATITIS C SCREENING [facility] Start: 1978 HIV SCREENING HIV SCREENING [facility] Start: 1966 PNEUMOCOCCAL (1 - PCV) PNEUMOCOCCAL (1 - PCV) [facility] Start: 1960 COVID-19 VACCINE (#1) COVID-19 VACCINE (#1) [facility] Colonoscopy [facility] CT Chest [facility] Inhalation challenge test report Document --W methacholine inhaled [facility] Patient Education [facility] Work Phone: Patient referral [facility] Work Phone: [facility] Immunizations Immunization Date Immunization Notes Care Provider Fa cility 11-03-2024 tetanus toxoid, reduced diphtheria toxoid, and acellular pertussis vaccine, adsorbed Dr. 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 2018 Unknown [id number] Unknown [id number] Unknown [facility] PACKAGE PLAN [id number] Unknown [id number] Unknown [id number] Unknown [id number] Unknown [id number] [id number] Unknown [id number] [id number] Unknown [id number] [id number] Unknown [id number] [id number] Social History Date Type Detail Facility Start: 06-30-2021 End: 10-01-2023 Tobacco smoking status [facility] Unknown if ever smoked [facility] Start: 07-05-2020 Cigarettes [facility] Start: 1960 Sex Assigned At Female W [facility] Start: 12-10-2013 Tobacco smoking status PRIS Smokes tobacco daily [facility] History of tobacco use Cigarette Smoker [facility] Start: 12-10-2013 End: 10-05-2022 Cigarettes smoked current (pack per day) - Reported 0.5 [facility] Start: 12-10-2013 Tobacco use and exposure Smokeless tobacco non-user [facility] Start: 06-18-2019 Alcohol intake Current drinke r of alcohol (finding) [facility] Start: 1960 [facility] Start: 06-18-2019 End: 10-05-2022 Tobacco use panel [facility] National Score (1-100), lower number is lower risk 70 [facility] Start: 11-03-2024 Tobacco smoking status NHIS Ex-smoker (finding) [facility] Start: 11-27-2024 [facility] (finding[facility] NEGATED: Highlighted row [facility] Medical Equipment Procedure Code Equipment Code Equipment Origin al Text Equipment Identifier Dates RELOAD, SR75 SELECTABLE FDA Start: 10-26-2022 RELOAD, SR75 SELECTABLE FDA Start: 10-26-2022 RELOAD, SR75 SELECTABLE FDA Start: 10-26-2022 DARWIN YOUNG FDA Start: 10-26-2022 RELOAD, SR75 SELECTABLE FDA Start: 10-26-2022 RELOAD, SR75 SELECTABLE FDA Start: 10-26-2022 RELOAD, SR75 SELECTABLE FDA Start: 10-26-2022 DARWIN YOUNG FDA Start: 10-26-2022 RELOAD, SR75 SELECTABLE FDA Start: 10-26-2022 RELOAD, SR75 SELECTABLE FDA Start: 10-26-2022 RELOAD, SR75 SELECTABLE FDA Start: 10-26-2022 DARWIN YOUNG FDA Start: 10-26-2022 RELOAD, SR75 SELECTABLE FDA Start: 10-26-2022 RELOAD, SR75 SELECTABLE FDA Start: 10-26-2022 RELOAD, SR75 SELECTABLE FDA Start: 10-26-2022 DARWIN YOUNG FDA Start: 10-26-2022 RELOAD, SR75 SELECTABLE FDA Start: 10-26-2022 RELOAD, SR75 SELECTABLE FDA Start: 10-26-2022 RELOAD, SR75 SELECTABLE FDA Start: 10-26-2022 DARWIN YOUNG FDA Start: 10-26-2022 RELOAD, SR75 SELECTABLE FDA Start: 10-26-2022 RELOAD, SR75 SELECTABLE FDA Start: 10-26-2022 RELOAD, SR75 SELECTABLE FDA Start: 10-26-2022 DARWIN YOUNG FDA Start: 10-26-2022 RELOAD, SR75 SELECTABLE FDA Start: 10-26-2022 RELOAD, SR75 SELECTABLE FDA Start: 10-26-2022 RELOAD, SR75 SELECTABLE FDA Start: 10-26-2022 DARWIN YOUNG FDA Start: 10-26-2022 RELOAD, SR75 SELECTABLE FDA Start: 10-26-2022 RELOAD, SR75 SELECTABLE FDA Start: 10-26-2022 RELOAD, SR75 SELECTABLE FDA Start: 10-26-2022 DARWIN YOUNG FDA Start: 10-26-2022 RELOAD, SR75 SELECTABLE FDA Start: 10-26-2022 RELOAD, SR75 SELECTABLE FDA Start: 10-26-2022 RELOAD, SR75 SELECTABLE FDA Start: 10-26-2022 DARWIN YOUNG FDA Start: 10-26-2022 RELOAD, SR75 SELECTABLE FDA Start: 10-26-2022 RELOAD, SR75 SELECTABLE FDA Start: 10-26-2022 RELOAD, SR75 SELECTABLE FDA Start: 10-26-2022 DARWIN YOUNG FDA Start: 10-26-2022 Goals Date Patient Goal Desired Activity /State Functional Status Date Assessment Result Facility 10-28-2022 Functional status Ambulates [facility] Work Phone: Mental Status Date Assessment Result Facility 10-28-2022 Cognitive function Voice/Name [facility] Work Phone: 09-29-2022 Cognitive function Voice/Name [facility] Work Phone: Clinical Notes 09-29-2022 to 08-21-2024 Note Date & Type Note Facility 08-21-2024 Evaluation note Diagnosis Onset Date Resolution Acute upper respiratory infection acute August 21 024 8:47am [facility] Work Phone: [phone] [phone] Procedure [place] 12-01-[address] Carroll [facility] December 01, 2022 10:24pm Note Date/Time December 01, 2022 6:4 8pm [facility] Medical Records Department [address] [place] [address] Emergency Department Summary 12/01/22 MR#: [id number] Acct: [id number] Name: JESIKA WHIPPLE Rep #:[id number] 11 : 1960 62 From: Kelsey RIVAS PCP: Dr. Paulina Hair MD Status:RE G ER Location: ED HPI <ROB Mckeon - Last Filed: 12/01/22 21:19> History of Present Illness Chief Complaint: Shortness of Breath Narrative Narrative: Patient presenting today with shortness of breath that she has had since this morning. Patient states that she recently stopped smoking in October and was smoking 1 pack/day for several years. She has a history of asthma but no formaldiagnosis for COPD. She states she tried using her rescue inhaler today withoutrelief and has had 5 breathing treatments today that are not helping. She denies any chest pain, fever, chills, recent illness, history of blood clots. [facility] <ROB Mckeon - Last Filed: 12/01/22 21:19> [facility] Medical History Alcohol use Anemia Arthritis Back pain Cancer COPD (chronic obstructive pulmonary disease) Easy bruising Excessive bleeding History of echocardiogram History of pain when walking History of ulceration Hoarseness Injury of head and neck Leg cramps Low calcium levels Marijuana use Migraine headache Post-menopausal Recurrent UTI Seasonal allergies Smoker Syncope Thyroid disease Wears glasses Home Medications levothyroxine 100 mcg tablet 100 mcg PO DAILY THYROID 07/05/20 [History Last Taken 10/26/22] albuterol sulfate 90 mcg/actuation aerosol inhaler (Ventolin HFA) 2 puff inhalation Q4H PRN PRN Wheezing ##1 06/30/21 [Rx Last Taken 09/29/22] ipratropium 0.5 mg-albuterol 3 mg (2.5 mg base)/3 mL nebulization soln 3 ml inhalation Q4H PRN shortness of breath or wheezing #180 mL 10/14/22 [Rx Last Taken Unknown] nebulizer and compressor (InnoSpire Essence device) #1 ea 10/14/22 [Rx Last Taken Unknown] acetaminophen 500 mg tablet 650 mg PO Q6 PRN Pain, Moderate #0 tabs 10/27/22 [Rx Last Taken Unknown] dexamethasone 6 mg tablet 6 mg PO DAILY #5 tabs 12/01/22 [Rx Last Taken Unknown] Allergy/AdvReac Type Severity Reaction Status Date / Time prednisone Allergy Unknown Swelling Verified 12/01/22 18:19 erythromycin base Allergy Hives Verified 12/01/22 18:19 [From Erythrocin] Family History Mother Asthma Heart disease CVA (cerebral vascular accident) High cholesterol Surgical History H/O thyroidectomy H/O: History of colonoscopy (~09/2022) History of esophagogastroduodenoscopy (EGD) (~09/2022) History of loop electrical excision procedure (LEEP) Social History Smoking Status: Current every day smoker tobacco type: cigarettes second hand exposure: No alcohol intake: current substance use type: does not use ROS <ROB Mckeon - Last Filed: 12/01/22 21:19> ROS ED Constitutional Constitutional ED: Denies chills, fever(s) or sweats Cardiovascular Cardiovascular: Denies chest pain or palpitations Respiratory/Chest Respiratory/Chest: Reports dyspnea, dyspnea on exertion and wheezing; Denies cough Gastrointestinal Gastrointestinal: Denies abdominal pain, nausea or vomiting Musculoskeletal Musculoskeletal: Denies arthralgias or myalgias Integumentary Denies abscess, Abrasions or rash Neurologic Neurologic: Denies confusion, dizziness or paresthesias Psychiatric Psychiatric: Denies anxiety, depression, suicidal ideation or suicidal thoughts EXAM <ROB Mckeon - Last Filed: 12/01/22 21:19> Physical Exam Const Vital Signs: 12/01/22 18:20 12/01/22 18:22 12/01/22 18:23 Temperature 97.8 F 97.8 F Temperature Source Temporal Temporal Pulse Rate 125 H 124 H Respiratory Rate 18 22 H Respiratory Effort Short of Breath Respiratory Depth Shallow Respiratory Pattern Tachypnea Blood Pressure 143/73 H 143/73 H Blood Pressure Mean 96 96 Pulse Ox 95 100 Oxygen Delivery Method Room Air Nasal Cannula Nasal Cannula Oxygen Flow Rate (L/min) 2 2 12/01/22 19:46 12/01/22 19:46 12/01/22 19:22 Temperature 97.9 F Temperature Source Temporal Pulse Rate 120 H 115 H Respiratory Rate 20 H 22 H 16 Respiratory Effort Normal Non-Labored Short of Breath Respiratory Depth Shallow Respiratory Pattern Normal Tachypnea Blood Pressure 128/58 H Blood Pressure Mean 81 Pulse Ox 96 98 Oxygen Delivery Method Room Air Nasal Cannula Oxygen Flow Rate (L/min) 2 12/01/22 20:22 12/01/22 21:22 Temperature 98.0 F 98.1 F Temperature Source Temporal Temporal Pulse Rate 113 H 108 H Respiratory Rate 14 12 Respiratory Effort Respiratory Depth Respiratory Pattern Blood Pressure 121/69 H 123/63 H Blood Pressure Mean 86 83 Pulse Ox 94 95 Oxygen Delivery Method Nasal Cannula Nasal Cannula Oxygen Flow Rate (L/min) 2 2 Positive well nourished and well developed General Appearance ED: well developed HEENT Reports normocephalic and head/scalp atraumatic Mouth ED: Yes moist mucous membranes normal Eyes PERRL and EOMs intact bilaterally Neck full ROM and supple Chest Wall inspection of chest normal Resp Resp Narrative: Patient has increased work of breathing with a mild stridor and use of accessorymuscles. Lung sounds are diminished. Auscultation: wheezes expiratory wheezes and inspiratory wheezes Cardio regular rate and regular rhythm GI soft to palpation, non-tender, non-distended and no masses Back/Spine normal ROM and normal to inspection Extremity normal to inspection and full ROM Neuro oriented x3, CN's II-XII intact bilaterally, moves all extremities, no focal motor deficits and no sensory deficits noted Sensorium / Orientation: awake and alert Psych mental status grossly normal and thought process normal Skin no rashes or lesions noted and no wounds <Dr. Simba Carroll MD - Last Filed: 12/01/22 22:24> Physical Exam Const Vital Signs: 12/01/22 18:20 12/01/22 18:22 12/01/22 18:23 Temperature 97.8 F 97.8 F Temperature Source Temporal Temporal Pulse Rate 125 H 124 H Respiratory Rate 18 22 H Respiratory Effort Short of Breath Respiratory Depth Shallow Respiratory Pattern Tachypnea Blood Pressure 143/73 H 143/73 H Blood Pressure Mean 96 96 Pulse Ox 95 100 Oxygen Delivery Method Room Air Nasal Cannula Nasal Cannula Oxygen Flow Rate (L/min) 2 2 12/01/22 19:46 12/01/22 19:46 12/01/22 19:22 Temperature 97.9 F Temperature Source Temporal Pulse Rate 120 H 115 H Respiratory Rate 20 H 22 H 16 Respiratory Effort Normal Non-Labored Short of Breath Respiratory Depth Shallow Respiratory Pattern Normal Tachypnea Blood Pressure 128/58 H Blood Pressure Mean 81 Pulse Ox 96 98 Oxygen Delivery Method Room Air Nasal Cannula Oxygen Flow Rate (L/min) 2 12/01/22 20:22 12/01/22 21:22 Temperature 98.0 F 98.1 F Temperature Source Temporal Temporal Pulse Rate 113 H 108 H Respiratory Rate 14 12 Respiratory Effort Respiratory Depth Respiratory Pattern Blood Pressure 121/69 H 123/63 H Blood Pressure Mean 86 83 Pulse Ox 94 95 Oxygen Delivery Method Nasal Cannula Nasal Cannula Oxygen Flow Rate (L/min) 2 2 [facility] <ROB Mckeon - Last Filed: 12/01/22 21:19> [facility] Narrative Medical decision making narrative: Patient presenting today with shortness of breath that started this morning. She has been seen in the emergency department several times for COPD exacerbation but states she has no formal diagnosis of COPD and does not have a alteration tailor apprentice. She has an albuterol inhaler as well as breathing treatments butis not on any other inhalers. She is having a difficult time breathing as she is using accessory muscles and does sound really wheezy. She will be given Solu-Medrol which she has tolerated in the past without any reaction as well as breathing treatments. She is tachycardic at 124 bpm, however, I feel that can be attributed to her having 5 breathing treatments today. however, she has neverbeen tachycardic here in the past, therefore D- dimer will be obtained. Labs will be obtained to rule out anemia, leukocytosis, ACS. Chest x-ray will be obtained to rule out pneumonia, pneumothorax, or any other cardiopulmonary abnormality and is negative for any acute disease. D-dimer is negative, troponin WNL. On examination patient is still significantly wheezy and has a difficult time carrying on a conversation. She is remained at 95% on room air. She will be ambulated to assess her pulse ox and then possibly discussed with hospitalist for admission. Lab Data Attestation: I reviewed the patient's lab results. Labs: Laboratory Results - last 24 hr 12/01/22 12/01/22 12/01/22 18:50 18:50 20:00 WBC 8.5 RBC 3.44 L Hgb 10.6 L Hct 31.7 L MCV 92.2 MCH 30.8 MCHC 33.4 RDW Std Deviation 42.5 RDW Coeff of Braeden 12.6 Plt Count 198 MPV 10.5 Immature Gran % (Auto) 0.500 Neut % (Auto) 69.6 Lymph % (Auto) 20.6 [place] % (Auto) 8.0 Eos % (Auto) 0.7 Baso % (Auto) 0.6 Absolute Neuts (auto) 5.9 Absolute Lymphs (auto) 1.75 Nucleated RBC % 0 D-Dimer Quant (PE/DVT) < 0.27 L Sodium 139 Potassium 3.3 L Chloride 106 Carbon Dioxide 26.0 Anion Gap 7 BUN 21 H Creatinine 0.76 Estim Creat Clear Calc 69.06 Est GFR (MDRD) Af Amer 99 Est GFR (MDRD) Non-Af 82 BUN/Creatinine Ratio 27.6 H Glucose 128 H Calcium 8.9 Troponin I High Sens 12/01/22 20:00 WBC RBC Hgb Hct MCV MCH MCHC RDW Std Deviation RDW Coeff of Braeden Plt Count MPV Immature Gran % (Auto) Neut % (Auto) Lymph % (Auto) [place] % (Auto) Eos % (Auto) Baso % (Auto) Absolute Neuts (auto) Absolute Lymphs (auto) Nucleated RBC % D-Dimer Quant (PE/DVT) Sodium Potassium Chloride Carbon Dioxide Anion Gap BUN Creatinine Estim Creat Clear Calc Est GFR (MDRD) Af Amer Est GFR (MDRD) Non-Af BUN/Creatinine Ratio Glucose Calcium Troponin I High Sens 19 Radiography Chest X-Ray - ED: Read by ED Physician and Read by Radiologist Diagnostic Testing: Clinical Impression(s) from Imaging Studies Chest X-Ray 12/01/22 18:46 IMPRESSION: No radiographic evidence of acute cardiopulmonary disease. Electronically Signed: Thaddeus Garcia MD at 19:11 EDT , EKG Initial EKG: Comments: 119 bpm, sinus tachycardia, no ST elevation, reviewed and interpreted by attending ED physician. <Dr. Simba Carroll MD - Last Filed: 12/01/22 22:24> MDM MDM Narrative Medical decision making narrative: Patient presenting today with shortness of breath that started this morning. She has been seen in the emergency department several times for COPD exacerbation but states she has no formal diagnosis of COPD and does not have a alteration tailor apprentice. She has an albuterol inhaler as well as breathing treatments butis not on any other inhalers. She is having a difficult time breathing as she is using accessory muscles and does sound really wheezy. She will be given Solu-Medrol which she has tolerated in the past without any reaction as well as breathing treatments. She is tachycardic at 124 bpm, however, I feel that can be attributed to her having 5 breathing treatments today. however, she has neverbeen tachycardic here in the past, therefore D- dimer will be obtained. Labs will be obtained to rule out anemia, leukocytosis, ACS. Chest x-ray will be obtained to rule out pneumonia, pneumothorax, or any other cardiopulmonary abnormality and is negative for any acute disease. D-dimer is negative, troponin WNL. On examination patient is still significantly wheezy and has a difficult time carrying on a conversation. She is remained at 95% on room air. She will be ambulated to assess her pulse ox and then possibly discussed with hospitalist for admission. Patient actually was ambulated in the department. She maintained sats at 96%. She actually did quite well. My initial impression is that she would likely need admission but she has gotten much better. She is calm sitting in bed. Shecarries on a normal conversation without stopping now. Her lungs sound much better. She only got 1 breathing treatment here so I will give her another. She does have DuoNebs at home. She did very well with Decadron last time. We will start her on Decadron here and give her 5 days more. We discussed reasons to return. Lab Data Labs: Laboratory Results - last 24 hr 12/01/22 12/01/22 12/01/22 18:50 18:50 20:00 WBC 8.5 RBC 3.44 L Hgb 10.6 L Hct 31.7 L MCV 92.2 MCH 30.8 MCHC 33.4 RDW Std Deviation 42.5 RDW Coeff of Braeden 12.6 Plt Count 198 MPV 10.5 Immature Gran % (Auto) 0.500 Neut % (Auto) 69.6 Lymph % (Auto) 20.6 [place] % (Auto) 8.0 Eos % (Auto) 0.7 Baso % (Auto) 0.6 Absolute Neuts (auto) 5.9 Absolute Lymphs (auto) 1.75 Nucleated RBC % 0 D-Dimer Quant (PE/DVT) < 0.27 L Sodium 139 Potassium 3.3 L Chloride 106 Carbon Dioxide 26.0 Anion Gap 7 BUN 21 H Creatinine 0.76 Estim Creat Clear Calc 69.06 Est GFR (MDRD) Af Amer 99 Est GFR (MDRD) Non-Af 82 BUN/Creatinine Ratio 27.6 H Glucose 128 H Calcium 8.9 Troponin I High Sens 12/01/22 20:00 WBC RBC Hgb Hct MCV MCH MCHC RDW Std Deviation RDW Coeff of Braeden Plt Count MPV Immature Gran % (Auto) Neut % (Auto) Lymph % (Auto) [place] % (Auto) Eos % (Auto) Baso % (Auto) Absolute Neuts (auto) Absolute Lymphs (auto) Nucleated RBC % D-Dimer Quant (PE/DVT) Sodium Potassium Chloride Carbon Dioxide Anion Gap BUN Creatinine Estim Creat Clear Calc Est GFR (MDRD) Af Amer Est GFR (MDRD) Non-Af BUN/Creatinine Ratio Glucose Calcium Troponin I High Sens 19 Radiography Diagnostic Testing: Clinical Impression(s) from Imaging Studies Chest X-Ray 12/01/22 18:46 IMPRESSION: No radiographic evidence of acute cardiopulmonary disease. Electronically Signed: Thaddeus Garcia MD at 19:11 EDT , My independent interpretation of the patient's single view chest x-ray shows some hyperexpansion but no acute infiltrate or pneumothorax. Final reading is no radiographic evidence of acute cardiopulmonary disease Treatment and Re-Evaluation :: I have personally performed a face to face assessment of the patient and have reviewed the SAMSON Note. I performed a substantive portion of the visit including all aspects of the following. My spivey findings include: History: Patient states she was having shortness of breath and wheezing off and on for maybe 2 or 3 days. But over the last day and mostly today she has had tight wheezing. She has used breathing treatments about 5 times at home. But states she just cannot really catch her breath well. She is coughing but not bringing up any sputum. She is not having chest pain. No hemoptysis. Never had DVT or PE. No travel or surgery. No leg pain or swelling. She has quit smoking about a month ago. She has a known history of asthma but has not been diagnosed with COPD. But she has been seen several times for similar episodes. Exam: Patient is very tight. She is not moving much air at all. She has tight wheezing on exam. She actually speaks in shortened sentences due to this. She is a bit tachycardic but closer to 110 now. This might be due to her multiple breathing treatments. Medical Decision Making: Patient's x-ray shows chronic changes. D-dimer is negative. Troponins negative. She does have some anemia but denies any recent bleeding. She is not on any anticoagulation. Discharge Plan Triage Chief Complaint: Shortness of Breath ED Midlevel Provider: Kelsey Hines ED Provider: Simba Carroll Dx/Rx/DC Orders Clinical Impression: COPD exacerbation, Tachycardia Instructions: ED COPD Flare Prescriptions: New dexamethasone 6 mg tablet 6 mg PO DAILY Qty: 5 0RF No Action levothyroxine 100 MCG tablet 100 mcg PO DAILY albuterol sulfate [Ventolin HFA] 1 INHALER inhaler 2 puff inhalation Q4H PRN PRN (Reason: Wheezing) Qty: 1 0RF acetaminophen 500 mg Tablet 650 mg PO Q6 PRN (Reason: Pain, Moderate) Qty: 0 0RF (DME) nebulizer and compressor [InnoSpire Essence] Device See Rx Instructions .Route Qty: 1 0RF Rx Instructions: As directed ipratropium-albuterol 0.5 mg-3 mg(2.5 mg base)/3 mL solution for nebulization 3 ml inhalation Q4H PRN (Reason: shortness of breath or wheezing) Qty: 180 2RF Primary Care Provider: Paulina Hair Referrals: Paulina Hair MD [Primary Care Provider] - 3-5 Days if not improving Disposition Disposition: Home, Self Care What to do if you have Problems For any increased pain, shortness of breath, bleeding, nausea or vomiting, chestpain, or any unexpected problems, contact your Primary Care Provider. Call [facility] ([phone]) or report to the closest Emergency Room. Call 911 if necessary. 12/01/222118 <Electronically signed by Kelsey RIVAS> Cosigner Signature (if applicable): 12/01/222223 <Electronically signed by Simba Carroll MD> CC: Dr. Paulina Hair MD ~ Signed [facility] Work Phone: [phone]) 843-161502-24-[address] Perez [facility] October 27, 2022 1:42pm Note Date/Time October 27, 2022 1:40pm [facility] Medical Records Department [address] [place] [address] Discharge Summary 10/27/22 1338 MR#: [id number] Acct: [id number] Name: JESIKA WHIPPLE Rep #:[id number] : 1960 62 From: Harshad love MD PCP: Dr. Paulina Hair MD Status:AD M IN [place] [facility] [id number] Providers Date of Admission: 10/26/22 Primary Care Physician: Dr. Paulina Hair MD Reason For Visit: RT STERLING COLECTOMY Diagnosis Discharge Diagnosis (1) Adenomatous colon polyp: Status: Acute Code(s): D12.6 - Benign neoplasm of colon, unspecified Plan: Is doing well after laparoscopic right hemicolectomy. I have advanced her to a regular diet and stopped her IV fluids. She was a little hyponatremic today butthat should correct on its own I will reorder labs for tomorrow. Pain appears to be well controlled and the patient is started on a regular diet. If she is doing well tomorrow she will be discharged home. Harshad Perez MD Pager: [facility] [address] [place] [address], [address] [place] [address] Office: Medications at Discharge Home Medications levothyroxine 100 mcg tablet 100 mcg PO DAILY THYROID 07/05/20 albuterol sulfate 90 mcg/actuation aerosol inhaler (Ventolin HFA) 2 puff inhalation Q4H PRN PRN Wheezing ##1 06/30/21 ipratropium 0.5 mg-albuterol 3 mg (2.5 mg base)/3 mL nebulization soln 3 ml inhalation Q4H PRN shortness of breath or wheezing #180 mL 10/14/22 nebulizer and compressor (InnoSpire Essence device) #1 ea 10/14/22 acetaminophen 500 mg tablet 650 mg PO Q6 PRN Pain, Moderate #0 tabs 10/27/22 Hospital Course Operations colectomy Summary of Care Provided Hospital Course: Patient had elective laparoscopic right hemicolectomy for a very large polyp of the cecum. After surgery the patient was started on clear liquids. After tolerating clear liquid she was advanced to regular diet and pain was controlledon oral medications. The following day once tolerating diet she will be discharged home. Weight / BMI Weight Weight: 118 lb 0.003 oz Body Mass Index (BMI) 19.6 ABG / Lab / Microbiology Data Result Diagrams: 10/27/22 05:45 10/27/22 05:45 Laboratory: Laboratory Results - last 24 hr 10/27/22 05:45: WBC 15.4 H, RBC 3.90 L, Hgb 12.3, Hct 36.5 L, MCV 93.6, MCH 31.5, MCHC 33.7, RDW Std Deviation 42.3, RDW Coeff of Braeden 12.3, Plt Count 219, MPV 10.0 10/27/22 05:45: Sodium 129 L, Potassium 4.5, Chloride 97 L, Carbon Dioxide 27.0,Anion Gap 5, BUN 10, Creatinine 0.91, Estim Creat Clear Calc 54.16, Est GFR (MDRD) Af Amer 81, Est GFR (MDRD) Non-Af 67, BUN/Creatinine Ratio 11.0, Glucose 111 H, Calcium 8.6 D/C Instructions Discharge Diet: Light diet - advance as tolerated Discharge Activity: Return to Normal Activity, May Drive (in 2-3 days) and May Shower Lifting Restrictions: 15 lbs for 4 weeks Additional Activity Instructions: Be aware that pain medications may cause nausea. You should typically eat light foods as you take your pain medications. Pain medications may also cause constipation. If you have difficulty with thisplease discuss with your doctor. Call your doctor if your incision/area has: Continuous Slow Oozing, Sudden Increased Bleeding, Increased Pain/ Swelling, Increased Redness, Foul Smelling Discharge and Swelling at the incision site Call your doctor if you observe: Fever of 101 or Higher and Uncontrolled pain Remove Dressing in: 1 day (Remove bandages tomorrow, remove steri strips in 7- 10days) Cleanse incision/area with: Soap & Water Please Follow Up With: Harshad Perez MD When: Please call to schedule 1 week follow up appointment. [phone] Meaningful Use Info Meaningful Use Diagnoses (Choose all that apply): None applicable Discharge Plan Admission Admit Date/Time: 10/26/22 05:24 Attending Provider: Harshad Perez Primary Care Provider: Paulina Hair Discharge Orders/Prescriptions Prescriptions: New acetaminophen 500 mg Tablet 650 mg PO Q6 PRN (Reason: Pain, Moderate) Qty: 0 0RF Continued levothyroxine 100 MCG tablet 100 mcg PO DAILY albuterol sulfate [Ventolin HFA] 1 INHALER inhaler 2 puff inhalation Q4H PRN PRN (Reason: Wheezing) Qty: 1 0RF (DME) nebulizer and compressor [InnoSpire Essence] Device See Rx Instructions .Route Qty: 1 0RF Rx Instructions: As directed ipratropium-albuterol 0.5 mg-3 mg(2.5 mg base)/3 mL solution for nebulization 3 ml inhalation Q4H PRN (Reason: shortness of breath or wheezing) Qty: 180 2RF Discontinued metronidazole 500 mg tablet 500 mg PO .COMPLEX Rx Instructions: 500 mg orally; Take 2 tabs PO at 1300, 1400, and 2300 day before surgery Referrals / Follow Up: Paulina Hair MD [Primary Care Provider] - 10/27/22 1342 <Electronically signed by Harshad Perez MD> Cosigner Signature (if applicable): CC: Dr. Harshad Perez MD; Dr. Paulina Hair MD~ Signed [facility] Work Phone: 1(505) 753-560002-24-[address] Perez [facility] October 27, 2022 1:38pm Note Date/Time October 27, 2022 1:38pm [facility] Medical Records Department [address] [place] [address] Progress Note - Surgery 10/27/22 1337 MR#: [id number] Acct: [id number] Name: JESIKA WHIPPLE Rep #:[id number] : 1960 62 From: Harshad love MD PCP: Dr. Paulina Hair MD Status:AD M IN Location: [place] [address] Subjective Subjective Patient reports she is doing well. She tolerated clears yesterday evening. Shewas started on a regular diet and tolerated regular diet this morning. She is passing some flatus. No bowel movement yet. Abdominal pain is well controlled on the Tylenol and Toradol. Objective Data Objective Data Vital Signs: Vital Signs Temp Pulse Resp BP Pulse Ox O2 Del Method O2 Flow Rate 99.0 F 69 18 137/87 H 99 Room Air 4 10/27/22 08:38 10/27/22 08:38 10/27/22 08:38 10/27/22 08:38 10/27/22 08:38 10/27/22 08:41 10/26/22 10:49 FiO2 39 10/26/22 09:45 Oxygen Flow Rate (L/min) 4 Oxygen Delivery Method Room Air Weight: 118 lb 0.003 oz Body Mass Index (BMI) 19.6 Intake & Output: Intake and Output for Last 24 Hours 10/25/22 10/26/22 10/27/22 23:59 23:59 23:59 Intake Total 2482 / 2482 465 / 465 Output Total 200 / 200 425 / 425 Balance 2282 / 2282 40 / 40 Lab / Micro Data Result Diagrams: 10/27/22 05:45 10/27/22 05:45 Labs: Laboratory Results - last 24 hr 10/27/22 05:45: WBC 15.4 H, RBC 3.90 L, Hgb 12.3, Hct 36.5 L, MCV 93.6, MCH 31.5, MCHC 33.7, RDW Std Deviation 42.3, RDW Coeff of Braeden 12.3, Plt Count 219, MPV 10.0 10/27/22 05:45: Sodium 129 L, Potassium 4.5, Chloride 97 L, Carbon Dioxide 27.0,Anion Gap 5, BUN 10, Creatinine 0.91, Estim Creat Clear Calc 54.16, Est GFR (MDRD) Af Amer 81, Est GFR (MDRD) Non-Af 67, BUN/Creatinine Ratio 11.0, Glucose 111 H, Calcium 8.6 Physical Exam Const oriented x3 Resp normal respiratory effort GI soft to palpation Inspection: abdominal distention Assessment & Plan Assessment/Plan (1) Adenomatous colon polyp: PLAN: Is doing well after laparoscopic right hemicolectomy. I have advanced herto a regular diet and stopped her IV fluids. She was a little hyponatremic today but that should correct on its own I will reorder labs for tomorrow. Painappears to be well controlled and the patient is started on a regular diet. If she is doing well tomorrow she will be discharged home. Harshad Perez MD Pager: [facility] [address] [place] [address], [address] [place] [address] Office: 10/27/22 1338 <Electronically signed by Harshad Perez MD> Cosigner Signature (if applicable): CC: ~ Signed [facility] Work Phone: [phone]) 682-822902-23-2023 Procedure [place] 10-26-2022 History and physical note Author Dr. Perez [facility] October 26, 2022 6:02am Note Date/Time October 26, 2022 6:02am [facility] Medical Records Department [address] [place] [address] H&P Exam - Surgical 10/26/22 0600 MR#: [id number] Acct: [id number] Name: JESIKA WHIPPLE Rep #:[id number] : 1960 62 From: Harshad love MD PCP: Dr. Paulina Hair MD Status:AD M IN Location: [facility] A-1 HPI - General General Date of Admission: 10/26/22 HPI Narrative JESIKA WHIPPLE, is a 62 F who presents for right hemicolectomy for large polyp in the cecum. Patient had colonoscopy and was found to have a large polyp whichwas unable to be removed endoscopically. It is in the cecum just distal to the ileocecal valve. Biopsy of this came back as tubovillous adenoma but it was unable to be fully removed [facility] Medical History (Updated 10/22/22 @ 00:01 by Ean Rosas) Alcohol use Anemia Arthritis Back pain Cancer COPD (chronic obstructive pulmonary disease) Easy bruising Excessive bleeding History of echocardiogram History of pain when walking History of ulceration Hoarseness Injury of head and neck Leg cramps Low calcium levels Marijuana use Migraine headache Post-menopausal Recurrent UTI Seasonal allergies Smoker Syncope Thyroid disease Wears glasses Home Medications levothyroxine 100 mcg tablet 100 mcg PO DAILY THYROID 07/05/20 [History Last Taken 09/29/22] albuterol sulfate 90 mcg/actuation aerosol inhaler (Ventolin HFA) 2 puff inhalation Q4H PRN PRN Wheezing ##1 06/30/21 [Rx Last Taken 09/29/22] ipratropium 0.5 mg-albuterol 3 mg (2.5 mg base)/3 mL nebulization soln 3 ml inhalation Q4H PRN shortness of breath or wheezing #180 mL 10/14/22 [Rx Last Taken Unknown] nebulizer and compressor (InnoSpire Essence device) #1 ea 10/14/22 [Rx Last Taken Unknown] metronidazole 500 mg tablet 500 mg PO .COMPLEX SURGERY 10/19/22 [History Last Taken Unknown] Allergy/AdvReac Type Severity Reaction Status Date / Time prednisone Allergy Unknown Unknown Verified 10/19/22 14:40 erythromycin base Allergy Hives Verified 10/19/22 14:40 [From Erythrocin] Family History Mother Asthma Heart disease CVA (cerebral vascular accident) High cholesterol Surgical History (Updated 10/19/22 @ 14:50 by Afua Castellanos) H/O thyroidectomy H/O: History of colonoscopy (~09/2022) History of esophagogastroduodenoscopy (EGD) (~09/2022) History of loop electrical excision procedure (LEEP) Social History Smoking Status: Current every day smoker tobacco type: cigarettes second hand exposure: No alcohol intake: current substance use type: does not use ROS Constitutional Constitutional: Denies anorexia, chills or fatigue Eyes Eyes: Denies blurry vision ENT HEENT: Denies abnormal hearing Respiratory/Chest Respiratory/Chest: Denies cough Gastrointestinal Gastrointestinal: Denies abdominal pain Genitourinary Genitourinary: Denies change in urinary stream Musculoskeletal Musculoskeletal: Denies abnormal gait Integumentary Integumentary: Denies jaundice Neurologic Neurologic: Denies abnormal gait Psychiatric Psychiatric: Denies anxiety Physical Exam Const oriented x3 Resp normal respiratory effort Cardio regular rate and regular rhythm GI soft to palpation and non-tender Extremity normal to inspection Results Lab / Micro Data Result Diagrams: 10/24/22 14:40 Assessment & Plan Assessment/Plan (1) Adenomatous colon polyp: PLAN: The patient had a very large mass in the right colon.? Part of this mass was removed and came back as tubular adenoma.? It was too large to fully remove endoscopically.? I recommended right hemicolectomy to the patient.? I discussed laparoscopic right hemicolectomy with the patient in detail.? I discussed the risks including not limited to bleeding, infection, injury to other organs such as the kidney, bladder, ureter.? Patient understands all the risks and is when to proceed.? All questions were answered and postoperative care was discussed. Harshad Perez MD Pager: [facility] [address] [place] [address], [address] [place] [address] Office: 10/26/22 0602 <Electronically signed by Harshad Perez MD> Cosigner Signature (if applicable): CC: Dr. Harshad Perez MD; Dr. Paulina Hair MD~ Signed [facility] Work Phone: 1(313) 668-957102-02-2023 NoteHNO ID: [id number] Author: RT Enrrique(R) Service: ? Author Type: Technologist Type: Progress Notes Filed: 10/05/2022 2:38 PM Note Text: Radiology Service Progress Note PATIENT NAME: Jesika Whipple DATE OF SERVICE: October 05, 2022 TIME: 2:37 PM PATIENT IDENTITY VERIFICATION COMPLETED USING TWO (2) IDENTIFIERS: Name and Date of confirmed by patient verbally. FALL SCREENING: Has the patient had 2 falls in the last year or 1 fall with injury or currently using an Ambulatory Assistive Device (Walker, Cane, Wheelchair, Crutches, etc.)? No PATIENT GENDER DATA: Female. status: : No status: NO. PATIENT RELEVANT IMPLANT DATA REVIEWED: Not Applicable RADIOLOGY DEPARTMENT: Mammography PERIPHERAL IV DATA: Not applicable SIGNED BY: RT Enrrique(R) October 05, 2022 2:37 [facility]02-02-2023 Miscellaneous Notes * Letter - Mammography Coordinator - 10/05/2022 3:22 PM EST October 06, 2022 PID: [id number] Jesika Whipple [address] [place] [address] Dear Ms. Whipple, We are pleased to inform you that the results of your recent breast imaging exam on 10/05/2022 are normal. Early detection of cancer is very important. We also understand recommendations regarding breast cancer screening are controversial. Please discuss with your primary care provider which strategy is best for you and whether a mammogram is right for you. Your imaging studies and report will be kept on file at [facility] as part of your permanent medical record and are available for your continuing care. Thank you for allowing us to help in meeting your health care needs. Sincerely, Dr. Campa Interpreting Radiologist [facility] (Normal over 40) [facility]23 History of Present illness Narrative* Krystle Low RT(R) - 10/05/2022 2:30 PM EST Radiology Service Progress Note PATIENT NAME: Jesika Whipple DATE OF SERVICE: October 05, 2022 TIME: 2:37 PM PATIENT IDENTITY VERIFICATION COMPLETED USING TWO (2) IDENTIFIERS: Name and Date of confirmedby patient verbally. FALL SCREENING: Has the patient had 2 falls in the last year or 1 fall with injury or currently using an Ambulatory Assistive Device (Walker, Cane, Wheelchair, Crutches, etc.)? No PATIENT GENDER DATA: Female. status: : No status: NO. PATIENT RELEVANT IMPLANT DATA REVIEWED: Not Applicable RADIOLOGY DEPARTMENT: Mammography PERIPHERAL IV DATA: Not applicable SIGNED BY: RT Enrrique(R) October 05, 2022 2:37 PM [facility]2023 [facility] Procedure [place]01-27-2023 Procedure [place]01-27-2023 Procedure [place] Author Lambert Gardner [facility] October 14, 2022 6:21am Note Date/Time October 14, 2022 4:41am [facility] Medical Records Department [address] [place] [address] Emergency Department Summary 10/14/22 MR#: [id number] Acct: [id number] Name: JESIKA WHIPPLE Rep #:[id number] : 1960 62 From: Lambert Gardner DO PCP: Dr. Paulina Hair MD Status:RE G ER Location: ED HPI History of Present Illness Chief Complaint: Shortness of Breath Narrative Narrative: Patient is a 62-year-old female with past medical history of asthma as well as smoking but no formal diagnosis of COPD/emphysema and no need for supplemental oxygen. She states that she smokes roughly 1 pack a day. She states has been no known sick contacts and she denies any new exposures but reports over the past 2 to 3 days she has been having cough with increasing shortness of breath. She states she does not have any medication at home to help with her symptoms other than a rescue inhaler which does not seem to be working and therefore comes to the hospital at this time because of worsening symptoms [facility] Medical History Alcohol use Anemia Arthritis Back pain Cancer COPD (chronic obstructive pulmonary disease) Easy bruising Excessive bleeding History of echocardiogram History of pain when walking History of ulceration Hoarseness Injury of head and neck Leg cramps Low calcium levels Marijuana use Migraine headache Post-menopausal Recurrent UTI Seasonal allergies Smoker Syncope Thyroid disease Wears glasses Home Medications levothyroxine 100 mcg tablet 100 mcg PO DAILY 07/05/20 [History Last Taken 09/29/22] albuterol sulfate 90 mcg/actuation aerosol inhaler (Ventolin HFA) 2 puff inhalation Q4H PRN PRN Wheezing ##1 06/30/21 [Rx Last Taken 09/29/22] metronidazole 500 mg tablet 500 mg PO .COMPLEX #6 tabs 10/06/22 [Rx Last Taken Unknown] dexamethasone 6 mg tablet 6 mg PO DAILY 7 days #7 tabs 10/14/22 [Rx Last Taken Unknown] ipratropium 0.5 mg-albuterol 3 mg (2.5 mg base)/3 mL nebulization soln 3 ml inhalation Q4H PRN shortness of breath or wheezing #180 mL 10/14/22 [Rx Last Taken Unknown] nebulizer and compressor (OculogicaoSpire Essence device) #1 ea 10/14/22 [Rx Last Taken Unknown] Allergy/AdvReac Type Severity Reaction Status Date / Time prednisone Allergy Unknown Unknown Verified 10/14/22 03:54 erythromycin base Allergy Hives Verified 10/14/22 03:54 [From Erythrocin] Family History Mother Asthma Heart disease CVA (cerebral vascular accident) High cholesterol Surgical History H/O thyroidectomy H/O: History of colonoscopy (~09/2022) History of esophagogastroduodenoscopy (EGD) (~09/2022) History of loop electrical excision procedure (LEEP) Social History Smoking Status: Current every day smoker tobacco type: cigarettes second hand exposure: No alcohol intake: current substance use type: does not use ROS ROS ED Constitutional Constitutional ED: Denies chills or fever(s) ENT ENT ED: Denies rhinorrhea or sore throat Cardiovascular Cardiovascular: Denies chest pain Respiratory/Chest Respiratory/Chest: Reports cough and dyspnea Gastrointestinal Gastrointestinal: Denies abdominal pain, diarrhea, nausea or vomiting Genitourinary Genitourinary ED: Denies dysuria Musculoskeletal Musculoskeletal: Denies myalgias Integumentary Denies rash Neurologic Neurologic: Denies headache(s) Hematologic/Lymphatic Hematologic/Lymphatic: Denies easy bleeding or easy bruising EXAM Physical Exam Const Vital Signs: 10/14/22 03:50 10/14/22 03:50 10/14/22 04:05 Temperature 97.9 F Temperature Source Oral Pulse Rate 87 79 Respiratory Rate 24 H 18 Respiratory Effort Short of Breath Accessory Muscle Use Respiratory Depth Deep Respiratory Pattern Tachypnea Normal Blood Pressure 156/87 H Blood Pressure Mean 110 Pulse Ox 99 Oxygen Delivery Method Room Air Room Air 10/14/22 05:07 10/14/22 05:36 10/14/22 05:50 Temperature Temperature Source Pulse Rate 81 83 105 H Respiratory Rate 16 18 20 H Respiratory Effort Respiratory Depth Respiratory Pattern Normal Normal Blood Pressure 138/75 H Blood Pressure Mean 96 Pulse Ox 97 Oxygen Delivery Method Room Air Positive well nourished and well developed General Appearance ED: well developed HEENT HEENT Narrative: No tongue or lip swelling. No oral lesions. No airway edema or compromise Eyes PERRL and EOMs intact bilaterally Neck supple and no JVD Chest Wall palpation of chest normal Resp Resp Narrative: Patient has diminished breath sounds throughout with faint inspiratory wheeze inthe bilateral lower lobes. Patient also has mild stridor noted and accessory muscle use with slight retractions present. Cardio regular rate and regular rhythm Rate: other Other Details: Radial pulses are plus 2 out of 4 bilaterally are equal and symmetric GI normal to inspection, nondistended, normoactive bowel sounds, non-tender, non-distended and no masses Auscultation: normoactive bowel sounds Palpation: soft Extremity normal to inspection Extremity Narrative: No asymmetric edema no pitting edema negative Homans' sign bilaterally Neuro oriented x3 and CN's II-XII intact bilaterally Sensorium / Orientation: alert Psych mental status grossly normal Skin no rashes or lesions noted MDM MDM MDM Narrative Medical decision making narrative: Patient presented to the ER with mild increased work of breathing but despite this was satting in the high 90s on room air. With her history of asthma as well as COPD and smoking I felt she was having a spontaneous exacerbation as shedenied any recent sick symptoms or sick contacts. Therefore I felt no need for basic blood work as my concern for infectious process or cardiac event was low. Chest x-ray was obtained which revealed no acute lung pathology but just chronicchanges consistent with COPD. Patient was given Decadron 20 mg by mouth which she tolerated without difficulty despite a history of allergic reaction to prednisone. She was also given racemic epinephrine 2 DuoNebs and 1 albuterol breathing treatment. Following this her work of breathing improved stridor resolved and she was moving better air. We discussed possible admission becauseof her persistent symptoms. However the patient is satting in the high 90s on room air has had improvement from her initial evaluation and does not want to stay in the hospital at this time. Therefore I will prescribe Decadron to take for the next 5 days to reduce inflammation as well as nebulizer breathing treatments so she will receive the same treatment she would in the hospital and patient can be discharged and she understands to return if there is no improvement or worsening of symptoms. Radiography Diagnostic Testing: Clinical Impression(s) from Imaging Studies Chest X-Ray 10/14/22 04:35 IMPRESSION: COPD and atherosclerotic disease Electronically Signed: Ke Maurer MD at 5:16 EST , 1 view chest x-ray is interpreted by the emergency medicine physician reveals hyperinflated lungs consistent with COPD/emphysema without acute infiltrate pneumothorax or pleural effusion Discharge Plan Triage Chief Complaint: Shortness of Breath ED Provider: Lambert Gardner Dx/Rx/DC Orders Clinical Impression: Acute exacerbation of COPD with asthma, Hypothyroidism (acquired), Tobacco abuse Instructions: COPD: Wheezing and Chest Tightness, Asthma Prescriptions: New dexamethasone 6 mg tablet 6 mg PO DAILY 7 Days Qty: 7 0RF (DME) nebulizer and compressor [InnoSpire Essence] Device See Rx Instructions .Route Qty: 1 0RF Rx Instructions: As directed ipratropium-albuterol 0.5 mg-3 mg(2.5 mg base)/3 mL solution for nebulization 3 ml inhalation Q4H PRN (Reason: shortness of breath or wheezing) Qty: 180 2RF No Action metronidazole 500 mg tablet 500 mg PO .COMPLEX Qty: 6 0RF Rx Instructions: 500 mg orally; Take 2 tabs PO at 1300, 1400, and 2300 day before surgery levothyroxine 100 MCG tablet 100 mcg PO DAILY albuterol sulfate [Ventolin HFA] 1 INHALER inhaler 2 puff inhalation Q4H PRN PRN (Reason: Wheezing) Qty: 1 0RF Primary Care Provider: Paulina Hair Referrals: Paulina Hari MD [Primary Care Provider] - Activity Restrictions/Additional Instructions: Please take your medication as directed to help control your shortness of breath/bronchospasm and if you have worsening of symptoms or any further concerns please return for repeat evaluation Disposition Disposition: Home, Self Care What to do if you have Problems For any increased pain, shortness of breath, bleeding, nausea or vomiting, chestpain, or any unexpected problems, contact your Primary Care Provider. Call [employer] [facility] ([phone]) or report to the closest Emergency Room. Call 911 if necessary. 10/14/22620 <Electronically signed by Lambert Gardner DO> Cosigner Signature (if applicable): CC: Dr. Paulina Hair MD ~ Signed [facility] Work Phone: Discharge summary Author Dr. Saini [facility] October 28, 2022 9:09am Note Date/Time October 28, 2022 9:08am [facility] Medical Records Department [address] [place] [id number] Instructions for Home/Discharge Instructions 10/28/2206 MR#: [id number] Acct: [id number] Name: JESIKA WHIPPLE Rep #:[id number] : 1960 62 From: Robin March PCP: Dr. Paulina Hair MD Status:AD M IN Discharge Instructions Diet Discharge Diet: Light diet - advance as tolerated Activity Discharge Activity: May Shower Lifting Restrictions: No lifting greater than 15 pounds for 4 weeks after surgery Additional Activity Instructions:: Be aware that pain medications may cause nausea. You should typically eat light foods as you take your pain medications. Pain medications may also cause constipation. If you have difficulty with thisplease discuss with your doctor. Dressing / Incision Call your doctor if your incision/area has: Continuous Slow Oozing, Sudden Increased Bleeding, Increased Pain/ Swelling, Increased Redness, Foul Smelling Discharge and Swelling at the incision site Call your doctor if you observe: Fever of 101 or Higher and Uncontrolled pain Cleanse incision/area with: Soap & Water Additional Dressing/Incision Instructions:: Please leave Steri-Strips intact until they fall off spontaneously or are taken off at your follow-up visit Follow Up Care Please Follow Up With: Harshad Perez MD When: 7 to 10 days postop Test Results: Test results from this visit will be discussed in further detail at your follow- up appointment, if applicable. Discharge Plan Admission Admit Date/Time: 10/26/22 05:24 Primary Reason for Your Visit: Right hemicolectomy for large colon polyp Attending Provider: Harshad Perez Primary Care Provider: Paulina Hair Discharge Orders/Prescriptions Prescriptions: New acetaminophen 500 mg Tablet 650 mg PO Q6 PRN (Reason: Pain, Moderate) Qty: 0 0RF Continued levothyroxine 100 MCG tablet 100 mcg PO DAILY albuterol sulfate [Ventolin HFA] 1 INHALER inhaler 2 puff inhalation Q4H PRN PRN (Reason: Wheezing) Qty: 1 0RF (DME) nebulizer and compressor [InnoSpire Essence] Device See Rx Instructions .Route Qty: 1 0RF Rx Instructions: As directed ipratropium-albuterol 0.5 mg-3 mg(2.5 mg base)/3 mL solution for nebulization 3 ml inhalation Q4H PRN (Reason: shortness of breath or wheezing) Qty: 180 2RF Discontinued metronidazole 500 mg tablet 500 mg PO .COMPLEX Rx Instructions: 500 mg orally; Take 2 tabs PO at 1300, 1400, and 2300 day before surgery Referrals / Follow Up: Paulina Hair MD [Primary Care Provider] - Disposition Disposition (needs filled in before D/C Order can be placed): Home, Self Care 10/28/22 0909<Electronically signed by Robin Saini MD>Robin Saini MD CC: Dr. Paulina Hair MD ~ Signed [facility] Work Phone: Evaluation noteNo assessment information available [facility] Work Phone: Evaluation note* Diagnosis Onset Date Resolution Status Epigastric pain acute Positive colorectal cancer s creening using Cologuard test acute [facility] Work Phone: Evaluation note* Diagnosis Onset Date Resolution Status Epigastric pain acute Positive colorectal cancer s creening using Cologuard test acute Adenomatous colon polyp acut e [facility] Work Phone: Evaluation note* Diagnosis Onset Date Resolution Status Epigastric pain acute Positive colorectal cancer s creening using Cologuard test acute Adenomatous colon polyp acut e Adenomatous colon polyp acut e [facility] Work Phone: Evaluation note* Diagnosis Onset Date Resolution Status Epigastric pain acute Positive colorectal cancer s creening using Cologuard test acute Adenomatous colon polyp reso lved Adenomatous colon polyp reso lved Adenomatous colon polyp reso lved [facility] Work Phone: Evaluation note* Diagnosis Onset Date Resolution Status Airway obstruction, anatomic acute Nicotine dependence, cigarettes, in remission acute [facility] Work Phone: Evaluation note* Diagnosis Onset Date Resolution Status Nicotine dependence, cigarettes, in remission chronic Seasonal allergies chronic [facility] Work Phone: Evaluation note* Diagnosis Onset Date Resolution Status Nicotine dependence, cigarettes, in remission chronic Seasonal allergies chronic Cystitis acute [facility] Work Phone: History and physical note Author Dr. Perez [facility] September 29, 2022 9:53am Note Date/Time September 29, 2022 9 :53am [facility] Medical Records Department [address] [place] [address] History & Physical Exam 09/29/22 0952 MR#: [id number] Acct: [id number] Name: JESIKA WHIPPLE Rep #:[id number] : 1960 62 From: Harshad love MD PCP: Dr. Paulina Hair MD Status:[facility] Location: [facility] History and Physical Date of Admission: 09/29/22 Intake Vital Signs ? 07/14/2201:17 09/01/2213:27 Height 5 ft 7 in 5 ft 6 in Weight: ? 117 lb 6 oz BMI ? 18.9 BP ? 129/75 H Blood Pressure Location ? Rt brachial Position ? Sitting Respiration ? 19 H Pulse ? 83 Pulse Source ? Monitor Temp ? 97.3 F L Temp Source ? Temporal Pulse Oximetry (%) ? 90 Oxygen Delivery Method ? room air Intake Visit Reasons:?POSITIVE COLOGUARD Chief Complaint: Positive cologuard Editing Intern Required: No Is patient in pain?: No Allergies prednisone Allergy (Unknown, Verified 09/01/22 13:30) Unknownerythromycin base [From Erythrocin] Allergy (Verified 09/01/22 13:30) Hives Medications levothyroxine 100 mcg tablet 100 mcg PO DAILY 07/05/20 [History Confirmed 09/01/22] albuterol sulfate 90 mcg/actuation aerosol inhaler (Ventolin HFA) 2 puff inhalation Q4H PRN PRN Wheezing ##1 06/30/21 [Rx Confirmed 09/01/22] doxycycline monohydrate 100 mg capsule 100 mg PO BID #14 caps 07/14/22 [Rx Confirmed 09/01/22] PFSH Medical History? Asthma Cancer COPD (chronic obstructive pulmonary disease) Hives Low calcium levels Recurrent UTI Seasonal allergies Thyroid ca Surgical History? H/O thyroidectomy H/O: Family History? Mother Asthma Heart disease CVA (cerebral vascular accident) High cholesterol Social History? Smoking Status:? Current every day smoker tobacco type: cigarettes second hand exposure:? No alcohol intake:? current substance use type:? does not use HPI HPI HPI: Patient is a 62-year-old female here for positive Cologuard.? She had a Cologuard test about 2 years ago which was normal.? She has never had a colonoscopy.? She does state she has episodic epigastric pain.? She denies any gross blood in her stool or family history of colon cancer. ROS General General: Yes weight change; No appetite, fatigue, colon cancer, breast cancer or weakness HEENT HEENT: Yes eye injury and eye surgery; No difficulty swallowing, swollen glands or hoarseness Endo Endocrine: Yes thyroid disease and thyroid cancer; No diabetes mellitus, Hair loss, heat intolerance or cold intolerance Skin Skin: Yes changing moles; No rash Breast Breast: No left breast lump, right breast lump, nipple discharge, breast pain, abnormal mammogram, abnormal US or breast enlargement Musc Musculoskeletal: No back problems, arthritis, rheumatoid arthritis, gout or joint pain Cardio Cardiovascular: No murmur, pacemaker, heart disease, atrial fibrillation, high blood pressure, heart attack, heart stent, palpitations, shortness of breat withexertion or chest pain Psych Psychiatric: No depression, anxiety or hearing voices Resp Respiratory: Yes shortness of breath, No sleep apnea, No cough, Yes COPD, No asthma, No emphysema and No wheezing Gastro Gastrointestinal: Yes abdominal pain, No nausea or vomiting, No diarrhea, No constipation, No blood in stool, No acid reflux, No hemorrhoids, No ulcers, No gallbladder problem and No black,tarry stools Otto Hematologic: No blood thinners, No blood disorders, No bleeding, No anemia and No blood clots Neuro Neurologic: No system reviewed and no additional complaints, except as documented, No as per HPI, No abnormal gait, No abnormal hearing, No abnormal movements, No abnormal speech, No behavioral changes, No burning sensations, No confusion, No convulsions, No disequilibrium, No dizziness, No localized weakness, No frequent falls, No headache(s), No lack of coordination, No loss ofvision, No memory loss, No numbness, No other visual disturbances, No radicular pain, No restless legs, No sensory deficit, No syncope, No tingling, No tremor(s), No weakness and No other Exam Const General: cooperative Orientation: alert and oriented x3 [facility] Head: normal to inspection Neck Neck: normal visual inspection and full ROM Chest Chest palpation & inspection: normal inspection of the chest Resp Effort & Inspection: normal respiratory effort Auscultation: clear to auscultation bilaterally Cardio Rate: regular rate Rhythm: regular rhythm GI Inspection: non-distended Palpation: soft and nontender Skin General: no rashes or lesions noted Neuro General: patient alert and patient oriented x3 Extrem General: full ROM Psych Appearance: grossly normal Mental Status: mental status grossly normal Assessment and Plan Assessment and Plan (1) Positive colorectal cancer screening using Cologuard test: ?Status:?Acute (2) Epigastric pain: ?Status:?Acute ? ? ? Orders: Orders Colonoscopy Today ? ? EGD Today ? ? Plan The patient has a positive Cologuard test and I recommended a colonoscopy.? The patient does have upper GI symptoms.? She does have occasional epigastric pain she has had an ulcer in the past.? I recommend EGD at the same time to rule thisout. I explained endoscopy in detail to the patient.? I explained the risks includingbut not limited to stroke or heart attack with anesthesia, perforation of the GItract, bleeding, infection.? I explained that any of these could necessitate further emergency surgery.? The patient understands and all questions were answered sufficiently.? The patient wishes to proceed with procedure. Harshad Perez MD Pager: [facility] [address] [place] [address], [address] [place] [address] Office: I have examined the patient and the H&P has been reviewed. There are no clinicalchanges since date of exam. 09/29/22952 <Electronically signed by Harshad Perez MD> Cosigner Signature (if applicable): CC: Dr. Harshad Perez MD; Dr. Paulina Hair MD~ Signed [facility] Work Phone: Hospital Discharge instructions Additional Instructions Please take your medication as directed to help control your shortness of breath/bronchospasm and if you have worsening of symptoms or any further concerns please return for repeat [facility] Work Phone: Progress note Author Dr. Saini [facility] October 28, 2022 9:13am Note Date/Time October 28, 2022 9:13am [facility] Medical Records Department [address] [place] [id number] Progress Note - Surgery 10/28/2210 MR#: [id number] Acct: [id number] Name: JESIKA WHIPPLE Rep #:[id number] : 1960 62 From: Robin March PCP: Dr. Paulina Hair MD Status:AD M IN Location: IN3 [id number] Subjective Subjective Patient seen and examined during AM rounds. She reports that she still has someabdominal tenderness, but rates this at a 3-4 out of 10 and reports this is improved over yesterday. She states that she is tolerating a soft diet without any nausea or vomiting. She denies any bowel movements today but continues to pass flatus. She did have loose bowel movement yesterday that was nonbloody. Objective Data Objective Data Vital Signs: Vital Signs Temp Pulse Resp BP Pulse Ox O2 Del Method O2 Flow Rate 99.1 F 84 16 127/79 H 93 Room Air 4 10/28/22 05:25 10/28/22 05:25 10/28/22 05:25 10/28/22 05:25 10/28/22 07:01 10/28/22 07:01 10/26/22 10:49 FiO2 39 10/26/22 09:45 Oxygen Flow Rate (L/min) 4 Oxygen Delivery Method Room Air Weight: 118 lb 0.003 oz Body Mass Index (BMI) 19.6 Intake & Output: Intake and Output for Last 24 Hours 10/26/22 10/27/22 10/28/22 23:59 23:59 23:59 Intake Total 2482 / 2482 2116.67 / 2116.67 200 / 200 Output Total 200 / 200 825 / 825 Balance 2282 / 2282 1291.67 / 1291.67 200 / 200 Lab / Micro Data Result Diagrams: 10/28/22 06:20 10/28/22 06:20 Labs: Laboratory Results - last 24 hr 10/28/22 06:20: WBC 9.2, RBC 4.19 L, Hgb 13.2, Hct 38.9, MCV 92.8, MCH 31.5, MCHC 33.9, RDW Std Deviation 42.7, RDW Coeff of Braeden 12.4, Plt Count 235, MPV 10.2, Immature Gran % (Auto) 0.400, Neut % (Auto) 70.7 H, Lymph % (Auto) 22.1, [place] % (Auto) 5.8, Eos % (Auto) 0.7, Baso % (Auto) 0.3, Absolute Neuts (auto) 6.5, Absolute Lymphs (auto) 2.04, Nucleated RBC % 0 10/28/22 06:20: Sodium 137, Potassium 4.1, Chloride 103, Carbon Dioxide 32.0, Anion Gap 2 L, BUN 10, Creatinine 0.83, Estim Creat Clear Calc 59.38, Est GFR (MDRD) Af Amer 90, Est GFR (MDRD) Non-Af 74, BUN/Creatinine Ratio 12.1, Glucose 103, Calcium 9.1 Physical Exam Const oriented x3 and no apparent distress Resp normal respiratory effort GI GI Narrative: Nondistended, soft, operative dressings are initially in place, but removed and beneath these dressings patient's operative wounds are well-appearing with Steri-Strips still intact. There is no drainage or erythema about the wounds. Patient has appropriate tenderness to palpation just about her port sites and extraction site Assessment & Plan Assessment/Plan (1) Adenomatous colon polyp: PLAN: Continues to do well after laparoscopic right hemicolectomy. Tolerating regular diet with ongoing bowel function. Pain control improved today. Postoperative expectations discussed?including outpatient follow-up and wound care. Patient expresses comfort with discharge plan and states that she will have her daughter available for any immediate needs. Discharge order has been placed. Charges/Coding Visit Charges Inpatient E&M: 05409 Subs Hosp L2 10/28/22 0913 <Electronically signed by Robin Saini MD> Cosigner Signature (if applicable): CC: ~ Signed [facility] Work Phone: Reason for referral (narrative)No reason for referral information availableWUniversity [facility] Work Phone: Family History No Family History Records Found Relationship Condition Age at Onset Recorded Date/T michelle mother Asthma Unknown Cardiac disease Unknown Cerebrovascular accident (CVA) Unknown High blood cholesterol Unknown Advance Directives No Advanced Directives Records Found Advance Directive Response Recorded Date/ Time Living Will No June 30 12:30am Power of Living Skills Advisor No June 30, 2021 12:30am Advance Directive Response Recorded Date/ Time Living Will No July 14 022 1:17am Power of Living Skills Advisor No July 14, 2022 1:17am Advance Directive Response Recorded Date/ Time Living Will No September 28 11:15am Power of Living Skills Advisor No September 28, 2022 11:15am Advance Directive Response Recorded Date/ Time Living Will No October 14 023 3:50am Power of Living Skills Advisor No October 14, 2022 3:50am Advance Directive Response Recorded Date/ Time Living Will No October 26 2 023 11:44am Power of Living Skills Advisor No October 26, 2022 11:44am Advance Directive Response Recorded Date/ Time Living Will No December 01, 2022 6:23pm Power of Living Skills Advisor No December 01 6:23pm Advance Directive Response Recorded Date/ Time Living Will No December 01, 2022 5:23pm Power of Living Skills Advisor No December 01 5:23pm Advance Directive Response Recorded Date/ Time Living Will No November 03, 2024 12:10pm Do you have a Healthcare Power of Living Skills Advisor? No November 03, 2024 12:10pm Chief Complaint and Reason for Visit Chief Complaint sob Chief Complaint sob EORDER Chief Complaint sob EORDER POSITIVE COLOGUARD SCREENING POST DERICK Reason for Visit Epigastric pain Positive colorectal cancer screening using Cologuard test Chief Complaint sob EORDER POSITIVE COLOGUARD SCREENING POST DERICK 1WK F/U Discuss R Hemicolectomy Surgery SOB Reason for Visit Epigastric pain Positive colorectal cancer screening using Cologuard test Adenomatous colon polyp Chief Complaint sob EORDER POSITIVE COLOGUARD SCREENING POST DERICK 1WK F/U Discuss R Hemicolectomy Surgery SOB RT STERLING COLECTOMY RT STERLING COLECTOMY RT STERLING COLECTOMY RT STERLING COLECTOMY Reason for Visit Epigastric pain Positive colorectal cancer screening using Cologuard test Adenomatous colon polyp Adenomatous colon polyp Chief Complaint POSITIVE COLOGUARD SCREENING POST DERICK 1WK F/U Discuss R Hemicolectomy Surgery SOB RT STERLING COLECTOMY RT STERLING COLECTOMY RT STERLING COLECTOMY RT STERLING COLECTOMY R STERLING COLECTOMY 10/28 sob Reason for Visit Epigastric pain Positive colorectal cancer screening using Cologuard test Adenomatous colon polyp Adenomatous colon polyp Adenomatous colon polyp Chief Complaint 3 M FU PREV BAGGOTT PT NICOTINE DEP Reason for Visit Airway obstruction, anatomic Nicotine dependence, cigarettes, in remission Chief Complaint 3 M FU PREV BAGGOTT PT NICOTINE DEP NICOTINE DEP NICOTINE DEP NICOTINE DEP Reason for Visit Airway obstruction, anatomic Nicotine dependence, cigarettes, in remission Chief Complaint 3 M FU Reason for Visit Nicotine dependence, cigarettes, in remission Seasonal allergies Chief Complaint 3 M FU SCREENING BACK PAIN Reason for Visit Nicotine dependence, cigarettes, in remission Seasonal allergies Cystitis Chief Complaint Admit Date ear pain, sore throat August 21 8:47am BITE November 03, 2024 10:4 0am INT LAB ORDERS November 22, 2024 8:4 0am Reason for Visit Admit Date Acute upper respiratory infection Decemb er 2023 8:47am Chief Complaint Admit Date BITE November 03, 2024 10:4 0am INT LAB ORDERS November 22, 2024 8:4 0am SCREENING January 09, 2025 2:33pm Summary Purpose Additional Source Comments Goals (unrecognized section and content) Goals may be documented in a n alternate sectionGoals may be documented in an alternate sectionGoals may be documented in an alternate sectionGoals may be documented in an alternate sectionGoals may be documented in an alternate sectionGoals may be documented in an alternate sectionGoals may be documented in an alternate sectionGoals may be documented in an alternate sectionGoals may be documented in an alternate sectionGoals may be documented in an alternate sectionGoals may be documented in an alternate sectionGoals may be documented in an alternate sectionGoals may be documented in an alternate section Care Teams (unrecognized sec tion and content) Team Status: Active Member Role Status Dates Dr. Paulina Hair MD Family Provider Active Dr. Paulina Hair MD Primary Care Provider Active Team Status: Inactive Member Role Status Dates Dr. Paulina Hair MD Primary Care Provider, Referr ing Provider Active Dr. Harshad Perez MD Attending Provider Active Team Status: Inactive Member Role Status Dates Dr. Paulina Hair MD Primary Care Provider Active Dr. Antony Otero MD Attending Provider, Emergency Pr ovider Active Team Status: Inactive Member Role Status Dates Dr. Paulina Hair MD Primary Care Pr ovider, Attending Provider, Referring Provider Active Team Status: Inactive Member Role Status Dates Dr. Paulina Hair MD Primary Care Provider, Attend ing Provider Active Team Status: Active Member Role Status Dates Dr. Paulina Hair MD Primary Care Provider, Referr ing Provider Active Dr. Harshad Perez MD Attending Provider, Other Provider Active Assembly Lead Person Relationship Specialty Start Date End Date Paulina Hair [address] [place] [address] PCP - General Family Medicine 05/19/19 Team Status: Inactive Member Role Status Dates Dr. Paulina Hair MD Primary Care Provider Active Dr. Harshad Perez MD Attending Provider, Referr ing Provider Active Team Status: Inactive Member Role Status Dates Dr. Paulina Hair MD Primary Care Provider Active Dr. Lambert Gardner DO Emergency Provider Active Team Status: Active Member Role Status Dates Dr. Paulina Hair MD Primary Care Provider Active Dr. Harshad Perez MD Admit Provid er, Attending Provider, Other Provider Active Team Status: Active Member Role Status Dates Dr. Paulina Hair MD Primary Care Provider Active Dr. Harshad Perez MD Admit Provider, Other Prov ider Active Dr. Robin Saini MD Attending Provider Active Team Status: Inactive Member Role Status Dates Dr. Paulina Hair MD Primary Care Provider Active Dr. Harshad Perez MD Admit Provider, Attending Provider Active Team Status: Inactive Member Role Status Dates Dr. Paulina Hair MD Primary Care Provider Active Dr. Lambert Gardner DO Attending Provider, Emergency Pr ovider Active Team Status: Active Member Role Status Dates Dr. Paulina Hair MD Primary Care Provider Active Dr. Harshad Perez MD Admit Provid er, Attending Provider, Referring Provider, Other Provider Active Team Status: Inactive Member Role Status Dates Dr. Paulina Hair MD Primary Care Provider Active Dr. Simba Carroll MD Emergency Provider Active Assembly Lead Person Relationship Specialty Start Date End Date Paulina Hair MD [address] [address] PCP - General Family Medicine 05/19/19 Team Status: Inactive Member Role Status Dates Dr. Paulina Hair MD Primary Care Provider, Referr ing Provider Active Dr. Franky Tellez DO Attending Provider Active Team Status: Inactive Member Role Status Dates Dr. Paulina Hair MD Primary Care Provider Active Dr. Franky Tellez DO Attending Provider, Referring Pro vider Active Team Status: Active Member Role Status Dates Dr. Paulina Hair MD Primary Care Provider Active Dr. Franky Tellez DO Referring Provider, Other Provide r Active Dr. Rishi Mo MD Attending Provider Active Team Status: Active Member Role Status Dates Dr. Paulina Hair MD Primary Care Provider Active Dr. Franky Tellez DO Attending Provider, Referring Provider, Other Provider Active Team Status: Inactive Member Role Status Dates Dr. Paulina Hair MD Primary Care Provider, Referr ing Provider Active Kat Arevalo METHOD CONSULTANT, METHOD CONSULTANT-C Attending Provider Active Team Status: Inactive Member Role Status Dates Dr. Paulina Hair MD Primary Care Provider, Referr ing Provider Active ROB Gleason Attending Provider Active Team Status: Active Member Role Status Dates Dr. Paulina Hair MD Primary Care Provider Active Alvin RIVAS PA Attending Provider Active Team Status: Inactive Member Role Status Dates Dr. Paulina Hair MD Primary Care Provider Active Alvin RIVAS PA Attending Provider Active Team Status: Active Member Role Status Dates Dr. Paulina Hair MD Primary Care Provider Active Team Status: Inactive Member Role Status Dates Dr. Paulina Hair MD Primary Care Provider Active Start: August 21, 2024 End: August 21, 2024 Dr. Paulina Hair MD Referring Provider Active Start: August 21, 2024 End: August 21, 2024 ROB Gleason Attending Provider Active Sta rt: August 21, 2024 End: August 21, 2024 Team Status: Inactive Member Role Status Dates Dr. Paulina Hair MD Primary Care Provider Active Start: November 03, 2024 End: November 03, 2024 Dr. Nadir Pham DO Attending Provider Active Start: November 03, 2024 End: November 03, 2024 Dr. Nadir Pham DO Emergency Provider Active Start: November 03, 2024 End: November 03, 2024 Team Status: Inactive Member Role Status Dates Dr. Paulina Hair MD Primary Care Provider Active Start: November 22, 2024 End: November 22, 2024 Dr. Paulina Hair MD Attending Provider Active Start: November 22, 2024 End: November 22, 2024 Dr. Paulina Hair MD Referring Provider Active Start: November 22, 2024 End: November 22, 2024 Team Status: Inactive Member Role Status Dates Dr. Paulina Hair MD Primary Care Provider Active Start: December 31, 2024 End: December 31, 2024 Ajit Melendez METHOD CONSULTANT, METHOD CONSULTANT-C Attending Provider Active Start: December 31, 2024 End: December 31, 2024 Ajit Melendez METHOD CONSULTANT, METHOD CONSULTANT-C Referring Provider Active Start: December 31, 2024 End: December 31, 2024 Team Status: Inactive Member Role Status Dates Dr. Paulina Hair MD Primary Care Provider Active Start: January 09, 2025 End: January 09, 2025 Dr. Paulina Hair MD Attending Provider Active Start: January 09, 2025 End: January 09, 2025 Dr. Paulina Hair MD Referring Provider Active Start: January 09, 2025 End: January 09, 2025 Team Status: Active Member Role/Relationship Status Dates Dr. Paulina Hair MD Primary care physician Active Team Status: Inactive Member Role/Relationship Status Dates Dr. Paulina Hair MD Primary care physician Active Start: May 27, 2025 End: May 27, 2025 Dr. Paulina Hair MD Attending physician Active Start: May 27, 2025 End: May 27, 2025 Source Comments (unrecognize d section and content) In the event this informatio n is protected by the Federal Confidentiality of Alcohol and Drug Abuse Patient Records regulations: The Federal rules restrict any use of the information to criminally investigate or prosecute any alcohol or drug abuse patient.[facility] the event this information is protected by the Federal Confidentiality of Alcohol and Drug Abuse Patient Records regulations: The Federal rules restrict any use of the information to criminally investigate or prosecute any alcohol or drug abuse patient.[facility] INFORMATION SOURCE (unrecogn ized section and content) DATE CREATED AUTHOR 10/11/2022 [facility] DATE CREATED AUTHOR 'S ANASTACIO GARCIA 06/07/2025 [facility] FOR RECORDS PERTAINING TO PATIENTS WHO ARE OR HAVE BEEN ENROLLED IN A CHEMICAL DEPENDENCY/SUBSTANCEABUSE PROGRAM, SOME INFORMATION MAY BE OMITTED. This clinical summary was aggregated from multiple sources. Caution should be exercised in using it in the provision of clinical care. This summary normalizes information from multiple sources, and as a consequence, information in this document may materially change the coding, format and clinical context of patient data. In addition, data may be omitted in some cases. CLINICAL DECISIONS SHOULD BE BASED ON THE PRIMARY CLINICAL RECORDS. [facility] [employer] [facility]. provides no warranty or guarantee of the accuracy or completeness of information in this document.
== END | disposition home or self-care (01) ==
PROVIDERS: PCP Family Medicine; Referring Provider Family Medicine; Visit Provider Family Medicine
DX: L91.8 Other hypertrophic disorders of the skin (principal)
CPT/HCPCS: 88304; 88305